=== PATIENT | female | born 1965 ===

== ENCOUNTER 2024-01-13 11:27 | Inpatient (IN) | payer MEDICARE, OTHER ==
[2024-01-13] MEDS ORDERED: fentaNYL (PF) 50 MCG/ML 2 ML AMP ONE (11:31)
[2024-01-13] MEDS ORDERED: HEPARIN SODIUM 1,000 UN/ML (10ML VL) ONE (11:31)
[2024-01-13] MEDS: fentaNYL (PF) 50 MCG/1 ML VIAL IVP ONE (12:06)
[2024-01-13] MEDS: LIDOCAINE 1% INJ 10MG/ML (20 ML MDV) SQ ONE (12:06)
[2024-01-13] MEDS: HEPARIN SODIUM 1,000 UN/ML (10ML VL) IVP ONE (12:08)
[2024-01-13] MEDS: MIDAZOLAM 2 MG/2 ML VIAL IVP ONE (12:10)
[2024-01-13] MEDS: IOPAMIDOL-370 200ML BTL INTRATHECA ONE (12:21)
[2024-01-13] MEDS ORDERED: RX INFO: IV CONTRAST WAS GIVEN 1 EACH MISC MISCELLANE PRN (12:28)
--- NOTE | 2024-01-13 12:36 | P.CARDCATH ---
Date of Procedure: 01/13/24 Description of Procedure: Cardiac Catheterization: The patient is a 58-year-old female with no cardiac history who presented to [facility] with chest discomfort and had evidence of ST segment elevation inferiorly. She was evaluated by Dr. De Leon. Recommendations were made regarding cardiac catheterization, the risks and the complications were discussed with the patient who is in full understanding and agreement. Procedure Description: Patient was brought to public works lab[facility] in fasting semi-sedated state after receiving Fentanyl and Benadryl achieiving moderate conscious sedated state. Using Xylocaine Anesthesia and modified Seldinger technique, a 6-American sheath was introduced in the right radial artery . Subsequently, selective coronary angiography was performed using a 6-American 4 bend right Wyatt guiding catheter and 6 American CLS 3.5 guiding catheter. Multiple views of the coronary artery including hemiaxial views were obtained. The 5 American pigtail catheter was used to cross the aortic valve and LVEDP was calculated. 30 degree DOZIER view of the left ventricle was obtained. Following that, catheter and sheath were removed. Hemostasis was obtained with deployment of vascular band . There was no immediate complication. Patient was returned to room in stable condition. Of note, the patient received a total of 3000 units of intravenous heparin as well as intra-arterial verapamil. Findings: Left main: This is a large size vessel, bifurcating into LAD and left circumfle x, left main has no obstructive disease LAD: This is a large size vessel, giving rise to a large diagonal branch. The LAD tapers down in the distal third. The LAD and its branches have no obstructive disease. Left circumflex: This is a large vessel, nondominant, giving rise to a large obtuse marginal branch. The left circumflex and its branches have no obstructive disease. RCA: This is a large dominant vessel, bifurcating distally to PDA and PLV, the right coronary artery and its branches have no obstructive disease Left Ventriculogram: Performed in the DOZIER view and revealed anteroapical severe hypokinesis to akinesis with an ejection fraction of 40 to 45%, there was no significant mitral regurgitation. Hemodynamics: There was no gradient across the aortic valve, LVEDP was 16-20 mmHg Conclusion: 1. Normal coronary arteries 2. Impaired left ventricle systolic function with segmental wall motion abnormality consistent with Takotsubo syndrome 3. Right dominance 4. Mildly elevated LVEDP Recommendations: The patient will continue on medical therapy, she has been under increased amount of stress recently. Close follow-up of her left ventricle systolic function will be done and depending on her progress further recommendations will be made. The findings and the recommendations were discussed with the patient and the family and they were in full understanding and agreement. Duration of sedation is 18 minutes.
[2024-01-13] MEDS: HEPARIN SODIUM,PORCINE (1 ML) 2,500 UNIT in SODIUM CHLORIDE 0.9% 250 ML IRRIGATION ONE (13:04)
[2024-01-13] MEDS: SODIUM CHLORIDE 0.9% 1,000 ML IV ONE (13:04)
[2024-01-13] MEDS: SODIUM CHLORIDE 0.9% 1,000 ML IV SCH (13:49)
[2024-01-13] MEDS: METOPROLOL TARTRATE 25 MG TAB PO SCH (13:49)
[2024-01-13 15:10] VITALS: RESP 16
--- NOTE | 2024-01-13 18:01 | CA ---
Transthoracic Echo Report Name: Loreta Sanchez Age: 58 Gender: F : 1965 Exam Date: 01/13/2024 15:24 Exam Location: [facility] Ht (in): 64 Wt (lb): 155 Ordering Physician: Nishant Henry MD ([id number]) Attending/Referring Phys: Environmental Geologist Justina Buckner RDCS Procedure CPT: Indications: OK Cardiac Hx: Technical Quality: Contrast 1: Total Dose (mL): Contrast 2: Total Dose (mL): MEASUREMENTS (Male / Female) Normal Values 2D ECHO LV Diastolic Diameter PLAX 4.1 cm 4.2 - 5.9 / 3.9 - 5.3 cm LV Systolic Diameter PLAX 2.9 cm IVS Diastolic Thickness 0.8 cm 0.6 - 1.0 / 0.6 - 0.9 cm LVPW Diastolic Thickness 1.1 cm 0.6 - 1.0 / 0.6 - 0.9 cm LV Relative Wall Thickness 0.5 LV Diastolic Volume MOD BP 130.1 cm??? 67 - 155 / 56 - 104 cm??? LV Systolic Volume MOD BP 75.1 cm??? 22 - 58 / 19 - 49 cm??? LV Ejection Fraction MOD BP 42.3 % >= 55 % LV Diastolic Volume MOD 4C 140.7 cm??? LV Systolic Volume MOD 4C 86.6 cm??? LV Ejection Fraction MOD 4C 38.4 % LV Diastolic Length 4C 7.7 cm LV Systolic Length 4C 6.7 cm LV Diastolic Volume MOD 2C 118.4 cm??? LV Systolic Volume MOD 2C 64.1 cm??? LV Ejection Fraction MOD 2C 45.8 % LV Diastolic Length 2C 7.8 cm LV Systolic Length 2C 6.4 cm LA Volume 64.8 cm??? 18 - 58 / 22 - 52 cm??? LA Volume Index 36.0 cm???/m??? 16 - 28 cm???/m??? M-MODE Aortic Root Diameter MM 3.1 cm LA Systolic Diameter MM 4.2 cm LA Ao Ratio MM 1.4 AV Cusp Separation MM 1.4 cm DOPPLER AV Peak Velocity 149.7 cm/s AV Peak Gradient 9.0 mmHg AV Mean Velocity 106.5 cm/s AV Mean Gradient 5.0 mmHg AV Velocity Time Integral 29.2 cm LVOT Peak Velocity 75.3 cm/s LVOT Peak Gradient 2.3 mmHg LVOT Velocity Time Integral 17.4 cm MV Area PHT 7.4 cm??? Mitral E Point Velocity 97.5 cm/s Mitral A Point Velocity 55.2 cm/s Mitral E to A Ratio 1.8 MV Deceleration Time 102.0 ms MV E' Velocity 7.6 cm/s Mitral E to MV E' Ratio 12.9 TR Peak Velocity 299.5 cm/s TR Peak Gradient 35.9 mmHg Right Ventricular Systolic Press 39.3 mmHg FINDINGS Left Ventricle Mildly increased posterior wall thickness. Moderately increased left ventricular diastolic volume. Severely increased left ventricular systolic volume. Moderately decreased left ventricular ejection fraction. Left ventricular ejection fraction is estimated at 30-35%.Indeterminate diastolic dysfunction. Right Ventricle Normal right ventricular size and function. Mild pulmonary hypertension. Right Atrium Normal right atrial size. Left Atrium Moderately increased left atrial volume. Mildly increased left atrial area. Mitral Valve Structurally normal mitral valve. Mild mitral regurgitation. Aortic Valve Trileaflet aortic valve. No aortic valve stenosis or regurgitation. Tricuspid Valve Structurally normal tricuspid valve. [id number] tricuspid regurgitation. Pulmonic Valve Structurally normal pulmonic valve. Pericardium No pericardial effusion. Aorta Normal size aortic root and proximal ascending aorta. CONCLUSIONS Left ventricular ejection fraction is estimated at 35%. Moderately dilated LV cavity. Mid to distal anteroseptal wall hypokinesia Mild mitral regurgitation. RVSP is elevated and estimated at 40 mmHg Previewed by: Dr Akira Blount (Electronically Signed) Final Date: 13 January 2024 18:00
[2024-01-14 05:47] LABS: Basophils % (A) 0 %; Eosinophils # (A) 0.1 k/uL (0-0.7); Eosinophils % (A) 1 %; HCT 31.7 % (34.0-46.0); Hypochromasia Slight; Lymphocytes # (A) 1.9 k/uL (1.0-4.8); Lymphocytes % (A) 16 %; MCH 28.1 pg (25.0-35.0); MCHC 31.5 g/dL (31.0-37.0); Mean Platelet Volume 8.8; Monocytes # (A) 0.9 k/uL (0-1.0); Monocytes % (A) 7 %; Neutrophils # (A) 9.1 k/uL (1.3-7.7); Neutrophils % (A) 75 %; Platelet Count 263 k/uL (150-450); RBC 3.57 m/uL (3.80-5.40); RDW 14.1 % (11.5-15.5); WBC 12.2 k/uL (3.8-10.6)
[2024-01-14] MEDS: ATORVASTATIN 40 MG TAB PO SCH (08:13)
[2024-01-14] MEDS: ASPIRIN 81 MG PO SCH (08:13)
[2024-01-14] MEDS ORDERED: NALOXONE 0.4 MG/ML 1 ML VIAL IV PRN (09:45)
[2024-01-14] MEDS ORDERED: ONDANSETRON 4 MG/2 ML VIAL IVP PRN (09:45)
[2024-01-14] MEDS: ACETAMINOPHEN TAB 325 MG TAB PO PRN (09:52)
[2024-01-14] MEDS: SODIUM CHLORIDE 0.9% 1,000 ML IV SCH (09:55)
[2024-01-14 10:40] LABS: Basophils % (A) 0 %; Eosinophils % (A) 0 %; HCT 31.2 % (34.0-46.0); HGB 9.9 gm/dL (11.4-16.0); Lymphocytes # (A) 1.4 k/uL (1.0-4.8); Lymphocytes % (A) 10 %; MCH 27.9 pg (25.0-35.0); MCHC 31.7 g/dL (31.0-37.0); Mean Platelet Volume 7.9; Monocytes # (A) 0.9 k/uL (0-1.0); Monocytes % (A) 6 %; Neutrophils # (A) 11.6 k/uL (1.3-7.7); Neutrophils % (A) 82 %; Platelet Count 272 k/uL (150-450); RBC 3.55 m/uL (3.80-5.40); RDW 14.1 % (11.5-15.5)
[2024-01-14 10:57] LABS: ALT 16 U/L (4-34); AST 51 U/L (14-36); African American GFR (CKD) >90 (>60 ml/min/1.73 sqM); Albumin 3.4 g/dL (3.5-5.0); Alkaline Phosphatase 109 U/L (38-126); Anion Gap 9 mmol/L; Blood Urea Nitrogen 9 mg/dL (7-17); Calcium 8.4 mg/dL (8.4-10.2); Carbon Dioxide 21 mmol/L (22-30); Chloride 107 mmol/L (98-107); Glucose 108 mg/dL (74-99); Non-African American GFR(CKD) 88 (>60 ml/min/1.73 sqM); Potassium 3.7 mmol/L (3.5-5.1); Sodium 137 mmol/L (137-145); Total Bilirubin 0.8 mg/dL (0.2-1.3)
--- NOTE | 2024-01-14 11:13 | XR ---
EXAMINATION TYPE: XR chest 2V DATE OF EXAM: 01/14/2024 COMPARISON: None HISTORY: 58 year-old female fever TECHNIQUE: PA and lateral views FINDINGS: Heart borderline in size. Aorta within normal limits. Diffuse medial reticular opacities. No karen co nsolidation. Possible trace effusions on the lateral view. Questionable nodule projecting in the righ t upper lobe and lingula. IMPRESSION: 1. Borderline cardiomegaly. Diffuse medium interstitial opacities and possible trace effusions on the lateral view. Consider atypical pneumonias, interstitial pneumonitis, or CHF with interstitial pulmo nary edema. 2. Superimposition artifact versus underlying nodule right upper lobe and lingula. Follow-up after tr eatment to assess for clearance.
--- NOTE | 2024-01-14 12:34 | P.PN ---
Subjective Progress Note Date: 01/14/24 This is a 58-year-old female with no previous cardiac history and presented to [facility] with chest pain and had evidence of ST segment elevation inferiorly. She was evaluated initially by Dr. De Leon it was determined the patient required cardiac catheterization. Patient was transferred to [facility] and underwent cardiac catheterization with Dr. Henry yesterday which revealed normal coronary arteries. Impaired left ventricular systolic function with segmental wall motion abnormality consistent with Takotsubo syndrome. Right dominance. Mildly elevated LVEDP. Patient does state that she has been under a great deal of stress lately within her family and financial issues recent move and passing of her dog. She denies having any chest pain shortness of breath no cough or fever going on at this time. Patient does have a documented temperature of 102 this morning. Heart rate 115, blood pressure 123/78. Patient has been started on aspirin, atorvastatin, lisinopril and Lopressor 25 mg twice daily. Results of echocardiogram discussed with the patient. Echocardiogram reveals EF of 35%, moderately dilated LV cavity. Mild to distal anterior septal wall hypokinesia. Mild mitral digitation. RVSP 40 mmHg. Physical examination: Gen: This is a 58-year-old female in no acute distress VS: reviewed HEENT: Head is atraumatic, normocephalic. Pupils equal, round. Sclerae is anicteric. NECK: Supple. No JVD. LUNGS: Clear to auscultation. No wheezes or rhonchi. No intercostal retractions. HEART: Regular rate and rhythm. No murmur. ABDOMEN: Soft No tenderness. EXTREMITIES: No pedal edema. No calf tenderness. NEUROLOGICAL: Patient is awake, alert and oriented x3. Assessment: Takotsubo syndrome Normal coronary arteries Seasonal allergies Plan: Continue patient on aspirin 81 mg daily, atorvastatin 40 mg daily, lisinopril 2.5 mg twice daily, Lopressor 25 mg twice daily. Patient is cleared from cardiology for discharge, no plan for any further c ardiac workup. Noted the patient did have a temperature of 102 for attending to address. Nurse practitioner note has been reviewed, I agree with documented findings and plan of care. Patient was seen and examined. Objective - Vital Signs Vital signs: Vital Signs Temp 102 F H 01/14/24 08:10 Pulse 115 H 01/14/24 08:10 Resp 16 01/14/24 08:10 BP 123/78 01/14/24 08:10 Pulse Ox 92 L 01/14/24 08:10 FiO2 Intake & Output 01/13/24 01/14/24 01/14/24 18:59 06:59 18:59 Intake Total 890 535 Balance 890 535 Weight 70.45 kg Intake: IV 650 10 Invasive Line 2 10 Intake, IV Titration 525 Amount Sodium Chloride 0.9% 1, 525 000 ml @ 75 mls/hr IV . [id number] [facility] Rx#:[id number] Oral 240 Other: # Voids 1 2 - Labs CBC & Chem 7: 01/14/24 10:07 01/14/24 10:07 Labs: Abnormal Lab Results - Last 24 Hours (Table) 01/14/24 01/14/24 01/14/24 Range/Units 05:00 10:07 10:07 WBC 12.2 H 14.0 H (3.8-10.6) k/uL RBC 3.57 L 3.55 L (3.80-5.40) m/uL Hgb 10.0 L 9.9 L (11.4-16.0) gm/dL Hct 31.7 L 31.2 L (34.0-46.0) % Neutrophils # 9.1 H 11.6 H (1.3-7.7) k/uL Carbon Dioxide 21 L (22-30) mmol/L Glucose 108 H (74-99) mg/dL AST 51 H (14-36) U/L C-Reactive Protein 9.0 H (<1.0) mg/dL Total Protein 6.0 L (6.3-8.2) g/dL Albumin 3.4 L (3.5-5.0) g/dL
--- NOTE | 2024-01-14 12:45 | P.HPIM ---
History of Present Illness H&P Date: 01/14/24 History of present illness; patient is a 58-year-old lady with a transfer from [facility] for emergent cardiac cath. Patient initially presented to [facility] for chest pain. Cardiology reviewed the patient today and recommended emergent cardiac cath because of ST segment elevation inferior leads. Patient was transferred to [facility] and underwent emergent cardiac cath. Cardiac cath done showed Normal coronary arteries,Impaired left ventricle systolic function with segmental wall motion abnormality consistent with Takotsubo syndrome. Postcardiac cath patient was admitted to medicine service. Patient had been spiking fevers with Tmax of 102. Patient is complaining of chills. Denies any nausea or vomiting. There is no complaint of chest pain or shortness of breath. REVIEW OF SYSTEMS: CONSTITUTIONAL: As mentioned above HEENT: No recent visual problems or hearing problems. Denied any sore throat. CARDIOVASCULAR: No chest pain, orthopnea, PND, no palpitations, no syncope. PULMONARY: No shortness of breath, no cough, no hemoptysis. GASTROINTESTINAL: No diarrhea, no nausea, no vomiting, no abdominal pain. NEUROLOGICAL: No headaches, no weakness, no numbness. HEMATOLOGICAL: Denies any bleeding or petechiae. GENITOURINARY: Denies any burning micturition, frequency, or urgency. MUSCULOSKELETAL/RHEUMATOLOGICAL: Denies any joint pain, swelling, or any muscle pain. ENDOCRINE: Denies any polyuria or polydipsia. The rest of the 14-point review of systems is negative. PHYSICAL EXAMINATION: GENERAL: The patient is alert and oriented x3, not in any acute distress. Well developed, well nourished. HEENT: Pupils are round and equally reacting to light. EOMI. No scleral icterus. No conjunctival pallor. Normocephalic, atraumatic. No pharyngeal erythema. No thyromegaly. CARDIOVASCULAR: S1 and S2 present. No murmurs, rubs, or gallops. PULMONARY: Chest is clear to auscultation, no wheezing or crackles. ABDOMEN: Soft, nontender, nondistended, normoactive bowel sounds. No palpable organomegaly. MUSCULOSKELETAL: No joint swelling or deformity. EXTREMITIES: No cyanosis, clubbing, or pedal edema. NEUROLOGICAL: Gross neurological examination did not reveal any focal deficits. SKIN: No rashes. Assessment and plan Chest pain ST elevation MO Takotsubo syndrome Fever of unknown origin Monitor vital signs Monitor CBC Monitor CMP Continue telemetry monitoring S/p cardiac cath showing Normal coronary arteries,Impaired left ventricle systolic function with segmental wall motion abnormality consistent with Takotsubo syndrome 2D echo ordered Ordered blood cultures Ordered chest x-ray Ordered UA Continue antibiotics Follow-up on cardiology recommendation ID consulted Labs and medication were reviewed.. Continue same treatment. Continue with symptomatic treatment. Resume home medication. Monitor labs and vitals. DVT and GI prophylaxis. Further recommendations as per clinical course of the patient Dictation was produced using [employer] dictation software. please excuse any grammatical, word or spelling errors. Past Medical History History of Any Multi-Drug Resistant Organisms: None Reported Past Psychological History: No Psychological Hx Reported Smoking Status: Former smoker Past Alcohol Use History: Occasional Medications and Allergies Home Medications Medication Instructions Recorded Confirmed Type Loratadine [Claritin] 10 mg PO DAILY 01/13/24 01/13/24 History Magnesium Glycinate 500mg 500 mg PO HS 01/13/24 01/13/24 History Multivitamins, Thera [Multivitamin 1 tab PO DAILY 01/13/24 01/13/24 History (formulary)] Turmeric Root Extract [Turmeric] 500 mg PO DAILY 01/13/24 01/13/24 History Allergies Allergy/AdvReac Type Severity Reaction Status Date / Time No Known Allergies Allergy Verified 01/13/24 12:58 Physical Exam Vitals: Vital Signs Temp Pulse Pulse Resp BP Pulse Ox 01/14/24 08:10 102 F H 115 H 16 123/78 92 L 01/14/24 03:42 98.2 F 91 16 110/66 95 01/13/24 23:15 90 16 104/65 95 01/13/24 20:00 98.4 F 101 H 16 132/83 97 01/13/24 16:00 98.4 F 89 16 124/81 97 01/13/24 15:08 98.4 F 89 16 124/81 97 01/13/24 13:53 99.4 F 84 18 124/82 96 01/13/24 12:58 101 H 18 137/86 95 Intake and Output 01/13/24 01/14/24 01/14/24 22:59 06:59 14:59 Intake Total 10 525 Balance 10 525 Intake: IV 10 Invasive Line 2 10 Intake, IV Titration 525 Amount Sodium Chloride 0.9% 1, 525 000 ml @ 75 mls/hr IV . [id number] HE Rx#:[id number] Other: # Voids 1 2 Results CBC & Chem 7: 01/14/24 10:07 01/14/24 10:07 Labs: Abnormal Lab Results - Last 24 Hours (Table) 01/14/24 Range/Units 05:00 WBC 12.2 H (3.8-10.6) k/uL RBC 3.57 L (3.80-5.40) m/uL Hgb 10.0 L (11.4-16.0) gm/dL Hct 31.7 L (34.0-46.0) % Neutrophils # 9.1 H (1.3-7.7) k/uL Thrombosis Risk Factor Assmnt - Choose All That Apply Each Factor Represents 1 point: Age 41-60 years, Obesity (BMI >25) Thrombosis Risk Factor Assessment Total Risk Factor Score: 2 Thrombosis Risk Factor Assessment Level: Low Risk
[2024-01-14 13:11] LABS: Appearance,Urine Clear (Clear); Bilirubin,Urine Negative (Negative); Blood,Urine Negative (Negative); Color,Urine Colorless; Glucose,Urine (UA) Negative (Negative); Ketones,Urine Negative (Negative); Leukocyte Esterase,Urine Negative (Negative); Nitrite,Urine Negative (Negative); PH, Urine 6.5 (5.0-8.0); Protein,Urine Negative (Negative); Specific Gravity,Urine 1.001 (1.001-1.035); Urobilinogen,Urine <2.0 mg/dL (<2.0)
[2024-01-14 14:26] LABS: African American GFR (CKD) >90 (>60 ml/min/1.73 sqM); Anion Gap 6 mmol/L; Blood Urea Nitrogen 10 mg/dL (7-17); Calcium 8.3 mg/dL (8.4-10.2); Carbon Dioxide 24 mmol/L (22-30); Chloride 109 mmol/L (98-107); Glucose 108 mg/dL (74-99); Non-African American GFR(CKD) 90 (>60 ml/min/1.73 sqM); Sodium 139 mmol/L (137-145)
[2024-01-14] MEDS: AZITHROMYCIN 500 MG in SODIUM CHLORIDE 0.9% 250 ML IVPB SCH (16:46)
[2024-01-14 23:13] LABS: Erythrocyte Sedimentation Rate 43 mm/Hr (0-30)
[2024-01-15 08:34] LABS: ALT 16 U/L (4-34); AST 42 U/L (14-36); African American GFR (CKD) >90 (>60 ml/min/1.73 sqM); Albumin 2.8 g/dL (3.5-5.0); Alkaline Phosphatase 94 U/L (38-126); Anion Gap 7 mmol/L; Blood Urea Nitrogen 12 mg/dL (7-17); Calcium 7.8 mg/dL (8.4-10.2); Carbon Dioxide 22 mmol/L (22-30); Chloride 111 mmol/L (98-107); Glucose 86 mg/dL (74-99); Non-African American GFR(CKD) >90 (>60 ml/min/1.73 sqM); Potassium 3.6 mmol/L (3.5-5.1); Sodium 140 mmol/L (137-145); Total Bilirubin 0.5 mg/dL (0.2-1.3); Total Protein 5.3 g/dL (6.3-8.2)
[2024-01-15 08:41] LABS: Basophils % (A) 0 %; Eosinophils # (A) 0.1 k/uL (0-0.7); Eosinophils % (A) 1 %; HCT 27.3 % (34.0-46.0); HGB 8.5 gm/dL (11.4-16.0); Hypochromasia Slight; Lymphocytes # (A) 2.1 k/uL (1.0-4.8); Lymphocytes % (A) 20 %; MCH 27.8 pg (25.0-35.0); MCHC 31.1 g/dL (31.0-37.0); MCV 89.6 fL (80.0-100.0); Mean Platelet Volume 8.3; Monocytes # (A) 0.8 k/uL (0-1.0); Monocytes % (A) 8 %; Neutrophils # (A) 7.5 k/uL (1.3-7.7); Neutrophils % (A) 70 %; Platelet Count 234 k/uL (150-450); RBC 3.04 m/uL (3.80-5.40); RDW 14.2 % (11.5-15.5); WBC 10.7 k/uL (3.8-10.6)
--- NOTE | 2024-01-15 10:19 | P.CONS ---
History of Present Illness - Reason for Consult Consult date: 01/14/24 Fever of unknown origin Requesting physician: John Smith - Chief Complaint Chest pain x 1 day - History of Present Illness Patient is a 58-year-old female former smoker but no significant past medical history recently moved from [place] about 6 months ago presented to the [facility] with chest discomfort and evidence of ST segment elevation for the patient was transferred to [facility] the patient is status post cardiac cath did have evidence of normal coronary arteries but impaired left ventricular systolic function consistent with Takotsubo syndrome patient did not have any fever or any chills on presentation to the hospital however the patient did spike a fever of 102 F this morning prompting this consultation patient was not tachycardic hypotensive or hypoxic patient denies any rigors or chills with that episode of fever did mention she felt hot denies having any headache did have some postnasal drip from her [place] [facility]ies but no worsening symptoms patient also have a mild cough dry in nature no pleuritic chest pain and the patient initial chest pain has resolved denies having any nausea no vomiting no abdominal pain no diarrhea no urinary symptoms no joint swelling no open wound patient did have a white count of 14,000 with a left shift creatinine 0.74 troponin is 5.03 urine has been negative patient did have a chest x-ray shows borderline cardiomegaly diffuse medium interstitial opacities and possible trace effusion on the lateral view consider atypical pneumonia's interstitial pneumonitis or CHF with interstitial pulmonary edema Review of Systems Positive point and negatives has been mentioned in the HPI, complete review of systems was performed and all other systems are negative Past Medical History History of Any Multi-Drug Resistant Organisms: None Reported Past Psychological History: No Psychological Hx Reported Smoking Status: Former smoker Past Alcohol Use History: Occasional Medications and Allergies Home Medications Medication Instructions Recorded Confirmed Type Loratadine [Claritin] 10 mg PO DAILY 01/13/24 01/13/24 History Magnesium Glycinate 500mg 500 mg PO HS 01/13/24 01/13/24 History Multivitamins, Thera [Multivitamin 1 tab PO DAILY 01/13/24 01/13/24 History (formulary)] Turmeric Root Extract [Turmeric] 500 mg PO DAILY 01/13/24 01/13/24 History Allergies Allergy/AdvReac Type Severity Reaction Status Date / Time No Known Allergies Allergy Verified 01/13/24 12:58 Physical Exam Vitals: Vital Signs Temp Pulse Pulse Resp BP Pulse Ox 01/14/24 08:10 102 F H 115 H 16 123/78 92 L 01/14/24 03:42 98.2 F 91 16 110/66 95 01/13/24 23:15 90 16 104/65 95 01/13/24 20:00 98.4 F 101 H 16 132/83 97 01/13/24 16:00 98.4 F 89 16 124/81 97 01/13/24 15:08 98.4 F 89 16 124/81 97 01/13/24 13:53 99.4 F 84 18 124/82 96 01/13/24 12:58 101 H 18 137/86 95 Intake and Output 01/13/24 01/14/24 01/14/24 22:59 06:59 14:59 Intake Total 10 525 Balance 10 525 Intake: IV 10 Invasive Line 2 10 Intake, IV Titration 525 Amount Sodium Chloride 0.9% 1, 525 000 ml @ 75 mls/hr IV . [id number] [facility] Rx#:[id number] Other: # Voids 1 2 GENERAL DESCRIPTION: Middle-aged female lying in bed, no distress. No tachypnea or accessory muscle of respiration use. HEENT: Shows Pallor , no scleral icterus. Oral mucous membrane is dry. No pharyngeal erythema or thrush NECK: Trachea central, no thyromegaly. LUNGS: Unlabored breathing. Clear to auscultation anteriorly. No wheeze or crackle. HEART: S1, S2, regular rate and rhythm. No loud murmur ABDOMEN: Soft, no tenderness , guarding or rigidity, no organomegaly EXTREMITIES: No edema of feet. SKIN: No rash, no masses palpable. NEUROLOGICAL: The patient is awake, alert, oriented x3, mood and affect normal. Results CBC & Chem 7: 01/15/24 06:30 01/15/24 06:30 Labs: Abnormal Lab Results - Last 24 Hours (Table) 01/14/24 01/14/24 01/14/24 Range/Units 05:00 10:07 10:07 WBC 12.2 H 14.0 H (3.8-10.6) k/uL RBC 3.57 L 3.55 L (3.80-5.40) m/uL Hgb 10.0 L 9.9 L (11.4-16.0) gm/dL Hct 31.7 L 31.2 L (34.0-46.0) % Neutrophils # 9.1 H 11.6 H (1.3-7.7) k/uL Carbon Dioxide 21 L (22-30) mmol/L Glucose 108 H (74-99) mg/dL AST 51 H (14-36) U/L C-Reactive Protein 9.0 H (<1.0) mg/dL Total Protein 6.0 L (6.3-8.2) g/dL Albumin 3.4 L (3.5-5.0) g/dL Assessment and Plan (1) Fever Current Visit: Yes Status: Acute Code(s): R50.9 - FEVER, UNSPECIFIED SNOMED Code(s): 997230976 Plan: 1patient with an episode of fever and this patient to the hospital with chest pain s/p cardiac cath with normal coronaries did have evidence of Takotsubo syndrome,, fever has been seen in patient with Takotsubo syndrome and could be related to weight as patient currently do not have any obvious focus of inf ection however will complete the workup by ordering tests for possible infectious etiologies keeping in mind abnormal chest x-ray which could be related to Takotsubo syndrome would like to rule out atypical pneumonia 2-we will check influenza COVID and RSV PCR also check urine for Legionella antigen 3-check a CRP and a procalcitonin level 4-continue empiric Rocephin and Zithromax while waiting for further workup to be completed Will follow on a clinical condition and cultures to further adjust medication if needed Thank you for this consultation will follow this patient along with you Time with Patient: Greater than 30
[2024-01-15 10:36] LABS: Chol/HDL Ratio 4.54 Ratio; LDL Cholesterol,Calculated 98.3 mg/dL (0.0-131.0); VLDL Calculation 17.86 mg/dL (5.00-40.00)
--- NOTE | 2024-01-15 10:55 | P.PN ---
Subjective Progress Note Date: 01/15/24 This is a 58-year-old female with no previous cardiac history and presented to [facility] with chest pain and had evidence of ST segment elevation inferiorly. She was evaluated initially by Dr. De Leon it was determined the patient required cardiac catheterization. Patient was transferred to [facility] and underwent cardiac catheterization with Dr. Henry yesterday which revealed normal coronary arteries. Impaired left ventricular systolic function with segmental wall motion abnormality consistent with Takotsubo syndrome. Right dominance. Mildly elevated LVEDP. Patient does state that she has been under a great deal of stress lately within her family and financial issues recent move and passing of her dog. She denies having any chest pain shortness of breath no cough or fever going on at this time. Patient does have a documented temperature of 102 this morning. Heart rate 115, blood pressure 123/78. Patient has been started on aspirin, atorvastatin, lisinopril and Lopressor 25 mg twice daily. Results of echocardiogram discussed with the patient. Echocardiogram reveals EF of 35%, moderately dilated LV cavity. Mild to distal anterior septal wall hypokinesia. Mild mitral digitation. RVSP 40 mmHg. 01/14 Temperature max 99.7 in the past 24 hours. Heart rate 100, pulse ox 95% on room air, blood pressure 121/75. WBC 10.7, hemoglobin 8.5. Sodium 140, potassium 3.6, BUN 12 and creatinine 0.71. Chest x-ray reveals borderline cardiomegaly. Diffuse interstitial opacities possible trace effusions on lateral view. Consider atypical pneumonias, interstitial pneumonitis or CHF with interstitial pulmonary edema. Superimposition artifact versus underlying nodule right upper lobe and lingula. Patient has been started on azithromycin IV and Rocephin IV. Patient denies any chest pain/pressure. No cough. No bleeding and no black stools - ok to continue aspirin. Physical examination: Gen: This is a 58-year-old female in no acute distress VS: reviewed HEENT: Head is atraumatic, normocephalic. Pupils equal, round. Sclerae is anicteric. NECK: Supple. No JVD. LUNGS: Clear to auscultation. No wheezes or rhonchi. No intercostal retraction s. HEART: Regular rate and rhythm. No murmur. ABDOMEN: Soft No tenderness. EXTREMITIES: No pedal edema. No calf tenderness. NEUROLOGICAL: Patient is awake, alert and oriented x3. Assessment: Takotsubo syndrome Normal coronary arteries Seasonal allergies Pneumonia Plan: Continue patient on aspirin 81 mg daily, atorvastatin 40 mg daily, lisinopril 2.5 mg twice daily, Lopressor 25 mg twice daily. Patient is cleared from cardiology for discharge, no plan for any further cardiac workup. Nurse practitioner note has been reviewed, I agree with documented findings and plan of care. Patient was seen and examined. Objective - Vital Signs Vital signs: Vital Signs Temp 98.2 F 01/15/24 08:35 Pulse 100 01/15/24 08:35 Resp 16 01/15/24 08:35 BP 121/75 01/15/24 08:35 Pulse Ox 95 01/15/24 08:35 FiO2 Intake & Output 01/14/24 01/15/24 01/15/24 18:59 06:59 18:59 Intake Total 340 545 128 Balance 340 545 128 Intake: IV 20 10 Invasive Line 2 20 10 Intake, IV Titration 525 Amount Sodium Chloride 0.9% 1, 525 000 ml @ 75 mls/hr IV . [id number] PENDING SALE TO [facility] Rx#:[id number] Oral 340 118 Other: # Voids 2 - Labs CBC & Chem 7: 01/15/24 06:30 01/15/24 06:30 Labs: Abnormal Lab Results - Last 24 Hours (Table) 01/14/24 01/14/24 01/14/24 Range/Units 10:07 10:07 13:50 WBC 14.0 H (3.8-10.6) k/uL RBC 3.55 L (3.80-5.40) m/uL Hgb 9.9 L (11.4-16.0) gm/dL Hct 31.2 L (34.0-46.0) % Neutrophils # 11.6 H (1.3-7.7) k/uL ESR 43 H (0-30) mm/Hr Chloride 109 H (98-107) mmol/L Carbon Dioxide 21 L (22-30) mmol/L Glucose 108 H 108 H (74-99) mg/dL Calcium 8.3 L (8.4-10.2) mg/dL AST 51 H (14-36) U/L Troponin I (0.000-0.034) ng/mL C-Reactive Protein 9.0 H (<1.0) mg/dL Total Protein 6.0 L (6.3-8.2) g/dL Albumin 3.4 L (3.5-5.0) g/dL 01/14/24 01/15/24 01/15/24 Range/Units 13:50 06:30 06:30 WBC 10.7 H (3.8-10.6) k/uL RBC 3.04 L (3.80-5.40) m/uL Hgb 8.5 L (11.4-16.0) gm/dL Hct 27.3 L (34.0-46.0) % Neutrophils # (1.3-7.7) k/uL ESR (0-30) mm/Hr Chloride 111 H (98-107) mmol/L Carbon Dioxide (22-30) mmol/L Glucose (74-99) mg/dL Calcium 7.8 L (8.4-10.2) mg/dL AST 42 H (14-36) U/L Troponin I 5.030 H* (0.000-0.034) ng/mL C-Reactive Protein (<1.0) mg/dL Total Protein 5.3 L (6.3-8.2) g/dL Albumin 2.8 L (3.5-5.0) g/dL
--- NOTE | 2024-01-15 13:41 | P.PN ---
Subjective Progress Note Date: 01/15/24 patient is a 58-year-old lady with a transfer from [facility] for emergent cardiac cath. Patient initially presented to [facility] for chest pain. Cardiology reviewed the patient today and recommended emergent cardiac cath because of ST segment elevation inferior leads. Patient was transferred to [facility] and underwent emergent cardiac cath. Cardiac cath done showed Normal coronary arteries,Impaired left ventricle systolic function with segmental wall motion abnormality consistent with Takotsubo syndrome. Postcardiac cath patient was admitted to medicine service. Patient had been spiking fevers with Tmax of 102. Patient is complaining of chills. Denies any nausea or vomiting. There is no complaint of chest pain or shortness of breath. 01/14. Patient seen and examined. Patient had low-grade fevers overnight. REVIEW OF SYSTEMS: CONSTITUTIONAL: No fever, no malaise,. CARDIOVASCULAR: No chest pain, no palpitations, no syncope. PULMONARY: No shortness of breath, no cough, GASTROINTESTINAL: No diarrhea, no nausea, no vomiting, no abdominal pain. NEUROLOGICAL: No headaches, no weakness, PHYSICAL EXAMINATION: GENERAL: The patient is alert and oriented x3, not in any acute distress. Well developed, well nourished. HEENT: Pupils are round and equally reacting to light. EOMI. No scleral icterus. No conjunctival pallor. Normocephalic, atraumatic. No pharyngeal erythema. No thyromegaly. CARDIOVASCULAR: S1 and S2 present. No murmurs, rubs, or gallops. PULMONARY: Chest is clear to auscultation, no wheezing or crackles. ABDOMEN: Soft, nontender, nondistended, normoactive bowel sounds. No palpable organomegaly. MUSCULOSKELETAL: No joint swelling or deformity. EXTREMITIES: No cyanosis, clubbing, or pedal edema. NEUROLOGICAL: Gross neurological examination did not reveal any focal deficits. SKIN: No rashes. Assessment and plan Chest pain ST elevation [place] Takotsubo syndrome Bacterial pneumonia Monitor vital signs Monitor CBC Monitor CMP Continue telemetry monitoring S/p cardiac cath showing Normal coronary arteries,Impaired left ventricle systolic function with segmental wall motion abnormality consistent with Takotsubo syndrome Follow-up on blood cultures Continue IV Rocephin and azithromycin Continue aspirin, Lipitor, Lopressor Follow-up on cardiology recommendation ID consulted Labs and medication were reviewed.. Continue same treatment. Continue with symptomatic treatment. Resume home medication. Monitor labs and vitals. DVT and GI prophylaxis. Further recommendations as per clinical course of the [facility] Dictation was produced using [employer] dictation software. please excuse any grammatical, word or spelling errors. Objective - Vital Signs Vital signs: Vital Signs Temp 98.2 F 01/15/24 08:35 Pulse 100 01/15/24 08:35 Resp 16 01/15/24 08:35 BP 121/75 01/15/24 08:35 Pulse Ox 95 01/15/24 08:35 FiO2 Intake & Output 01/14/24 01/15/24 01/15/24 18:59 06:59 18:59 Intake Total 340 545 128 Balance 340 545 128 Intake: IV 20 10 Invasive Line 2 20 10 Intake, IV Titration 525 Amount Sodium Chloride 0.9% 1, 525 000 ml @ 75 mls/hr IV . [id number] HE Rx#:[id number] Oral 340 118 Other: # Voids 2 - Labs CBC & Chem 7: 01/15/24 06:30 01/15/24 06:30 Labs: Abnormal Lab Results - Last 24 Hours (Table) 01/14/24 01/14/24 01/14/24 Range/Units 10:07 10:07 13:50 WBC 14.0 H (3.8-10.6) k/uL RBC 3.55 L (3.80-5.40) m/uL Hgb 9.9 L (11.4-16.0) gm/dL Hct 31.2 L (34.0-46.0) % Neutrophils # 11.6 H (1.3-7.7) k/uL ESR 43 H (0-30) mm/Hr Chloride 109 H (98-107) mmol/L Carbon Dioxide 21 L (22-30) mmol/L Glucose 108 H 108 H (74-99) mg/dL Calcium 8.3 L (8.4-10.2) mg/dL AST 51 H (14-36) U/L Troponin I (0.000-0.034) ng/mL C-Reactive Protein 9.0 H (<1.0) mg/dL Total Protein 6.0 L (6.3-8.2) g/dL Albumin 3.4 L (3.5-5.0) g/dL 01/14/24 01/15/24 01/15/24 Range/Units 13:50 06:30 06:30 WBC 10.7 H (3.8-10.6) k/uL RBC 3.04 L (3.80-5.40) m/uL Hgb 8.5 L (11.4-16.0) gm/dL Hct 27.3 L (34.0-46.0) % Neutrophils # (1.3-7.7) k/uL ESR (0-30) mm/Hr Chloride 111 H (98-107) mmol/L Carbon Dioxide (22-30) mmol/L Glucose (74-99) mg/dL Calcium 7.8 L (8.4-10.2) mg/dL AST 42 H (14-36) U/L Troponin I 5.030 H* (0.000-0.034) ng/mL C-Reactive Protein (<1.0) mg/dL Total Protein 5.3 L (6.3-8.2) g/dL Albumin 2.8 L (3.5-5.0) g/dL
--- NOTE | 2024-01-15 15:57 | P.PN ---
Subjective Progress Note Date: 01/15/24 Principal diagnosis: Reason for follow-up is fever Patient is a 58-year-old female former smoker but no significant past medical history recently moved from [place] about 6 months ago presented to the [facility] with chest discomfort and evidence of ST segment elevation for the patient was transferred to [facility] the patient is status post cardiac cath did have evidence of normal coronary arteries but impaired left ventricular systolic function consistent with Takotsubo syndrome, patient spiked a fever prompting this consultation. On today's evaluation that is 01/15/2024, Patient did have a low-grade fever of 99.7 at 3 AM the patient is is afebrile since then, patient is currently on room air and denies having any shortness of breath, the patient denies any chest pain or cough, the patient denies any nausea vomiting did not have any abdominal pain and no diarrhea, patient mention feeling better. Patient white count is 10.7, creatinine 0.5 Pro-Steven 0.09 Objective - Vital Signs Vital signs: Vital Signs Temp 98.3 F 01/15/24 11:06 Pulse 87 01/15/24 13:59 Resp 16 01/15/24 11:06 BP 104/70 01/15/24 11:06 Pulse Ox 96 01/15/24 11:06 FiO2 Intake & Output 01/14/24 01/15/24 01/15/24 18:59 06:59 18:59 Intake Total 340 545 256 Balance 340 545 256 Intake: IV 20 20 Invasive Line 2 20 20 Intake, IV Titration 525 Amount Sodium Chloride 0.9% 1, 525 000 ml @ 75 mls/hr IV . [id number] HE Rx#:[id number] Oral 340 236 Other: # Voids 2 1 # Bowel Movements 1 - Exam GENERAL DESCRIPTION: Middle-aged female up in bed in no distress RESPIRATORY SYSTEM: Unlabored breathing , decreased breath sounds at bases HEART: S1 S2 regular rate and rhythm , ABDOMEN: Soft , no tenderness EXTREMITIES: No edema feet - Labs CBC & Chem 7: 01/15/24 06:30 01/15/24 06:30 Labs: Abnormal Lab Results - Last 24 Hours (Table) 01/14/24 01/14/24 01/15/24 Range/Units 10:07 13:50 06: WBC 10.7 H (3.8-10.6) k/uL RBC 3.04 L (3.80-5.40) m/uL Hgb 8.5 L (11.4-16.0) gm/dL Hct 27.3 L (34.0-46.0) % ESR 43 H (0-30) mm/Hr Chloride (98-107) mmol/L Calcium (8.4-10.2) mg/dL AST (14-36) U/L Total Protein (6.3-8.2) g/dL Albumin (3.5-5.0) g/dL HDL Cholesterol 32.80 L (40.00-60.00) mg/dL 01/15/24 Range/Units 06:30 WBC (3.8-10.6) k/uL RBC (3.80-5.40) m/uL Hgb (11.4-16.0) gm/dL Hct (34.0-46.0) % ESR (0-30) mm/Hr Chloride 111 H (98-107) mmol/L Calcium 7.8 L (8.4-10.2) mg/dL AST 42 H (14-36) U/L Total Protein 5.3 L (6.3-8.2) g/dL Albumin 2.8 L (3.5-5.0) g/dL HDL Cholesterol (40.00-60.00) mg/dL Assessment and Plan (1) Fever Current Visit: Yes Status: Acute Code(s): R50.9 - FEVER, UNSPECIFIED SNOMED Code(s): 596264952 Plan: 1patient with an episode of fever and this patient to the hospital with chest pain s/p cardiac cath with normal coronaries did have evidence of Takotsubo syndrome,, fever has been seen in patient with Takotsubo syndrome and could be related to weight as patient currently do not have any obvious focus of infection, patient did have a negative influenza RSV and COVID testing urine for Legionella negative and did have a normal procalcitonin 2-patient feels more like related to her Takotsubo syndrome on empiric Rocephin and follow-up on blood culture, questions were answered Thank you for this consultation will follow this patient along with you Time with Patient: Less than 30
[2024-01-16] MEDS: hydrOXYzine HCL 25 MG TAB PO PRN (00:31)
[2024-01-16] MEDS: MELATONIN 3 MG TABLET PO PRN (00:32)
[2024-01-16] MEDS: HYDROcodone/APAP 5-325MG 1 EACH TAB PO PRN (08:36)
[2024-01-16 08:48] VITALS: BP 119/60; PULSE 98; TEMP 99.1
--- NOTE | 2024-01-16 12:58 | P.PN ---
Subjective Progress Note Date: 01/16/24 This is a 58-year-old female with no previous cardiac history and presented to [facility] with chest pain and had evidence of ST segment elevation inferiorly. She was evaluated initially by Dr. De Leon it was determined the patient required cardiac catheterization. Patient was transferred to [facility] and underwent cardiac catheterization with Dr. Henry yesterday which revealed normal coronary arteries. Impaired left ventricular systolic function with segmental wall motion abnormality consistent with Takotsubo syndrome. Right dominance. Mildly elevated LVEDP. Patient does state that she has been under a great deal of stress lately within her family and financial issues recent move and passing of her dog. She denies having any chest pain shortness of breath no cough or fever going on at this time. Patient does have a documented temperature of 102 this morning. Heart rate 115, blood pressure 123/78. Patient has been started on aspirin, atorvastatin, lisinopril and Lopressor 25 mg twice daily. Results of echocardiogram discussed with the patient. Echocardiogram reveals EF of 35%, moderately dilated LV cavity. Mild to distal anterior septal wall hypokinesia. Mild mitral digitation. RVSP 40 mmHg. 01/14 Temperature max 99.7 in the past 24 hours. Heart rate 100, pulse ox 95% on room air, blood pressure 121/75. WBC 10.7, hemoglobin 8.5. Sodium 140, potassium 3.6, BUN 12 and creatinine 0.71. Chest x-ray reveals borderline cardiomegaly. Diffuse interstitial opacities possible trace effusions on lateral view. Consider atypical pneumonias, interstitial pneumonitis or CHF with interstitial pulmonary edema. Superimposition artifact versus underlying nodule right upper lobe and lingula. Patient has been started on azithromycin IV and Rocephin IV. Patient denies any chest pain/pressure. No cough. No bleeding and no black stools - ok to continue aspirin. 01/15 Patient denies any further episodes of fevers or high temperatures. She denies cough. She denies any recent viral infection. Blood pressure 119/60, heart rate 98, pulse ox 95% on room air. Physical examination: Gen: This is a 58-year-old female in no acute distress VS: reviewed HEENT: Head is atraumatic, normocephalic. Pupils equal, round. Sclerae is anicteric. NECK: Supple. No JVD. LUNGS: Clear to auscultation. No wheezes or rhonchi. No intercostal retractions. HEART: Regular rate and rhythm. No murmur. ABDOMEN: Soft No tenderness. EXTREMITIES: No pedal edema. No calf tenderness. NEUROLOGICAL: Patient is awake, alert and oriented x3. Assessment: Takotsubo syndrome Normal coronary arteries Seasonal allergies Pneumonia Plan: Continue patient on aspirin 81 mg daily, atorvastatin 40 mg daily, lisinopril 2.5 mg twice daily, Lopressor 25 mg twice daily. Patient is cleared from cardiology for discharge, no plan for any further cardiac workup. Nurse practitioner note has been reviewed, I agree with documented findings and plan of care. Patient was seen and examined. Objective - Vital Signs Vital signs: Vital Signs Temp 99.1 F 01/16/24 08:00 Pulse 98 01/16/24 08:00 Resp 16 01/16/24 08:00 BP 119/60 01/16/24 08:00 Pulse Ox 95 01/16/24 08:00 FiO2 Intake & Output 01/15/24 01/16/24 01/16/24 18:59 06:59 18:59 Intake Total 492 20 240 Balance 492 20 240 Intake: IV 20 20 Invasive Line 2 20 20 Oral 472 240 Other: # Voids 1 2 # Bowel Movements 1 - Labs CBC & Chem 7: 01/15/24 06:30 01/15/24 06:30
--- NOTE | 2024-01-16 13:04 | P.DS ---
Providers Date of admission: 01/13/24 11:42 Expected date of discharge: 01/16/24 Attending physician: Ilya Toth MD Consults: 01/13/24 12:45 Consult Physician Routine Consulting Provider: Viet De Leon Consult Reason/Comments: post heart cath Do you want consulting provider notified?: Yes 01/14/24 09:44 Consult Physician Routine Consulting Provider: Sara Sanderson Consult Reason/Comments: Fever of unknown origin Do you want consulting provider notified?: Yes Primary care physician: Stated None Hospital Course: Discharge diagnoses; Chest pain ST elevation [place] Takotsubo syndrome Bacterial pneumonia Hospital course; patient is a 58-year-old lady with a transfer from [facility] for emergent cardiac cath. Patient initially presented to [facility] for chest pain. Cardiology reviewed the patient today and recommended emergent cardiac cath because of ST segment elevation inferior leads. Patient was transferred to [facility] and underwent emergent cardiac cath. Cardiac cath done showed Normal coronary arteries,Impaired left ventricle systolic function with segmental wall motion abnormality consistent with Takotsubo syndrome. Postcardiac cath patient was admitted to medicine service. Patient had been spiking fevers with Tmax of 102. Patient is complaining of chills. Denies any nausea or vomiting. There is no complaint of chest pain or shortness of breath. 01/14. Patient seen and examined. Patient had low-grade fevers overnight. 01/15. Patient seen and examined. Patient continues to be afebrile. Blood cul tures have been negative. Patient also on antibiotics for pneumonia, currently being discharged on oral Ceftin. Cardiology recommended keeping patient on aspirin 81 mg daily, atorvastatin 40 mg daily, lisinopril 2.5 mg twice daily, Lopressor 25 mg twice daily. PHYSICAL EXAMINATION: GENERAL: The patient is alert and oriented x3, not in any acute distress. Well developed, well nourished. HEENT: Pupils are round and equally reacting to light. EOMI. No scleral icterus. No conjunctival pallor. Normocephalic, atraumatic. No pharyngeal erythema. No thyromegaly. CARDIOVASCULAR: S1 and S2 present. No murmurs, rubs, or gallops. PULMONARY: Chest is clear to auscultation, no wheezing or crackles. ABDOMEN: Soft, nontender, nondistended, normoactive bowel sounds. No palpable organomegaly. MUSCULOSKELETAL: No joint swelling or deformity. EXTREMITIES: No cyanosis, clubbing, or pedal edema. NEUROLOGICAL: Gross neurological examination did not reveal any focal deficits. SKIN: No rashes. Dictation was produced using [email or web address] dictation software. please excuse any grammatical, word or spelling errors. Patient Condition at Discharge: Good Plan - Discharge Summary Discharge Rx Participant: No New Discharge Prescriptions: New Aspirin 81 mg PO DAILY #30 tab Atorvastatin [Lipitor] 40 mg PO DAILY 30 Days #30 tab Metoprolol Tartrate [Lopressor] 25 mg PO BID 30 Days #60 tab lisinopriL [Zestril] 2.5 mg PO BID 30 Days #60 tab cefUROXime axetiL [Cefuroxime] 500 mg PO BID 2 Days #4 tab Continue Multivitamins, Thera [Multivitamin (formulary)] 1 tab PO DAILY Loratadine [Claritin] 10 mg PO DAILY Turmeric Root Extract [Turmeric] 500 mg PO DAILY Magnesium Glycinate 500mg 500 mg PO HS Discharge Medication List Loratadine [Claritin] 10 mg PO DAILY 01/13/24 [History] Magnesium Glycinate 500mg 500 mg PO HS 01/13/24 [History] Multivitamins, Thera [Multivitamin (formulary)] 1 tab PO DAILY 01/13/24 [History] Turmeric Root Extract [Turmeric] 500 mg PO DAILY 01/13/24 [History] Aspirin 81 mg PO DAILY #30 tab 01/16/24 [Rx] Atorvastatin [Lipitor] 40 mg PO DAILY 30 Days #30 tab 01/16/24 [Rx] Metoprolol Tartrate [Lopressor] 25 mg PO BID 30 Days #60 tab 01/16/24 [Rx] cefUROXime axetiL [Cefuroxime] 500 mg PO BID 2 Days #4 tab 01/16/24 [Rx] lisinopriL [Zestril] 2.5 mg PO BID 30 Days #60 tab 01/16/24 [Rx] Follow up Appointment(s)/Referral(s): Viet De Leon MD [STAFF PHYSICIAN] - 1 Week Discharge Disposition: HOME SELF-CARE
--- NOTE | 2024-01-20 12:09 | P.PN ---
Subjective Progress Note Date: 01/16/24 Principal diagnosis: Reason for follow-up is fever Patient is a 58-year-old female former smoker but no significant past medical history recently moved from [place] about 6 months ago presented to the [facility] with chest discomfort and evidence of ST segment elevation for the patient was transferred to [facility] the patient is status post cardiac cath did have evidence of normal coronary arteries but impaired left ventricular systolic function consistent with Takotsubo syndrome, patient spiked a fever prompting this consultation. On today's evaluation that is 01/16/2024, Patient denies having any fever or chills patient is breathing comfortably and is on room air no need for supplemental oxygen, the patient denies any further chest pain, cough is mostly dry, no abdominal pain no nausea vomiting or diarrhea. No new lab has been repeated today blood culture has been negative Objective - Vital Signs Vital signs: Vital Signs Temp 99.1 F 01/16/24 08:00 Pulse 98 01/16/24 08:00 Resp 16 01/16/24 08:00 BP 119/60 01/16/24 08:00 Pulse Ox 95 01/16/24 08:00 FiO2 Intake & Output 01/15/24 01/16/24 01/16/24 18:59 06:59 18:59 Intake Total 492 20 240 Balance 492 20 240 Intake: IV 20 20 Invasive Line 2 20 20 Oral 472 240 Other: # Voids 1 2 # Bowel Movements 1 - Exam GENERAL DESCRIPTION: Middle-aged female up in bed in no distress RESPIRATORY SYSTEM: Unlabored breathing , decreased breath sounds at bases HEART: S1 S2 regular rate and rhythm , ABDOMEN: Soft , no tenderness EXTREMITIES: No edema feet - Labs CBC & Chem 7: 01/15/24 06:30 01/15/24 06:30 Assessment and Plan (1) Fever Status: Acute Code(s): R50.9 - FEVER, UNSPECIFIED SNOMED Code(s): 182201945 Plan: 1patient with an episode of fever and this patient to the hospital with chest pain s/p cardiac cath with normal coronaries did have evidence of Takotsubo syndrome,, fever has been seen in patient with Takotsubo syndrome and could be related to weight as patient currently do not have any obvious focus of infection, patient did have a negative influenza RSV and COVID testing urine for Legionella negative and did have a normal procalcitonin 2-patient feels more like related to her Takotsubo syndrome, pneumonia less likely overall resolution of the fever okay to DC on short course of oral Ceftin discussed with admitting physician Thank you for this consultation will follow this patient along with you Time with Patient: Less than 30
== END 2024-01-16 12:20 | disposition home or self-care (01) | DRG 286 ==
LOC: 3SCARD 11:42
PROVIDERS: ADMIT Internal Medicine; ATTEND Internal Medicine
PROC: B2111ZZ Fluoroscopy of Multiple Coronary Arteries using Low Osmolar Contrast (ICD-10-PCS; 2024-01-13)
PROC: B2151ZZ Fluoroscopy of Left Heart using Low Osmolar Contrast (ICD-10-PCS; 2024-01-13)
PROC: 4A023N7 Measurement of Cardiac Sampling and Pressure, Left Heart, Percutaneous Approach (ICD-10-PCS; principal; 2024-01-13 11:28)
DX: I51.81 Takotsubo syndrome (principal); J15.9 Unspecified bacterial pneumonia; J30.2 Other seasonal allergic rhinitis; I51.7 Cardiomegaly; Z20.822 Contact with and (suspected) exposure to COVID-19; I27.20 Pulmonary hypertension, unspecified; Z59.86 Financial insecurity; Z87.891 Personal history of nicotine dependence; Z79.82 Long term (current) use of aspirin; Z79.899 Other long term (current) drug therapy
CPT/HCPCS: 71046; 80048; 80053; 80061; 81003; 84145; 84484; 85025; 85652; 86140; 87040; 87449; 87502; 87634; 87635; 87636; 93306; 93458

== ENCOUNTER → 2024-04-10 | Outpatient (CLI) | payer OTHER ==
--- NOTE | 2024-04-15 12:57 | MM ---
Reason for Exam: Screening (asymptomatic). Last mammogram was performed 4 year(s) and 11 month(s) ago. Patient History: Menarche at age 13. First Full-Term at age 35. Late child-bearing (after 30). Postmenopausal. Excisional Biopsy on the Left side. Risk Values: Annie 5 year model risk: 2.1%. NCI Lifetime model risk: 11.0%. Prior Study Comparison: 02/03/2016 Bilateral Screening Mammogram, Unknown. 06/16/2017 Bilateral Screening Mammogram, Unknown. 04/17/2019 Bilateral Screening Mammogram, Unknown. Tissue Density: There are scattered areas of fibroglandular density. Findings: Analyzed By CAD. The pattern is symmetrical. No significant interval change. No suspicious groups of microcalcifications, spiculated or lobular masses, architectural distortion or other secondary signs of malignancy are mammographically apparent. Overall Assessment: Benign, BI-RAD 2 Management: Screening Mammogram of both breasts in 1 year. A negative mammogram report should not preclude additional follow up of suspicious palpable abnormalities. Patient should continue monthly self breast exam. A clinical breast exam by your physician is recommended on an annual basis and results should be correlated with mammographic findings. Note on Annie scores and lifetime risk: 1. A Annie score greater than 3% is considered moderate risk. If this is the case, consider specialist referral to assess eligibility for a risk reducing agent. 2. If overall lifetime risk for the development of breast cancer is 20% or higher, the patient may qualify for future screening with alternating mammogram and breast MRI. [facility], , 04/15/2024 12:54 PM. Electronically signed and approved by: Freddie Burgos D.O. Radiologis
== END | disposition home or self-care (01) ==
LOC: RADMAMWWP 13:55
PROVIDERS: ATTEND Family Medicine
DX: Z12.31 Encounter for screening mammogram for malignant neoplasm of breast
CPT/HCPCS: 77063; 77067

== ENCOUNTER → 2024-04-11 | Outpatient (CLI) | payer OTHER ==
--- NOTE | 2024-04-12 06:31 | MR ---
EXAMINATION TYPE: MR femur/thigh RT wo/w con DATE OF EXAM: 04/11/2024 5:52 PM CLINICAL INDICATION: Female, 58 years old with history of R22.41 MASS; PHH, anterior mass Right thigh , marker placed at top and bottom, pain due to dog pulling and falling to ground COMPARISON: None TECHNIQUE: Multiplanar, multisequence technique was utilized in order to study and pre-and post contr ast images were obtained. Patient was given, 6.5 cc Gadavist FINDINGS: Complex mass seen within the anterior thigh compartment of the right leg without the origin ating from the quadriceps possibly specifically the vastus intermedialis with displacement of the oth er quadriceps. No masses are enlarging and surgically in the femur greater than 270 degrees measuring 12.3 x 9.3 x 19.6 cm this immediately abuts the femur is no definitive involvement of the femur. No lymphadenopathy seen within the right inguinal region or within the visualized pelvis. There is heter ogenous postcontrast enhancement throughout this mass. 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 No osseous involvement definitively visualized or lymphadenopathy at this time. [facility], , 04/12/2024 6:29 AM
== END | disposition home or self-care (01) ==
LOC: RADMRIMAIN 16:23
PROVIDERS: ATTEND Family Medicine
DX: R22.41 Localized swelling, mass and lump, right lower limb

== ENCOUNTER 2024-05-25 11:08 | Observation (INO) | payer OTHER ==
[~2024-05-25 11:08] MED LIST: MIDAZOLAM 2 MG/2 ML VIAL IV PRN
[2024-05-25] MEDS: LACTATED RINGERS 1,000 ML IV SCH (11:49)
[2024-05-25] MEDS: ONDANSETRON 4 MG/2 ML VIAL IVP ONE (11:51)
[2024-05-25] MEDS: DEXAMETHASONE SOD PHOSPHATE 4 MG/ML 1 ML VIAL IV ONE (11:51)
[2024-05-25] MEDS: IV FLUID CONTINUATION 1,000 ML IV ONE (11:57)
[2024-05-25] MEDS ORDERED: LIDOCAINE 1% INJ 10MG/ML (20 ML MDV) ONE (12:43)
[2024-05-25] MEDS ORDERED: PHENYLEPHRINE-0.9% NACL SYG 1,000 MCG/10 ML SYRINGE ONE (12:43)
[2024-05-25] MEDS ORDERED: PROPOFOL 10 MG/ML 20 ML VIAL IV ONE (12:43)
[2024-05-25] MEDS ORDERED: PHENYLEPHRINE 10 MG/ML VIAL ONE (12:43)
[2024-05-25] MEDS ORDERED: MIDAZOLAM 2 MG/2 ML VIAL ONE (12:43)
[2024-05-25] MEDS ORDERED: fentaNYL (PF) 50 MCG/ML 2 ML AMP ONE (12:43)
[2024-05-25] MEDS: SODIUM CHLORIDE 0.9% 50 ML with ceFAZolin 2,000 MG IV ONE (13:05)
[2024-05-25] MEDS: LACTATED RINGERS 1,000 ML IV ONE ×2 (13:40→14:19)
[2024-05-25 14:29] LABS: African American GFR (CKD) >90 (>60 ml/min/1.73 sqM); Anion Gap 6 mmol/L; Blood Urea Nitrogen 18 mg/dL (7-17); Calcium 7.8 mg/dL (8.4-10.2); Carbon Dioxide 25 mmol/L (22-30); Chloride 102 mmol/L (98-107); Glucose 118 mg/dL (74-99); Non-African American GFR(CKD) 90 (>60 ml/min/1.73 sqM); Potassium 4.1 mmol/L (3.5-5.1); Sodium 133 mmol/L (137-145)
[2024-05-25 14:37] LABS: Basophils % (A) 0 %; Eosinophils % (A) 0 %; Hypochromasia Marked; Lymphocytes # (A) 1.1 k/uL (1.0-4.8); Lymphocytes % (A) 7 %; MCH 24.5 pg (25.0-35.0); MCHC 30.1 g/dL (31.0-37.0); MCV 81.5 fL (80.0-100.0); Mean Platelet Volume 8.3; Monocytes # (A) 1.3 k/uL (0-1.0); Monocytes % (A) 9 %; Neutrophils # (A) 12.8 k/uL (1.3-7.7); Neutrophils % (A) 83 %; RBC 2.02 m/uL (3.80-5.40); RDW 15.8 % (11.5-15.5); WBC 15.4 k/uL (3.8-10.6)
[2024-05-25 14:44] LABS: HCT 16.5 % (34.0-46.0)
[2024-05-25] MEDS ORDERED: HYDROmorphone 2 MG/ML 1 ML SYRINGE IVP PRN (14:47)
[2024-05-25] MEDS ORDERED: RX INFO: IV CONTRAST WAS GIVEN 1 EACH MISC MISCELLANE PRN (15:02)
[2024-05-25] MEDS ORDERED: ONDANSETRON 4 MG/2 ML VIAL IVP PRN (15:02)
[2024-05-25 15:17] LABS: Platelet Count 224 k/uL (150-450)
[2024-05-25 15:18] LABS: Rouleaux Present
[2024-05-25] MEDS: HYDROmorphone 0.5 MG/0.5 ML SYRINGE IVP PRN (15:28)
[2024-05-25] MEDS: METOPROLOL TARTRATE 5 MG/5 ML VIAL IVP STA (15:34)
[2024-05-25] MEDS: Pre Op ABX Message 1 EACH MISC MISCELLANE ONE (18:15)
[2024-05-25] MEDS: SCOPOLAMINE 1 MG/72 HR PATCH TRANSDERM ONE (18:16)
[2024-05-25] MEDS: SODIUM CHLORIDE 0.9% 1,000 ML IV SCH (18:31)
--- NOTE | 2024-05-25 21:14 | CT ---
EXAMINATION TYPE: CT angio lower extremity RT DATE OF EXAM: 05/25/2024 8:44 PM COMPARISON: MRI 04/11/2024 CLINICAL INDICATION: Female, 58 years old with history of right leg hematoma; pain. TECHNIQUE: Axial images were obtained of the CT angio lower extremity RT, Additional coronal and sagi ttal reformatted images and soft tissue and bone window were obtained for review. MIP reconstruction was created on a separate workstation. Contrast used:100ml mL of Isovue 370 with IV Contrast, (None if empty) Oral contrast used: (None if empty) CT DLP: 2166.8 mGycm, Automated exposure control for dose reduction was used. FINDINGS: Heterogenous appearance of the right anterior thigh compartment with drainage catheter in p lace. No evidence for osseous erosion. No evidence of fracture or dislocation. On delayed imaging and higher density calcifications remain present. No active extravasation definitively visualized. Evalu ation is limited due to lack of noncontrast phase provided with the arterial and venous phases. The appendix is normal. The urinary bladder is distended right intramuscular hematoma with drainage c atheter in place. IMPRESSION: Right anterior thigh compartment intramuscular mass with drainage catheter in place. Findings could r epresent chronic hematoma versus hemorrhagic mass versus other findings again seen dating back to 03/19. No evidence of active extravasation identified. [facility], , 05/25/2024 9:11 PM
[2024-05-25 21:46] LABS: Basophils % (A) 0 %; Eosinophils % (A) 0 %; HCT 21.5 % (34.0-46.0); Hypochromasia Marked; Lymphocytes # (A) 0.8 k/uL (1.0-4.8); Lymphocytes % (A) 6 %; MCH 27.9 pg (25.0-35.0); MCHC 32.6 g/dL (31.0-37.0); MCV 85.6 fL (80.0-100.0); Mean Platelet Volume 7.4; Monocytes # (A) 0.8 k/uL (0-1.0); Monocytes % (A) 6 %; Neutrophils # (A) 11.6 k/uL (1.3-7.7); Neutrophils % (A) 87 %; Platelet Count 308 k/uL (150-450); Poikilocytosis Moderate; RBC 2.51 m/uL (3.80-5.40); RDW 15.5 % (11.5-15.5); WBC 13.3 k/uL (3.8-10.6)
[2024-05-26] MEDS: HYDROcodone/APAP 5-325MG 1 EACH TAB PO PRN (08:05)
[2024-05-26 09:13] LABS: HCT 22.8 % (34.0-46.0); Hypochromasia Marked; MCH 26.9 pg (25.0-35.0); MCHC 30.8 g/dL (31.0-37.0); MCV 87.3 fL (80.0-100.0); Mean Platelet Volume 8.4; Platelet Count 326 k/uL (150-450); Poikilocytosis Marked; RBC 2.61 m/uL (3.80-5.40); RDW 15.8 % (11.5-15.5); WBC 13.1 k/uL (3.8-10.6)
--- NOTE | 2024-05-26 13:59 | P.OP ---
Date of Procedure: 05/26/24 Preoperative Diagnosis: right lower sternal hematoma Postoperative Diagnosis: right lower extremity hematoma Procedure(s) Performed: a lower extremity evacuation of hematoma with drain placement Anesthesia: YANIQUEA Surgeon: Ken Lopes Estimated Blood Loss (ml): 1,000 Pathology: other (Fibrinous tissue) Condition: stable Disposition: floor Indications for Procedure: patient is a 58-year-old female presenting to clinic with complaints of a fall 11 months ago presenting with right lower extremity swelling and difficulty with walking. Operative Findings: large hematoma and fibrinous exudate Description of Procedure: patient was brought to the operating room where she was cleaned and draped in sterile fashion a timeout was performed and everyone agreed with a the information recited. #15 blade was used to make a transverse incision across the medial aspect of the rectus femoris muscle.once through the dermis I use electrocautery to dissect down to the fascia of the muscle. A hemostat was then used to split the muscle and we carried our dissection down further to the femoral bone. A large amount of old blood was then evacuated. A combination of blunt dissection and suction and irrigation was used to evacuate the hematoma. There was a large amount of fibrinous exudate that was removed from the patient's leg and sent off for pathology. Attention intraoperative consult was performed to another general surgeon and orthopedic surgeon who agree with the surgery. A drain was placed in the fascia along with the muscle layers were closed using a combination of absorbable and nonabsorbable suture. The patient tolerated the procedure well and was then transported to PACU
--- NOTE | 2024-05-26 14:21 | P.GSHP ---
History of Present Illness H&P Date: 05/26/24 Chief Complaint: right lower extremity pain patient is a 58-year-old female presenting to my office secondary to right lower extremity pain and difficulty walking. Of note she had a fall walking her dogs 11 months ago and was found to have a hematoma. They waited for this to be reabsorbed however over time and has significantly increased in size. Thus prompting clinical visit. Patient underwent surgery and the patient went to [facility] prompting hospital admission. Past Medical History Past Medical History: Atrial Fibrillation, Hyperlipidemia Additional Past Medical History / Comment(s): injury to thigh from dog leash wrapped around it, hx. broken heart syndrome, takes meds for rapid heart rate, newer arrythmia-fib per pt, recent cardiac cath. History of Any Multi-Drug Resistant Organisms: None Reported Past Surgical History: Heart Catheterization Additional Past Anesthesia/Blood Transfusion Reaction / Comment(s): never really had anesthesia before, no family problems Past Psychological History: No Psychological Hx Reported Smoking Status: Former smoker Past Alcohol Use History: Occasional Additional Past Alcohol Use History / Comment(s): quit smoking 10-15 yrs. ago, never smoked daily, just "socially" Past Drug Use History: None Reported - Past Family History Mother Family Medical History: No Reported History Medications and Allergies Home Medications Medication Instructions Recorded Confirmed Type Loratadine [Claritin] 10 mg PO DAILY 01/13/24 05/25/24 History Multivitamins, Thera [Multivitamin 1 tab PO DAILY 01/13/24 05/25/24 History (formulary)] Turmeric Root Extract [Turmeric] 500 mg PO DAILY 01/13/24 05/25/24 History Atorvastatin [Lipitor] 40 mg PO HS 05/22/24 05/25/24 History Digoxin [Lanoxin] 125 mcg PO DAILY 05/22/24 05/25/24 History Escitalopram [Lexapro] 10 mg PO HS 05/22/24 05/25/24 History Ferrous Sulfate [Iron (65 MG 325 mg PO DAILY 05/22/24 05/25/24 History Elemental)] Metoprolol Succinate (ER) [Toprol 25 mg PO BID 05/22/24 05/25/24 History Xl] traMADol HCL 50 mg PO DIRECTED PRN 05/22/24 05/25/24 History Allergies Allergy/AdvReac Type Severity Reaction Status Date / Time No Known Allergies Allergy Verified 05/25/24 11:39 Surgical - Exam Osteopathic Statement: *. No significant issues noted on an osteopathic structural exam other than those noted in the History and Physical/Consult. Vital Signs Temp Pulse Resp BP Pulse Ox 97.7 F 104 H 18 133/58 100 05/25/24 11:29 05/25/24 11:29 05/25/24 11:29 05/25/24 11:29 05/25/24 11:29 - General neuro no acute distress alert and oriented 3 Cardiovascular regular rhythm Pulmonary nonlabored breathing Abdomen soft nontender non-stented no guarding rebound tenderness Right lotion E demonstrates palpable DP/PT pulse but is warm and perfused. Surgical site is clean dry and intact with according drain draining serous in his blood. Right thigh is wrapped with Saul wrap Results - Labs 05/26/24 08:25 05/25/24 13:50 Abnormal Lab Results - Last 24 Hours (Table) 05/25/24 05/25/24 05/25/24 Range/Units 13:50 13:50 13:50 WBC 15.4 H (3.8-10.6) k/uL RBC 2.02 L (3.80-5.40) m/uL Hgb 5.0 L* (11.4-16.0) gm/dL Hct 16.5 L* (34.0-46.0) % MCH 24.5 L (25.0-35.0) pg MCHC 30.1 L (31.0-37.0) g/dL RDW 15.8 H (11.5-15.5) % Neutrophils # 12.8 H (1.3-7.7) k/uL Lymphocytes # (1.0-4.8) k/uL Monocytes # 1.3 H (0-1.0) k/uL Sodium 133 L (137-145) mmol/L BUN 18 H (7-17) mg/dL Glucose 118 H (74-99) mg/dL Calcium 7.8 L (8.4-10.2) mg/dL Crossmatch See Detail 05/25/24 05/26/24 Range/Units 21:01 08:25 WBC 13.3 H 13.1 H (3.8-10.6) k/uL RBC 2.51 L 2.61 L (3.80-5.40) m/uL Hgb 7.0 L D 7.0 L (11.4-16.0) gm/dL Hct 21.5 L 22.8 L (34.0-46.0) % MCH (25.0-35.0) pg MCHC 30.8 L (31.0-37.0) g/dL RDW 15.8 H (11.5-15.5) % Neutrophils # 11.6 H (1.3-7.7) k/uL Lymphocytes # 0.8 L (1.0-4.8) k/uL Monocytes # (0-1.0) k/uL Sodium (137-145) mmol/L BUN (7-17) mg/dL Glucose (74-99) mg/dL Calcium (8.4-10.2) mg/dL Crossmatch Microbiology - Last 24 Hours (Table) 05/25/24 13:15 Gram Stain - Preliminary Thigh - Right Diabetes panel 05/25/24 Range/Units 13:50 Sodium 133 L (137-145) mmol/L Potassium 4.1 (3.5-5.1) mmol/L Chloride 102 (98-107) mmol/L Carbon Dioxide 25 (22-30) mmol/L BUN 18 H (7-17) mg/dL Creatinine 0.74 (0.52-1.04) mg/dL Glucose 118 H (74-99) mg/dL Calcium 7.8 L (8.4-10.2) mg/dL Calcium panel 05/25/24 Range/Units 13:50 Calcium 7.8 L (8.4-10.2) mg/dL Pituitary panel 05/25/24 Range/Units 13:50 Sodium 133 L (137-145) mmol/L Potassium 4.1 (3.5-5.1) mmol/L Chloride 102 (98-107) mmol/L Carbon Dioxide 25 (22-30) mmol/L BUN 18 H (7-17) mg/dL Creatinine 0.74 (0.52-1.04) mg/dL Glucose 118 H (74-99) mg/dL Calcium 7.8 L (8.4-10.2) mg/dL Adrenal panel 05/25/24 Range/Units 13:50 Sodium 133 L (137-145) mmol/L Potassium 4.1 (3.5-5.1) mmol/L Chloride 102 (98-107) mmol/L Carbon Dioxide 25 (22-30) mmol/L BUN 18 H (7-17) mg/dL Creatinine 0.74 (0.52-1.04) mg/dL Glucose 118 H (74-99) mg/dL Calcium 7.8 L (8.4-10.2) mg/dL Assessment and Plan Assessment: 58-year-old female status post right thigh hematoma evacuation Acute blood loss anemia, transfuse as necessary Consult cardiology secondary to A. fib Discussed with vascular surgery recommending Ortho oncology CTA reviewed demonstrating no active extravasation of lower extremity After cardiology clearance will likely discharge Time with Patient: Less than 30
[2024-05-26] MEDS: FERROUS SULFATE 325 MG TAB PO SCH (14:54)
[2024-05-26] MEDS: DIGOXIN 125 MCG TAB PO SCH (14:54)
[2024-05-26] MEDS: METOPROLOL SUCCINATE (ER) 25 MG TAB.ER.24H PO SCH (14:54)
[2024-05-26] MEDS: MULTIVITAMINS, THERA 1 EACH TAB PO SCH (17:26)
[2024-05-26] MEDS: LORATADINE 10 MG TAB PO SCH (17:26)
[2024-05-26 18:59] LABS: Basophils % (A) 0 %; Eosinophils % (A) 0 %; HCT 27.3 % (34.0-46.0); Hypochromasia Marked; Lymphocytes # (A) 1.8 k/uL (1.0-4.8); Lymphocytes % (A) 10 %; MCH 28.6 pg (25.0-35.0); MCHC 32.2 g/dL (31.0-37.0); Mean Platelet Volume 7.7; Monocytes # (A) 0.9 k/uL (0-1.0); Monocytes % (A) 5 %; Neutrophils # (A) 16.1 k/uL (1.3-7.7); Neutrophils % (A) 85 %; Platelet Count 379 k/uL (150-450); Poikilocytosis Moderate; RBC 3.07 m/uL (3.80-5.40); RDW 15.7 % (11.5-15.5)
[2024-05-26 19:10] LABS: HGB 8.8 gm/dL (11.4-16.0)
[2024-05-26] MEDS: ATORVASTATIN 40 MG TAB PO SCH (20:15)
[2024-05-26] MEDS: ESCITALOPRAM 10 MG TAB PO SCH (20:15)
[2024-05-26] MEDS: HYDROmorphone 1 MG/ML 1 ML SYRINGE IVP PRN (20:20)
[2024-05-27 04:07] LABS: Basophils % (A) 0 %; Eosinophils # (A) 0.1 k/uL (0-0.7); Eosinophils % (A) 0 %; HCT 24.4 % (34.0-46.0); HGB 7.8 gm/dL (11.4-16.0); Hypochromasia Marked; Lymphocytes # (A) 1.9 k/uL (1.0-4.8); Lymphocytes % (A) 12 %; MCH 28.2 pg (25.0-35.0); MCV 88.1 fL (80.0-100.0); Mean Platelet Volume 7.7; Monocytes # (A) 1.1 k/uL (0-1.0); Monocytes % (A) 7 %; Neutrophils # (A) 12.5 k/uL (1.3-7.7); Neutrophils % (A) 79 %; Platelet Count 345 k/uL (150-450); Poikilocytosis Moderate; RBC 2.77 m/uL (3.80-5.40); RDW 15.9 % (11.5-15.5); WBC 15.7 k/uL (3.8-10.6)
--- NOTE | 2024-05-27 12:51 | P.CRDCN ---
History of Present Illness Consult date: 05/26/24 History of present illness: HISTORY OF PRESENTING ILLNESS 58-year-old female with past medical history of stress cardiomyopathy in December 2023 when she got admitted with chest pain and elevated troponins. She had a heart catheterization done which did not show any obstructive coronary artery disease. She was treated as Takotsubo cardiomyopathy at that time. Other than this patient is also chronically anemic. This time she presented to the hospital for an elective right thigh hematoma drainage. Postoperatively he was noticed to have a hemoglobin of 5 for which she received 3 blood transfusions. Postoperatively patient was noticed to be in atrial fibrillation with RVR. This is the first time she was diagnosed with atrial fibrillation. At the time of evaluating her at 05/26/2024, 6 PM, she was in normal sinus rhythm. She denies any symptoms of chest pain palpitation shortness of breath when she was in atrial fibrillation. She reports that she followed up in the cardiology office with a repeat echocardiogram recently which showed recovery of her LVEF. REVIEW OF SYSTEMS 14 point review of system is negative except what is mentioned above in HPI. PHYSICAL EXAMINATION Vital signs reviewed. Head: Normocephalic. Eyes: Sclerae nonicteric. Neck: Brisk carotid upstroke, no jugular venous distention. Lungs: Clear to auscultation. Heart: Regular rate and rhythm, S1-S2, no S3, no murmur or rub. Abdomen: Soft nontender, positive bowel sounds. Extremities: No edema, intact distal pulses. Right thigh surgical dressing in place. Neuro: Alert, oritented, no focal deficits. Detailed neuro exam was not performed. ASSESSMENT Newly diagnosed atrial fibrillation with RVR, paroxysmal. Acute on chronic anemia, likely related to blood loss, status post renal blood transfusion Status post right thigh chronic hematoma surgical drainage History of stress cardiomyopathy in December 2023 with recovered LVEF PLAN Will not do anticoagulation as her [id number] score is low and she is anemic. Would recommend outpatient evaluation for her anemia by money room supervisor Start metoprolol 25 mg twice daily Recommend follow-up outpatient with cardiology. Akira Blount MD, FACC, RPVI Thank you for allowing [facility] to participate in this patient's care. Feel free to reach out in case of any followup questions. Past Medical History Past Medical History: Atrial Fibrillation, Hyperlipidemia Additional Past Medical History / Comment(s): injury to thigh from dog leash wrapped around it, hx. broken heart syndrome, takes meds for rapid heart rate, newer arrythmia-fib per pt, recent cardiac cath. History of Any Multi-Drug Resistant Organisms: None Reported Past Surgical History: Heart Catheterization Additional Past Anesthesia/Blood Transfusion Reaction / Comment(s): never really had anesthesia before, no family problems Past Psychological History: No Psychological Hx Reported Smoking Status: Former smoker Past Alcohol Use History: Occasional Additional Past Alcohol Use History / Comment(s): quit smoking 10-15 yrs. ago, never smoked daily, just "socially" Past Drug Use History: None Reported - Past Family History Mother Family Medical History: No Reported History Medications and Allergies Home Medications Medication Instructions Recorded Confirmed Type Loratadine [Claritin] 10 mg PO DAILY 01/13/24 05/25/24 History Multivitamins, Thera [Multivitamin 1 tab PO DAILY 01/13/24 05/25/24 History (formulary)] Turmeric Root Extract [Turmeric] 500 mg PO DAILY 01/13/24 05/25/24 History Atorvastatin [Lipitor] 40 mg PO HS 05/22/24 05/25/24 History Digoxin [Lanoxin] 125 mcg PO DAILY 05/22/24 05/25/24 History Escitalopram [Lexapro] 10 mg PO HS 05/22/24 05/25/24 History Ferrous Sulfate [Iron (65 MG 325 mg PO DAILY 05/22/24 05/25/24 History Elemental)] Metoprolol Succinate (ER) [Toprol 25 mg PO BID 05/22/24 05/25/24 History Xl] traMADol HCL 50 mg PO DIRECTED PRN 05/22/24 05/25/24 History Allergies Allergy/AdvReac Type Severity Reaction Status Date / Time No Known Allergies Allergy Verified 05/25/24 11:39 Physical Exam Vitals: Vital Signs Temp Pulse Pulse Pulse Resp BP BP 05/27/24 11:42 105 H 16 102/58 05/27/24 08:54 110 H 16 110/62 05/27/24 03:14 98 F 116 H 18 120/65 05/26/24 23:20 98.2 F 87 18 123/70 05/26/24 20:00 98.5 F 84 18 99/62 05/26/24 16:00 98.3 F 84 16 111/58 05/26/24 14:00 78 79 16 05/26/24 13:02 98.2 F 84 16 111/58 Pulse Ox 05/27/24 11:42 97 05/27/24 08:54 95 05/27/24 03:14 99 05/26/24 23:20 100 05/26/24 20:00 99 05/26/24 16:00 95 05/26/24 14:00 05/26/24 13:02 95 Intake and Output 05/26/24 05/27/24 05/27/24 22:59 06:59 14:59 Intake Total 420 20 Balance 420 20 Intake: IV 20 Invasive Line 1 10 Invasive Line 2 10 Oral 120 0 Blood Product 300 Rc As-1 Unit 300 [id number] Other: Voiding Method Bedpan Bedpan Bedpan # Voids 1 Results 05/27/24 03:59 05/25/24 13:50 CBC 05/26/24 05/27/24 Range/Units 18:28 03:59 WBC 19.0 H 15.7 H (3.8-10.6) k/uL RBC 3.07 L 2.77 L (3.80-5.40) m/uL Hgb 8.8 L D 7.8 L (11.4-16.0) gm/dL Hct 27.3 L 24.4 L (34.0-46.0) % Plt Count 379 345 (150-450) k/uL Current Medications Generic Name Dose Route Start Last Admin Trade Name Freq PRN Reason Stop Dose Admin Hydrocodone Bitart/Acetaminophen 1 each 05/25/24 14:50 05/27/24 10:19 Hydrocodone/Apap 5-325mg 1 Each Tab PO 06/24/24 14:49 1 each Q4HR PRN Administration Pain Atorvastatin Calcium 40 mg 05/26/24 21:00 05/26/24 20:15 Atorvastatin 40 Mg Tab PO 40 mg HS HE Administration Digoxin 125 mcg 05/26/24 14:30 05/27/24 08:55 Digoxin 125 Mcg Tab PO 125 mcg DAILY HE Administration Escitalopram Oxalate 10 mg 05/26/24 21:00 05/26/24 20:15 Escitalopram 10 Mg Tab PO 10 mg HS HE Administration Ferrous Sulfate 325 mg 05/26/24 14:30 05/27/24 08:55 Ferrous Sulfate 325 Mg Tab PO 325 mg DAILY HE Administration Hydromorphone HCl 1 mg 05/25/24 15:55 05/27/24 02:54 Hydromorphone 1 Mg/Ml 1 Ml Syringe IVP 06/24/24 15:54 1 mg Q3HR PRN Administration Pain Lactated Ringer's 1,000 mls @ 20 mls/hr 05/25/24 06:04 05/27/24 09:52 Lactated Ringers IV 06/24/24 06:03 Not Given .Q24H HE Sodium Chloride 1,000 mls @ 125 mls/hr 05/25/24 15:15 05/27/24 09:52 Saline 0.9% IV 06/24/24 15:14 Not Given .Q8H HE Magnesium Sulfate/Dextrose 1 100 mls @ 100 mls/hr 05/27/24 12:45 gm/ IV Solution IVPB 05/27/24 14:44 Q1H HE Loratadine 10 mg 05/26/24 14:30 05/27/24 08:55 Loratadine 10 Mg Tab PO 10 mg DAILY HE Administration Metoprolol Succinate 50 mg 05/27/24 21:00 Metoprolol Succinate (Er) 50 Mg Tab.Er.24h PO BID [facility] Miscellaneous Information 1 each 05/25/24 15:02 Rx Info: Iv Contrast Was Given 1 Each Misc MISCELLANE 05/27/24 15:01 DAILY PRN Per Protocol Multivit/Ca Carb/B Cmplx/FA/Prenat 1 each 05/27/24 12:45 Folic Acid-Vit B Complex-Vit C 1 Cap PO DAILY [facility] Multivitamins 1 each 05/26/24 14:30 05/27/24 08:55 Multivitamins, Thera 1 Each Tab PO 1 each DAILY HE Administration Ondansetron HCl 4 mg 05/25/24 15:02 Ondansetron 4 Mg/2 Ml Vial IVP 06/24/24 15:01 Q6HR PRN Nausea And Vomiting Intake and Output 05/26/24 05/27/24 05/27/24 22:59 06:59 14:59 Intake Total 420 20 Balance 420 20 Intake: IV 20 Invasive Line 1 10 Invasive Line 2 10 Oral 120 0 Blood Product 300 Rc As-1 Unit 300 [id number] Other: Voiding Method Bedpan Bedpan Bedpan # Voids 1 05/27/24 03:59 05/25/24 13:50
--- NOTE | 2024-05-27 12:53 | P.PN ---
Subjective Progress Note Date: 05/27/24 HISTORY OF PRESENTING ILLNESS 58-year-old female with past medical history of stress cardiomyopathy in December 2023 when she got admitted with chest pain and elevated troponins. She had a heart catheterization done which did not show any obstructive coronary artery disease. She was treated as Takotsubo cardiomyopathy at that time. Other than this patient is also chronically anemic. Known to Dr. Henry. This time she presented to the hospital for an elective right thigh hematoma drainage. Postoperatively he was noticed to have a hemoglobin of 5 for which she received 3 blood transfusions. Postoperatively patient was noticed to be in atrial fibrillation with RVR. This is the first time she was diagnosed with atrial fibrillation. At the time of evaluating her at 05/26/2024, 6 PM, she was in normal sinus rhythm. She denies any symptoms of chest pain palpitation shortness of breath when she was in atrial fibrillation. She reports that she followed up in the cardiology office with a repeat echocardiogram recently which showed recovery of her LVEF. Progress note May 27, 2024 Nurse notified me around 8 PM yesterday that patient went into atrial fibrillation with RVR. For this surgical team started digoxin 125 mcg p.o. This morning she is in atrial fibrillation with heart rates around 110 bpm PHYSICAL EXAMINATION Vital signs reviewed. Head: Normocephalic. Eyes: Sclerae nonicteric. Neck: Brisk carotid upstroke, no jugular venous distention. Lungs: Clear to auscultation. Heart: Regular rate and rhythm, S1-S2, no S3, no murmur or rub. Abdomen: Soft nontender, positive bowel sounds. Extremities: No edema, intact distal pulses. Right thigh surgical dressing in place. Neuro: Alert, oritented, no focal deficits. Detailed neuro exam was not performe d. ASSESSMENT Newly diagnosed atrial fibrillation with RVR, paroxysmal. Acute on chronic anemia, likely related to blood loss, status post renal blood transfusion Status post right thigh chronic hematoma surgical drainage History of stress cardiomyopathy in December 2023 with recovered LVEF PLAN Will not do anticoagulation as her [id number] score is low and she is anemic. Will start aspirin 81 mg daily Would recommend outpatient evaluation for her anemia by tarring machine operator Increase metoprolol to 50 mg twice daily. Surgical team started her on digoxin 125 mcg. Will continue it for now. Would not discharge her on digoxin. Obtain TSH, NT-proBNP, lipid, HbA1c levels Obtain echocardiogram from the outpatient records on Tuesday. Objective - Vital Signs Vital signs: Vital Signs Temp 98 F 05/27/24 03:14 Pulse 105 H 05/27/24 11:42 Resp 16 05/27/24 11:42 BP 102/58 05/27/24 11:42 Pulse Ox 97 05/27/24 11:42 FiO2 Intake & Output 05/26/24 05/27/24 05/27/24 18:59 06:59 18:59 Intake Total 420 20 Output Total 80 Balance 340 20 Intake: IV 20 Invasive Line 1 10 Invasive Line 2 10 Oral 120 0 Blood Product 300 Rc As-1 Unit 300 [id number] Output: Drainage 80 Right Thigh 80 Other: Voiding Method Bedpan Bedpan Bedpan # Voids 1 1 - Labs CBC & Chem 7: 05/27/24 03:59 05/25/24 13:50 Labs: Abnormal Lab Results - Last 24 Hours (Table) 05/25/24 05/26/24 05/27/24 Range/Units 13:50 18:28 03:59 WBC 19.0 H 15.7 H (3.8-10.6) k/uL RBC 3.07 L 2.77 L (3.80-5.40) m/uL Hgb 8.8 L D 7.8 L (11.4-16.0) gm/dL Hct 27.3 L 24.4 L (34.0-46.0) % RDW 15.7 H 15.9 H (11.5-15.5) % Neutrophils # 16.1 H 12.5 H (1.3-7.7) k/uL Monocytes # 1.1 H (0-1.0) k/uL Crossmatch See Detail Microbiology - Last 24 Hours (Table) 05/25/24 13:15 Gram Stain - Preliminary Thigh - Right Tissue Culture - Preliminary 05/25/24 13:15 Gram Stain - Preliminary Thigh - Right Wound Culture - Preliminary
[2024-05-27] MEDS: ASPIRIN 81 MG PO SCH (13:35)
[2024-05-27] MEDS: MAGNESIUM SULFATE-D5W PMX 1 GM in DEXTROSE/WATER 1 100ML.BAG IVPB SCH (13:37)
[2024-05-27 13:46] LABS: African American GFR (CKD) >90 (>60 ml/min/1.73 sqM); Anion Gap 5 mmol/L; Blood Urea Nitrogen 11 mg/dL (7-17); Calcium 7.5 mg/dL (8.4-10.2); Carbon Dioxide 25 mmol/L (22-30); Chloride 106 mmol/L (98-107); Glucose 97 mg/dL (74-99); Non-African American GFR(CKD) >90 (>60 ml/min/1.73 sqM); Potassium 3.7 mmol/L (3.5-5.1); Sodium 136 mmol/L (137-145)
[2024-05-27 13:55] LABS: NT-Pro-B-Type Natriuretic Pept 6530 pg/mL
[2024-05-27] MEDS: FOLIC ACID-VIT B COMPLEX-VIT C 1 CAP PO SCH (13:56)
[2024-05-27] MEDS: METOPROLOL SUCCINATE (ER) 25 MG TAB.ER.24H PO STA (13:56)
[2024-05-27] MEDS: METOPROLOL SUCCINATE (ER) 50 MG TAB.ER.24H PO SCH (20:13)
--- NOTE | 2024-05-27 20:19 | P.PN ---
Subjective patient seen and evaluated at bedside. Patient doing well, admits to mild leg pain, able to ambulate which has improved prior to admission. Objective - Vital Signs Vital signs: Vital Signs Temp 98.9 F 05/27/24 19:54 Pulse 107 H 05/27/24 19:54 Resp 18 05/27/24 19:54 BP 103/53 05/27/24 19:54 Pulse Ox 98 05/27/24 19:54 FiO2 Intake & Output 05/27/24 05/27/24 05/28/24 06:59 18:59 06:59 Intake Total 1320 Output Total 80 Balance 1240 Intake: IV 40 Invasive Line 1 20 Invasive Line 2 20 Intake, IV Titration 200 Amount Magnesium Sulfate-D5w Pmx 200 1 gm In Dextrose/Water 1 100ml.bag @ 100 mls/hr IVPB Q1H HE Rx#: [id number] Oral 1080 Output: Drainage 80 Right Thigh 80 Other: Voiding Method Bedpan Bedpan # Voids 1 - Exam gen: nad cv: rrr pul: non labored breathing abd: soft, non distended, no guarding or rebound tenderness ext: right lower extremity well perfused, palpable dp/pt pulse, leg less swollen compared to previously, rodolfo drain dark blood - Labs CBC & Chem 7: 05/27/24 03:59 05/27/24 13:18 Labs: Abnormal Lab Results - Last 24 Hours (Table) 05/27/24 05/27/24 Range/Units 03:59 13:18 WBC 15.7 H (3.8-10.6) k/uL RBC 2.77 L (3.80-5.40) m/uL Hgb 7.8 L (11.4-16.0) gm/dL Hct 24.4 L (34.0-46.0) % RDW 15.9 H (11.5-15.5) % Neutrophils # 12.5 H (1.3-7.7) k/uL Monocytes # 1.1 H (0-1.0) k/uL Sodium 136 L (137-145) mmol/L Calcium 7.5 L (8.4-10.2) mg/dL Microbiology - Last 24 Hours (Table) 05/25/24 13:15 Gram Stain - Preliminary Thigh - Right Tissue Culture - Preliminary 05/25/24 13:15 Gram Stain - Final Thigh - Right Wound Culture - Final Assessment and Plan Assessment: 58 yo female s/p right lower extremity hematoma evacuation s/p drain placement w/ dark blood discussed w/ ortho: recommending ortho oncology for follow up hgb stable acknowledge card recs: restarted digoxin because home med, cardiology please advise likely discharge pending card recs Time with Patient: Greater than 30
[2024-05-27 22:30] LABS: Chol/HDL Ratio 4.74 Ratio; LDL Cholesterol,Calculated 27.7 mg/dL (0.0-131.0)
[2024-05-27 23:48] VITALS: PULSE 81; RESP 16
[2024-05-28 07:38] LABS: Anisocytosis Slight; Basophils % (A) 0 %; Eosinophils # (A) 0.1 k/uL (0-0.7); Eosinophils % (A) 1 %; HCT 24.7 % (34.0-46.0); HGB 7.8 gm/dL (11.4-16.0); Hypochromasia Marked; Lymphocytes # (A) 1.9 k/uL (1.0-4.8); Lymphocytes % (A) 12 %; MCHC 31.8 g/dL (31.0-37.0); Mean Platelet Volume 7.2; Monocytes # (A) 1.1 k/uL (0-1.0); Monocytes % (A) 7 %; Neutrophils # (A) 12.1 k/uL (1.3-7.7); Neutrophils % (A) 79 %; Platelet Count 380 k/uL (150-450); Poikilocytosis Slight; RDW 16.9 % (11.5-15.5); WBC 15.3 k/uL (3.8-10.6)
[2024-05-28 08:06] LABS: ALT 36 U/L (4-34); AST 74 U/L (14-36); African American GFR (CKD) >90 (>60 ml/min/1.73 sqM); Alkaline Phosphatase 280 U/L (38-126); Anion Gap 5 mmol/L; Blood Urea Nitrogen 12 mg/dL (7-17); Calcium 7.6 mg/dL (8.4-10.2); Carbon Dioxide 26 mmol/L (22-30); Chloride 105 mmol/L (98-107); Glucose 99 mg/dL (74-99); Magnesium 2.3 mg/dL (1.6-2.3); Non-African American GFR(CKD) >90 (>60 ml/min/1.73 sqM); Potassium 3.8 mmol/L (3.5-5.1); Sodium 136 mmol/L (137-145); Total Bilirubin 0.9 mg/dL (0.2-1.3); Total Protein 4.5 g/dL (6.3-8.2)
[2024-05-28 12:10] VITALS: BP 96/54; TEMP 98.5
--- NOTE | 2024-05-28 13:19 | P.PN ---
Subjective HISTORY OF PRESENT ILLNESS: Patient is status post right lower extremity hematoma evacuation with drain placement. Cardiology is following for atrial fibrillation. Postoperatively the patient was found to be in A-fib with RVR. The patient was recently diagnosed with atrial fibrillation when she saw Dr. De Leon in the office on 05/11/2024. At that time her metoprolol was increased and she was started on digoxin. The patient remains in atrial fibrillation at the time of examination with a heart rate in the 90s. She denies any chest pain or pressure. She denies any shortness of breath. Vital signs are stable. She had an echocardiogram performed in the office on 05/09/2024 revealing ejection fraction 55%, mild MR, mild to moderate TR. PHYSICAL EXAM: VITAL SIGNS: Reviewed. GENERAL: Well-developed in no acute distress. NECK: Supple. No JVD or thyromegaly LUNGS: Respirations even and unlabored. Lungs essentially clear to auscultation bilaterally. HEART: Regular rate and rhythm. S1 and S2 heard. EXTREMITIES: Normal range of motion. No clubbing or cyanosis. Peripheral pulses intact. No lower extremity edema ASSESSMENT: Right lower extremity hematoma, status post evacuation of hematoma with drain placement Paroxysmal atrial fibrillation, recently diagnosed in the office on 05/11/2024 History of Takotsubo cardiomyopathy with improvement in EF Normal coronary arteries, per cath in 12/2023 Acute blood loss anemia, status post RBC transfusion PLAN: Continue metoprolol succinate 50 mg twice a day Continue digoxin 125 mcg daily Continue aspirin 81 mg daily Patient is not a candidate for anticoagulation due to anemia and low [id number]- VASc score Patient is stable for discharge home today Patient to follow-up postdischarge with Dr. De Leon Nurse practitioner note has been reviewed by physician. Signing provider agrees with the documented findings, assessment, and plan of care documented by MACHINE DESIGNER as a scribe. Objective - Vital Signs Vital signs: Vital Signs Temp 98.5 F 05/28/24 12:00 Pulse 81 05/27/24 23:46 Resp 16 05/28/24 12:00 BP 96/54 05/28/24 12:00 Pulse Ox 99 05/28/24 12:00 FiO2 Intake & Output 05/27/24 05/28/24 05/28/24 18:59 06:59 18:59 Intake Total 1320 40 158 Output Total 80 60 40 Balance 1240 -20 118 Weight 70.1 kg Intake: IV 40 40 40 Invasive Line 1 20 20 20 Invasive Line 2 20 20 20 Intake, IV Titration 200 Amount Magnesium Sulfate-D5w Pmx 200 1 gm In Dextrose/Water 1 100ml.bag @ 100 mls/hr IVPB Q1H [facility] Rx#: [id number] Oral 1080 118 Output: Drainage 80 60 40 Right Thigh 80 60 40 Other: Voiding Method Bedpan Toilet # Voids 1 2 - Labs CBC & Chem 7: 05/28/24 07:15 05/28/24 07:15 Labs: Abnormal Lab Results - Last 24 Hours (Table) 05/27/24 05/28/24 05/28/24 Range/Units 13:18 07:15 07:15 WBC 15.3 H (3.8-10.6) k/uL RBC 2.80 L (3.80-5.40) m/uL Hgb 7.8 L (11.4-16.0) gm/dL Hct 24.7 L (34.0-46.0) % RDW 16.9 H (11.5-15.5) % Neutrophils # 12.1 H (1.3-7.7) k/uL Monocytes # 1.1 H (0-1.0) k/uL Sodium 136 L 136 L (137-145) mmol/L Calcium 7.5 L 7.6 L (8.4-10.2) mg/dL AST 74 H (14-36) U/L ALT 36 H (4-34) U/L Alkaline Phosphatase 280 H (38-126) U/L Total Protein 4.5 L (6.3-8.2) g/dL Albumin 2.0 L (3.5-5.0) g/dL HDL Cholesterol 13.50 L (40.00-60.00) mg/dL Microbiology - Last 24 Hours (Table) 05/25/24 13:15 Anaerobic Culture - Preliminary Thigh - Right 05/25/24 13:15 Anaerobic Culture - Preliminary Thigh - Right 05/25/24 13:15 Gram Stain - Preliminary Thigh - Right Tissue Culture - Preliminary 05/25/24 13:15 Gram Stain - Final Thigh - Right Wound Culture - Final
--- NOTE | 2024-05-28 13:40 | P.DS ---
Providers Date of admission: 05/28/24 08:41 Expected date of discharge: 05/28/24 Attending physician: Ken Lopes DO Consults: 05/25/24 15:11 Consult Physician Stat Consulting Provider: Khushboo Sabillon Consult Reason/Comments: Right leg hematoma/mass Do you want consulting provider notified?: Yes 05/25/24 15:24 Consult Physician Routine Consulting Provider: Viet De Leon Consult Reason/Comments: a fib Do you want consulting provider notified?: Yes Primary care physician: [facility] Course: Discharge diagnosis 1. Right lower extremity hematoma Hospital course This is a 58-year-old female who status post a fall about 11 months ago with a right lower extremity swelling and difficulty walking. She is status post right lower extremity evacuation of hematoma with drain placement. Patient did require 3 units of blood after surgery. Hemoglobin stable. Vitals are now stable. Patient seen by cardiology regarding her A-fib. They have adjusted medications. She is stable for discharge. Patient has been ambulating. She is tolerating diet. She is afebrile. She will be discharged with antibiotics due to leukocytosis. Please refer to chart for any further details. Physician Ethylene Plant Helper note has been reviewed by physician. Signing provider agrees with the documented findings, assessment, and plan of care. Patient Condition at Discharge: Stable Plan - Discharge Summary Discharge Rx Participant: No New Discharge Prescriptions: New Metoprolol Succinate (ER) [Toprol XL] 50 mg PO BID #180 tab Aspirin 81 mg PO DAILY #30 tab Cephalexin [Keflex] 500 mg PO Q8HR 7 Days #21 cap HYDROcodone/APAP 5-325MG [[place] 5-325] 1 tab PO Q6HR PRN 3 Days #12 tab PRN Reason: Pain Continue Multivitamins, Thera [Multivitamin (formulary)] 1 tab PO DAILY Loratadine [Claritin] 10 mg PO DAILY Atorvastatin [Lipitor] 40 mg PO HS traMADol HCL 50 mg PO DIRECTED PRN PRN Reason: Pain Escitalopram [Lexapro] 10 mg PO HS Ferrous Sulfate [Iron (65 MG Elemental)] 325 mg PO DAILY Digoxin [Lanoxin] 125 mcg PO DAILY Discontinued Turmeric Root Extract [Turmeric] 500 mg PO DAILY Metoprolol Succinate (ER) [Toprol Xl] 25 mg PO BID Discharge Medication List Loratadine [Claritin] 10 mg PO DAILY 01/13/24 [History] Multivitamins, Thera [Multivitamin (formulary)] 1 tab PO DAILY 01/13/24 [History] Atorvastatin [Lipitor] 40 mg PO HS 05/22/24 [History] Digoxin [Lanoxin] 125 mcg PO DAILY 05/22/24 [History] Escitalopram [Lexapro] 10 mg PO HS 05/22/24 [History] Ferrous Sulfate [Iron (65 MG Elemental)] 325 mg PO DAILY 05/22/24 [History] traMADol HCL 50 mg PO DIRECTED PRN 05/22/24 [History] Aspirin 81 mg PO DAILY #30 tab 05/28/24 [Rx] Cephalexin [Keflex] 500 mg PO Q8HR 7 Days #21 cap 05/28/24 [Rx] HYDROcodone/APAP 5-325MG [[place] 5-325] 1 tab PO Q6HR PRN 3 Days #12 tab 05/28/24 [Rx] Metoprolol Succinate (ER) [Toprol XL] 50 mg PO BID #180 tab 05/28/24 [Rx] Follow up Appointment(s)/Referral(s): Viet De Leon MD [STAFF PHYSICIAN] - 1 Week Ken Lopes DO [Doctor of Osteopathic Medicine] - 1 Week Activity/Diet/Wound Care/Special Instructions: No driving while taking [place] No lifting over 10 pounds You may shower. No soaking or tub baths for 2 weeks Very light activity until you are reevaluated at your follow up appointment with your surgeon Keep drain in place Follow up with an orthopedic oncologist. Here are 2 recommendations: A Dr. Rebecca Herrera out of [facility] or Dr. Quentin Birmingham out of [facility] Discharge Disposition: HOME SELF-CARE
== END 2024-05-28 15:54 | disposition home or self-care (01) ==
LOC: OR 11:08 → 3SCARD 17:35 → OR 05-28 08:41
PROVIDERS: ADMIT Surgery; ATTEND Surgery
DX: S70.11XA Contusion of right thigh, initial encounter (principal); W18.30XA Fall on same level, unspecified, initial encounter; Y93.K1 Activity, walking an animal; I48.0 Paroxysmal atrial fibrillation; D62 Acute posthemorrhagic anemia; D72.829 Elevated white blood cell count, unspecified; D64.9 Anemia, unspecified; E78.5 Hyperlipidemia, unspecified; Z79.899 Other long term (current) drug therapy; Z87.891 Personal history of nicotine dependence; Z86.79 Personal history of other diseases of the circulatory system
CPT/HCPCS: 36430 ×2; 27301; 86900; 86901; 80053; 80048; 83735; 85025 ×3; 85027; 86850; 86920; 87070; 87205; 87075; 73706; G0378; P9016 ×2; J2250; J1100; J2405; J0690; J2003; J3010; J1171 ×3; J3475; J2704; Q9967; J2371 ×2

== ENCOUNTER 2024-05-31 07:24 | Inpatient (IN) | payer OTHER ==
[2024-05-31] MEDS: ACETAMINOPHEN TAB 500 MG TAB PO STA (07:46)
[2024-05-31] MEDS: CEPHALEXIN 500 MG CAP PO STA (07:46)
--- NOTE | 2024-05-31 07:46 | ED ---
General Adult HPI - General Chief complaint: Chest Pain Stated complaint: Chest pain Time Seen by Provider: 05/31/24 07:29 Source: patient, EMS, RN notes reviewed, old records reviewed Mode of arrival: EMS - History of Present Illness Initial comments: Patient is a 58-year-old female who presents emergency department complaining of chest discomfort. Chest pain is located over the right lower chest wall along the inferior ribs possibly in the right upper quadrant of the abdomen. States it started suddenly this morning when she woke up approximately an hour to an hour and a half ago. Denies any other associated symptoms. States it hurts when she takes a deep breath then. Denies any fevers, chills, cough that she is aware of. Recently had surgery on her right leg for hematoma. Was on blood thinners for atrial fibrillation has since been removed. Due to the hematoma. She was diagnosed with Takotsubo earlier this year which triggered the atrial fibrillation. She has no other acute complaints at this time. No other medical issues. No history of CAD or cardiac stents. Denies any constipation, nausea, vomiting, diarrhea. No other acute complaints. Presents for further evaluation. Patient surgery was just performed last week and she was discharged on May 28. It is currently May 31.No radiation of the pain. Describes it as a sharp sensation. Worse with deep inspiration. No palliative factors. - Related Data Home Medications Medication Instructions Recorded Confirmed Loratadine [Claritin] 10 mg PO DAILY 01/13/24 05/31/24 Multivitamins, Thera [Multivitamin 1 tab PO DAILY 01/13/24 05/31/24 (formulary)] Atorvastatin [Lipitor] 40 mg PO HS 05/22/24 05/31/24 Digoxin [Lanoxin] 125 mcg PO DAILY 05/22/24 05/31/24 Escitalopram [Lexapro] 10 mg PO HS 05/22/24 05/31/24 Ferrous Sulfate [Iron (65 MG 325 mg PO DAILY 05/22/24 05/31/24 Elemental)] traMADol HCL 50 mg PO Q6H PRN 05/22/24 05/31/24 Previous Rx's Medication Instructions Recorded Aspirin 81 mg PO DAILY #30 tab 05/28/24 Cephalexin [Keflex] 500 mg PO Q8HR 7 Days #21 cap 05/28/24 HYDROcodone/APAP 5-325MG [[place] 1 tab PO Q6HR PRN 3 Days #12 tab 05/28/24 5-325] Metoprolol Succinate (ER) [Toprol 50 mg PO BID #180 tab 05/28/24 XL] Allergies Allergy/AdvReac Type Severity Reaction Status Date / Time No Known Allergies Allergy Verified 05/31/24 10:19 Review of Systems ROS Statement: Those systems with pertinent positive or pertinent negative responses have been documented in the HPI. Review of Systems: CONST: Denies fever EYES: Denies blurry vision ENT: Denies nasal congestion C/V: Endorses right-sided chest pain RESP: Denies shortness of breath GI: Denies abdominal pain : Denies dysuria SKIN: Denies rash. MSK: Denies joint pain. NEURO: Denies headache ROS Other: All systems not noted in ROS Statement are negative. Past Medical History Past Medical History: Atrial Fibrillation, Hyperlipidemia Additional Past Medical History / Comment(s): injury to thigh from dog leash wrapped around it, hx. broken heart syndrome, takes meds for rapid heart rate, newer arrythmia-fib per pt, recent cardiac cath. History of Any Multi-Drug Resistant Organisms: None Reported Past Surgical History: Heart Catheterization Additional Past Anesthesia/Blood Transfusion Reaction / Comment(s): never really had anesthesia before, no family problems Past Psychological History: No Psychological Hx Reported Smoking Status: Former smoker Past Alcohol Use History: Occasional Past Drug Use History: None Reported - Past Family History Mother Family Medical History: No Reported History General Exam - General Exam Comments Initial Comments: General: Appears in no acute distress. HEAD: Normal with no signs of head trauma. EYES: EOMI ENT: Hearing grossly intact, normal oropharynx. RESPIRATORY: Clear breath sounds bilaterally. No wheezes, rales, or rhonchi. C/V: Irregular rate and rhythm. S1 and S2 auscultated, no edema, peripheral pulses 2+ and intact throughout ABD: Abd is soft, nontender, nondistended EXT: Normal range of motion, no obvious deformity SKIN: No rashes or lesions observed on exposed skin. NEURO: Alert and oriented x 4. Course Vital Signs 05/31/24 05/31/24 05/31/24 07:26 07:36 08:30 Temperature 100.6 F H Pulse Rate 113 H 90 Pulse Rate [ 83 Squadron Worker ] Respiratory 16 20 Rate Blood Pressure 121/62 117/59 O2 Sat by Pulse 98 96 Oximetry 05/31/24 05/31/24 05/31/24 09:05 10:18 11:00 Temperature 98.7 F 98.0 F 98.0 F Pulse Rate 107 H 78 106 H Pulse Rate [ Squadron Worker ] Respiratory 18 18 18 Rate Blood Pressure 111/51 99/67 113/68 O2 Sat by Pulse 95 95 96 Oximetry 05/31/24 05/31/24 05/31/24 12:06 13:10 13:56 Temperature Pulse Rate 84 75 80 Pulse Rate [ Squadron Worker ] Respiratory 16 16 18 Rate Blood Pressure 108/67 100/76 101/57 O2 Sat by Pulse 98 97 97 Oximetry Medical Decision Making - Medical Decision Making Was pt. sent in by a medical professional or institution (, PA, FORKLIFT TRUCK OPERATOR, urgent care, hospital, or usp...) When possible be specific @ -No Did you speak to anyone other than the patient for history (EMS, parent, family, police, friend...)? What history was obtained from this source @ -No Did you review nursing and triage notes (agree or disagree)? Why? @ -I reviewed and agree with nursing and triage notes Were old charts reviewed (outside hosp., previous admission, EMS record, old EKG, old radiological studies, urgent care reports/EKG's, usp records)? Report findings @ -Reviewed chart from recent visit from May 25 through May 28 when she had a hematoma evacuation completed by Dr. Lopes. Differential Diagnosis (chest pain, altered mental status, abdominal pain women, abdominal pain men, vaginal bleeding, weakness, fever, dyspnea, syncope, headache, dizziness, GI bleed, back pain, seizure, CVA, palpatations, mental health, musculoskeletal)? @ -Differential Chest Pain: Stable Angina, Unstable Angina, STEMI, NSTEMI Aortic Dissection, Pneumothorax, Musculoskeletal, Esophageal Spasm GERD, Cholecystitis, Pancreatitis, Zoster, this is not meant to be an all-inclusive list. EKG interpreted by me (3pts min.). @ -As above X-rays interpreted by me (1pt min.). @ -Chest x-ray reveals no obvious acute cardiopulmonary process. CT interpreted by me (1pt min.). @ -CT abdomen pelvis reveals no obvious acute intra-abdominal process, with possible enlarged spleen. CT PE negative for PE. Patient does have multiple pulmonary nodules present. Right lower extremity CT redemonstrates the hematoma with drain in place. U/S interpreted by me (1pt. min.). @ -Gallbladder ultrasound reveals no obvious acute gallbladder pathology. What testing was considered but not performed or refused? (CT, X-rays, U/S, labs)? Why? @ -None What meds were considered but not given or refused? Why? @ -None Did you discuss the management of the patient with other professionals (professionals i.e. , PA, FORKLIFT TRUCK OPERATOR, lab, RT, psych nurse, social media content specialist, antenna rigger, teacher, facilities officer, case manager specialist)? Give summary @ -No Was smoking cessation discussed for >3mins.? @ -No Was critical care preformed (if so, how long)? @ -No Were there social determinants of health that impacted care today? How? (Homelessness, low income, unemployed, alcoholism, drug addiction, transportation, low edu. Level, literacy, decrease access to med. care, detention, rehab)? @ -No Was there de-escalation of care discussed even if they declined (Discuss DNR or withdrawal of care, Hospice)? DNR status @ -No What co-morbidities impacted this encounter? (DM, HTN, Smoking, COPD, CAD, Cancer, CVA, ARF, Chemo, Hep., AIDS, mental health diagnosis, sleep apnea, morbid obesity)? @ -History of atrial fibrillation not currently on blood thinners other than baby aspirin, recent right lower extremity hematoma Was patient admitted / discharged? Hospital course, mention meds given and route, prescriptions, significant lab abnormalities, going to OR and other pertinent info. @ -Based on the patient's presentation and physical exam, presents emergency department complaining of right sided chest pain onset this morning. Vital signs are within acceptable limits. Patient received 3 nitroglycerin tablets from EMS with no change in symptoms. Exam is relatively unremarkable. She did have the recent surgery of her right lower extremity. We will obtain cardiac workup, as well as an ultrasound of the gallbladder. Patient will be symptomatically treat with Tylenol, her normal morning Keflex, IV morphine and IV fluids. Vital signs remarkable for fever at 100.6 F. Will obtain's COVID swab as well as urine studies as well. Patient was in agreement this plan. EKG shows atrial fibrillation.Initial imaging was unremarkable for gallbladder pathology as well as chest x-ray being unremarkable. Labs remarkable for chronic anemia within baseline, mild leukocytosis of 12.8, elevated D-dimer 3.2. Troponin is undetectable. Main to the labs unremarkable. We will obtain CT PE at this time as well as CT abdomen pelvis as well as CT right lower extremity. CT is remarkable for no PE, pulmonary nodules, mild splenomegaly, as well as the hematoma present in the right leg. Drain seems to be in place. Discussed the results with the patient. She expressed underst anding. Chest pain is improved but we will admit the patient observation for chest pain rule out as well as evaluation by cardiology and surgery. No obvious other sign of infection. Leg does not appear infected. We will continue with the empiric Rocephin at this time. Patient was in agreement this plan. I spoke with the admitting provider, Dr. Delgado who accepted the admission. Undiagnosed new problem with uncertain prognosis? @ -No Drug Therapy requiring intensive monitoring for toxicity (Heparin, Nitro, Insulin, Cardizem)? @ -No Were any procedures done? @ -No Diagnosis/symptom? @ -Hematoma of right lower leg, pulmonary nodules, chest pain Acute, or Chronic, or Acute on Chronic? @ -Acute Uncomplicated (without systemic symptoms) or Complicated (systemic symptoms)? @ -Complicated Side effects of treatment? @ -None Exacerbation, Progression, or Severe Exacerbation] @ -No Poses a threat to life or bodily function? @ -Potentially, yes - Lab Data Result diagrams: 05/31/24 07:43 05/31/24 07:43 Lab Results 05/31/24 05/31/24 05/31/24 Range/Units 07:43 07:43 07:43 WBC 12.8 H (3.8-10.6) k/uL RBC 2.83 L (3.80-5.40) m/uL Hgb 7.9 L (11.4-16.0) gm/dL Hct 25.4 L (34.0-46.0) % MCV 89.5 (80.0-100.0) fL MCH 27.8 (25.0-35.0) pg MCHC 31.1 (31.0-37.0) g/dL RDW 16.8 H (11.5-15.5) % Plt Count 577 H (150-450) k/uL MPV 7.2 Neutrophils % 80 % Lymphocytes % 12 % Monocytes % 6 % Eosinophils % 1 % Basophils % 0 % Neutrophils # 10.3 H (1.3-7.7) k/uL Lymphocytes # 1.5 (1.0-4.8) k/uL Monocytes # 0.8 (0-1.0) k/uL Eosinophils # 0.1 (0-0.7) k/uL Basophils # 0.0 (0-0.2) k/uL Hypochromasia Marked Poikilocytosis Slight Anisocytosis Slight PT 11.4 (10.0-12.5) sec INR 1.1 (<1.2) APTT 25.7 (22.0-30.0) sec D-Dimer 3.20 H (<0.60) mg/L FEU Sodium 135 L (137-145) mmol/L Potassium 4.1 (3.5-5.1) mmol/L Chloride 102 (98-107) mmol/L Carbon Dioxide 24 (22-30) mmol/L Anion Gap 9 mmol/L BUN 12 (7-17) mg/dL Creatinine 0.61 (0.52-1.04) mg/dL Est GFR (CKD-EPI)AfAm >90 (>60 ml/min/1.73 sqM) Est GFR (CKD-EPI)NonAf >90 (>60 ml/min/1.73 sqM) Glucose 113 H (74-99) mg/dL Plasma Lactic Acid Christos (0.7-2.0) mmol/L Calcium 7.6 L (8.4-10.2) mg/dL Magnesium 1.7 (1.6-2.3) mg/dL Total Bilirubin 0.6 (0.2-1.3) mg/dL AST 38 H (14-36) U/L ALT 21 (4-34) U/L Alkaline Phosphatase 317 H (38-126) U/L Troponin I (0.000-0.034) ng/mL NT-Pro-B Natriuret Pep 7220 pg/mL Total Protein 5.0 L (6.3-8.2) g/dL Albumin 2.3 L (3.5-5.0) g/dL Lipase 55 (23-300) U/L Urine Color Urine Appearance (Clear) Urine pH (5.0-8.0) Ur Specific [place] (1.001-1.035) Urine Protein (Negative) Urine Glucose (UA) (Negative) Urine Ketones (Negative) Urine Blood (Negative) Urine Nitrite (Negative) Urine Bilirubin (Negative) Urine Urobilinogen (<2.0) mg/dL Ur Leukocyte Esterase (Negative) Influenza Type A (PCR) (Not Detectd) Influenza Type B (PCR) (Not Detectd) RSV (PCR) (Not Detectd) SARS-CoV-2 (PCR) (Not Detectd) 05/31/24 05/31/24 05/31/24 Range/Units 07:43 07:43 07:43 WBC (3.8-10.6) k/uL RBC (3.80-5.40) m/uL Hgb (11.4-16.0) gm/dL Hct (34.0-46.0) % MCV (80.0-100.0) fL MCH (25.0-35.0) pg MCHC (31.0-37.0) g/dL RDW (11.5-15.5) % Plt Count (150-450) k/uL MPV Neutrophils % % Lymphocytes % % Monocytes % % Eosinophils % % Basophils % % Neutrophils # (1.3-7.7) k/uL Lymphocytes # (1.0-4.8) k/uL Monocytes # (0-1.0) k/uL Eosinophils # (0-0.7) k/uL Basophils # (0-0.2) k/uL Hypochromasia Poikilocytosis Anisocytosis PT (10.0-12.5) sec INR (<1.2) APTT (22.0-30.0) sec D-Dimer (<0.60) mg/L FEU Sodium (137-145) mmol/L Potassium (3.5-5.1) mmol/L Chloride (98-107) mmol/L Carbon Dioxide (22-30) mmol/L Anion Gap mmol/L BUN (7-17) mg/dL Creatinine (0.52-1.04) mg/dL Est GFR (CKD-EPI)AfAm (>60 ml/min/1.73 sqM) Est GFR (CKD-EPI)NonAf (>60 ml/min/1.73 sqM) Glucose (74-99) mg/dL Plasma Lactic Acid Christos 1.6 (0.7-2.0) mmol/L Calcium (8.4-10.2) mg/dL Magnesium (1.6-2.3) mg/dL Total Bilirubin (0.2-1.3) mg/dL AST (14-36) U/L ALT (4-34) U/L Alkaline Phosphatase (38-126) U/L Troponin I <0.012 (0.000-0.034) ng/mL NT-Pro-B Natriuret Pep pg/mL Total Protein (6.3-8.2) g/dL Albumin (3.5-5.0) g/dL Lipase (23-300) U/L Urine Color Urine Appearance (Clear) Urine pH (5.0-8.0) Ur Specific [place] (1.001-1.035) Urine Protein (Negative) Urine Glucose (UA) (Negative) Urine Ketones (Negative) Urine Blood (Negative) Urine Nitrite (Negative) Urine Bilirubin (Negative) Urine Urobilinogen (<2.0) mg/dL Ur Leukocyte Esterase (Negative) Influenza Type A (PCR) Not Detected (Not Detectd) Influenza Type B (PCR) Not Detected (Not Detectd) RSV (PCR) Not Detected (Not Detectd) SARS-CoV-2 (PCR) Not Detected (Not Detectd) 05/31/24 Range/Units 10:18 WBC (3.8-10.6) k/uL RBC (3.80-5.40) m/uL Hgb (11.4-16.0) gm/dL Hct (34.0-46.0) % MCV (80.0-100.0) fL MCH (25.0-35.0) pg MCHC (31.0-37.0) g/dL RDW (11.5-15.5) % Plt Count (150-450) k/uL MPV Neutrophils % % Lymphocytes % % Monocytes % % Eosinophils % % Basophils % % Neutrophils # (1.3-7.7) k/uL Lymphocytes # (1.0-4.8) k/uL Monocytes # (0-1.0) k/uL Eosinophils # (0-0.7) k/uL Basophils # (0-0.2) k/uL Hypochromasia Poikilocytosis Anisocytosis PT (10.0-12.5) sec INR (<1.2) APTT (22.0-30.0) sec D-Dimer (<0.60) mg/L FEU Sodium (137-145) mmol/L Potassium (3.5-5.1) mmol/L Chloride (98-107) mmol/L Carbon Dioxide (22-30) mmol/L Anion Gap mmol/L BUN (7-17) mg/dL Creatinine (0.52-1.04) mg/dL Est GFR (CKD-EPI)AfAm (>60 ml/min/1.73 sqM) Est GFR (CKD-EPI)NonAf (>60 ml/min/1.73 sqM) Glucose (74-99) mg/dL Plasma Lactic Acid Christos (0.7-2.0) mmol/L Calcium (8.4-10.2) mg/dL Magnesium (1.6-2.3) mg/dL Total Bilirubin (0.2-1.3) mg/dL AST (14-36) U/L ALT (4-34) U/L Alkaline Phosphatase (38-126) U/L Troponin I (0.000-0.034) ng/mL NT-Pro-B Natriuret Pep pg/mL Total Protein (6.3-8.2) g/dL Albumin (3.5-5.0) g/dL Lipase (23-300) U/L Urine Color Light Yellow Urine Appearance Clear (Clear) Urine pH 5.5 (5.0-8.0) Ur Specific [place] 1.015 (1.001-1.035) Urine Protein Negative (Negative) Urine Glucose (UA) Negative (Negative) Urine Ketones Negative (Negative) Urine Blood Negative (Negative) Urine Nitrite Negative (Negative) Urine Bilirubin Negative (Negative) Urine Urobilinogen <2.0 (<2.0) mg/dL Ur Leukocyte Esterase Negative (Negative) Influenza Type A (PCR) (Not Detectd) Influenza Type B (PCR) (Not Detectd) RSV (PCR) (Not Detectd) SARS-CoV-2 (PCR) (Not Detectd) - EKG Data -: EKG Interpreted by Me EKG Comments: 12-lead Electrocardiogram Interpretation Note EKG was reviewed and interpreted by myself. 12-lead ECG performed at 0739 is interpreted by me as revealing atrial fibrillation at a rate of 89 beats per minute. [place] is normal. QRS duration is 82 ms, QTc is 398 ms.. There were no ST or T wave abnormalities to suggest myocardial ischemia or injury. R wave progression across the precordium was satisfactory. By my interpretation this EKG is non-diagnostic for acute ischemia. Disposition Clinical Impression: Chest pain, Hematoma of right lower leg, Pulmonary nodules Disposition: ADMITTED IP TO THIS HOSP Condition: Stable Time of Disposition: 11:30
[2024-05-31] MEDS: MORPHINE SULFATE 4 MG/ML SYRINGE IVP STA (07:47)
[2024-05-31] MEDS: SODIUM CHLORIDE 0.9% 1,000 ML IV STA ×2 (07:47→10:55)
[2024-05-31 07:54] LABS: Anisocytosis Slight; Basophils % (A) 0 %; Eosinophils # (A) 0.1 k/uL (0-0.7); Eosinophils % (A) 1 %; HCT 25.4 % (34.0-46.0); HGB 7.9 gm/dL (11.4-16.0); Hypochromasia Marked; Lymphocytes # (A) 1.5 k/uL (1.0-4.8); Lymphocytes % (A) 12 %; MCH 27.8 pg (25.0-35.0); MCHC 31.1 g/dL (31.0-37.0); MCV 89.5 fL (80.0-100.0); Mean Platelet Volume 7.2; Monocytes # (A) 0.8 k/uL (0-1.0); Monocytes % (A) 6 %; Neutrophils # (A) 10.3 k/uL (1.3-7.7); Neutrophils % (A) 80 %; Platelet Count 577 k/uL (150-450); Poikilocytosis Slight; RBC 2.83 m/uL (3.80-5.40); RDW 16.8 % (11.5-15.5); WBC 12.8 k/uL (3.8-10.6)
[2024-05-31 08:11] LABS: INR 1.1 (<1.2); Partial Thromboplastin Time 25.7 sec (22.0-30.0); Prothrombin Time 11.4 sec (10.0-12.5)
[2024-05-31 08:16] LABS: ALT 21 U/L (4-34); AST 38 U/L (14-36); African American GFR (CKD) >90 (>60 ml/min/1.73 sqM); Albumin 2.3 g/dL (3.5-5.0); Alkaline Phosphatase 317 U/L (38-126); Anion Gap 9 mmol/L; Blood Urea Nitrogen 12 mg/dL (7-17); Calcium 7.6 mg/dL (8.4-10.2); Carbon Dioxide 24 mmol/L (22-30); Chloride 102 mmol/L (98-107); Glucose 113 mg/dL (74-99); Lipase 55 U/L (23-300); Magnesium 1.7 mg/dL (1.6-2.3); Non-African American GFR(CKD) >90 (>60 ml/min/1.73 sqM); Potassium 4.1 mmol/L (3.5-5.1); Sodium 135 mmol/L (137-145); Total Bilirubin 0.6 mg/dL (0.2-1.3)
--- NOTE | 2024-05-31 08:16 | XR ---
EXAMINATION TYPE: XR chest 2V DATE OF EXAM: 05/31/2024 8:01 AM COMPARISON: None CLINICAL INDICATION: Female, 58 years old with history of Chest Pain; [facility] TECHNIQUE: XR chest 2V Frontal and lateral views of the chest. FINDINGS: Lungs/Pleura: There is no evidence of pleural effusion, focal consolidation, or pneumothorax. Pulmonary vascularity: Unremarkable. Heart/mediastinum: Cardiomediastinal silhouette is unremarkable. Musculoskeletal: No acute osseous pathology. IMPRESSION: No acute cardiopulmonary disease/process. [facility], , 05/31/2024 8:13 AM
[2024-05-31 08:24] LABS: NT-Pro-B-Type Natriuretic Pept 7220 pg/mL
[2024-05-31] MEDS ORDERED: DIGOXIN 125 MCG TAB PO SCH (09:00)
[2024-05-31] MEDS: DIGOXIN 125 MCG TAB PO STA (09:01)
[2024-05-31] MEDS: METOPROLOL SUCCINATE (ER) 50 MG TAB.ER.24H PO STA (09:01)
--- NOTE | 2024-05-31 10:10 | US ---
EXAMINATION TYPE: US gallbladder DATE OF EXAM: 05/31/2024 COMPARISON: NONE CLINICAL INDICATION: Female, 58 years old with history of RUQ pain; TECHNIQUE: Grayscale and color Doppler imaging of the right upper quadrant was performed. FINDINGS: EXAM MEASUREMENTS: Liver Length: 16.3 cm Gallbladder Wall: 0.3 cm CBD: 0.3 cm Right Kidney: 10.0x6.4x5.9 cm Pancreas: wnl Liver: wnl Gallbladder: No stones seen Evidence for sonographic Posada's sign: No CBD: limited visualization Right Kidney: No hydronephrosis or masses seen IMPRESSION: Mild hepatomegaly [facility], , 05/31/2024 10:08 AM
--- NOTE | 2024-05-31 10:31 | CT ---
EXAMINATION TYPE: CT chest angio for PE DATE OF EXAM: 05/31/2024 9:48 AM COMPARISON: None. CLINICAL INDICATION: Female, 58 years old with history of eval for PE, right side chest pain TECHNIQUE: CT of the chest is performed on a spiral scan at 2 mm thick sections. Study is performed with intravenous contrast timed for evaluation for pulmonary embolism. This will limit additional po rtions of the evaluation. 3-D MIP images reconstructed by the technologist are reviewed on the compu ter in the coronal and sagittal planes. Contrast used:100 mL of Isovue 300 with IV Contrast, (none if empty) Oral contrast used: (none if empty) CT DLP: 277.2 mGycm, Automated exposure control for dose reduction was used. FINDINGS: No persistent filling defects are evident to suggest an acute pulmonary embolism. No mediastinal or hilar adenopathy enlarged by CT criteria is evident. The ascending aorta diameter at the level of the main pulmonary artery is 8.4 cm. The main pulmonary artery diameter at the bifurcation is 3.0 cm. There are multiple pulmonary nodules present bilaterally. Larger nodules include a right upper lung f ield 1.7 cm nodule. There is a 1.3 cm left infrahilar nodule. There is a 1.6 cm peripheral left lower lobe nodule. There is a 2.1 cm left base nodule. There is a 1.3 cm pleural-based density lateral r ight lung base. Multiple additional small nodules are present bilaterally Limited CT sections were through the upper abdomen. Upper abdomen appears unremarkable. IMPRESSION: 1. Multiple bilateral lung nodules. For metastasis recommended. 2. No acute pulmonary embolism [facility], , 05/31/2024 10:28 AM
--- NOTE | 2024-05-31 10:34 | CT ---
EXAMINATION TYPE: CT lower leg RT w con DATE OF EXAM: 05/31/2024 9:48 AM COMPARISON: None. CLINICAL INDICATION: Female, 58 years old with history of recent hematoma surgery with drain placemen t, lower leg hematoma, Lung cancer screening, History of tobacco use. Recent hematoma surgery TECHNIQUE: Contrast used:100 mL of Isovue 370 with IV Contrast, (none if empty) Oral contrast used: (none if empty) FINDINGS: Right femur appears intact. There is a large irregular soft tissue density collection with a drainage catheter and be compatible with a large subcutaneous hematoma. This extends laterally. Extending fro m the distal metaphysis to the intertrochanteric level is evident both laterally and anteriorly. Drai nage catheter is present anteriorly. IMPRESSION: 1. LARGE HYPODENSE COLLECTION CAN BE COMPATIBLE WITH LARGE MUSCULAR HEMATOMA CONTAINS A DRAINAGE CATH ETER. THIS EXTENDS FROM THE INTERTROCHANTERIC LEVEL TO NEARLY THE KNEE JOINT SPACE ALONG THE ANTERIOR LATERAL THIGH. [facility], , 05/31/2024 10:32 AM
[2024-05-31 10:37] LABS: Appearance,Urine Clear (Clear); Bilirubin,Urine Negative (Negative); Blood,Urine Negative (Negative); Color,Urine Light Yellow; Glucose,Urine (UA) Negative (Negative); Ketones,Urine Negative (Negative); Leukocyte Esterase,Urine Negative (Negative); Nitrite,Urine Negative (Negative); PH, Urine 5.5 (5.0-8.0); Protein,Urine Negative (Negative); Specific Gravity,Urine 1.015 (1.001-1.035); Urobilinogen,Urine <2.0 mg/dL (<2.0)
--- NOTE | 2024-05-31 10:43 | CT ---
EXAMINATION TYPE: CT abdomen pelvis w con DATE OF EXAM: 05/31/2024 9:48 AM COMPARISON: None. CLINICAL INDICATION: Female, 58 years old with history of RUQ pain, RUQ pain TECHNIQUE: Axial images were obtained from above the diaphragm to the pubic rami in the axial plane a t 5 mm thick sections. Reconstructed images are reviewed on the computer in the coronal plane. CONTRAST: 100 mL of Isovue 370. Study performed without Oral Contrast DLP: 841.6 mGycm, Automated exposure control for dose reduction was used. FINDINGS: Limited CT sections are obtained the lung bases. There is a 1.7 cm nodule left posterior lateral fredi g base. 6 series 501 image 1 0.5 cm nodule is at the right lung base. Series 501 image 7. Multiple ad ditional nodules are identified in the chest CT same date. CT ABDOMEN: Liver: Normal Spleen: There is fullness to the anterior inferior spleen. This is isodense with the remaining portio ns of the spleen splenomegaly or mass considered. Pancreas: Normal Adrenal glands: The adrenal glands are normal. Gallbladder: Normal Kidneys: No masses are evident. No hydronephrosis is present. No cysts are present. No obstructing renal stones identified Aorta: Vascular calcification is within the aorta. Inferior vena cava: Normal. CT PELVIS: Loops of bowel within the abdomen and pelvis are normal. There are loops of bowel which are incom pletely distended or lack oral contrast limiting their evaluation. Appendix: Normal as visualized. Urinary bladder: Normal. Genitourinary structures: Uterus and adnexa appear normal. No free fluid is within the pelvis. Osseous structures: No suspicious lytic or sclerotic lesions. There is partial visualization of the r ight thigh hematoma. IMPRESSION: 1. Fullness of the spleen. This can be due to some splenomegaly, underlying isodense mass or normal variation for patient. 2. Lower lung base nodules. [facility], , 05/31/2024 10:40 AM
[2024-05-31] MEDS ORDERED: NALOXONE 0.4 MG/ML 1 ML VIAL IV PRN (11:42)
[2024-05-31] MEDS ORDERED: ONDANSETRON 4 MG/2 ML VIAL IVP PRN (11:42)
[2024-05-31] MEDS: SODIUM CHLORIDE 0.9% 1,000 ML IV SCH (11:51)
--- NOTE | 2024-05-31 13:41 | P.HPIM ---
History of Present Illness H&P Date: 05/31/24 Patient is a 58-year-old female history of Takotsubo cardiomyopathy, A-fib (not on anticoagulation), right leg pain status post hematoma evacuation on 05/25/2024, hyperlipidemia and hypertension presents to the ER with a sudden onset right-sided chest pain. Patient stated that she woke up this morning around 6 AM with achy type, nonradiating, 10 out of 10 pain presented on right chest and under the right breast. It is worse with deep breaths and better with change in position. Patient states that due to her recent history of Takotsubo cardiomyopathy and right leg surgery for hematoma along with a new sudden onset chest pain this morning prompted her to come to the ER for further evaluation. Otherwise patient is not complaining of any shortness of breath, diaphoresis, lightheadedness, abdominal discomfort, fever, chills, nausea and vomiting. Patient is currently not on any blood thinner. Patient denies any recent travel history. No past history of CAD and/or CVA. Patient is following general surgery for recent right leg surgery. At the time of interview, patient still complaining of constant, nonradiating, 3/10, right-sided chest pain which is worse with deep breaths. In the ER patient underwent an extensive evaluation. Chest x-ray interpreted independently shows no acute cardiopulmonary process. EKG interpreted independently shows A-fib with ventricular rate of 89 and QTc of 398 ms. Gallbladder ultrasound shows mild hepatomegaly. Chest CTA shows no evidence of acute pulmonary embolism. It does show multiple bilateral lung nodules. Lower extremity CT shows large irregular soft tissue density with a drainage catheter in the anterolateral right thigh. CT of the abdomen and pelvis interpreted independently shows multiple bilateral lung nodules. Patient states that she quit smoking about 10 to 15 years ago and was a social smoker. Patient also denies use of any illicit drug use. And drinks alcohol occasionally. Laboratory evaluation in the ER shows WBC 12.8, hemoglobin 7.9, MCV 89.5, sodium 135, potassium 4.1, BUN 12, creatinine 0.61, glucose 113, calcium 7.6, AST 38, ALT 21, ALP 317, lipase 55. Troponin I is less than 0.012, NT proBNP 7220, D-dimer 3.20. Respiratory viral panel is negative Review of systems: Pertinent positives and negatives as discussed in HPI, a complete review of systems was performed and all other systems are negative. Social history: As above Physical examination: Vital signs reviewed General: non toxic, no distress, appears at stated age, normal weight Head: atraumatic, normocephalic, symmetric Eyes: EOMI, no lid lag, anicteric sclera, pupils equal round reactive to light ENT: Nose and ears atraumatic Neck: No cervical lymphadenopathy, trachea midline, supple Mouth: no lip lesion, mucus membranes moist Cardiovascular: S1S2 reg, no murmur, positive dorsalis pedis pulse bilateral, no edema Lungs: CTA bilateral, no rhonchi, no rales, no accessory muscle use Abdominal: soft, nontender to palpation, no guarding Ext: Right thigh is strapped, range of motion of the right hip is limited due to pain, mild swelling noted right lower leg, the rest of the extremities strength 5/5 and sensation intact. Neuro: CN II-XI grossly intact, no gross focal neuro deficits Psych: Alert, oriented, appropriate affect Assessment/Plan: Patient is a 58-year-old female history of Takotsubo cardiomyopathy, A-fib (not on anticoagulation), right leg pain status post hematoma evacuation on 05/25/2024, hyperlipidemia and hypertension presents to the ER with a sudden onset right-sided chest pain. Case was discussed with the ED provider and patient is admitted to the internal medicine service for further evaluation of chest pain to rule out ACS. #Atypical chest pain, rule out ACS #History of Takotsubo cardiomyopathy, recovered EF #Elevated D-dimer Patient endorsing pain in her right side chest and breast area Troponin less than 0.012, continue to trend troponin Aspirin 81 mg p.o. daily, atorvastatin 40 mg p.o. at bedtime D-dimer 3.20 Chest CTA negative for pulm embolism Gallbladder ultrasound shows mild hepatomegaly. Consult cardiology Heart score, 2 points, 6-week risk of major adverse cardiac event is low Morphine 4 mg IVP every 4 hours as needed for pain Continue with cardiac monitoring Recent outpatient echocardiogram shows LV ejection fraction improved to 55% #Atrial fibrillation with rate control Resume digoxin 125 mcg p.o. daily and metoprolol succinate 50 mg p.o. twice daily Continue cardiac monitoring Consult cardiology as above #Right thigh hematoma s/p hematoma evacuation on 05/25/2024 #Acute blood loss anemia secondary above #SIRS #suspected infected hematoma CT shows large irregular soft tissue density with a drainage catheter in the anterolateral right thigh. Consult general surgery Pain control as above Resume Keflex 500 mg p.o. every 8 hour Hemoglobin 7.9, MCV 89.5, hematocrit 25.4 Monitor for hemoglobin with CBC Transfusion with PRBC if less than 7 Resume ferrous sulfate 325 mg p.o. daily #Bilateral pulmonary nodules on CTA Former smoker, quit 10 [address] of the abdomen and pelvis interpreted independently shows multiple bilateral lung nodules Outpatient follow-up with PCP and pulmonology Chest pain possibly in the setting of nodules consult oncology. #Transaminases and elevated ALP likely reactive to above AST 38, ALT 21, ALP 317 Monitor CMP #Hyperglycemia likely reactive to above Serum glucose 113 Continue monitor serum glucose level HbA1c 5.5 on 05/27/2024 Chronic conditions: Depression/anxiety: Resume escitalopram 10 mg p.o. at bedtime DVT prophylaxis: Not indicated in the setting of recent hematoma surgery The patient is admitted as observation with an anticipated less than 2 midnight stay for evaluation of atypical chest pain rule out ACS CODE STATUS: Full code Discussed with: Patient Anticipated discharge place: Home A total of 55 minutes was spent on the care of this complex patient more than 50% of the time was spent in counseling and care coordination. I have seen and evaluated the patient today. Discussed with the resident and agree with the residents finding and plan as documented in the resident's note. Changes highlighted in blue font. Past Medical History Past Medical History: Atrial Fibrillation, Hyperlipidemia Additional Past Medical History / Comment(s): injury to thigh from dog leash wrapped around it, hx. broken heart syndrome, takes meds for rapid heart rate, newer arrythmia-fib per pt, recent cardiac cath. History of Any Multi-Drug Resistant Organisms: None Reported Past Surgical History: Heart Catheterization Additional Past Anesthesia/Blood Transfusion Reaction / Comment(s): never really had anesthesia before, no family problems Past Psychological History: No Psychological Hx Reported Smoking Status: Former smoker Past Alcohol Use History: Occasional Past Drug Use History: None Reported - Past Family History Mother Family Medical History: No Reported History Medications and Allergies Home Medications Medication Instructions Recorded Confirmed Type Loratadine [Claritin] 10 mg PO DAILY 01/13/24 05/31/24 History Multivitamins, Thera [Multivitamin 1 tab PO DAILY 01/13/24 05/31/24 History (formulary)] Atorvastatin [Lipitor] 40 mg PO HS 05/22/24 05/31/24 History Digoxin [Lanoxin] 125 mcg PO DAILY 05/22/24 05/31/24 History Escitalopram [Lexapro] 10 mg PO HS 05/22/24 05/31/24 History Ferrous Sulfate [Iron (65 MG 325 mg PO DAILY 05/22/24 05/31/24 History Elemental)] traMADol HCL 50 mg PO Q6H PRN 05/22/24 05/31/24 History Aspirin 81 mg PO DAILY #30 tab 05/28/24 05/31/24 Rx Cephalexin [Keflex] 500 mg PO Q8HR 7 Days #21 cap 05/28/24 05/31/24 Rx HYDROcodone/APAP 5-325MG [[place] 1 tab PO Q6HR PRN 3 Days #12 tab 05/28/24 05/31/24 Rx 5-325] Metoprolol Succinate (ER) [Toprol 50 mg PO BID #180 tab 05/28/24 05/31/24 Rx XL] Allergies Allergy/AdvReac Type Severity Reaction Status Date / Time No Known Allergies Allergy Verified 05/31/24 10:19 Physical Exam Vitals: Vital Signs Temp Pulse Pulse Resp BP Pulse Ox 05/31/24 13:10 75 16 100/76 97 05/31/24 12:06 84 16 108/67 98 05/31/24 11:00 98.0 F 106 H 18 113/68 96 05/31/24 10:18 98.0 F 78 18 99/67 95 05/31/24 09:05 98.7 F 107 H 18 111/51 95 05/31/24 08:30 90 20 117/59 96 05/31/24 07:36 83 05/31/24 07:26 100.6 F H 113 H 16 121/62 98 Intake and Output 05/30/24 05/31/24 05/31/24 22:59 06:59 14:59 Other: Weight 70.307 kg Results CBC & Chem 7: 05/31/24 07:43 05/31/24 07:43 Labs: Abnormal Lab Results - Last 24 Hours (Table) 05/31/24 05/31/24 05/31/24 Range/Units 07:43 07:43 07:43 WBC 12.8 H (3.8-10.6) k/uL RBC 2.83 L (3.80-5.40) m/uL Hgb 7.9 L (11.4-16.0) gm/dL Hct 25.4 L (34.0-46.0) % RDW 16.8 H (11.5-15.5) % Plt Count 577 H (150-450) k/uL Neutrophils # 10.3 H (1.3-7.7) k/uL D-Dimer 3.20 H (<0.60) mg/L FEU Sodium 135 L (137-145) mmol/L Glucose 113 H (74-99) mg/dL Calcium 7.6 L (8.4-10.2) mg/dL AST 38 H (14-36) U/L Alkaline Phosphatase 317 H (38-126) U/L Total Protein 5.0 L (6.3-8.2) g/dL Albumin 2.3 L (3.5-5.0) g/dL
[2024-05-31] MEDS: MORPHINE SULFATE 4 MG/ML SYRINGE IV PRN (13:59)
[2024-05-31] MEDS: CEPHALEXIN 500 MG CAP PO SCH (16:04)
[2024-05-31] MEDS: ATORVASTATIN 40 MG TAB PO SCH (21:26)
[2024-05-31] MEDS: ESCITALOPRAM 10 MG TAB PO SCH (21:26)
[2024-05-31] MEDS: METOPROLOL SUCCINATE (ER) 50 MG TAB.ER.24H PO SCH (21:26)
[2024-06-01 02:42] LABS: Anisocytosis Slight; Basophils % (A) 0 %; Eosinophils # (A) 0.2 k/uL (0-0.7); Eosinophils % (A) 1 %; HCT 22.9 % (34.0-46.0); Hypochromasia Marked; Lymphocytes # (A) 2.1 k/uL (1.0-4.8); Lymphocytes % (A) 18 %; MCH 27.7 pg (25.0-35.0); MCHC 30.7 g/dL (31.0-37.0); MCV 90.3 fL (80.0-100.0); Monocytes # (A) 0.8 k/uL (0-1.0); Monocytes % (A) 7 %; Neutrophils # (A) 8.6 k/uL (1.3-7.7); Neutrophils % (A) 72 %; Platelet Count 541 k/uL (150-450); Poikilocytosis Slight; RBC 2.54 m/uL (3.80-5.40); RDW 16.7 % (11.5-15.5); WBC 11.9 k/uL (3.8-10.6)
[2024-06-01 02:54] LABS: ALT 17 U/L (4-34); AST 30 U/L (14-36); African American GFR (CKD) >90 (>60 ml/min/1.73 sqM); Albumin 2.1 g/dL (3.5-5.0); Albumin/Globulin Ratio 0.8; Alkaline Phosphatase 260 U/L (38-126); Anion Gap 5 mmol/L; Blood Urea Nitrogen 12 mg/dL (7-17); Calcium 7.4 mg/dL (8.4-10.2); Carbon Dioxide 22 mmol/L (22-30); Chloride 108 mmol/L (98-107); Globulin 2.6 g/dL; Glucose 90 mg/dL (74-99); Non-African American GFR(CKD) >90 (>60 ml/min/1.73 sqM); Potassium 3.7 mmol/L (3.5-5.1); Sodium 135 mmol/L (137-145); Total Bilirubin 0.5 mg/dL (0.2-1.3); Total Protein 4.7 g/dL (6.3-8.2)
[2024-06-01] MEDS: FERROUS SULFATE 325 MG TAB PO SCH (08:37)
[2024-06-01] MEDS: ASPIRIN 81 MG PO SCH (08:37)
[2024-06-01] MEDS: ACETAMINOPHEN TAB 325 MG TAB PO PRN (08:38)
[2024-06-01] MEDS: DIGOXIN 125 MCG TAB PO SCH (08:38)
--- NOTE | 2024-06-01 13:07 | P.PN ---
Subjective Progress Note Date: 06/01/24 Hospital course: Patient is a 58-year-old female history of Takotsubo cardiomyopathy, A-fib (not on anticoagulation), right leg pain status post hematoma evacuation on 05/25/2024, hyperlipidemia and hypertension presents to the ER with a sudden onset right-sided chest pain. Patient is admitted to internal medicine service for further evaluation of chest pain to rule out ACS. In the ER patient underwent an extensive evaluation. Chest x-ray interpreted independently shows no acute cardiopulmonary process. EKG interpreted independently shows A-fib with ventricular rate of 89 and QTc of 398 ms. Gallbladder ultrasound shows mild hepatomegaly. Chest CTA shows no evidence of acute pulmonary embolism. It does show multiple bilateral lung nodules. Lower extremity CT shows large irregular soft tissue density with a drainage catheter in the anterolateral right thigh. CT of the abdomen and pelvis interpreted independently shows multiple bilateral lung nodules. Laboratory evaluation in the ER shows WBC 12.8, hemoglobin 7.9, MCV 89.5, sodium 135, potassium 4.1, BUN 12, creatinine 0.61, glucose 113, calcium 7.6, AST 38, ALT 21, ALP 317, lipase 55. Troponin I is less than 0.012, NT proBNP 7220, D-dimer 3.20. Respiratory viral panel including COVID-19 is negative. ACS rule out with troponin trending negative. Patient hemoglobin was 7.0 on 06/01/2024 and she was given a unit of blood. Repeat blood work in the afternoon. Cardiology is consulted. Echocardiogram is pending. Subjective: Patient seen and examined at the bedside. No acute events overnight. All Systems reviewed and pertinent positives and negatives noted in HPI, all other symptoms are negative Objective: Vital signs reviewed. General: non toxic, no distress, appears at stated age, normal weight Head: atraumatic, normocephalic, symmetric Eyes: EOMI, no lid lag, anicteric sclera, pupils equal round reactive to light ENT: Nose and ears atraumatic Neck: No cervical lymphadenopathy, trachea midline, supple Mouth: no lip lesion, mucus membranes moist Cardiovascular: S1S2 reg, no murmur, positive dorsalis pedis pulse bilateral, no edema Lungs: CTA bilateral, no rhonchi, no rales, no accessory muscle use Abdominal: soft, nontender to palpation, no guarding Ext: Right thigh is strapped, range of motion of the right hip is limited due to pain, mild swelling noted right lower leg, the rest of the extremities strength 5/5 and sensation intact. Neuro: CN II-XI grossly intact, no gross focal neuro deficits Psych: Alert, oriented, appropriate affect Data reviewed today: Labs: WBC 11.9, hemoglobin 7.0, MCV 90.3, platelet count 541, sodium 135, potassium 3.7, chloride 108, bicarb 22, BUN 12, creatinine 0.60, calcium 7.4, AST 30, ALT 17, ALP 260 Images: No new imaging Assessment and Plan: Patient is a 58-year-old female history of Takotsubo cardiomyopathy, A-fib (not on anticoagulation), right leg pain status post hematoma evacuation on 05/25/2024, hyperlipidemia and hypertension presents to the ER with a sudden onset right-sided chest pain. Case was discussed with the ED provider and patient is admitted to the internal medicine service for further evaluation of chest pain to rule out ACS. #Atypical chest pain, rule out ACS #History of Takotsubo cardiomyopathy, recovered EF #Elevated D-dimer Patient continues to endorse pain in her right side chest and breast area Troponin trend: Negative Continue with aspirin 81 mg p.o. daily, atorvastatin 40 mg p.o. at bedtime Chest CTA negative for pulm embolism Gallbladder ultrasound shows mild hepatomegaly. Consult cardiology Order echocardiogram Heart score, 2 points, 6-week risk of major adverse cardiac event is low Morphine 4 mg IVP every 4 hours as needed for pain Continue with cardiac monitoring Recent outpatient echocardiogram shows LV ejection fraction improved to 55% #Atrial fibrillation with rate control Resume digoxin 125 mcg p.o. daily and metoprolol succinate 50 mg p.o. twice daily Continue cardiac monitoring Consult cardiology as above #Right thigh hematoma s/p hematoma evacuation on 05/25/2024 #Acute blood loss anemia secondary above #SIRS #suspected infected hematoma CT shows large irregular soft tissue density with a drainage catheter in the anterolateral right thigh. Consult general surgery Pain control as above Resume Keflex 500 mg p.o. every 8 hour Hemoglobin 7.0 Order 1 unit of packed RBC Repeat CBC at 4:00 PM in afternoon Monitor for hemoglobin with CBC Transfusion with PRBC if less than 7 Resume ferrous sulfate 325 mg p.o. daily #Bilateral pulmonary nodules on CTA Former smoker, quit 10 [address] of the abdomen and pelvis interpreted independently shows multiple bilateral lung nodules Outpatient follow-up with PCP and pulmonology Chest pain possibly in the setting of nodules Consult oncology #Transaminases and elevated ALP likely reactive to above AST 38, ALT 21, ALP 317 Monitor CMP #Hyperglycemia likely reactive to above Serum glucose 113 Continue monitor serum glucose level HbA1c 5.5 on 05/27/2024 Chronic conditions: Depression/anxiety: Resume escitalopram 10 mg p.o. at bedtime DVT prophylaxis: Not indicated in the setting of recent hematoma surgery F: 75 cc/h normal saline drip E: Replete as needed N: Heart healthy diet A: Ambulatory without assist at home DVT ppx: Not indicated in the setting of hematoma Code Status: Full code Anticipated discharge place: Home Anticipated discharge date: Pending clinical course I saw and evaluated the patient during the lorenzana and critical portions of this encounter, and discussed the case in detail with the resident author of this note, I agree with the Assessment and Plan, and my changes, if any, are highlighted in blue. Objective - Vital Signs Vital signs: Vital Signs Temp 97.9 F 06/01/24 12:15 Pulse 64 06/01/24 12:15 Resp 15 06/01/24 12:15 BP 107/62 06/01/24 12:15 Pulse Ox 99 06/01/24 12:15 FiO2 Intake & Output 05/31/24 06/01/24 06/01/24 18:59 06:59 18:59 Intake Total 0 Balance 0 Weight 70.307 kg 70.307 kg Intake: Blood Product 0 Unit 0 Other: Voiding Method Toilet # Voids 1 1 - Labs CBC & Chem 7: 06/01/24 02:11 06/01/24 02:11 Labs: Abnormal Lab Results - Last 24 Hours (Table) 06/01/24 06/01/24 06/01/24 Range/Units 02:11 02:11 07:53 WBC 11.9 H (3.8-10.6) k/uL RBC 2.54 L (3.80-5.40) m/uL Hgb 7.0 L (11.4-16.0) gm/dL Hct 22.9 L (34.0-46.0) % MCHC 30.7 L (31.0-37.0) g/dL RDW 16.7 H (11.5-15.5) % Plt Count 541 H (150-450) k/uL Neutrophils # 8.6 H (1.3-7.7) k/uL Sodium 135 L (137-145) mmol/L Chloride 108 H (98-107) mmol/L Calcium 7.4 L (8.4-10.2) mg/dL Alkaline Phosphatase 260 H (38-126) U/L Total Protein 4.7 L (6.3-8.2) g/dL Albumin 2.1 L (3.5-5.0) g/dL Crossmatch See Detail Microbiology - Last 24 Hours (Table) 05/31/24 07:43 Blood Culture - Preliminary Blood
--- NOTE | 2024-06-01 13:37 | CA ---
Transthoracic Echo Report Name: Loreta Sanchez Age: 58 Gender: F : 1965 Exam Date: 06/01/2024 12:16 Exam Location: [facility] Ht (in): 64 Wt (lb): 155 Ordering Physician: Kaylie Chavez Attending/Referring Phys: [id number], [employer] Project Manager Orin Gibbons, DONELL Procedure CPT: Indications: LVF Cardiac Hx: A-FIB Technical Quality: Fair Contrast 1: Total Dose (mL): Contrast 2: Total Dose (mL): MEASUREMENTS (Male / Female) Normal Values 2D ECHO LV Diastolic Diameter PLAX 4.7 cm 4.2 - 5.9 / 3.9 - 5.3 cm LV Systolic Diameter PLAX 3.3 cm IVS Diastolic Thickness 1.0 cm 0.6 - 1.0 / 0.6 - 0.9 cm LVPW Diastolic Thickness 0.9 cm 0.6 - 1.0 / 0.6 - 0.9 cm LV Relative Wall Thickness 0.4 RV Internal Dim ED PLAX 2.3 cm LA Systolic Diameter LX 4.3 cm 3.0 - 4.0 / 2.7 - 3.8 cm LV Diastolic Volume MOD BP 68.8 cm??? 67 - 155 / 56 - 104 cm??? LV Systolic Volume MOD BP 30.2 cm??? 22 - 58 / 19 - 49 cm??? LV Ejection Fraction MOD BP 56.2 % >= 55 % LV Cardiac Index MOD BP 1439.8 cm???/min???m??? LV Diastolic Volume MOD 4C 58.1 cm??? LV Systolic Volume MOD 4C 25.8 cm??? LV Ejection Fraction MOD 4C 55.6 % LV Cardiac Index MOD 4C 1203.8 cm???/min???m??? LV Diastolic Length 4C 6.3 cm LV Systolic Length 4C 5.5 cm LV Diastolic Volume MOD 2C 71.6 cm??? LV Systolic Volume MOD 2C 31.4 cm??? LV Ejection Fraction MOD 2C 56.2 % LV Cardiac Index MOD 2C 1501.3 cm???/min???m??? LV Diastolic Length 2C 7.2 cm LV Systolic Length 2C 6.2 cm LA Volume 71.5 cm??? 18 - 58 / 22 - 52 cm??? LA Volume Index 39.8 cm???/m??? 16 - 28 cm???/m??? M-MODE Aortic Root Diameter MM 2.7 cm LA Systolic Diameter MM 3.0 cm LA Ao Ratio MM 1.1 AV Cusp Separation MM 1.6 cm DOPPLER TR Peak Velocity 252.7 cm/s TR Peak Gradient 25.5 mmHg Right Ventricular Systolic Press 32.3 mmHg FINDINGS Left Ventricle Left ventricular ejection fraction is estimated at 45-50 %. Mildly increased septal wall thickness. Left ventricular cavity size normal. Mildly reduced global left ventricular systolic function. Right Ventricle Normal right ventricular size and function. Right Atrium Moderate right atrial dilatation. Left Atrium Moderately increased left atrial diameter. Moderately increased left atrial volume. Mildly increased left atrial area. Mitral Valve Structurally normal mitral valve. [id number] mitral regurgitation. No mitral stenosis. Aortic Valve Trileaflet aortic valve. No aortic valve stenosis or regurgitation. Tricuspid Valve Structurally normal tricuspid valve. Moderate tricuspid regurgitation. No tricuspid stenosis. Pulmonic Valve Structurally normal pulmonic valve. No pulmonic regurgitation. No pulmonic stenosis. Pericardium No pericardial or pleural effusion. Aorta Normal size aortic root and proximal ascending aorta. CONCLUSIONS Mildly impaired LV function with a EF between 45 to 50% Mild to moderate mitral regurgitation Moderate tricuspid regurgitation No pericardial effusion Previewed by: Dr. Som Zeng MD (Electronically Signed) Final Date: 01 June 2024 13:36
--- NOTE | 2024-06-01 14:10 | P.CRDCN ---
History of Present Illness Consult date: 06/01/24 Consult reason: chest pain History of present illness: This is a 58-year-old female patient of Dr. De Leon with past medical history of Takotsubo cardiomyopathy in December 2023, paroxysmal atrial fibrillation, normal coronary arteries in the setting of ST elevation in inferior leads, reduced LV systolic function, dilated LV, history of right leg hematoma evacuation 05/25. We have been asked to evaluate the patient for chest pain. Patient states that yesterday she had sudden onset of sharp midsternal chest pain. The pain occurred with talking and with deep breathing. She states it is very difficult to talk due to the pain. When she is having the pain she also has some shortness of breath. No cough or sputum production. No fever or chills. Patient denies history of diabetes or hypertension. She is a non-smoker. No family history of coronary artery disease. Blood pressure 106/66, heart rate 99, pulse ox 92% on room air. Patient was a smoker and quit 10 to 15 years ago. - EKG: Atrial fibrillation at 89 bpm - Chest x-ray: No acute process - CTA of the chest revealed multiple bilateral lung nodules. No acute pulmonary embolism. - Gallbladder ultrasound revealed mild hepatomegaly. - Lower extremity CT right: Large hypodense collection can be compatible with large muscular hematoma contains a drainage catheter extends from the intratrochanteric level to nearly the knee joint space along the anterior lateral thigh. - CT abdomen and pelvis revealed fullness of the spleen can be due to splenomegaly underlying isodense mass or normal variation. Lower lung base nodules. - Laboratory studies: WBC 11.9, hemoglobin 7. Sodium 135, potassium 3.7, creatinine 0.6. Troponins negative x 3. proBNP 7220. Influenza A, influenza B, RSV, COVID-19 negative. - Home cardiac medications: Aspirin 81 mg daily, atorvastatin 40 mg at bedtime, digoxin 125 mcg daily, Toprol-XL 50 mg twice daily. - Echocardiogram performed 05/09/2024 revealed EF of 55% with mild MR, mild to moderate TR -Cardiac catheterization performed on 01/13/[address] Henry revealed normal coronary arteries. Impaired left ventricular systolic function with segmental wall motion abnormality consistent with Takotsubo syndrome. Right dominance. Mildly elevated LVEDP. Review Of Systems: At the time of my exam: CONSTITUTIONAL: Denies fever or chills. HEENT: Denies blurred vision, vision changes, or eye pain. Denies hemoptysis CARDIOVASCULAR: Reports chest pain. Denies orthopnea. Denies PND. Denies palpitations RESPIRATORY: Denies shortness of breath. GASTROINTESTINAL: Denies abdominal pain. Denies nausea or vomiting. HEMATOLOGIC: Denies bleeding disorders. GENITOURINARY: Denies any blood in urine. SKIN: Denies puritis. Denies rash. Physical examination: Gen: This is a 58-year-old female in no acute distress VS: reviewed HEENT: Head is atraumatic, normocephalic. Pupils equal, round. Sclerae is anicteric. NECK: Supple. No JVD. LUNGS: Clear to auscultation. No wheezes or rhonchi. No intercostal retractions. HEART: Regular rate and rhythm. No murmur. ABDOMEN: Soft No tenderness. EXTREMITIES: No pedal edema. No calf tenderness. NEUROLOGICAL: Patient is awake, alert and oriented x3. Assessment: Atypical chest pain, acute coronary syndrome ruled out History of Takotsubo cardiomyopathy in December 2023, EF recovered Paroxysmal atrial fibrillation currently rate controlled, not on anticoagulation due to recent acute blood loss from right lower extremity hematoma and low [id number] score Normal coronary arteries per cath 12/2023 Right thigh hematoma status postevacuation on 05/25/2024 Acute blood loss anemia Bilateral pulmonary nodules Plan: Resume patient's home cardiac medications Repeat echocardiogram reveals EF 45 to 50%, mild to moderate but regurgitation, moderate tricuspid regurgitation. No further cardiac workup at this time. Cardiology will sign off this case and follow on an as-needed basis. Please reconsult for any new concerns. Patient may follow-up in the office in one to [address] De Leon. Nurse practitioner note has been reviewed, I agree with documented findings and plan of care. Patient was seen and examined. Past Medical History Past Medical History: Atrial Fibrillation, Hyperlipidemia Additional Past Medical History / Comment(s): injury to thigh from dog leash wrapped around it, hx. broken heart syndrome, takes meds for rapid heart rate, newer arrythmia-fib per pt, recent cardiac cath. Bronchitis History of Any Multi-Drug Resistant Organisms: None Reported Past Surgical History: Heart Catheterization Additional Past Surgical History / Comment(s): hematoma drain Additional Past Anesthesia/Blood Transfusion Reaction / Comment(s): never really had anesthesia before, no family problems Smoking Status: Former smoker - Past Family History Mother Family Medical History: No Reported History Medications and Allergies Home Medications Medication Instructions Recorded Confirmed Type Loratadine [Claritin] 10 mg PO DAILY 01/13/24 05/31/24 History Multivitamins, Thera [Multivitamin 1 tab PO DAILY 01/13/24 05/31/24 History (formulary)] Atorvastatin [Lipitor] 40 mg PO HS 05/22/24 05/31/24 History Digoxin [Lanoxin] 125 mcg PO DAILY 05/22/24 05/31/24 History Escitalopram [Lexapro] 10 mg PO HS 05/22/24 05/31/24 History Ferrous Sulfate [Iron (65 MG 325 mg PO DAILY 05/22/24 05/31/24 History Elemental)] traMADol HCL 50 mg PO Q6H PRN 05/22/24 05/31/24 History Aspirin 81 mg PO DAILY #30 tab 05/28/24 05/31/24 Rx Cephalexin [Keflex] 500 mg PO Q8HR 7 Days #21 cap 05/28/24 05/31/24 Rx HYDROcodone/APAP 5-325MG [[place] 1 tab PO Q6HR PRN 3 Days #12 tab 05/28/2405/18 Rx 5-325] Metoprolol Succinate (ER) [Toprol 50 mg PO BID #180 tab 05/28/24 05/31/24 Rx XL] Allergies Allergy/AdvReac Type Severity Reaction Status Date / Time No Known Allergies Allergy Verified 05/31/24 10:19 Physical Exam Vitals: Vital Signs Temp Pulse Pulse Pulse Resp BP BP 06/01/24 07:00 99.5 F 99 18 106/66 06/01/24 00:30 101 H 06/01/24 00:22 98.2 F 101 H 16 109/66 05/31/24 21:30 90 18 113/62 05/31/24 21:00 78 18 98/60 05/31/24 20:00 84 18 106/60 05/31/24 18:10 99.0 F 71 16 89/60 05/31/24 17:02 70 16 85/60 05/31/24 16:03 98.2 F 76 16 90/63 05/31/24 13:56 80 18 101/57 05/31/24 13:10 75 16 100/76 05/31/24 12:06 84 16 108/67 05/31/24 11:00 98.0 F 106 H 18 113/68 05/31/24 10:18 98.0 F 78 18 99/67 05/31/24 09:05 98.7 F 107 H 18 111/51 05/31/24 08:30 90 20 117/59 Pulse Ox 06/01/24 07:00 92 L 06/01/24 00:30 06/01/24 00:22 98 05/31/24 21:30 96 05/31/24 21:00 98 05/31/24 20:00 98 05/31/24 18:10 98 05/31/24 17:02 98 05/31/24 16:03 97 05/31/24 13:56 97 05/31/24 13:10 97 05/31/24 12:06 98 05/31/24 11:00 96 05/31/24 10:18 95 05/31/24 09:05 95 05/31/24 08:30 96 Intake and Output 05/31/24 06/01/24 06/01/24 22:59 06:59 14:59 Other: # Voids 1 Weight 70.307 kg Results 06/01/24 02:11 06/01/24 02:11 Cardiac Enzymes 05/31/24 05/31/24 05/31/24 Range/Units 07:43 12:14 13:57 AST (14-36) U/L Troponin I <0.012 <0.012 <0.012 (0.000-0.034) ng/mL 06/01/24 Range/Units 02:11 AST 30 (14-36) U/L Troponin I (0.000-0.034) ng/mL Coagulation 05/31/24 Range/Units 07:43 PT 11.4 (10.0-12.5) sec APTT 25.7 (22.0-30.0) sec CBC 06/01/24 Range/Units 02:11 WBC 11.9 H (3.8-10.6) k/uL RBC 2.54 L (3.80-5.40) m/uL Hgb 7.0 L (11.4-16.0) gm/dL Hct 22.9 L (34.0-46.0) % Plt Count 541 H (150-450) k/uL Comprehensive Metabolic Panel 06/01/24 Range/Units 02:11 Sodium 135 L (137-145) mmol/L Potassium 3.7 (3.5-5.1) mmol/L Chloride 108 H (98-107) mmol/L Carbon Dioxide 22 (22-30) mmol/L BUN 12 (7-17) mg/dL Creatinine 0.60 (0.52-1.04) mg/dL Glucose 90 (74-99) mg/dL Calcium 7.4 L (8.4-10.2) mg/dL AST 30 (14-36) U/L ALT 17 (4-34) U/L Alkaline Phosphatase 260 H (38-126) U/L Total Protein 4.7 L (6.3-8.2) g/dL Albumin 2.1 L (3.5-5.0) g/dL Current Medications Generic Name Dose Route Start Last Admin Trade Name Freq PRN Reason Stop Dose Admin Acetaminophen 650 mg 05/31/24 11:42 Acetaminophen Tab 325 Mg Tab PO Q6HR PRN Mild Pain or Fever > 100.5 Aspirin 81 mg 06/01/24 09:00 Aspirin 81 Mg PO DAILY [facility] Atorvastatin Calcium 40 mg 05/31/24 21:00 05/31/24 21:26 Atorvastatin 40 Mg Tab PO 40 mg HS HE Administration Cephalexin 500 mg 05/31/24 16:00 05/31/24 23:44 Cephalexin 500 Mg Cap PO 06/03/24 16:01 500 mg Q8HR HE Administration Protocol Digoxin 125 mcg 06/01/24 09:00 Digoxin 125 Mcg Tab PO DAILY [facility] Escitalopram Oxalate 10 mg 05/31/24 21:00 05/31/24 21:26 Escitalopram 10 Mg Tab PO 10 mg HS HE Administration Ferrous Sulfate 325 mg 06/01/24 09:00 Ferrous Sulfate 325 Mg Tab PO DAILY [facility] Metoprolol Succinate 50 mg 05/31/24 21:00 05/31/24 21:26 Metoprolol Succinate (Er) 50 Mg Tab.Er.24h PO 50 mg BID HE Administration Morphine Sulfate 4 mg 05/31/24 11:42 06/01/24 06:47 Morphine Sulfate 4 Mg/Ml Syringe IV 4 mg Q4HR PRN Administration Severe Pain (Scale 7 to 10) Naloxone HCl 0.2 mg 05/31/24 11:42 Naloxone 0.4 Mg/Ml 1 Ml Vial IV Q2M PRN Opioid Reversal Ondansetron HCl 4 mg 05/31/24 11:42 Ondansetron 4 Mg/2 Ml Vial IVP Q8HR PRN Nausea And Vomiting Intake and Output 05/31/24 06/01/24 06/01/24 22:59 06:59 14:59 Other: # Voids 1 Weight 70.307 kg 06/01/24 02:11 06/01/24 02:11
--- NOTE | 2024-06-01 15:12 | P.GSCN ---
History of Present Illness Consult date: 06/01/24 History of present illness: CHIEF COMPLAINT: Chest pain HISTORY OF PRESENT ILLNESS: This is a 58-year-old female who presented to the hospital with complaints of right sided chest pain. Patient evaluated by cardiology service and acute coronary syndrome was ruled out. Patient with a known right lower extremity hematoma status postevacuation on May 26, 2024. Patient continues to have drain in place. She has been having some low-grade temps at home. She had a CT scan of the right leg that was still showing the hematoma. Patient has not follow-up with an orthopedic oncologist yet. Patient denies any abdominal pain. Denies any nausea or vomiting. Patient with a hemoglobin of 7 and receiving 1 unit of blood. PAST MEDICAL HISTORY: See below PAST SURGICAL HISTORY: See below MEDICATIONS: See below ALLERGIES: See below SOCIAL HISTORY: No illicit drug use. REVIEW OF SYSTEMS: CONSTITUTIONAL: Denies fever or chills. HEENT: Denies blurred vision, vision changes, or eye pain. Denies hemoptysis CARDIOVASCULAR: Denies chest pain or pressure. RESPIRATORY: No shortness of breath. GASTROINTESTINAL: See HPI for pertinent findings HEMATOLOGIC: Denies bleeding disorders. GENITOURINARY: Denies any blood in urine or increased urinary frequency. SKIN: Denies pruitis. Denies rash. PHYSICAL EXAM: VITAL SIGNS: Reviewed GENERAL: Well-developed in no acute distress. HEENT: No sclera icterus. Extraocular movements grossly intact. Moist buccal mucosa. Head is atraumatic, normocephalic. No nasal drainage. ABDOMEN: Soft. Nondistended. Nontender NEUROLOGIC: Alert and oriented. Cranial nerves II through XII grossly intact. Extremities: Right leg is Saul wrapped. Minimal tenderness with palpation. Drain in place. LABORATORY DATA: WBC 12.8 down to 11.9 Hgb 7.9-7.0 platelets 541 Sodium 135 potassium 3.7 creatinine 0.60 IMAGING: CT scan right leg reports large hypodense collection can be compatible with large muscular hematoma contains a drain catheter. This extends from the intra contact level to nearly the knee joint space along the anterior lateral thigh CT scan abdomen pelvis reports fullness of the spleen. This can be due to some splenomegaly, underlying isodense mass or normal variation for patient. Lower lung base nodules. ASSESSMENT: 1. Right lower extremity hematoma status post evacuation of hematoma on 05/26/2024 2. Chest pain seen evaluated by cardiology service PLAN: -No surgical intervention planned -Continue drain -Agree with blood transfusion -recommend follow-up with orthopedic oncologist -Patient can be discharged from surgical standpoint -Continue antibiotic Physician Control Room Tender note has been reviewed by physician. Signing provider agrees with the documented findings, assessment, and plan of care. Past Medical History Past Medical History: Atrial Fibrillation, Hyperlipidemia Additional Past Medical History / Comment(s): injury to thigh from dog leash wrapped around it, hx. broken heart syndrome, takes meds for rapid heart rate, newer arrythmia-fib per pt, recent cardiac cath. Bronchitis History of Any Multi-Drug Resistant Organisms: None Reported Past Surgical History: Heart Catheterization Additional Past Surgical History / Comment(s): hematoma drain Additional Past Anesthesia/Blood Transfusion Reaction / Comm: never really had anesthesia before, no family problems Smoking Status: Former smoker - Past Family History Mother Family Medical History: No Reported History Medications and Allergies Home Medications Medication Instructions Recorded Confirmed Type Loratadine [Claritin] 10 mg PO DAILY 01/13/24 05/31/24 History Multivitamins, Thera [Multivitamin 1 tab PO DAILY 01/13/24 05/31/24 History (formulary)] Atorvastatin [Lipitor] 40 mg PO HS 05/22/24 05/31/24 History Digoxin [Lanoxin] 125 mcg PO DAILY 05/22/24 05/31/24 History Escitalopram [Lexapro] 10 mg PO HS 05/22/24 05/31/24 History Ferrous Sulfate [Iron (65 MG 325 mg PO DAILY 05/22/24 05/31/24 History Elemental)] traMADol HCL 50 mg PO Q6H PRN 05/22/24 05/31/24 History Aspirin 81 mg PO DAILY #30 tab 05/28/24 05/31/24 Rx Cephalexin [Keflex] 500 mg PO Q8HR 7 Days #21 cap 05/28/24 05/31/24 Rx HYDROcodone/APAP 5-325MG [[place] 1 tab PO Q6HR PRN 3 Days #12 tab 05/28/24 05/31/24 Rx 5-325] Metoprolol Succinate (ER) [Toprol 50 mg PO BID #180 tab 05/28/24 05/31/24 Rx XL] Allergies Allergy/AdvReac Type Severity Reaction Status Date / Time No Known Allergies Allergy Verified 05/31/24 10:19 Surgical - Exam Vital Signs Temp Pulse Resp BP Pulse Ox 100.6 F H 113 H 16 121/62 98 05/31/24 07:26 05/31/24 07:26 05/31/24 07:26 05/31/24 07:26 05/31/24 07:26 Results - Labs 06/01/24 02:11 06/01/24 02:11 Abnormal Lab Results - Last 24 Hours (Table) 06/01/24 06/01/24 06/01/24 Range/Units 02:11 02:11 07:53 WBC 11.9 H (3.8-10.6) k/uL RBC 2.54 L (3.80-5.40) m/uL Hgb 7.0 L (11.4-16.0) gm/dL Hct 22.9 L (34.0-46.0) % MCHC 30.7 L (31.0-37.0) g/dL RDW 16.7 H (11.5-15.5) % Plt Count 541 H (150-450) k/uL Neutrophils # 8.6 H (1.3-7.7) k/uL Sodium 135 L (137-145) mmol/L Chloride 108 H (98-107) mmol/L Calcium 7.4 L (8.4-10.2) mg/dL Alkaline Phosphatase 260 H (38-126) U/L Total Protein 4.7 L (6.3-8.2) g/dL Albumin 2.1 L (3.5-5.0) g/dL Crossmatch See Detail Diabetes panel 06/01/24 Range/Units 02:11 Sodium 135 L (137-145) mmol/L Potassium 3.7 (3.5-5.1) mmol/L Chloride 108 H (98-107) mmol/L Carbon Dioxide 22 (22-30) mmol/L BUN 12 (7-17) mg/dL Creatinine 0.60 (0.52-1.04) mg/dL Glucose 90 (74-99) mg/dL Calcium 7.4 L (8.4-10.2) mg/dL AST 30 (14-36) U/L ALT 17 (4-34) U/L Alkaline Phosphatase 260 H (38-126) U/L Total Protein 4.7 L (6.3-8.2) g/dL Albumin 2.1 L (3.5-5.0) g/dL Calcium panel 06/01/24 Range/Units 02:11 Calcium 7.4 L (8.4-10.2) mg/dL Albumin 2.1 L (3.5-5.0) g/dL Pituitary panel 06/01/24 Range/Units 02:11 Sodium 135 L (137-145) mmol/L Potassium 3.7 (3.5-5.1) mmol/L Chloride 108 H (98-107) mmol/L Carbon Dioxide 22 (22-30) mmol/L BUN 12 (7-17) mg/dL Creatinine 0.60 (0.52-1.04) mg/dL Glucose 90 (74-99) mg/dL Calcium 7.4 L (8.4-10.2) mg/dL Adrenal panel 06/01/24 Range/Units 02:11 Sodium 135 L (137-145) mmol/L Potassium 3.7 (3.5-5.1) mmol/L Chloride 108 H (98-107) mmol/L Carbon Dioxide 22 (22-30) mmol/L BUN 12 (7-17) mg/dL Creatinine 0.60 (0.52-1.04) mg/dL Glucose 90 (74-99) mg/dL Calcium 7.4 L (8.4-10.2) mg/dL Total Bilirubin 0.5 (0.2-1.3) mg/dL AST 30 (14-36) U/L ALT 17 (4-34) U/L Alkaline Phosphatase 260 H (38-126) U/L Total Protein 4.7 L (6.3-8.2) g/dL Albumin 2.1 L (3.5-5.0) g/dL
[2024-06-01 17:12] LABS: Anisocytosis Slight; HCT 28.1 % (34.0-46.0); Hypochromasia Marked; MCH 27.8 pg (25.0-35.0); MCHC 31.3 g/dL (31.0-37.0); MCV 88.6 fL (80.0-100.0); Mean Platelet Volume 8.3; Platelet Count 495 k/uL (150-450); Poikilocytosis Slight; RBC 3.17 m/uL (3.80-5.40); RDW 16.7 % (11.5-15.5); WBC 12.8 k/uL (3.8-10.6)
[2024-06-01 17:16] LABS: HGB 8.8 gm/dL (11.4-16.0)
[2024-06-01 18:06] LABS: Band Neutrophils % 1 %; Lymphocytes # (M) 1.92 k/uL (1.0-4.8); Monocytes # (M) 1.54 k/uL (0-1.0); Neutrophils % (M) 72 %; Nucleated Red Blood Cells 0 /100 WBC (0-0); Total Cells Counted 100
--- NOTE | 2024-06-02 03:40 | P.PN ---
Progress Note - Text Progress Note Date: 06/02/24 No acute events overnight. Hemoglobin is currently stable PHYSICAL EXAM: VITAL SIGNS: Reviewed GENERAL: Well-developed in no acute distress. HEENT: No sclera icterus. Extraocular movements grossly intact. Moist buccal mucosa. Head is atraumatic, normocephalic. No nasal drainage. ABDOMEN: Soft. Nondistended. Nontender NEUROLOGIC: Alert and oriented. Cranial nerves II through XII grossly intact. Extremities: Right leg is Saul wrapped. Minimal tenderness with palpation. Drain in place. ASSESSMENT: 1. Right lower extremity hematoma status post evacuation of hematoma on 05/26/2024 2. Chest pain seen evaluated by cardiology service PLAN: -No surgical intervention planned -Continue drain -Monitor Hgb, Transfuse prn -recommend follow-up with orthopedic oncologist -Patient can be discharged from surgical standpoint -Continue antibiotic Ricardo Ramírez DO [facility] [phone]
[2024-06-02 09:48] LABS: BUN/Creat Ratio 14.83 Ratio (12.00-20.00); Blood Urea Nitrogen 8.9 mg/dL (9.0-27.0); Calcium 7.4 mg/dL (8.7-10.3); Carbon Dioxide 20.4 mmol/L (21.6-31.8); Chloride 105 mmol/L (96-109); Glucose 155 mg/dL (70-110); Potassium 3.7 mmol/L (3.5-5.5); Sodium 136 mmol/L (135-145)
[2024-06-02 09:52] LABS: HCT 26.5 % (37.2-46.3); MCH 28.1 pg (27.0-32.0); MCHC 30.2 g/dL (32.0-37.0); Mean Platelet Volume 9.8 FL (9.5-12.2); NRBC Per 100 WBC 0 X 10*3/uL (0.00-0.01); Platelet Count 466 X 10*3/uL (140-440); RBC 2.85 X 10*6/uL (4.10-5.20); RDW 17.3 % (11.5-14.5); WBC 12.68 X 10*3/uL (4.50-10.00)
[2024-06-02 12:50] LABS: Basophils # (A) 0.07 X 10*3/uL (0.00-0.10); Basophils % (A) 0.6 %; Eosinophils # (A) 0.16 X 10*3/uL (0.04-0.35); Eosinophils % (A) 1.3 %; Lymphocytes # (A) 2.61 X 10*3/uL (0.90-5.00); Lymphocytes % (A) 20.6 %; Monocytes % (A) 13.4 %; Neutrophils # (A) 7.95 X 10*3/uL (1.80-7.70); Neutrophils % (A) 62.6 %
--- NOTE | 2024-06-02 13:47 | US ---
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 Transabdominal grayscale sonographic images of the pelvis were acquired. Doppler imaging: Not performed. FINDINGS: Date of LMP: 20 + years ago EXAM MEASUREMENTS: Uterus: 6.9 x 2.6 x 4.7 cm Endometrial Stripe: 0.4 cm Right Ovary: Not able to identify cm Left Ovary: Not able to identify cm Urinary bladder is sonolucent. Posterior wall is unremarkable 1. Uterus: Anteverted wnl 2. Endometrium: wnl 3. Right Ovary: Not able to insonate 4. Left Ovary: Not able to insonate 5. Bilateral Adnexa: wnl 6. Posterior cul-de-sac: wnl IMPRESSION: 1. Visualized pelvic ultrasound is unremarkable. [facility], , 06/02/2024 1:44 PM
--- NOTE | 2024-06-02 15:19 | P.CNPUL ---
History of Present Illness Consult date: 06/02/24 Requesting physician: Joey Delgado Reason for consult: abnormal CXR/CT Chief complaint: Chest pain on inhalation History of present illness: This is a very pleasant 58-year-old female patient with a known history of Takotsubo and atrial fibrillation. She also has a history of a right lower extremity injury secondary to fall and over time developed a significant hematoma. On March 26, 2024 she had undergone a lower extremity evacuation of a hematoma with a Hemovac placement. She was discharged home on 05/28/2024. She presented here to the emergency room on May 31, 2024 with complaints of chest pain and pain on inhalation. Acute coronary syndrome was ruled out. She was seen and evaluated by cardiology who felt the pain was atypical. During the workup however she did have a CT angiogram that ruled out pulmonary embolism but she was found to have multiple bilateral pulmonary nodules ranging in various sizes. We were consulted today for the same. She is seen on the regular medical floor. She is resting comfortably in bed. Awake and alert in no acute distress. Denies any shortness of breath, cough or congestion. No hemoptysis. No weight loss. She had lived in [place] for many years. She spent most of her life in [facility]. She states she did have previous pneumonias and multiple episodes of bronchitis. Former smoker. No history of cancer. She is maintaining good O2 saturations in the upper 90s on room air. She is been afebrile. Hemodynamically stable. White count 12.6. Hemoglobin 8.0. Platelets 466. Sodium 136. Potassium 3.7. Bicarb 20. BUN 9. Creatinine 0.6. Glucose 155. Troponins were negative. Atrial fibrillation with a controlled ventricular response. She has been off anticoagulation due to her hematoma. Reveals mildly impaired left ventricular systolic function with ejection fraction 45 to 50%. Catheterization revealed normal coronary arteries. Review of Systems REVIEW OF SYSTEMS: CONSTITUTIONAL: Denies any recent significant weight loss or weight gain. EYES: Denies change in vision. EARS, NOSE, MOUTH, THROAT: Denies headaches, denies sore throat. CARDIOVASCULAR: Positive for chest pain on inhalation, no palpitations or syncopal episodes. RESPIRATORY: Denies shortness of breath, cough, congestion or hemoptysis. GASTROINTESTINAL: Denies change in appetite, denies abdominal pain GENITOURINARY: Denies hematuria, denies infections. MUSKULOSKELETAL: Positive for right lower extremity pain, swelling. INTEGUMENTARY: Denies rash, denies eczema. NEUROLOGICAL: Denies recent memory loss, no recent seizure activity. PSYCHIATRIC: Denies anxiety, denies depression. HEMATOLOGIC/LYMPHATIC: Denies anemia, denies enlarged lymph nodes. Past Medical History Past Medical History: Atrial Fibrillation, Hyperlipidemia Additional Past Medical History / Comment(s): injury to thigh from dog leash wrapped around it, hx. broken heart syndrome, takes meds for rapid heart rate, newer arrythmia-fib per pt, recent cardiac cath. Bronchitis History of Any Multi-Drug Resistant Organisms: None Reported Past Surgical History: Heart Catheterization Additional Past Surgical History / Comment(s): hematoma drain Additional Past Anesthesia/Blood Transfusion Reaction / Comment(s): never really had anesthesia before, no family problems Smoking Status: Former smoker - Past Family History Mother Family Medical History: No Reported History Medications and Allergies Home Medications Medication Instructions Recorded Confirmed Type Loratadine [Claritin] 10 mg PO DAILY 01/13/24 05/31/24 History Multivitamins, Thera [Multivitamin 1 tab PO DAILY 01/13/24 05/31/24 History (formulary)] Atorvastatin [Lipitor] 40 mg PO HS 05/22/24 05/31/24 History Digoxin [Lanoxin] 125 mcg PO DAILY 05/22/24 05/31/24 History Escitalopram [Lexapro] 10 mg PO HS 05/22/24 05/31/24 History Ferrous Sulfate [Iron (65 MG 325 mg PO DAILY 05/22/24 05/31/24 History Elemental)] traMADol HCL 50 mg PO Q6H PRN 05/22/24 05/31/24 History Aspirin 81 mg PO DAILY #30 tab 05/28/24 05/31/24 Rx Cephalexin [Keflex] 500 mg PO Q8HR 7 Days #21 cap 05/28/24 05/31/24 Rx HYDROcodone/APAP 5-325MG [[place] 1 tab PO Q6HR PRN 3 Days #12 tab 05/28/24 05/31/24 Rx 5-325] Metoprolol Succinate (ER) [Toprol 50 mg PO BID #180 tab 05/28/24 05/31/24 Rx XL] Allergies Allergy/AdvReac Type Severity Reaction Status Date / Time No Known Allergies Allergy Verified 05/31/24 10:19 Physical Exam Vitals: Vital Signs Temp Pulse Resp BP Pulse Ox 06/02/24 13:34 98.9 F 86 16 119/74 97 06/02/24 07:03 99.5 F 77 16 113/70 99 06/02/24 02:00 99.5 F 86 18 108/69 94 L 06/01/24 20:00 99.1 F 98 18 96/59 96 Intake and Output 06/02/24 06/02/24 06/02/24 06:59 14:59 22:59 Intake Total 480 709 Balance 480 709 Intake: Oral 480 709 Other: Voiding Method Toilet # Voids 3 3 GENERAL EXAM: Alert, pleasant 58-year-old female, on room air, fairly co mfortable in no apparent distress. HEAD: Normocephalic. EYES: Normal reaction of pupils, equal size. NOSE: Clear with pink turbinates. THROAT: No erythema or exudates. NECK: No masses, no JVD. CHEST: No chest wall deformity. LUNGS: Equal air entry with no crackles, wheeze, rhonchi or dullness. CVS: S1 and S2 normal with no audible murmur, irregular rhythm. ABDOMEN: No hepatosplenomegaly, normal bowel sounds, no guarding or rigidity. SPINE: No scoliosis or deformity SKIN: No rashes CENTRAL NERVOUS SYSTEM: No focal deficits, tone is normal in all 4 extremities. EXTREMITIES: Right lower with GIN wrap. Hemovac in place. No clubbing, no cyanosis. Peripheral pulses are intact. Results - Laboratory Findings CBC and BMP: 06/02/24 03:30 06/02/24 03:30 PT/INR, D-dimer PT 11.4 sec (10.0-12.5) 05/31/24 07:43 INR 1.1 (<1.2) 05/31/24 07:43 D-Dimer 3.20 mg/L FEU (<0.60) H 05/31/24 07:43 Abnormal lab findings: Abnormal Labs 05/31/24 05/31/24 05/31/24 07:43 07:43 07:43 WBC 12.8 H RBC 2.83 L Hgb 7.9 L Hct 25.4 L MCHC RDW 16.8 H Plt Count 577 H Immature Gran # Neutrophils # 10.3 H Neutrophils # (Manual) Monocytes # Monocytes # (Manual) D-Dimer 3.20 H Sodium 135 L Chloride Carbon Dioxide BUN Glucose 113 H Calcium 7.6 L AST 38 H Alkaline Phosphatase 317 H Total Protein 5.0 L Albumin 2.3 L Crossmatch 06/01/24 06/01/24 06/01/24 02:11 02:11 07:53 WBC 11.9 H RBC 2.54 L Hgb 7.0 L Hct 22.9 L MCHC 30.7 L RDW 16.7 H Plt Count 541 H Immature Gran # Neutrophils # 8.6 H Neutrophils # (Manual) Monocytes # Monocytes # (Manual) D-Dimer Sodium 135 L Chloride 108 H Carbon Dioxide BUN Glucose Calcium 7.4 L AST Alkaline Phosphatase 260 H Total Protein 4.7 L Albumin 2.1 L Crossmatch See Detail 06/01/24 06/02/24 06/02/24 16:39 03:30 03:30 WBC 12.8 H 12.68 H RBC 3.17 L 2.85 L Hgb 8.8 L D 8.0 L Hct 28.1 L 26.5 L MCHC 30.2 L RDW 16.7 H 17.3 H Plt Count 495 H 466 H Immature Gran # 0.19 H Neutrophils # 7.95 H Neutrophils # (Manual) 9.30 H Monocytes # 1.70 H Monocytes # (Manual) 1.54 H D-Dimer Sodium Chloride Carbon Dioxide 20.4 L BUN 8.9 L Glucose 155 H Calcium 7.4 L AST Alkaline Phosphatase Total Protein Albumin Crossmatch - Diagnostic Findings Chest x-ray: image reviewed CT scan - chest: image reviewed Assessment and Plan Assessment: Atypical chest pain in a patient with recent normal coronary arteries on catheterization. Pulmonary embolism ruled out Recent evacuation of hematoma of the right lower extremity on 05/26/2024 Atrial fibrillation, currently off anticoagulation secondary to above History of Takotsubo syndrome, current ejection fraction 45 to 50% Multiple pulmonary nodules of unclear etiology Former smoker Hyperlipidemia Plan: The patient was seen and evaluated Imaging, labs and medications reviewed Will obtain an GIN level Obtain a Aspergillus level Histoplasmosis screening Currently stable and on room air Will need outpatient PET scan If positive will recommend lung biopsies Patient agreeable to the plan We will continue to follow and make further recommendations based on her clinical status I have personally seen and examined the patient, performed the documentation and the assessment and plan as written. Number of minutes spent on the visit: 20 Dictation was produced using [employer] dictation software. Please excuse any grammatical, word or spelling errors.
--- NOTE | 2024-06-02 16:50 | P.CONS ---
History of Present Illness - Reason for Consult Consult date: 06/02/24 Lung nodules Requesting physician: Joey Delgado - Chief Complaint CP - History of Present Illness Ms. Sanchez is a very pleasant 58 yo female with history of several comorbidities including recenly RLE surgery, complicated by hematoma, who is here for CP. Being evaluated by cardiology for this. She had CT/PE which was negative for PE, but showed bilateral lung nodules, up to 2.1cm. CT AP with prominent spleen, otherwise negative. CT LE with hematoma. We were consulted for further rec's on her lung nodules. 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 She had her mammogram in 03/2024, however has never had colonoscopy or other means of colon cancer screening. Has cologuard at home but has not done this yet. Past Medical History Past Medical History: Atrial Fibrillation, Hyperlipidemia Additional Past Medical History / Comment(s): injury to thigh from dog leash wrapped around it, hx. broken heart syndrome, takes meds for rapid heart rate, newer arrythmia-fib per pt, recent cardiac cath. Bronchitis History of Any Multi-Drug Resistant Organisms: None Reported Past Surgical History: Heart Catheterization Additional Past Surgical History / Comment(s): hematoma drain Additional Past Anesthesia/Blood Transfusion Reaction / Comm: never really had anesthesia before, no family problems Smoking Status: Former smoker - Past Family History Mother Family Medical History: No Reported History Medications and Allergies Home Medications Medication Instructions Recorded Confirmed Type Loratadine [Claritin] 10 mg PO DAILY 01/13/24 05/31/24 History Multivitamins, Thera [Multivitamin 1 tab PO DAILY 01/13/24 05/31/24 History (formulary)] Atorvastatin [Lipitor] 40 mg PO HS 05/22/24 05/31/24 History Digoxin [Lanoxin] 125 mcg PO DAILY 05/22/24 05/31/24 History Escitalopram [Lexapro] 10 mg PO HS 05/22/24 05/31/24 History Ferrous Sulfate [Iron (65 MG 325 mg PO DAILY 05/22/24 05/31/24 History Elemental)] traMADol HCL 50 mg PO Q6H PRN 11/05/24 11/14/24 History Aspirin 81 mg PO DAILY #30 tab 05/28/24 05/31/24 Rx Cephalexin [Keflex] 500 mg PO Q8HR 7 Days #21 cap 05/28/24 05/31/24 Rx HYDROcodone/APAP 5-325MG [[place] 1 tab PO Q6HR PRN 3 Days #12 tab 05/28/24 05/31/24 Rx 5-325] Metoprolol Succinate (ER) [Toprol 50 mg PO BID #180 tab 05/28/24 05/31/24 Rx XL] Allergies Allergy/AdvReac Type Severity Reaction Status Date / Time No Known Allergies Allergy Verified 05/31/24 10:19 Physical Exam Vitals: Vital Signs Temp Pulse Pulse Resp BP BP Pulse Ox 06/02/24 07:03 99.5 F 77 16 113/70 99 06/02/24 02:00 99.5 F 86 18 108/69 94 L 06/01/24 20:00 99.1 F 98 18 96/59 96 06/01/24 13:59 86 107/51 99 06/01/24 13:45 72 102/51 100 06/01/24 13:20 97.4 F L 69 16 112/67 100 Intake and Output 06/01/24 06/02/24 06/02/24 22:59 06:59 14:59 Intake Total 480 480 118 Output Total 50 Balance 430 480 118 Intake: Oral 480 480 118 Output: Drainage 50 Right Thigh 50 Other: Voiding Method Toilet # Voids 3 3 1 Patient is in no acute distress. No respiratory distress, saturating 99% on RA. Regular heart rate. She has conjunctival pallor. Results CBC & Chem 7: 06/02/24 03:30 06/02/24 03:30 Labs: Abnormal Lab Results - Last 24 Hours (Table) 06/01/24 06/01/24 06/02/24 Range/Units 07:53 16:39 03:30 WBC 12.8 H 12.68 H (3.8-10.6) k/uL RBC 3.17 L 2.85 L (3.80-5.40) m/uL Hgb 8.8 L D 8.0 L (11.4-16.0) gm/dL Hct 28.1 L 26.5 L (34.0-46.0) % MCHC 30.2 L (32.0-37.0) g/dL RDW 16.7 H 17.3 H (11.5-15.5) % Plt Count 495 H 466 H (150-450) k/uL Immature Gran # 0.19 H (0.00-0.04) X 10*3/uL Neutrophils # 7.95 H (1.80-7.70) X 10*3/uL Neutrophils # (Manual) 9.30 H (1.3-7.7) k/uL Monocytes # 1.70 H (0.20-1.00) X 10*3/uL Monocytes # (Manual) 1.54 H (0-1.0) k/uL Carbon Dioxide (21.6-31.8) mmol/L BUN (9.0-27.0) mg/dL Glucose (70-110) mg/dL Calcium (8.7-10.3) mg/dL Crossmatch See Detail 06/02/24 Range/Units 03:30 WBC (3.8-10.6) k/uL RBC (3.80-5.40) m/uL Hgb (11.4-16.0) gm/dL Hct (34.0-46.0) % MCHC (32.0-37.0) g/dL RDW (11.5-15.5) % Plt Count (150-450) k/uL Immature Gran # (0.00-0.04) X 10*3/uL Neutrophils # (1.80-7.70) X 10*3/uL Neutrophils # (Manual) (1.3-7.7) k/uL Monocytes # (0.20-1.00) X 10*3/uL Monocytes # (Manual) (0-1.0) k/uL Carbon Dioxide 20.4 L (21.6-31.8) mmol/L BUN 8.9 L (9.0-27.0) mg/dL Glucose 155 H (70-110) mg/dL Calcium 7.4 L (8.7-10.3) mg/dL Crossmatch Microbiology - Last 24 Hours (Table) 05/31/24 07:43 Blood Culture - Preliminary Blood CT scan - abdomen: report reviewed CT scan - chest: report reviewed CT scan - pelvis: report reviewed Assessment and Plan Assessment: 1. Chest pain 2. LE hematoma 3. Lung nodules 4. Anemia likely due to blood loss from hematoma Plan: Ms. Sanchez is a very pleasant 58 yo female with smoking history and recent right leg surgery with hematoma, here for CP. Work up with CT/PE, CT AP and CT LE with bilateral multiple lung nodules, up to 2.1cm, and RLE hematoma. - For her lung nodules, overall concerning for metastatic disease however no prior lung CT to compare - I reviewed report for recent screening mammogram in 03/2024 that was negative - No prior colon cancer screening, would recommend colonoscopy - I reviewed CXR from 12/2023 which reported lung nodules vs artifact in bilateral lungs, however i do not see any follow up imaging for this. - I would recommend OP PET scan to better evaluate the activity of her lung nodules, and possible biopsy if PET concerning for malignancy - Anemia likely due to her underlying hematoma, but will complete work up to rule out other contributing etiology - Cardiology on board for CP - Surgery on board for hematoma Discussed with pt and she is agreeable. All questions answered.
--- NOTE | 2024-06-02 17:02 | P.PN ---
Subjective Progress Note Date: 06/02/24 Hospital course: Patient is a 58-year-old female history of Takotsubo cardiomyopathy, A-fib (not on anticoagulation), right leg pain status post hematoma evacuation on 05/25/2024, hyperlipidemia and hypertension presents to the ER with a sudden onset right-sided chest pain. Patient is admitted to internal medicine service for further evaluation of chest pain to rule out ACS. In the ER patient underwent an extensive evaluation. Chest x-ray interpreted independently shows no acute cardiopulmonary process. EKG interpreted independently shows A-fib with ventricular rate of 89 and QTc of 398 ms. Gallbladder ultrasound shows mild hepatomegaly. Chest CTA shows no evidence of acute pulmonary embolism. It does show multiple bilateral lung nodules. Lower extremity CT shows large irregular soft tissue density with a drainage catheter in the anterolateral right thigh. CT of the abdomen and pelvis interpreted independently shows multiple bilateral lung nodules. Laboratory evaluation in the ER shows WBC 12.8, hemoglobin 7.9, MCV 89.5, sodium 135, potassium 4.1, BUN 12, creatinine 0.61, glucose 113, calcium 7.6, AST 38, ALT 21, ALP 317, lipase 55. Troponin I is less than 0.012, NT proBNP 7220, D-dimer 3.20. Respiratory viral panel including COVID-19 is negative. ACS rule out with troponin trending negative. Patient hemoglobin was 7.0 on 06/01/2024 and she was given a unit of blood. Repeat blood work in the afternoon. Cardiology is consulted. Echocardiogram shows mildly impaired LVEF of 45 to 50% and mild to moderate MR and TR. Pulmonology and oncology consulted with concerns of the incidental finding of bilateral pulmonary nodules. Subjective: Patient seen and examined at the bedside. No acute events overnight. All Systems reviewed and pertinent positives and negatives noted in HPI, all other symptoms are negative Objective: Vital signs reviewed. General: non toxic, no distress, appears at stated age, normal weight Head: atraumatic, normocephalic, symmetric Eyes: EOMI, no lid lag, anicteric sclera, pupils equal round reactive to light ENT: Nose and ears atraumatic Neck: No cervical lymphadenopathy, trachea midline, supple Mouth: no lip lesion, mucus membranes moist Cardiovascular: S1S2 reg, no murmur, positive dorsalis pedis pulse bilateral, no edema Lungs: CTA bilateral, no rhonchi, no rales, no accessory muscle use Abdominal: soft, nontender to palpation, no guarding Ext: Right thigh is strapped, range of motion of the right hip is limited due to pain, mild swelling noted right lower leg, the rest of the extremities strength 5/5 and sensation intact. Neuro: CN II-XI grossly intact, no gross focal neuro deficits Psych: Alert, oriented, appropriate affect Data reviewed today: Labs: WBC 12.6, hemoglobin 8.0, platelet count 466, sodium 136, potassium 3.7, BUN 8.9, creatinine 0.6, glucose 155, calcium 7.4 Images: No new imaging Assessment and Plan: Patient is a 58-year-old female history of Takotsubo cardiomyopathy, A-fib (not on anticoagulation), right leg pain status post hematoma evacuation on 05/25/2024, hyperlipidemia and hypertension presents to the ER with a sudden onset right-sided chest pain. Case was discussed with the ED provider and patient is admitted to the internal medicine service for further evaluation of chest pain to rule out ACS. # Incidental finding of bilateral pulmonary nodules on CTA #Unclear etiology Former smoker, quit 10 [address] of the abdomen and pelvis interpreted independently shows multiple bilateral lung nodules Consult oncology Consult pulmonology Patient up-to-date with Pap smear and mammogram No history of colonoscopy Order CEA screening for colorectal cancer Pelvic ultrasound unremarkable #Atypical chest pain, ACS ruled out #History of Takotsubo cardiomyopathy, recovered EF #Elevated D-dimer Patient continues to endorse pain in her right side chest and breast area Troponin trend: Negative Continue with aspirin 81 mg p.o. daily, atorvastatin 40 mg p.o. at bedtime Chest CTA negative for pulm embolism Gallbladder ultrasound shows mild hepatomegaly. Cardiology signed off, ACS ruled out, patient to follow-up outpatient with Dr. De Leon Echocardiogram with LVEF of 45 to 50% Morphine 4 mg IVP every 4 hours as needed for pain Continue with cardiac monitoring Chest pain possibly in the setting of nodules as above #Atrial fibrillation with rate control Resume digoxin 125 mcg p.o. daily and metoprolol succinate 50 mg p.o. twice daily Continue cardiac monitoring Cardiology signed off #Right thigh hematoma s/p hematoma evacuation on 05/25/2024 #Acute blood loss anemia secondary above #SIRS #suspected infected hematoma CT shows large irregular soft tissue density with a drainage catheter in the anterolateral right thigh. General surgery on board, no plans for intervention Pain control as above Continue Keflex 500 mg p.o. every 8 hour Monitor CBC Transfusion if less than 7 Resume ferrous sulfate 325 mg p.o. daily #Transaminases and elevated ALP likely reactive to above AST 38, ALT 21, ALP 317 Monitor CMP #Hyperglycemia likely reactive to above Serum glucose 113 Continue monitor serum glucose level HbA1c 5.5 on 05/27/2024 Chronic conditions: Depression/anxiety: Resume escitalopram 10 mg p.o. at bedtime DVT prophylaxis: Not indicated in the setting of recent hematoma surgery F: P.o. E: Replete as needed N: Heart healthy diet A: Ambulatory without assist at home DVT ppx: SCDs Code Status: Full code Anticipated discharge place: Home Anticipated discharge date: Pending clinical course I saw and evaluated the patient during the lorenzana and critical portions of this encounter, and discussed the case in detail with the resident author of this note, I agree with the Assessment and Plan, and my changes, if any, are highlighted in blue. Objective - Vital Signs Vital signs: Vital Signs Temp 98.9 F 06/02/24 13:34 Pulse 86 06/02/24 13:34 Resp 16 06/02/24 13:34 BP 119/74 06/02/24 13:34 Pulse Ox 97 06/02/24 13:34 FiO2 Intake & Output 06/01/24 06/02/24 06/02/24 18:59 06:59 18:59 Intake Total 310 960 709 Output Total 50 Balance 260 960 709 Intake: Oral 960 709 Blood Product 310 Rc As-1 Unit 310 [id number] Output: Drainage 50 Right Thigh 50 Other: Voiding Method Toilet Toilet # Voids 1 3 3 - Labs CBC & Chem 7: 06/03/24 05:05 06/02/24 03:30 Labs: Abnormal Lab Results - Last 24 Hours (Table) 06/01/24 06/02/24 06/02/24 Range/Units 16:39 03:30 03:30 WBC 12.8 H 12.68 H (3.8-10.6) k/uL RBC 3.17 L 2.85 L (3.80-5.40) m/uL Hgb 8.8 L D 8.0 L (11.4-16.0) gm/dL Hct 28.1 L 26.5 L (34.0-46.0) % MCHC 30.2 L (32.0-37.0) g/dL RDW 16.7 H 17.3 H (11.5-15.5) % Plt Count 495 H 466 H (150-450) k/uL Immature Gran # 0.19 H (0.00-0.04) X 10*3/uL Neutrophils # 7.95 H (1.80-7.70) X 10*3/uL Neutrophils # (Manual) 9.30 H (1.3-7.7) k/uL Monocytes # 1.70 H (0.20-1.00) X 10*3/uL Monocytes # (Manual) 1.54 H (0-1.0) k/uL Carbon Dioxide 20.4 L (21.6-31.8) mmol/L BUN 8.9 L (9.0-27.0) mg/dL Glucose 155 H (70-110) mg/dL Calcium 7.4 L (8.7-10.3) mg/dL Microbiology - Last 24 Hours (Table) 05/31/24 07:43 Blood Culture - Preliminary Blood
[2024-06-03 06:04] LABS: Anisocytosis Slight; HCT 28.3 % (34.0-46.0); HGB 8.7 gm/dL (11.4-16.0); Hypochromasia Marked; MCH 27.5 pg (25.0-35.0); MCHC 30.9 g/dL (31.0-37.0); MCV 89.2 fL (80.0-100.0); Mean Platelet Volume 7.3; Platelet Count 518 k/uL (150-450); Poikilocytosis Slight; RBC 3.17 m/uL (3.80-5.40); RDW 16.3 % (11.5-15.5)
[2024-06-03 06:05] LABS: Reticulocyte % 2.7 % (0.5-2.0)
--- NOTE | 2024-06-03 08:09 | P.PN ---
Progress Note - Text Progress Note Date: 06/03/24 No acute events overnight. Hemoglobin is currently stable PHYSICAL EXAM: VITAL SIGNS: Reviewed GENERAL: Well-developed in no acute distress. HEENT: No sclera icterus. Extraocular movements grossly intact. Moist buccal mucosa. Head is atraumatic, normocephalic. No nasal drainage. ABDOMEN: Soft. Nondistended. Nontender NEUROLOGIC: Alert and oriented. Cranial nerves II through XII grossly intact. Extremities: Right leg is Saul wrapped. Minimal tenderness with palpation. Drain in place. ASSESSMENT: 1. Right lower extremity hematoma status post evacuation of hematoma on 05/26/2024 2. Chest pain seen evaluated by cardiology service PLAN: -No surgical intervention planned -Continue drain -Monitor Hgb, Transfuse prn -recommend follow-up with orthopedic oncologist -Patient can be discharged from surgical standpoint -Continue antibiotic Ricardo Ramírez DO [facility] [phone]
[2024-06-03 08:54] LABS: Eosinophils # (M) 0.28 k/uL (0-0.7); Lymphocytes # (M) 1.82 k/uL (1.0-4.8); Monocytes # (M) 0.84 k/uL (0-1.0); Neutrophils # (M) 11.06 k/uL (1.3-7.7); Neutrophils % (M) 79 %; Nucleated Red Blood Cells 0 /100 WBC (0-0); Total Cells Counted 100
[2024-06-03 09:58] LABS: Protein, Total 4.9 g/dL (6.2-8.2)
[2024-06-03 10:26] LABS: BUN/Creat Ratio 10.57 Ratio (12.00-20.00); Bilirubin, Conjugated 0.21 mg/dL (0.20-0.40); Bilirubin,Unconjugated 0.19 mg/dL (0.20-1.00); Blood Urea Nitrogen 7.4 mg/dL (9.0-27.0); Calcium 7.7 mg/dL (8.7-10.3); Carbon Dioxide 21.3 mmol/L (21.6-31.8); Chloride 104 mmol/L (96-109); Glucose 145 mg/dL (70-110); Iron 10 UG/DL (50-170); LDH 187 U/L (120-246); Potassium 3.7 mmol/L (3.5-5.5); Sodium 137 mmol/L (135-145); Total Bilirubin 0.4 mg/dL (0.3-1.2); Total Iron Binding Capacity 147 UG/DL (228-460)
--- NOTE | 2024-06-03 10:41 | P.PN ---
Subjective Progress Note Date: 06/03/24 This is a very pleasant 58-year-old female patient with a known history of Takotsubo and atrial fibrillation. She also has a history of a right lower extremity injury secondary to fall and over time developed a significant hematoma. On March 26, 2024 she had undergone a lower extremity evacuation of a hematoma with a Hemovac placement. She was discharged home on 05/28/2024. She presented here to the emergency room on May 31, 2024 with complaints of chest pain and pain on inhalation. Acute coronary syndrome was ruled out. She was seen and evaluated by cardiology who felt the pain was atypical. During the workup however she did have a CT angiogram that ruled out pulmonary embolism but she was found to have multiple bilateral pulmonary nodules ranging in various sizes. We were consulted today for the same. She is seen on the regular medical floor. She is resting comfortably in bed. Awake and alert in no acute distress. Denies any shortness of breath, cough or congestion. No hemoptysis. No weight loss. She had lived in [place] for many years. She spent most of her life in [facility]. She states she did have previous pneumonias and multiple episodes of bronchitis. Former smoker. No history of cancer. She is maintaining good O2 saturations in the upper 90s on room air. She is been afebrile. Hemodynamically stable. White count 12.6. Hemoglobin 8.0. Pl atelets 466. Sodium 136. Potassium 3.7. Bicarb 20. BUN 9. Creatinine 0.6. Glucose 155. Troponins were negative. Atrial fibrillation with a controlled ventricular response. She has been off anticoagulation due to her hematoma. Reveals mildly impaired left ventricular systolic function with ejection fraction 45 to 50%. Catheterization revealed normal coronary arteries. The patient is seen today June 03, 2024 in follow-up on the regular medical floor. She is currently resting comfortably in bed. Awake and alert in no acute distress. Maintaining good O2 saturations in the 90s on room air. No pulmonary complaints. Right lower extremity remains with Saul wrap. Hemovac in place. White count 14.0. Hemoglobin 8.7. Platelets 518. Sodium 137. Potassium 3.7. Bicarb 21. BUN 7. Creatinine 0.7. Glucose 145. She remains on Keflex. Objective - Vital Signs Vital signs: Vital Signs Temp 99.9 F H 06/03/24 07:00 Pulse 91 06/03/24 07:00 Resp 17 06/03/24 07:00 BP 120/72 06/03/24 07:00 Pulse Ox 93 L 06/03/24 07:00 FiO2 Intake & Output 06/02/24 06/03/24 06/03/24 18:59 06:59 18:59 Intake Total 827 580 Balance 827 580 Intake: Oral 827 580 Other: Voiding Method Toilet # Voids 3 2 - Exam GENERAL EXAM: Alert, pleasant 58-year-old female, on room air, resting comfortably in bed, comfortable in no apparent distress. HEAD: Normocephalic. EYES: Normal reaction of pupils, equal size. NOSE: Clear with pink turbinates. THROAT: No erythema or exudates. NECK: No masses, no JVD. CHEST: No chest wall deformity. LUNGS: Equal air entry with no crackles, wheeze, rhonchi or dullness. CVS: S1 and S2 normal with no audible murmur, irregular rhythm. ABDOMEN: No hepatosplenomegaly, normal bowel sounds, no guarding or rigidity. SPINE: No scoliosis or deformity SKIN: No rashes CENTRAL NERVOUS SYSTEM: No focal deficits, tone is normal in all 4 extremities. EXTREMITIES: Right lower with SAUL wrap. Hemovac in place. No clubbing, no cyanosis. Peripheral pulses are intact. - Labs CBC & Chem 7: 06/03/24 05:05 06/03/24 05:05 Labs: Abnormal Lab Results - Last 24 Hours (Table) 06/02/24 06/03/24 06/03/24 Range/Units 03:30 05:05 05:05 WBC 14.0 H (3.8-10.6) k/uL RBC 3.17 L (3.80-5.40) m/uL Hgb 8.7 L (11.4-16.0) gm/dL Hct 28.3 L (34.0-46.0) % MCHC 30.9 L (31.0-37.0) g/dL RDW 16.3 H (11.5-15.5) % Plt Count 518 H (150-450) k/uL Immature Gran # 0.19 H (0.00-0.04) X 10*3/uL Neutrophils # 7.95 H (1.80-7.70) X 10*3/uL Neutrophils # (Manual) 11.06 H (1.3-7.7) k/uL Monocytes # 1.70 H (0.20-1.00) X 10*3/uL Retic Count (0.5-2.0) % Haptoglobin 428.0 H (31.2-198.0) mg/dL Carbon Dioxide (21.6-31.8) mmol/L BUN (9.0-27.0) mg/dL BUN/Creatinine Ratio (12.00-20.00) Ratio Glucose (70-110) mg/dL Calcium (8.7-10.3) mg/dL Iron (50-170) UG/DL TIBC (228-460) UG/DL % Saturation (12.00-45.00) Transferrin (204.0-354.0) mg/dL Ferritin (10.0-291.0) ng/mL Unconjugated Bilirubin (0.20-1.00) mg/dL Total Protein (PEP) 4.9 L (6.2-8.2) g/dL 06/03/24 06/03/24 Range/Units 05:05 05:05 WBC (3.8-10.6) k/uL RBC (3.80-5.40) m/uL Hgb (11.4-16.0) gm/dL Hct (34.0-46.0) % MCHC (31.0-37.0) g/dL RDW (11.5-15.5) % Plt Count (150-450) k/uL Immature Gran # (0.00-0.04) X 10*3/uL Neutrophils # (1.80-7.70) X 10*3/uL Neutrophils # (Manual) (1.3-7.7) k/uL Monocytes # (0.20-1.00) X 10*3/uL Retic Count 2.7 H (0.5-2.0) % Haptoglobin (31.2-198.0) mg/dL Carbon Dioxide 21.3 L (21.6-31.8) mmol/L BUN 7.4 L (9.0-27.0) mg/dL BUN/Creatinine Ratio 10.57 L (12.00-20.00) Ratio Glucose 145 H (70-110) mg/dL Calcium 7.7 L (8.7-10.3) mg/dL Iron 10 L (50-170) UG/DL TIBC 147 L (228-460) UG/DL % Saturation 6.80 L (12.00-45.00) Transferrin 105.0 L (204.0-354.0) mg/dL Ferritin 1778.0 H (10.0-291.0) ng/mL Unconjugated Bilirubin 0.19 L (0.20-1.00) mg/dL Total Protein (PEP) (6.2-8.2) g/dL Microbiology - Last 24 Hours (Table) 05/31/24 07:43 Blood Culture - Preliminary Blood Assessment and Plan Assessment: Atypical chest pain in a patient with recent normal coronary arteries on catheterization. Pulmonary embolism ruled out Recent evacuation of hematoma of the right lower extremity on 05/26/2024 Atrial fibrillation, currently off anticoagulation secondary to above History of Takotsubo syndrome, current ejection fraction 45 to 50% Multiple pulmonary nodules of unclear etiology. Plan is for outpatient PET scan Former smoker Hyperlipidemia Plan: The patient was seen and evaluated Labs and medications reviewed SAUL level, Aspergillus level, Histoplasmosis pending Currently stable and on room air Will need outpatient PET scan We will continue to follow I have personally seen and examined the patient, performed the documentation and the assessment and plan as written. Number of minutes spent on the visit: 10 Dictation was produced using [employer] dictation software. Please excuse any grammatical, word or spelling errors.
--- NOTE | 2024-06-03 11:03 | P.PN ---
Subjective Progress Note Date: 06/03/24 Hospital course: Patient is a 58-year-old female history of Takotsubo cardiomyopathy, A-fib (not on anticoagulation), right leg pain status post hematoma evacuation on 05/25/2024, hyperlipidemia and hypertension presents to the ER with a sudden onset right-sided chest pain. Patient is admitted to internal medicine service for further evaluation of chest pain to rule out ACS. In the ER patient underwent an extensive evaluation. Chest x-ray interpreted independently shows no acute cardiopulmonary process. EKG interpreted independently shows A-fib with ventricular rate of 89 and QTc of 398 ms. Gallbladder ultrasound shows mild hepatomegaly. Chest CTA shows no evidence of acute pulmonary embolism. It does show multiple bilateral lung nodules. Lower extremity CT shows large irregular soft tissue density with a drainage catheter in the anterolateral right thigh. CT of the abdomen and pelvis interpreted independently shows multiple bilateral lung nodules. Laboratory evaluation in the ER shows WBC 12.8, hemoglobin 7.9, MCV 89.5, sodium 135, potassium 4.1, BUN 12, creatinine 0.61, glucose 113, calcium 7.6, AST 38, ALT 21, ALP 317, lipase 55. Troponin I is less than 0.012, NT proBNP 7220, D-dimer 3.20. Respiratory viral panel including COVID-19 is negative. ACS rule out with troponin trending negative. Patient hemoglobin was 7.0 on 06/01/2024 and she was given a unit of blood. Repeat blood work in the afternoon. Cardiology is consulted. Echocardiogram shows mildly impaired LVEF of 45 to 50% and mild to moderate MR and TR. Pulmonology and oncology consulted with concerns of the incidental finding of bilateral pulmonary nodules. Subjective: Patient seen and examined at the bedside. No acute events overnight. All Systems reviewed and pertinent positives and negatives noted in HPI, all other symptoms are negative Objective: Vital signs reviewed. General: non toxic, no distress, appears at stated age, normal weight Head: atraumatic, normocephalic, symmetric Eyes: EOMI, no lid lag, anicteric sclera, pupils equal round reactive to light ENT: Nose and ears atraumatic Neck: No cervical lymphadenopathy, trachea midline, supple Mouth: no lip lesion, mucus membranes moist Cardiovascular: S1S2 reg, no murmur, positive dorsalis pedis pulse bilateral, no edema Lungs: CTA bilateral, no rhonchi, no rales, no accessory muscle use Abdominal: soft, nontender to palpation, no guarding Ext: Right thigh is strapped, range of motion of the right hip is limited due to pain, mild swelling noted right lower leg, the rest of the extremities strength 5/5 and sensation intact. Neuro: CN II-XI grossly intact, no gross focal neuro deficits Psych: Alert, oriented, appropriate affect Data reviewed today: Labs: WBC 12.6, hemoglobin 8.0, platelet count 466, sodium 136, potassium 3.7, BUN 8.9, creatinine 0.6, glucose 155, calcium 7.4 Images: No new imaging Assessment and Plan: Patient is a 58-year-old female history of Takotsubo cardiomyopathy, A-fib (not on anticoagulation), right leg pain status post hematoma evacuation on 05/25/2024, hyperlipidemia and hypertension presents to the ER with a sudden onset right-sided chest pain. Case was discussed with the ED provider and patient is admitted to the internal medicine service for further evaluation of chest pain to rule out ACS. # Incidental finding of bilateral pulmonary nodules on CTA #Unclear etiology Former smoker, quit [address] of the abdomen and pelvis interpreted independently shows multiple bilateral lung nodules Consult oncology = workup for anemia pending Consult pulmonology = fungal serologies pending Outpt PET/CT scan recommended Patient up-to-date with Pap smear and mammogram No history of colonoscopy Order CEA screening for colorectal cancer = negative Pelvic ultrasound unremarkable #Atypical chest pain, ACS ruled out #History of Takotsubo cardiomyopathy, recovered EF #Elevated D-dimer Patient continues to endorse pain in her right side chest and breast area Troponin trend: Negative Continue with aspirin 81 mg p.o. daily, atorvastatin 40 mg p.o. at bedtime Chest CTA negative for pulm embolism Gallbladder ultrasound shows mild hepatomegaly. Cardiology signed off, ACS ruled out, patient to follow-up outpatient with Dr. De Leon Echocardiogram with LVEF of 45 to 50% Morphine 4 mg IVP every 4 hours as needed for pain Continue with cardiac monitoring Chest pain possibly in the setting of nodules as above #Atrial fibrillation with rate control Resume digoxin 125 mcg p.o. daily and metoprolol succinate 50 mg p.o. twice daily Continue cardiac monitoring Cardiology signed off #Right thigh hematoma s/p hematoma evacuation on 05/25/2024 #Acute blood loss anemia secondary above #SIRS #suspected infected hematoma CT shows large irregular soft tissue density with a drainage catheter in the anterolateral right thigh. General surgery on board, no plans for intervention Pain control as above Continue Keflex 500 mg p.o. every 8 hour Monitor CBC Transfusion if less than 7 Resume ferrous sulfate 325 mg p.o. daily #Transaminases and elevated ALP likely reactive to above AST 38, ALT 21, ALP 317 Monitor CMP #Hyperglycemia likely reactive to above Serum glucose 113 Continue monitor serum glucose level HbA1c 5.5 on 05/27/2024 Chronic conditions: Depression/anxiety: Resume escitalopram 10 mg p.o. at bedtime DVT prophylaxis: Not indicated in the setting of recent hematoma surgery F: P.o. E: Replete as needed N: Heart healthy diet A: Ambulatory without assist at home DVT ppx: SCDs Code Status: Full code Anticipated discharge place: Home Anticipated discharge date: Pending clinical course Objective - Vital Signs Vital signs: Vital Signs Temp 99.9 F H 06/03/24 07:00 Pulse 79 06/03/24 10:43 Resp 17 06/03/24 10:43 BP 120/72 06/03/24 07:00 Pulse Ox 93 L 06/03/24 07:00 FiO2 Intake & Output 06/02/24 06/03/24 06/03/24 18:59 06:59 18:59 Intake Total 827 580 Balance 827 580 Intake: Oral 827 580 Other: Voiding Method Toilet Toilet # Voids 3 2 - Labs CBC & Chem 7: 06/03/24 05:05 06/03/24 05:05 Labs: Abnormal Lab Results - Last 24 Hours (Table) 06/02/24 06/03/24 06/03/24 Range/Units 03:30 05:05 05:05 WBC 14.0 H (3.8-10.6) k/uL RBC 3.17 L (3.80-5.40) m/uL Hgb 8.7 L (11.4-16.0) gm/dL Hct 28.3 L (34.0-46.0) % MCHC 30.9 L (31.0-37.0) g/dL RDW 16.3 H (11.5-15.5) % Plt Count 518 H (150-450) k/uL Immature Gran # 0.19 H (0.00-0.04) X 10*3/uL Neutrophils # 7.95 H (1.80-7.70) X 10*3/uL Neutrophils # (Manual) 11.06 H (1.3-7.7) k/uL Monocytes # 1.70 H (0.20-1.00) X 10*3/uL Retic Count (0.5-2.0) % Haptoglobin 428.0 H (31.2-198.0) mg/dL Carbon Dioxide (21.6-31.8) mmol/L BUN (9.0-27.0) mg/dL BUN/Creatinine Ratio (12.00-20.00) Ratio Glucose (70-110) mg/dL Calcium (8.7-10.3) mg/dL Iron (50-170) UG/DL TIBC (228-460) UG/DL % Saturation (12.00-45.00) Transferrin (204.0-354.0) mg/dL Ferritin (10.0-291.0) ng/mL Unconjugated Bilirubin (0.20-1.00) mg/dL Total Protein (PEP) 4.9 L (6.2-8.2) g/dL 06/03/24 06/03/24 Range/Units 05:05 05:05 WBC (3.8-10.6) k/uL RBC (3.80-5.40) m/uL Hgb (11.4-16.0) gm/dL Hct (34.0-46.0) % MCHC (31.0-37.0) g/dL RDW (11.5-15.5) % Plt Count (150-450) k/uL Immature Gran # (0.00-0.04) X 10*3/uL Neutrophils # (1.80-7.70) X 10*3/uL Neutrophils # (Manual) (1.3-7.7) k/uL Monocytes # (0.20-1.00) X 10*3/uL Retic Count 2.7 H (0.5-2.0) % Haptoglobin (31.2-198.0) mg/dL Carbon Dioxide 21.3 L (21.6-31.8) mmol/L BUN 7.4 L (9.0-27.0) mg/dL BUN/Creatinine Ratio 10.57 L (12.00-20.00) Ratio Glucose 145 H (70-110) mg/dL Calcium 7.7 L (8.7-10.3) mg/dL Iron 10 L (50-170) UG/DL TIBC 147 L (228-460) UG/DL % Saturation 6.80 L (12.00-45.00) Transferrin 105.0 L (204.0-354.0) mg/dL Ferritin 1778.0 H (10.0-291.0) ng/mL Unconjugated Bilirubin 0.19 L (0.20-1.00) mg/dL Total Protein (PEP) (6.2-8.2) g/dL Microbiology - Last 24 Hours (Table) 05/31/24 07:43 Blood Culture - Preliminary Blood
[2024-06-04] MEDS: CEPHALEXIN 500 MG CAP PO SCH (01:41)
[2024-06-04 07:25] VITALS: RESP 16
[2024-06-04 08:41] LABS: Blood Urea Nitrogen 8.1 mg/dL (9.0-27.0); Calcium 7.8 mg/dL (8.7-10.3); Carbon Dioxide 23.8 mmol/L (21.6-31.8); Chloride 104 mmol/L (96-109); Glucose 88 mg/dL (70-110); Magnesium 1.7 mg/dL (1.5-2.4); Potassium 3.9 mmol/L (3.5-5.5); Sodium 138 mmol/L (135-145)
[2024-06-04 08:43] LABS: Basophils # (A) 0.04 X 10*3/uL (0.00-0.10); Basophils % (A) 0.3 %; Eosinophils # (A) 0.22 X 10*3/uL (0.04-0.35); Eosinophils % (A) 1.8 %; HCT 25.6 % (37.2-46.3); HGB 7.7 g/dL (12.0-15.0); Lymphocytes # (A) 2.28 X 10*3/uL (0.90-5.00); Lymphocytes % (A) 18.4 %; MCH 27.2 pg (27.0-32.0); MCHC 30.1 g/dL (32.0-37.0); MCV 90.5 FL (80.0-97.0); Mean Platelet Volume 9.6 FL (9.5-12.2); Monocytes # (A) 1.55 X 10*3/uL (0.20-1.00); Monocytes % (A) 12.5 %; NRBC Per 100 WBC 0 X 10*3/uL (0.00-0.01); Neutrophils # (A) 8.07 X 10*3/uL (1.80-7.70); Neutrophils % (A) 65.2 %; Platelet Count 447 X 10*3/uL (140-440); RBC 2.83 X 10*6/uL (4.10-5.20); RDW 16.6 % (11.5-14.5); WBC 12.38 X 10*3/uL (4.50-10.00)
--- NOTE | 2024-06-04 12:04 | P.PN ---
Subjective Progress Note Date: 06/04/24 This is a very pleasant 58-year-old female patient with a known history of Takotsubo and atrial fibrillation. She also has a history of a right lower extremity injury secondary to fall and over time developed a significant hematoma. On March 26, 2024 she had undergone a lower extremity evacuation of a hematoma with a Hemovac placement. She was discharged home on 05/28/2024. She presented here to the emergency room on May 31, 2024 with complaints of chest pain and pain on inhalation. Acute coronary syndrome was ruled out. She was seen and evaluated by cardiology who felt the pain was atypical. During the workup however she did have a CT angiogram that ruled out pulmonary embolism but she was found to have multiple bilateral pulmonary nodules ranging in various sizes. We were consulted today for the same. She is seen on the regular medical floor. She is resting comfortably in bed. Awake and alert in no acute distress. Denies any shortness of breath, cough or congestion. No hemoptysis. No weight loss. She had lived in [place] for many years. She spent most of her life in [facility]. She states she did have previous pneumonias and multiple episodes of bronchitis. Former smoker. No history of cancer. She is maintaining good O2 saturations in the upper 90s on room air. She is been afebrile. Hemodynamically stable. White count 12.6. Hemoglobin 8.0. Pl atelets 466. Sodium 136. Potassium 3.7. Bicarb 20. BUN 9. Creatinine 0.6. Glucose 155. Troponins were negative. Atrial fibrillation with a controlled ventricular response. She has been off anticoagulation due to her hematoma. Reveals mildly impaired left ventricular systolic function with ejection fraction 45 to 50%. Catheterization revealed normal coronary arteries. The patient is seen today June 03, 2024 in follow-up on the regular medical floor. She is currently resting comfortably in bed. Awake and alert in no acute distress. Maintaining good O2 saturations in the 90s on room air. No pulmonary complaints. Right lower extremity remains with Saul wrap. Hemovac in place. White count 14.0. Hemoglobin 8.7. Platelets 518. Sodium 137. Potassium 3.7. Bicarb 21. BUN 7. Creatinine 0.7. Glucose 145. She remains on Keflex. The patient is seen today June 04, 2024 in follow-up on the regular medical floor. She is awake and alert in no acute distress. Resting quite comfortably in bed. Denies any worsening shortness of breath, cough or congestion. Maintaining good O2 saturations in the 90s on room air. Her right leg pain has continued to improve. She remains on Keflex. Hemovac in place. Saul wrap to the lower extremity. She is status post 1 unit of packed red blood cells this admission. Current hemoglobin 7.7. Platelets 447. White count 12.3. Sodium 138. Potassium 3.9. Bicarb 24. BUN 8. Creatinine 0.6. Glucose 88. Blood cultures revealed no growth. Objective - Vital Signs Vital signs: Vital Signs Temp 99.5 F 06/04/24 07:00 Pulse 82 06/04/24 07:00 Resp 16 06/04/24 07:00 BP 119/62 06/04/24 07:00 Pulse Ox 95 06/04/24 07:00 FiO2 Intake & Output 06/03/24 06/04/24 06/04/24 18:59 06:59 18:59 Intake Total 118 Balance 118 Intake: Oral 118 Other: Voiding Method Toilet Toilet # Voids 2 1 - Exam GENERAL EXAM: Alert, 58-year-old female, on room air, resting in bed, in no apparent distress. HEAD: Normocephalic. EYES: Normal reaction of pupils, equal size. NOSE: Clear with pink turbinates. THROAT: No erythema or exudates. NECK: No masses, no JVD. CHEST: No chest wall deformity. LUNGS: Equal air entry with no crackles, wheeze, rhonchi or dullness. CVS: S1 and S2 normal with no audible murmur, irregular rhythm. ABDOMEN: No hepatosplenomegaly, normal bowel sounds, no guarding or rigidity. SPINE: No scoliosis or deformity SKIN: No rashes CENTRAL NERVOUS SYSTEM: No focal deficits, tone is normal in all 4 extremities. EXTREMITIES: Right lower with SAUL wrap. Hemovac in place. No clubbing, no cyanosis. Peripheral pulses are intact. - Labs CBC & Chem 7: 06/04/24 04:07 06/04/24 04:07 Labs: Abnormal Lab Results - Last 24 Hours (Table) 06/04/24 06/04/24 Range/Units 04:07 04:07 WBC 12.38 H (4.50-10.00) X 10*3/uL RBC 2.83 L (4.10-5.20) X 10*6/uL Hgb 7.7 L (12.0-15.0) g/dL Hct 25.6 L (37.2-46.3) % MCHC 30.1 L (32.0-37.0) g/dL RDW 16.6 H (11.5-14.5) % Plt Count 447 H (140-440) X 10*3/uL Immature Gran # 0.22 H (0.00-0.04) X 10*3/uL Neutrophils # 8.07 H (1.80-7.70) X 10*3/uL Monocytes # 1.55 H (0.20-1.00) X 10*3/uL BUN 8.1 L (9.0-27.0) mg/dL Calcium 7.8 L (8.7-10.3) mg/dL Microbiology - Last 24 Hours (Table) 05/31/24 07:43 Blood Culture - Preliminary Blood Assessment and Plan Assessment: Atypical chest pain in a patient with recent normal coronary arteries on catheterization. Pulmonary embolism ruled out Recent evacuation of hematoma of the right lower extremity on 05/26/2024 Atrial fibrillation, currently off anticoagulation secondary to above History of Takotsubo syndrome, current ejection fraction 45 to 50% Multiple pulmonary nodules of unclear etiology. Plan is for outpatient PET scan Former smoker Hyperlipidemia Plan: The patient was seen and evaluated Labs and medications reviewed Currently stable and on room air Will need outpatient PET scan SAUL level, Aspergillus level, Histoplasmosis pending Cleared for discharge from the pulmonary standpoint To follow-up with Dr. Nieves in our office in 1 week This patient was seen independently by the pulmonary nurse practitioner addressing pulmonary issues I have personally seen and examined the patient, performed the documentation and the assessment and plan as written. Number of minutes spent on the visit: 24 Dictation was produced using [employer] dictation software. Please excuse any grammatical, word or spelling errors.
--- NOTE | 2024-06-04 13:57 | P.PN ---
Subjective Progress Note Date: 06/04/24 SURGICAL PROGRESS NOTE CHIEF COMPLAINT: Chest pain HISTORY OF PRESENT ILLNESS: Patient lying in bed comfortably. No acute events. Pain is controlled. Currently afebrile. WBC is down from 14-12 Hgb 8.7 down to 7.7 PHYSICAL EXAM: VITAL SIGNS: Reviewed. GENERAL: Well-developed in no acute distress. ABDOMEN: Soft. Nondistended. Nontender. NEUROLOGIC: Alert and oriented. Cranial nerves II through XII grossly intact. Extremities: Right leg is Saul wrapped. Drain in place. ASSESSMENT: 1. Right lower extremity hematoma status post evacuation of hematoma on 05/26/2024 2. Chest pain seen evaluated by cardiology service 3. Pulmonary nodules PLAN: -No surgical intervention planned -Continue drain -recommend follow-up with orthopedic oncologist outpatient -Patient can be discharged from surgical standpoint -Continue antibiotic Physician Demolition Expert note has been reviewed by physician. Signing provider agrees with the documented findings, assessment, and plan of care. Attestation Patient seen and examined at bedside. States pain is well-controlled. Hemoglobin is 7.7 with no active signs of bleeding. Recommendation is for follow-up with orthopedic oncologist outpatient. No further plan for surgical intervention. Surgically stable for discharge. Continue drain. Sri Bautista, Objective - Vital Signs Vital signs: Vital Signs Temp 99.5 F 06/04/24 07:00 Pulse 82 06/04/24 07:00 Resp 16 06/04/24 07:00 BP 119/62 06/04/24 07:00 Pulse Ox 95 06/04/24 07:00 FiO2 Intake & Output 06/03/24 06/04/24 06/04/24 18:59 06:59 18:59 Intake Total 118 Balance 118 Intake: Oral 118 Other: Voiding Method Toilet Toilet # Voids 2 1 - Labs CBC & Chem 7: 06/04/24 04:07 06/04/24 04:07 Labs: Abnormal Lab Results - Last 24 Hours (Table) 06/04/24 06/04/24 Range/Units 04:07 04:07 WBC 12.38 H (4.50-10.00) X 10*3/uL RBC 2.83 L (4.10-5.20) X 10*6/uL Hgb 7.7 L (12.0-15.0) g/dL Hct 25.6 L (37.2-46.3) % MCHC 30.1 L (32.0-37.0) g/dL RDW 16.6 H (11.5-14.5) % Plt Count 447 H (140-440) X 10*3/uL Immature Gran # 0.22 H (0.00-0.04) X 10*3/uL Neutrophils # 8.07 H (1.80-7.70) X 10*3/uL Monocytes # 1.55 H (0.20-1.00) X 10*3/uL BUN 8.1 L (9.0-27.0) mg/dL Calcium 7.8 L (8.7-10.3) mg/dL Microbiology - Last 24 Hours (Table) 05/31/24 07:43 Blood Culture - Preliminary Blood
--- NOTE | 2024-06-04 14:51 | P.DS ---
Providers Date of admission: 05/31/24 11:43 Attending physician: Joey Delgado Consults: 05/31/24 11:42 Consult Physician Routine Consulting Provider: [facility] Consult Reason/Comments: chest pain Do you want consulting provider notified?: Yes Consult Physician Routine Consulting Provider: Sri Bautista Consult Reason/Comments: surgery by lopes. post op drain/low grade fever Do you want consulting provider notified?: Yes 06/02/24 10:33 Consult Physician Urgent Consulting Provider: Khoa Montesinos Consult Reason/Comments: bilateral pulmonary nodules Do you want consulting provider notified?: Yes 06/02/24 11:50 Consult Physician Urgent Consulting Provider: Luis Nieves Consult Reason/Comments: bilateral pulmonary nodules Do you want consulting provider notified?: Yes Primary care physician: [facility] Hospital Course: Patient is a 58-year-old female history of Takotsubo cardiomyopathy, A-fib (not on anticoagulation), right leg pain status post hematoma evacuation on 05/25/2024, hyperlipidemia and hypertension presents to the ER with a sudden onset right-sided chest pain. Patient stated that she woke up this morning around 6 AM with achy type, nonradiating, 10 out of 10 pain presented on right chest and under the right breast. It is worse with deep breaths and better with change in position. Patient states that due to her recent history of Takotsubo cardiomyopathy and right leg surgery for hematoma along with a new sudden onset chest pain this morning prompted her to come to the ER for further evaluation. Otherwise patient is not complaining of any shortness of breath, diaphoresis, lightheadedness, abdominal discomfort, fever, chills, nausea and vomiting. Patient is currently not on any blood thinner. Patient denies any recent travel history. No past history of CAD and/or CVA. Patient is following general surgery for recent right leg surgery. At the time of interview, patient still complaining of constant, nonradiating, 3/10, right-sided chest pain which is worse with deep breaths. In the ER, chest x-ray interpreted independently shows no acute cardiopulmonary process. EKG interpreted independently shows A-fib with ventricular rate of 89 and QTc of 398 ms. Gallbladder ultrasound shows mild hepatomegaly. Chest CTA shows no evidence of acute pulmonary embolism. It does show multiple bilateral lung nodules. Lower extremity CT shows large irregular soft tissue density with a drainage catheter in the anterolateral right thigh. CT of the abdomen and pelvis interpreted independently shows multiple bilateral lung nodules. Laboratory evaluation in the ER shows WBC 12.8, hemoglobin 7.9, MCV 89.5, sodium 135, potassium 4.1, AST 38, ALT 21, ALP 317, lipase 55. Troponin I is less than 0.012, NT proBNP 7220, D-dimer 3.20. Respiratory viral panel is negative. Patient was transfused with 1 unit packed RBC and given ferrous sulfate p.o, morphine IV for pain control, Keflex and resumed home ASA 81 and atorvastatin. Cardiology consulted and was cleared from their standpoint. General surgery consulted due to drain for hematoma and decided no surgical intervention will be planned and agreed with blood transfusion. Pulmonology consulted and ordered fungal serology, GIN level. Heme-onc consulted and recommended anemia workup, colonoscopy and outpatient PET scan for lung nodules found on CT. iron studies were found to be low particularly TIBC 610, percent saturation 47 and transferrin 6.8. Patient iron replaced with Ferreclit. Throughout hospital stay patient did not have any worsening or new symptoms. Patient discharged with Tylenol 650 for pain control, and continue Keflex for 7 days. Advised to follow-up with PCP, pulmonology, cardiology, general surgery, and heme-onc on outpatient basis and discussion of pending lab results. Physical examination: Vital signs reviewed General: non toxic, no distress, appears at stated age Head: atraumatic, normocephalic, symmetric Mouth: no lip lesion, mucus membranes moist Cardiovascular: S1S2 reg, no murmur Lungs: CTA bilateral, no rhonchi, no rales, no accessory muscle use Abdominal: soft, nondistended, nontender to palpation, no guarding Ext: muscle strength 5 out of 5 in all 4 extremities grossly, no gross muscle atrophy, no contractures, positive dorsalis pedis pulse bilateral, no extremity edema, drain attached to bandage on right thigh, dressing dry and clean with no erythema of surrounding skin Neuro: no gross focal neuro deficits Psych: Alert and oriented x3, appropriate affect and mood I saw and evaluated the patient during the lorenzana and critical portions of this encounter, and discussed the case in detail with the resident author of this note, I agree with the Assessment and Plan, and my changes, if any, are highlighted in blue. Assessment: # Incidental bilateral pulmonary nodules on CTA, unclear etiology # Atypical chest pain, ACS ruled out # History of Takotsubo cardiomyopathy, recovered EF # Atrial fibrillation with rate control # Right thigh hematoma s/p hematoma evacuation on 05/25/2024 # Acute blood loss anemia secondary to hematoma evacuation, resolved # SIRS secondary to suspected infected hematoma, improving # Reactive elevated Transaminases and elevated ALP, resolved # Reactive hyperglycemia, resolved Patient Condition at Discharge: Stable Plan - Discharge Summary Discharge Rx Participant: Yes New Discharge Prescriptions: New Acetaminophen Tab [Tylenol] 650 mg PO Q6HR PRN tab PRN Reason: Mild Pain Or Fever > 100.5 Continue Multivitamins, Thera [Multivitamin (formulary)] 1 tab PO DAILY Loratadine [Claritin] 10 mg PO DAILY Atorvastatin [Lipitor] 40 mg PO HS traMADol HCL 50 mg PO Q6H PRN PRN Reason: Pain Metoprolol Succinate (ER) [Toprol XL] 50 mg PO BID #180 tab Aspirin 81 mg PO DAILY #30 tab Cephalexin [Keflex] 500 mg PO Q8HR 7 Days #21 cap HYDROcodone/APAP 5-325MG [[place] 5-325] 1 tab PO Q6HR PRN 3 Days #12 tab PRN Reason: Pain Escitalopram [Lexapro] 10 mg PO HS Ferrous Sulfate [Iron (65 MG Elemental)] 325 mg PO DAILY Digoxin [Lanoxin] 125 mcg PO DAILY Discharge Medication List Loratadine [Claritin] 10 mg PO DAILY 01/13/24 [History] Multivitamins, Thera [Multivitamin (formulary)] 1 tab PO DAILY 01/13/24 [History] Atorvastatin [Lipitor] 40 mg PO HS 05/22/24 [History] Digoxin [Lanoxin] 125 mcg PO DAILY 05/22/24 [History] Escitalopram [Lexapro] 10 mg PO HS 05/22/24 [History] Ferrous Sulfate [Iron (65 MG Elemental)] 325 mg PO DAILY 05/22/24 [History] traMADol HCL 50 mg PO Q6H PRN 05/22/24 [History] Aspirin 81 mg PO DAILY #30 tab 05/28/24 [Rx] Cephalexin [Keflex] 500 mg PO Q8HR 7 Days #21 cap 05/28/24 [Rx] HYDROcodone/APAP 5-325MG [[place] 5-325] 1 tab PO Q6HR PRN 3 Days #12 tab 05/28/24 [Rx] Metoprolol Succinate (ER) [Toprol XL] 50 mg PO BID #180 tab 05/28/24 [Rx] Acetaminophen Tab [Tylenol] 650 mg PO Q6HR PRN tab 06/04/24 [Rx] Follow up Appointment(s)/Referral(s): Luis Nieves MD [STAFF PHYSICIAN] - 06/27/24 10:00 am Viet De Leon MD [STAFF PHYSICIAN] - 06/11/24 10:30 am Khoa Montesinos [STAFF PHYSICIAN] - 06/26/24 4:45 pm Ken Lopes DO [Doctor of Osteopathic Medicine] - 06/05/24 10:30 am Breana Garcia MD [Primary Care Provider] - 1-2 days Discharge Disposition: HOME SELF-CARE
[2024-06-04 14:57] VITALS: BP 106/63; PULSE 71; TEMP 98.5
--- NOTE | 2024-06-04 15:55 | P.PN ---
Subjective Progress Note Date: 06/04/24 Principal diagnosis: Rt thigh hematoma post trauma, anemia. Lung nodules If f/u pt cont to have drain attached to the thigh, the amt of blood draining from the hematoma is slowing down. Pt denies any new bleeding. No other physical c/o at this time, no chest pain. Objective - Vital Signs Vital signs: Vital Signs Temp 99.5 F 06/04/24 07:00 Pulse 82 06/04/24 07:00 Resp 16 06/04/24 07:00 BP 119/62 06/04/24 07:00 Pulse Ox 95 06/04/24 07:00 FiO2 Intake & Output 06/03/24 06/04/24 06/04/24 18:59 06:59 18:59 Intake Total 118 Balance 118 Intake: Oral 118 Other: Voiding Method Toilet Toilet # Voids 2 1 - Constitutional General appearance: Present: average body habitus, cooperative, no acute d istress - EENT Eyes: Present: anicteric sclerae, EOMI ENT: Present: hearing grossly normal - Respiratory Details: resp unlabored - Cardiovascular Details: radial pulse 2+ - Peripheral edema leg Peripheral Edema: bilateral: None - Musculoskeletal Musculoskeletal Comment(s): rt thigh brisa bandage with drain, bloody drainage Musculoskeletal: Present: strength equal bilaterally - Psychiatric Psychiatric: Present: A&O x's 3, appropriate affect, intact judgment & insight - Labs CBC & Chem 7: 06/04/24 04:07 06/04/24 04:07 Labs: Abnormal Lab Results - Last 24 Hours (Table) 06/04/24 06/04/24 Range/Units 04:07 04:07 WBC 12.38 H (4.50-10.00) X 10*3/uL RBC 2.83 L (4.10-5.20) X 10*6/uL Hgb 7.7 L (12.0-15.0) g/dL Hct 25.6 L (37.2-46.3) % MCHC 30.1 L (32.0-37.0) g/dL RDW 16.6 H (11.5-14.5) % Plt Count 447 H (140-440) X 10*3/uL Immature Gran # 0.22 H (0.00-0.04) X 10*3/uL Neutrophils # 8.07 H (1.80-7.70) X 10*3/uL Monocytes # 1.55 H (0.20-1.00) X 10*3/uL BUN 8.1 L (9.0-27.0) mg/dL Calcium 7.8 L (8.7-10.3) mg/dL Microbiology - Last 24 Hours (Table) 05/31/24 07:43 Blood Culture - Preliminary Blood - Imaging and Cardiology pelvic US neg for any gross abnormalities Assessment and Plan (1) Hematoma of right lower leg Current Visit: Yes Status: Acute Priority: High Code(s): S80.11XA - CONTUSION OF RIGHT LOWER LEG, INITIAL ENCOUNTER SNOMED Code(s): 17494412401076572 (2) Pulmonary nodules Current Visit: Yes Status: Acute Priority: High Code(s): R91.8 - OTHER NONSPECIFIC ABNORMAL FINDING OF LUNG FIELD SNOMED Code(s): 136491260 Plan: Lung nodules -Dr. Cadet reviewed pt chart, mamogram in Sept that was neg. Recommend age related cancer screens including colonoscopy -It was discussed with pt concerning findings. Plan for PET outpt, pt agrees with plan Anemia, most likely acute blood loss from hematoma in rt thigh -Anemia work up ordered on post transfusion blood. -3 doses of IV iron ordered in the setting of acute blood loss -Paraproteinemia work up pending Cardiology following for chest pain Surgery following for hematoma and drainage of hematoma
[2024-06-04] MEDS: SODIUM FERRIC GLUCONAT-SUCROSE 125 MG in SODIUM CHLORIDE 0.9% 100 ML IVPB SCH (16:58)
[2024-06-05 13:53] LABS: Free Kappa Lt Chain Qnt, Serum 2.99 mg/dL (0.33-1.94); Free Lambda Lt Chain Qnt, Seru 1.56 mg/dL (0.57-2.63)
== END 2024-06-04 17:20 | disposition home or self-care (01) | DRG 313 ==
LOC: EC 07:24 → 6NMEDSUR 11:42 → OBSVTOIN 11:43 → 6NMEDSUR 13:40
PROVIDERS: ADMIT Student in an Organized Health Care Education/Training Program; ATTEND Student in an Organized Health Care Education/Training Program
DX: R07.89 Other chest pain (principal); J90 Pleural effusion, not elsewhere classified; R65.10 Systemic inflammatory response syndrome (SIRS) of non-infectious origin without acute organ dysfunction; D62 Acute posthemorrhagic anemia; E78.5 Hyperlipidemia, unspecified; F32.A Depression, unspecified; S70.11XA Contusion of right thigh, initial encounter; S80.11XA Contusion of right lower leg, initial encounter; R73.9 Hyperglycemia, unspecified; I08.1 Rheumatic disorders of both mitral and tricuspid valves; R00.0 Tachycardia, unspecified; I48.0 Paroxysmal atrial fibrillation; R50.9 Fever, unspecified; F41.9 Anxiety disorder, unspecified; Z87.891 Personal history of nicotine dependence; Z79.82 Long term (current) use of aspirin; Z79.899 Other long term (current) drug therapy; Z11.52 Encounter for screening for COVID-19
CPT/HCPCS: 36415; 71046; 71275; 74177; 76705; 76856; 80048; 80053; 81003; 82248; 82378; 82607; 82728; 82746; 83010; 83540; 83550; 83605; 83615; 83690; 83735; 83880; 83883; 84165; 84484; 85025; 85045; 85379; 85610; 85730; 86003; 86041; 86606; 86698; 86850; 86900; 86901; 86920; 87040; 87636; 93005; 93306; 96361; 96374; 96376; 99285

== ENCOUNTER 2024-07-15 19:26 | Inpatient (IN) | payer OTHER ==
--- NOTE | 2024-07-15 20:02 | ED ---
General Adult HPI - General Source: patient, RN notes reviewed Mode of arrival: wheelchair Limitations: no limitations - History of Present Illness Onset/Timin -: days(s) Location: right, lower extremity <Doug Al - Last Filed: 07/15/24 19:58> <Christiano Dunbar - Last Filed: 07/16/24 01:28> - General Chief complaint: Weakness Stated complaint: drainage tube issue Time Seen by Provider: 07/15/24 19:41 - History of Present Illness Initial comments: Quick note: This is a 58-year-old female presenting with surgical drainage site issue x 2 days. Patient states drainage site for hematoma on her right anterior thigh is become red with a foul odor. States she had the drain placed 7 weeks ago and advised to leave it in for as long as necessary until draining is complete. Patient mentions suffering 2 falls yesterday she associates with weakness and "anemia" striking her right knee on the bed. Patient denies fever, chills, chest pain, dyspnea, abdominal pain, urinary symptoms. (St ric Al) 58-year-old female with complicated recent medical history including workup for soft tissue mass in the right thigh. Patient underwent hematoma removal and drain placement approximately 7 weeks prior. She has been dealing with chronic anemia and persistent drainage from the surgical site. She states she has followed with the surgeon approximately 3 weeks ago. She has received care at both [facility] and [facility]. She has been seen by hematology and has an appointment for evaluation by Ortho oncology. She presents with weakness and foul-smelling drainage from the surgical site. (Christiano Dunbar) - Related Data Home Medications Medication Instructions Recorded Confirmed Loratadine [Claritin] 10 mg PO DAILY 01/13/24 05/31/24 Multivitamins, Thera [Multivitamin 1 tab PO DAILY 01/13/24 05/31/24 (formulary)] Atorvastatin [Lipitor] 40 mg PO HS 05/22/24 05/31/24 Digoxin [Lanoxin] 125 mcg PO DAILY 05/22/24 05/31/24 Escitalopram [Lexapro] 10 mg PO HS 05/22/24 05/31/24 traMADol HCL 50 mg PO Q6H PRN 05/22/24 05/31/24 Previous Rx's Medication Instructions Recorded Aspirin 81 mg PO DAILY #30 tab 05/28/24 Cephalexin [Keflex] 500 mg PO Q8HR 7 Days #21 cap 05/28/24 HYDROcodone/APAP 5-325MG [[place] 1 tab PO Q6HR PRN 3 Days #12 tab 05/28/24 5-325] Metoprolol Succinate (ER) [Toprol 50 mg PO BID #180 tab 05/28/24 XL] Acetaminophen Tab [Tylenol] 650 mg PO Q6HR PRN tab 06/04/24 Ferrous Sulfate [Iron (65 MG 325 mg PO DAILY #30 06/04/24 Elemental)] Ferrous Sulfate [Iron (65 MG 325 mg PO DAILY #30 tab 06/04/24 Elemental)] Allergies Allergy/AdvReac Type Severity Reaction Status Date / Time No Known Allergies Allergy Verified 07/15/24 19:37 Review of Systems ROS Other: All systems not noted in ROS Statement are negative. <Doug Al - Last Filed: 07/15/24 19:58> ROS Other: All systems not noted in ROS Statement are negative. <Christiano Dunbar - Last Filed: 07/16/24 01:28> ROS Statement: Those systems with pertinent positive or pertinent negative responses have been documented in the HPI. Past Medical History Past Medical History: Atrial Fibrillation, Hyperlipidemia Additional Past Medical History / Comment(s): injury to thigh from dog leash wrapped around it, hx. broken heart syndrome, takes meds for rapid heart rate, newer arrythmia-fib per pt, recent cardiac cath. Bronchitis History of Any Multi-Drug Resistant Organisms: None Reported Past Surgical History: Heart Catheterization Additional Past Surgical History / Comment(s): hematoma drain Additional Past Anesthesia/Blood Transfusion Reaction / Comment(s): never really had anesthesia before, no family problems Past Psychological History: No Psychological Hx Reported Smoking Status: Former smoker - Past Family History Mother Family Medical History: No Reported History <Doug Al - Last Filed: 07/15/24 19:58> General Exam <Doug Al - Last Filed: 07/15/24 19:58> General appearance: alert, in no apparent distress Head exam: Present: atraumatic, normocephalic Eye exam: Present: normal appearance, PERRL ENT exam: Present: normal exam Neck exam: Present: normal inspection Respiratory exam: Present: normal lung sounds bilaterally. Absent: respiratory distress, wheezes Cardiovascular Exam: Present: tachycardia, irregular rhythm GI/Abdominal exam: Present: soft. Absent: distended, tenderness, guarding Extremities exam: Present: other (There is erythema, warmth and tenderness to palpation over the mid right thigh with drain tube in place. pedal Pulse is 2+) Neurological exam: Present: alert, altered Skin exam: Present: pallor <Christiano Dunbar - Last Filed: 07/16/24 01:28> - General Exam Comments Initial Comments: Visual Physical Exam Vital signs reviewed General: Well-appearing, nontoxic, no acute distress. Patient seated in wheelchair Head: Normocephalic, atraumatic Eyes: PERRLA, EOMI ENT: Airway patent Chest: Nonlabored breathing Skin: No visual rash, normal skin tone Neuro: Alert and oriented 3 Musculoskeletal: No gross abnormalities (Doug Al) Course Vital Signs 07/15/24 07/15/24 07/16/24 19:32 23:12 01:13 Temperature 98.1 F 99.3 F Pulse Rate 131 H 100 101 H Respiratory 18 12 16 Rate Blood Pressure 104/52 100/66 98/47 O2 Sat by Pulse 98 95 97 Oximetry Medical Decision Making <Doug Al - Last Filed: 07/15/24 19:58> - Lab Data Result diagrams: 07/15/24 21:23 07/15/24 21:23 <Christiano Dunbar - Last Filed: 07/16/24 01:28> - Medical Decision Making I completed the quick note portion of this chart signed GINO Rios (Doug Al) Was pt. sent in by a medical professional or institution (SIRENA Williamson, CLINIC OFFICE MANAGER, urgent care, hospital, or correction...) When possible be specific @ -No Did you speak to anyone other than the patient for history (EMS, parent, family, police, friend...)? What history was obtained from this source @ -No Did you review nursing and triage notes (agree or disagree)? Why? @ -I reviewed and agree with nursing and triage notes Were old charts reviewed (outside hosp., previous admission, EMS record, old EKG, old radiological studies, urgent care reports/EKG's, correction records)? Report findings @ -No old charts were reviewed Differential Diagnosis (chest pain, altered mental status, abdominal pain women, abdominal pain men, vaginal bleeding, weakness, fever, dyspnea, syncope, headache, dizziness, GI bleed, back pain, seizure, CVA, palpatations, mental health, musculoskeletal)? @ -Not applicable EKG interpreted by me (3pts min.). @ -As above X-rays interpreted by me (1pt min.). @X-ray of the right femur showing cortical irregularity and drain in place. Chest x-ray showing pulmonary nodules without acute findings. CT interpreted by me (1pt min.). @CT of the right femur is negative for soft tissue gas, showing heterogeneous soft tissue swelling of the right quadriceps U/S interpreted by me (1pt. min.). @ -None done What testing was considered but not performed or refused? (CT, X-rays, U/S, labs)? Why? @ -None What meds were considered but not given or refused? Why? @ -None Did you discuss the management of the patient with other professionals (professionals i.e. , PA, CLINIC OFFICE MANAGER, lab, RT, psych nurse, medical social consultant, speech language specialist, teacher, district resource officer, case therapist)? Give summary @ -Yes, Dr. Ramírez and Dr. Keane Was smoking cessation discussed for >3mins.? @ -No Was critical care preformed (if so, how long)? @ -Yes, 35 minutes Were there social determinants of health that impacted care today? How? (Homele ssness, low income, unemployed, alcoholism, drug addiction, transportation, low edu. Level, literacy, decrease access to med. care, group home, rehab)? @ -No Was there de-escalation of care discussed even if they declined (Discuss DNR or withdrawal of care, Hospice)? DNR status @ -No What co-morbidities impacted this encounter? (DM, HTN, Smoking, COPD, CAD, Cancer, CVA, ARF, Chemo, Hep., AIDS, mental health diagnosis, sleep apnea, morbid obesity)? @Atrial fibrillation, soft tissue mass right thigh with hematoma status postevacuation. Was patient admitted / discharged? Hospital course, mention meds given and route, prescriptions, significant lab abnormalities, going to OR and other pertinent info. @58-year-old female with pain and swelling in the right thigh, generalized weakness. Patient is anemic requiring transfusion. She has a significantly elevated white blood cell count of 23, elevated lactic acid at 6.5. She is given IV fluids, blood cultures are obtained. She is placed on IV antibiotics in the emergency department. I did discuss case with Dr. Ramírez, who recommends CT imaging. He will be on consult, patient will be admitted to internal medicine, case discussed with Dr. Keane. Undiagnosed new problem with uncertain prognosis? @ -No Drug Therapy requiring intensive monitoring for toxicity (Heparin, Nitro, Insulin, Cardizem)? @ -No Were any procedures done? @ -No Diagnosis/symptom? @ -Soft tissue mass with secondary infection, anemia Acute, or Chronic, or Acute on Chronic? @ -[Acute on chronic Uncomplicated (without systemic symptoms) or Complicated (systemic symptoms)? @ -Complicated Side effects of treatment? @ -[No Exacerbation, Progression, or Severe Exacerbation? @ -No Poses a threat to life or bodily function? How? (Chest pain, [place], [place], pneumonia, PE, COPD, DKA, ARF, appy, cholecystitis, CVA, Diverticulitis, Homicidal, Suicidal, threat to staff... and all critical care pts) @ -Yes, blood loss anemia, sepsis (Christiano Dunbar) - Lab Data Lab Results 07/15/24 07/15/24 07/15/24 Range/Units 21:23 21:23 21:23 WBC 23.8 H (3.8-10.6) k/uL RBC 2.59 L (3.80-5.40) m/uL Hgb 6.8 L* D (11.4-16.0) gm/dL Hct 22.5 L (34.0-46.0) % MCV 87.1 (80.0-100.0) fL MCH 26.1 (25.0-35.0) pg MCHC 30.0 L (31.0-37.0) g/dL RDW 19.3 H (11.5-15.5) % Plt Count 601 H (150-450) k/uL MPV 7.7 Neutrophils % 81 % Lymphocytes % 12 % Monocytes % 6 % Eosinophils % 0 % Basophils % 0 % Neutrophils # 19.1 H (1.3-7.7) k/uL Lymphocytes # 2.8 (1.0-4.8) k/uL Monocytes # 1.3 H (0-1.0) k/uL Eosinophils # 0.1 (0-0.7) k/uL Basophils # 0.0 (0-0.2) k/uL Hypochromasia Marked Poikilocytosis Slight Anisocytosis Slight PT (10.0-12.5) sec INR (<1.2) APTT (22.0-30.0) sec Sodium 132 L (137-145) mmol/L Potassium 4.4 (3.5-5.1) mmol/L Chloride 94 L (98-107) mmol/L Carbon Dioxide 20 L (22-30) mmol/L Anion Gap 18 mmol/L BUN 12 (7-17) mg/dL Creatinine 0.55 (0.52-1.04) mg/dL Est GFR (CKD-EPI)AfAm >90 (>60 ml/min/1.73 sqM) Est GFR (CKD-EPI)NonAf >90 (>60 ml/min/1.73 sqM) Glucose 98 (74-99) mg/dL Lactic Ac Sepsis Rflx Plasma Lactic Acid Christos 6.5 H* (0.7-2.0) mmol/L Calcium 8.2 L (8.4-10.2) mg/dL Total Bilirubin 0.7 (0.2-1.3) mg/dL AST 37 H (14-36) U/L ALT 12 (4-34) U/L Alkaline Phosphatase 305 H (38-126) U/L Total Protein 6.6 (6.3-8.2) g/dL Albumin 3.0 L (3.5-5.0) g/dL Blood Type Blood Type Recheck Bld Type Recheck Status Antibody Screen Crossmatch Spec Expiration Date 07/15/24 07/15/24 07/15/24 Range/Units 21:23 22:15 22:28 WBC (3.8-10.6) k/uL RBC (3.80-5.40) m/uL Hgb (11.4-16.0) gm/dL Hct (34.0-46.0) % MCV (80.0-100.0) fL MCH (25.0-35.0) pg MCHC (31.0-37.0) g/dL RDW (11.5-15.5) % Plt Count (150-450) k/uL MPV Neutrophils % % Lymphocytes % % Monocytes % % Eosinophils % % Basophils % % Neutrophils # (1.3-7.7) k/uL Lymphocytes # (1.0-4.8) k/uL Monocytes # (0-1.0) k/uL Eosinophils # (0-0.7) k/uL Basophils # (0-0.2) k/uL Hypochromasia Poikilocytosis Anisocytosis PT 11.7 (10.0-12.5) sec INR 1.1 (<1.2) APTT 23.5 (22.0-30.0) sec Sodium (137-145) mmol/L Potassium (3.5-5.1) mmol/L Chloride (98-107) mmol/L Carbon Dioxide (22-30) mmol/L Anion Gap mmol/L BUN (7-17) mg/dL Creatinine (0.52-1.04) mg/dL Est GFR (CKD-EPI)AfAm (>60 ml/min/1.73 sqM) Est GFR (CKD-EPI)NonAf (>60 ml/min/1.73 sqM) Glucose (74-99) mg/dL Lactic Ac Sepsis Rflx Y Plasma Lactic Acid Christos (0.7-2.0) mmol/L Calcium (8.4-10.2) mg/dL Total Bilirubin (0.2-1.3) mg/dL AST (14-36) U/L ALT (4-34) U/L Alkaline Phosphatase (38-126) U/L Total Protein (6.3-8.2) g/dL Albumin (3.5-5.0) g/dL Blood Type O Positive Blood Type Recheck O Pos Bld Type Recheck Status No Antibody Screen NEGATIVE Crossmatch See Detail Spec Expiration Date 07/18/2024 - 231407/16/24 Range/Units 00:35 WBC (3.8-10.6) k/uL RBC (3.80-5.40) m/uL Hgb (11.4-16.0) gm/dL Hct (34.0-46.0) % MCV (80.0-100.0) fL MCH (25.0-35.0) pg MCHC (31.0-37.0) g/dL RDW (11.5-15.5) % Plt Count (150-450) k/uL MPV Neutrophils % % Lymphocytes % % Monocytes % % Eosinophils % % Basophils % % Neutrophils # (1.3-7.7) k/uL Lymphocytes # (1.0-4.8) k/uL Monocytes # (0-1.0) k/uL Eosinophils # (0-0.7) k/uL Basophils # (0-0.2) k/uL Hypochromasia Poikilocytosis Anisocytosis PT (10.0-12.5) sec INR (<1.2) APTT (22.0-30.0) sec Sodium (137-145) mmol/L Potassium (3.5-5.1) mmol/L Chloride (98-107) mmol/L Carbon Dioxide (22-30) mmol/L Anion Gap mmol/L BUN (7-17) mg/dL Creatinine (0.52-1.04) mg/dL Est GFR (CKD-EPI)AfAm (>60 ml/min/1.73 sqM) Est GFR (CKD-EPI)NonAf (>60 ml/min/1.73 sqM) Glucose (74-99) mg/dL Lactic Ac Sepsis Rflx Plasma Lactic Acid Christos 2.0 (0.7-2.0) mmol/L Calcium (8.4-10.2) mg/dL Total Bilirubin (0.2-1.3) mg/dL AST (14-36) U/L ALT (4-34) U/L Alkaline Phosphatase (38-126) U/L Total Protein (6.3-8.2) g/dL Albumin (3.5-5.0) g/dL Blood Type Blood Type Recheck Bld Type Recheck Status Antibody Screen Crossmatch Spec Expiration Date Critical Care Time Critical Care Time: Yes Total Critical Care Time: 35 <Christiano Dunbar - Last Filed: 07/16/24 01:28> Disposition <Doug Al - Last Filed: 07/15/24 19:58> Is patient prescribed a controlled substance at d/c from ED?: No Time of Disposition: 00:57 <Christiano Dunbar - Last Filed: 07/16/24 01:28> Clinical Impression: Pulmonary nodules, Soft tissue mass, Sepsis Disposition: ADMITTED IP TO THIS HOSP Condition: Stable Referrals: Breana Garcia MD [Primary Care Provider] - 1-2 days
--- NOTE | 2024-07-15 20:53 | XR ---
EXAMINATION TYPE: XR chest 2V DATE OF EXAM: 07/15/2024 8:42 PM COMPARISON: Chest radiographs from 05/31/2024. CLINICAL INDICATION: Female, 58 years old with history of Weakness; H TECHNIQUE: XR chest 2V Frontal and lateral views of the chest. FINDINGS: Lungs/Pleura: Nodules are increasing in size throughout the lungs and example includes right upper lo be 34 mm, previously 16 mm and left lower lobe 8 mm previously 19 mm. No pneumothorax or pleural effu jesus. No definitive airspace consolidation. Pneumothorax. Pulmonary vascularity: Unremarkable. Heart/mediastinum: Cardiomediastinal silhouette is unremarkable. Musculoskeletal: No acute osseous pathology. IMPRESSION: Enlarging pulmonary nodules throughout the lungs compared to 05/31/2024. Findings compatible with met astatic disease. [facility], , 07/15/2024 8:50 PM
--- NOTE | 2024-07-15 20:58 | XR ---
EXAMINATION TYPE: XR knee limited RT DATE OF EXAM: 07/15/2024 8:42 PM COMPARISON: CLINICAL INDICATION: Female, 58 years old with history of Right knee pain/contusion; PHH, pain TECHNIQUE: XR knee limited RT 3 views submitted. FINDINGS: No evidence of any acute osseous pathology, soft tissue swelling, or joint effusion is no sandeep. Tricompartmental osteophyte formation involving the femoral condyles, tibial plateau and patella . Mild joint space narrowing. A fabella is present. IMPRESSION: 1. No acute osseous pathology. 2. Mild tricompartmental osteoarthritic changes. [facility], , 07/15/2024 8:55 PM
--- NOTE | 2024-07-15 21:04 | XR ---
EXAMINATION TYPE: XR Femur RT 1 View DATE OF EXAM: 07/15/2024 8:42 PM COMPARISON: Prior plain film and MRI and CT. CLINICAL INDICATION: Female, 58 years old with history of Surgical drainage site location, pain TECHNIQUE: XR Femur RT 1 View examined in Frontal and lateral projections. FINDINGS: No evidence of acute osseous pathology, joint dislocation. Soft tissue mass with catheter along the anterior anterolateral right thigh. There is scalloping of the cortex mid femur diaphysis a t least 2 spots. IMPRESSION: Soft tissue catheter in the subcutaneous tissues/mass of the right lower extremity. No evidence of fr acture. There is cortical scalloping along the femur possibly representing involvement of the known m ass. [facility], , 07/15/2024 9:02 PM
[2024-07-15 22:08] LABS: Anisocytosis Slight; Basophils % (A) 0 %; Eosinophils # (A) 0.1 k/uL (0-0.7); Eosinophils % (A) 0 %; HCT 22.5 % (34.0-46.0); Hypochromasia Marked; Lymphocytes # (A) 2.8 k/uL (1.0-4.8); Lymphocytes % (A) 12 %; MCH 26.1 pg (25.0-35.0); MCV 87.1 fL (80.0-100.0); Mean Platelet Volume 7.7; Monocytes # (A) 1.3 k/uL (0-1.0); Monocytes % (A) 6 %; Neutrophils # (A) 19.1 k/uL (1.3-7.7); Neutrophils % (A) 81 %; Platelet Count 601 k/uL (150-450); Poikilocytosis Slight; RBC 2.59 m/uL (3.80-5.40); RDW 19.3 % (11.5-15.5); WBC 23.8 k/uL (3.8-10.6)
[2024-07-15] MEDS: HYDROmorphone 0.5 MG/0.5 ML SYRINGE IVP STA (22:18)
[2024-07-15] MEDS: SODIUM CHLORIDE 0.9% 1,000 ML IV ONE (22:18)
[2024-07-15 22:20] LABS: INR 1.1 (<1.2); Partial Thromboplastin Time 23.5 sec (22.0-30.0); Prothrombin Time 11.7 sec (10.0-12.5)
[2024-07-15 22:23] LABS: HGB 6.8 gm/dL (11.4-16.0)
[2024-07-15 22:24] LABS: ALT 12 U/L (4-34); AST 37 U/L (14-36); African American GFR (CKD) >90 (>60 ml/min/1.73 sqM); Alkaline Phosphatase 305 U/L (38-126); Anion Gap 18 mmol/L; Blood Urea Nitrogen 12 mg/dL (7-17); Calcium 8.2 mg/dL (8.4-10.2); Carbon Dioxide 20 mmol/L (22-30); Chloride 94 mmol/L (98-107); Glucose 98 mg/dL (74-99); Non-African American GFR(CKD) >90 (>60 ml/min/1.73 sqM); Potassium 4.4 mmol/L (3.5-5.1); Sodium 132 mmol/L (137-145); Total Bilirubin 0.7 mg/dL (0.2-1.3); Total Protein 6.6 g/dL (6.3-8.2)
[2024-07-15] MEDS ORDERED: VANCOMYCIN IV PER PHARMACY 1 EACH MISC MISCELLANE PRN (22:30)
[2024-07-15] MEDS: SODIUM CHLORIDE 0.9% 1,000 ML IV SCH (22:41)
[2024-07-15] MEDS: VANCOMYCIN 1,250 MG in SODIUM CHLORIDE 0.9% 250 ML IVPB ONE (23:33)
[2024-07-16] MEDS ORDERED: NALOXONE 0.4 MG/ML 1 ML VIAL IV PRN (00:49)
--- NOTE | 2024-07-16 01:17 | CT ---
EXAM: CT Right Lower Extremity With Intravenous Contrast CLINICAL HISTORY: pt had surgery for hematoma in right femur for drainage is now increasing in size. TECHNIQUE: Axial computed tomography images of the right thigh with intravenous contrast. CTDI is 8.9 mGy and DLP is 522.6 mGy-cm. This CT exam was performed using one or more of the following dose reduction techniques: automated exposure control, adjustment of the mA and/or kV according to patient size, and/or use of iterative reconstruction technique. Coronal and sagittal reconstructions are performed. 692 images COMPARISON: 05/31/2024 FINDINGS: Tubes, lines and devices: Large mass with heterogenous enhancement and large zones of hypoenhancement in the anterior compartment of the thigh, containing a percutaneous drain terminating the anterior lower third of the thigh best seen on series 203 image 45. This mass measures about 15 cm transverse, 13 cm AP, and 33 cm craniocaudal, increased from 14 cm transverse, 10 cm AP, and 27 cm craniocaudal, causing mass-effect. Muscles in anterior compartment are no longer identifiable. Bones/joints: Right femoral diaphyseal cortical thickening, irregularity, erosion, periosteal changes and increased periosteal bone formation, nonspecific, new, concerning for infectious etiologies. Small amount of knee joint effusion. Small right hip joint effusion. Soft tissues: Oval-shaped subcutaneous lesion measuring about 1 x 2 x 1.5 cm superficial to the quadriceps tendon on series 203 image 40 measuring about 60 HU, increased from 6 mm on the prior study, likely an enlarged lymph node. Moderate subcutaneous and interfascial soft tissue edema of right thigh. IMPRESSION: 1. Large mass with heterogenous enhancement and large zones of hypoenhancement in the anterior compartment of the thigh is much larger, causing mass-effect. Infectious etiology superimposed on enlarging hematoma should be considered. Compartment syndrome should be considered. 2. Right femoral diaphyseal cortical thickening, irregularity, erosion, periosteal changes and increased periosteal bone formation are new, concerning for infectious etiologies. 3. Small amount of knee joint effusion. Small right hip joint effusion. 4. Oval-shaped subcutaneous lesion measuring about 1 x 2 x 1.5 cm superficial to the quadriceps tendon is much larger, likely an enlarged lymph node. Less likely etiologies cannot be excluded. <MYCVCSECTION> Communications: 07/16/24 01:26 Verify Receipt Verified receipt with ER chief clerk Liv giving report to Dr. Galindo on 07/16 01:26 (-05:00)
--- NOTE | 2024-07-16 02:39 | P.HPIM ---
History of Present Illness H&P Date: 07/16/24 Chief Complaint: Weakness Patient is a 58-year-old female with history of Takotsubo cardiomyopathy, right leg pain status post hematoma evacuation on 05/25/2024, hyperlipidemia, hypertension, paroxysmal atrial fibrillation not on anticoagulation presents to the ER with weakness. Patient underwent a hematoma evacuation on her right leg on 05/25/2024 and has a drain in place. Patient reported that over the past week the erythema surrounding the surgical incision site has gotten bigger. She also reports a new onset sharp stabbing pain, 5/10 at time of interview, surrounding the surgical incision site that started over the past week. In addition, patient reports a foul smell coming out of the drain which made the patient worried for infection and she decided to come to the ED for evaluation. Patient reports that she has not experienced anything like this since the surgery on 05/25/2024. Patient has tried taking hydrocodone but did not relieve her pain. Due to the pain, patient has been having a hard time walking over the past few days. She also reported that she had a fall yesterday when her legs became weak and gave out. She denied any loss of consciousness or passing out when she fell. She did not hit her head nor did she feel palpitations, chest pain, shortness of breath prior to the fall. Patient received Dilaudid in the ED and it relieved her pain temporarily. Patient denies fever, chills, lightheadedness, dizziness, chest pain, shortness of breath, nausea/vomiting, hematochezia/melena, belly pain, dysuria. ED documentation reviewed. In the ED patient was treated with a bolus of normal saline, ceftriaxone 2 g IV x 1, Dilaudid 0.5 mg IV x 1 Vitals on admission temperature 99.3, pulse rate 100, respiratory rate 12, blood pressure 100/66, O2 sat 95% on room air CXR shows enlarging pulmonary nodules throughout the lungs compared to . Findings compatible with metastatic disease. Right knee x-ray shows no acute osseous pathology. Mild tricompartmental osteoarthritic changes. Right femur x-ray shows soft tissue catheter in the subcutaneous tissues/mass of the right lower extremity. No evidence of fracture. There is a cortical scalloping along the femur possibly representing involvement of the known mass. Labs on admission show WBC 23.8, hemoglobin 6.8, hematocrit 22.5, platelets 601, neutrophils 19.1, PT 11.7, PTT 23.5, INR 1.1, sodium 132, potassium 4.4, chloride 94, carbon dioxide 20, BUN 12, creatinine 0.55, lactic acid 6.5, calcium 8.2, AST 37, ALT 12, alkaline phosphatase 305 Review of systems: Pertinent positives and negatives as discussed in HPI, a complete review of systems was performed and all other systems are negative. PMH: History of Takotsubo cardiomyopathy, right leg pain status post hematoma evacuation on 05/25/2024, hyperlipidemia, hypertension, paroxysmal atrial fibrillation not on anticoagulation PSH: Right leg surgery for hematoma, heart catheterization FMH: No pertinent family history Allergies: No known drug allergies Social history: Tobacco: Quit smoking 10 to 15 years ago and was a social smoker Alcohol: Occasional alcohol use Recreational drugs: Denies drug use Travel: No travel history Sick contacts: No sick contacts Physical examination: Vital signs reviewed General: nontoxic, no distress, appears at stated age Derm: warm, dry, intact Head: atraumatic, normocephalic, symmetric Eyes: EOMI, anicteric sclera Mouth: no lip lesion, mucus membranes moist Cardiovascular: Irregularly irregular, no murmur Lungs: CTA bilateral, no rhonchi, no rales, no accessory muscle use Abdominal: soft, non-tender to palpation Extremities: Surgical incision site on right lower extremity with swelling and surrounding skin erythema noted, no drainage, tender to palpation. Neuro: Alert, Gross neurological examination did not reveal any focal deficits. Cranial nerves II to XII grossly intact. Bilateral upper and lower extremity muscle strength 5 out of 5 intact. Reduced sensation in right lower extremity. Psych: well appearing, appropriate affect Assessment/Plan: 58-year-old female with history of Takotsubo cardiomyopathy, right leg pain status post hematoma evacuation on 05/25/2024, hyperlipidemia, hypertension, paroxysmal atrial fibrillation not on anticoagulation presents to the ER with weakness. Patient will be admitted to internal medicine service for evaluation of weakness. Active: #. 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 Rule out DVT Obtain D-dimer Continue normal saline at 130 cc an hour Continue vancomycin per pharmacy dosing along with ceftriaxone IV Pain control as needed with acetaminophen and Dilaudid Consider Doppler ultrasound of right lower extremity if D-dimer comes back positive Consult general surgery and oncology #. Normocytic anemia Hemoglobin 6.8 1 unit of packed red blood cells ordered by ED Check hemoglobin after transfusion Monitor morning CBC #. Leukocytosis WBC 23.8 Likely a result of cellulitis Continue normal saline at 130 cc an hour Monitor morning CBC #. Thrombocytosis Platelets 601 Monitor morning CBC #. Hyponatremia Sodium 132 Continue normal saline at 130 cc an hour Monitor morning CMP #. Lactic acidosis, now resolved Lactic acid 6.5, after a bolus of normal saline given by ED, now at 2.0 #. Elevated AST and alkaline phosphatase AST 37 Alkaline phosphatase 305 Continue to monitor morning CMP Chronic: #. History of paroxysmal atrial fibrillation Patient does not take any anticoagulants at home #. Hyperlipidemia Restart atorvastatin 40 mg at bedtime #. Hypertension Restart metoprolol succinate 50 mg twice daily F: No restrictions E: Replete as needed N: Heart healthy diet A: Wheelchair DVT prophylaxis: Lovenox 40 mg subcu daily The patient is admitted with an anticipated less than 2 midnight stay for evaluation of weakness CODE STATUS: Full code Discussed with: Patient Anticipated discharge place: Home Past Medical History Past Medical History: Atrial Fibrillation, Hyperlipidemia Additional Past Medical History / Comment(s): injury to thigh from dog leash wrapped around it, hx. broken heart syndrome, takes meds for rapid heart rate, newer arrythmia-fib per pt, recent cardiac cath. Bronchitis History of Any Multi-Drug Resistant Organisms: None Reported Past Surgical History: Heart Catheterization Additional Past Surgical History / Comment(s): hematoma drain Additional Past Anesthesia/Blood Transfusion Reaction / Comment(s): never really had anesthesia before, no family problems Past Psychological History: No Psychological Hx Reported Smoking Status: Former smoker - Past Family History Mother Family Medical History: No Reported History Medications and Allergies Home Medications Medication Instructions Recorded Confirmed Type Loratadine [Claritin] 10 mg PO DAILY 01/13/24 05/31/24 History Multivitamins, Thera [Multivitamin 1 tab PO DAILY 01/13/24 05/31/24 History (formulary)] Atorvastatin [Lipitor] 40 mg PO HS 05/22/24 05/31/24 History Digoxin [Lanoxin] 125 mcg PO DAILY 05/22/24 05/31/24 History Escitalopram [Lexapro] 10 mg PO HS 05/22/24 05/31/24 History traMADol HCL 50 mg PO Q6H PRN 05/22/24 05/31/24 History Aspirin 81 mg PO DAILY #30 tab 05/28/24 05/31/24 Rx Cephalexin [Keflex] 500 mg PO Q8HR 7 Days #21 cap 05/28/24 05/31/24 Rx HYDROcodone/APAP 5-325MG [[place] 1 tab PO Q6HR PRN 3 Days #12 tab 05/28/24 05/31/24 Rx 5-325] Metoprolol Succinate (ER) [Toprol 50 mg PO BID #180 tab 05/28/24 05/31/24 Rx XL] Acetaminophen Tab [Tylenol] 650 mg PO Q6HR PRN tab 06/04/24 Rx Ferrous Sulfate [Iron (65 MG 325 mg PO DAILY #30 06/04/24 05/31/24 Rx Elemental)] Ferrous Sulfate [Iron (65 MG 325 mg PO DAILY #30 tab 06/04/24 Rx Elemental)] Allergies Allergy/AdvReac Type Severity Reaction Status Date / Time No Known Allergies Allergy Verified 07/15/24 19:37 Physical Exam Vitals: Vital Signs Temp Pulse Resp BP Pulse Ox 07/15/24 23:12 99.3 F 100 12 100/66 95 07/15/24 19:32 98.1 F 131 H 18 104/52 98 Intake and Output 07/15/24 07/15/24 07/16/24 14:59 22:59 06:59 Other: Weight 62.596 kg Results CBC & Chem 7: 07/15/24 21:23 07/15/24 21:23 Labs: Abnormal Lab Results - Last 24 Hours (Table) 07/15/24 07/15/24 07/15/24 Range/Units 21:23 21:23 21:23 WBC 23.8 H (3.8-10.6) k/uL RBC 2.59 L (3.80-5.40) m/uL Hgb 6.8 L* D (11.4-16.0) gm/dL Hct 22.5 L (34.0-46.0) % MCHC 30.0 L (31.0-37.0) g/dL RDW 19.3 H (11.5-15.5) % Plt Count 601 H (150-450) k/uL Neutrophils # 19.1 H (1.3-7.7) k/uL Monocytes # 1.3 H (0-1.0) k/uL Sodium 132 L (137-145) mmol/L Chloride 94 L (98-107) mmol/L Carbon Dioxide 20 L (22-30) mmol/L Plasma Lactic Acid Christos 6.5 H* (0.7-2.0) mmol/L Calcium 8.2 L (8.4-10.2) mg/dL AST 37 H (14-36) U/L Alkaline Phosphatase 305 H (38-126) U/L Albumin 3.0 L (3.5-5.0) g/dL Crossmatch 07/15/24 Range/Units 22:15 WBC (3.8-10.6) k/uL RBC (3.80-5.40) m/uL Hgb (11.4-16.0) gm/dL Hct (34.0-46.0) % MCHC (31.0-37.0) g/dL RDW (11.5-15.5) % Plt Count (150-450) k/uL Neutrophils # (1.3-7.7) k/uL Monocytes # (0-1.0) k/uL Sodium (137-145) mmol/L Chloride (98-107) mmol/L Carbon Dioxide (22-30) mmol/L Plasma Lactic Acid Christos (0.7-2.0) mmol/L Calcium (8.4-10.2) mg/dL AST (14-36) U/L Alkaline Phosphatase (38-126) U/L Albumin (3.5-5.0) g/dL Crossmatch See Detail
[2024-07-16] MEDS: HYDROmorphone 0.5 MG/0.5 ML SYRINGE IVP PRN (03:44)
[2024-07-16 03:49] LABS: ALT 8 U/L (4-34); AST 22 U/L (14-36); African American GFR (CKD) >90 (>60 ml/min/1.73 sqM); Albumin 1.9 g/dL (3.5-5.0); Alkaline Phosphatase 206 U/L (38-126); Anion Gap 8 mmol/L; Blood Urea Nitrogen 9 mg/dL (7-17); Calcium 7.2 mg/dL (8.4-10.2); Carbon Dioxide 23 mmol/L (22-30); Chloride 100 mmol/L (98-107); Glucose 81 mg/dL (74-99); Non-African American GFR(CKD) >90 (>60 ml/min/1.73 sqM); Potassium 3.8 mmol/L (3.5-5.1); Sodium 131 mmol/L (137-145); Total Bilirubin 0.3 mg/dL (0.2-1.3); Total Protein 4.6 g/dL (6.3-8.2)
--- NOTE | 2024-07-16 07:42 | US ---
EXAMINATION TYPE: US venous doppler duplex LE RT DATE OF EXAM: 07/16/2024 7:29 AM COMPARISON: NONE CLINICAL INDICATION: Female, 58 years old with history of Rule out DVT; Right leg edema has hematoma upper thigh with drain in x 7 weeks. , Pain TECHNIQUE: The lower extremity deep venous system is examined utilizing real time linear array sonog michael with graded compression, color doppler sonography, and spectral doppler. SIDE PERFORMED: Right FINDINGS: VESSELS IMAGED: Common Femoral Vein Deep Femoral Vein Greater Saphenous Vein * Femoral Vein Popliteal Vein Small Saphenous Vein * Proximal Calf Veins (* superficial vessels) Patient's reported hematoma and drain are not identified within the [id number]. Right Leg: Negative for DVT, Color Doppler imaging shows patency of the vessels. Spectral waveforms are within normal limits. IMPRESSION: 1. Right lower extremity ultrasound negative for deep venous thrombosis. 2. Superficial edema is present. [facility], , 07/16/2024 7:40 AM
[2024-07-16] MEDS: METOPROLOL SUCCINATE (ER) 50 MG TAB.ER.24H PO SCH (08:15)
[2024-07-16] MEDS: ENOXAPARIN 40 MG/0.4 ML SYRINGE SQ SCH (08:15)
[2024-07-16] MEDS: DIGOXIN 125 MCG TAB PO SCH (09:55)
[2024-07-16 10:00] LABS: Anisocytosis Slight; Basophils % (A) 0 %; Eosinophils # (A) 0.1 k/uL (0-0.7); Eosinophils % (A) 0 %; Hypochromasia Marked; Lymphocytes % (A) 11 %; MCH 25.9 pg (25.0-35.0); MCHC 30.3 g/dL (31.0-37.0); MCV 85.4 fL (80.0-100.0); Mean Platelet Volume 6.8; Monocytes # (A) 1.3 k/uL (0-1.0); Monocytes % (A) 7 %; Neutrophils # (A) 14.7 k/uL (1.3-7.7); Neutrophils % (A) 80 %; Platelet Count 403 k/uL (150-450); Poikilocytosis Slight; RBC 2.35 m/uL (3.80-5.40); RDW 18.8 % (11.5-15.5); WBC 18.4 k/uL (3.8-10.6)
[2024-07-16 10:13] LABS: HGB 6.1 gm/dL (11.4-16.0)
[2024-07-16 10:21] LABS: ALT 7 U/L (4-34); AST 22 U/L (14-36); African American GFR (CKD) >90 (>60 ml/min/1.73 sqM); Albumin 1.8 g/dL (3.5-5.0); Alkaline Phosphatase 191 U/L (38-126); Anion Gap 6 mmol/L; Blood Urea Nitrogen 9 mg/dL (7-17); Calcium 7.1 mg/dL (8.4-10.2); Carbon Dioxide 24 mmol/L (22-30); Chloride 102 mmol/L (98-107); Glucose 84 mg/dL (74-99); Non-African American GFR(CKD) >90 (>60 ml/min/1.73 sqM); Potassium 3.8 mmol/L (3.5-5.1); Sodium 132 mmol/L (137-145); Total Bilirubin 0.5 mg/dL (0.2-1.3); Total Protein 4.5 g/dL (6.3-8.2)
[2024-07-16] MEDS: HYDROmorphone 0.5 MG/0.5 ML SYRINGE IVP STA (10:27)
[2024-07-16] MEDS: VANCOMYCIN 1,250 MG in SODIUM CHLORIDE 0.9% 250 ML IVPB SCH (11:00)
[2024-07-16] MEDS: MORPHINE SULFATE 4 MG/ML SYRINGE IVP PRN (14:03)
[2024-07-16] MEDS: ACETAMINOPHEN TAB 325 MG TAB PO PRN (14:22)
--- NOTE | 2024-07-16 16:27 | P.CONS ---
History of Present Illness - Reason for Consult Consult date: 07/16/24 rt thigh mass, in process of work up for malignancy Requesting physician: Keriwn Parnell - Chief Complaint foul odor from drainage, increase in pain and swelling in rt thigh mass - History of Present Illness Ms. Sanchez is a 58-year-old female, with a complicated recent past medical and surgical history. The patient was initially seen in consult at [facility] 05/31/24. The patient had been in normal health previously, taking only a multivitamin supplement, until early 2023. She fell while walking her dogs in 08/10. She noted a small mass at the time of the rt thigh that was discolored, clinically a hematoma. The patient waited for this to be reabsorbed, but after some initial decrease, there was progressive increase in size, leading to increasing discomfort while walking. 01/08 the patient also had chest pain and arrhythmia which was found to be due to Takatsubo's syndrome, her symptoms did resolve. She was placed on aspirin temporarily which was then discontinued. She had MRI of the femur on 04/11/24 that showed a complex mass in the anterior thigh compartment measuring 12.3 x 9.3 x 19.6 cm. There was no involvement of the femur. The report mentioned that this was concerning for malignancy until proven otherwise. She was referred to general surgery for further workup. On dissection through the fascia down to the bone, there was large amount of old blood present, that was evacuated followed by drain placement. A large amount of fibrinous exudate was removed and sent off for pathology, no malignancy was found. She developed A. fib during the procedure, and was admitted to the hospital. She had a CT angiogram done of the lower extremity, that showed per sistent masslike density with a drain in situ. Readmitted to the hospital 05/31/24, complaining of chest pain, CTA showed bilateral lung nodules, largest 2.1 cm at the left base. CT AP showed some fullness to the anterior spleen, no other abnormality noted. Patient's labs in addition had been showing persistent anemia, with Hgb in the 8-9 range, dating back to 01/08. After drainage procedures Hgb dropped to 5, she was given blood transfusions. PET 06/11/24 was reviewed with radiologist at pt 1st OV 06/19/24: lung nodules bilaterally showed significant FDG uptake, suspicious for malignancy. In terestingly in the right thigh, there was also significant FDG uptake with rim enhancement of this masslike area. Therefore it was felt by the radiologist that the right thigh lesion represented a malignancy, with lung nodules possibly metastatic from the same. Drain still in place, with ongoing serosanguineous drainage. The masslike swelling of the right thigh is persistent, associated with difficulty in walking, due to which she uses a walker. She has not noted any bleeding from any other site. No prior history of malignancy. She stated that she had lost about 20+ pounds since the beginning of the year although according to her this was deliberate. She denied history of smoking. She states that she was exposed to industrial fumes been working in [place] many years ago. Pt was advised of concern for metastatic malignancy. Biopsy of lung and rt thigh on 06/28-called path dept at [facility], still pending. Pt reports she came to hospital as drainage from right thigh was smelling foul, concern for infection, also associated with more pain in the area. She Denies fevers, chills, appetite is poor and it does make her stomach hurt but no over N,V, chest pain, SOB, new cough, hemoptysis, abd pain, acute changes in bowel or bladder. She reports that her leg "gave out", she denies numbness or tingling, hip flexion is weak, challenging to do, she maintains extension strength of the hip, swelling is slightly worse in the whole leg. Pain is the thigh is not controlled on current analgesics, her norco at home was no longer helping much prior to admit. The IV dilaudid works for about an hour. She take colace at home for prevention of narcotic induced constipation. Review of Systems 14 point ROS is neg except as stated in HPI Past Medical History Past Medical History: Atrial Fibrillation, Hyperlipidemia Additional Past Medical History / Comment(s): injury to thigh from dog leash wrapped around it, hx. broken heart syndrome, takes meds for rapid heart rate, newer arrythmia-fib per pt, recent cardiac cath. Bronchitis History of Any Multi-Drug Resistant Organisms: None Reported Past Surgical History: Heart Catheterization Additional Past Surgical History / Comment(s): biopsy of rt thigh mass, hematoma drain Additional Past Anesthesia/Blood Transfusion Reaction / Comm: never really had anesthesia before, no family problems Past Psychological History: No Psychological Hx Reported Smoking Status: Former smoker Past Alcohol Use History: None Reported Past Drug Use History: None Reported - Past Family History Mother Family Medical History: No Reported History Sister(s) Family Medical History: Cancer (cervical) Medications and Allergies Home Medications Medication Instructions Recorded Confirmed Type Loratadine [Claritin] 10 mg PO DAILY 01/13/24 07/16/24 History Multivitamins, Thera [Multivitamin 1 tab PO DAILY 01/13/24 07/16/24 History (formulary)] Atorvastatin [Lipitor] 40 mg PO HS 05/22/24 07/16/24 History Digoxin [Lanoxin] 125 mcg PO DAILY 05/22/24 07/16/24 History Escitalopram [Lexapro] 10 mg PO HS 05/22/24 07/16/24 History Aspirin 81 mg PO DAILY #30 tab 05/28/24 07/16/24 Rx HYDROcodone/APAP 5-325MG [[place] 1 tab PO Q6HR PRN 3 Days #12 tab 05/28/24 07/16/24 Rx 5-325] Metoprolol Succinate (ER) [Toprol 50 mg PO BID #180 tab 05/28/24 07/16/24 Rx XL] Acetaminophen Tab [Tylenol] 650 mg PO Q6HR PRN tab 06/04/24 07/16/24 Rx Ferrous Sulfate [Iron (65 MG 325 mg PO DAILY #30 tab 06/04/24 07/16/24 Rx Elemental)] Allergies Allergy/AdvReac Type Severity Reaction Status Date / Time No Known Allergies Allergy Verified 07/16/24 08:25 Physical Exam Vitals: Vital Signs Temp Pulse Resp BP Pulse Ox 07/16/24 08:19 103 H 18 128/67 96 07/16/24 05:46 81 12 95/62 97 07/16/24 05:02 83 17 100/48 96 07/16/24 04:20 98.9 F 85 19 103/56 91 L 07/16/24 03:35 88 15 97/48 93 L 07/16/24 02:38 99 F 99 18 87/40 92 L 07/16/24 02:18 99 F 88 17 100/53 94 L 07/16/24 02:07 99 F 93 16 97/51 93 L 07/16/24 01:13 101 H 16 98/47 97 07/15/24 23:12 99.3 F 100 12 100/66 95 07/15/24 19:32 98.1 F 131 H 18 104/52 98 Intake and Output 07/15/24 07/16/24 07/16/24 22:59 06:59 14:59 Intake Total 310 Balance 310 Intake: Blood Product 310 Rc As-1 Unit 310 [id number] Other: Weight 62.596 kg - Constitutional General appearance: average body habitus, cooperative, no acute distress - EENT Eyes: anicteric sclerae, EOMI ENT: hearing grossly normal, normal oropharynx - Neck Neck: no lymphadenopathy - Respiratory Respiratory: bilateral: CTA - Cardiovascular Rhythm: regular Heart sounds: normal: S1, S2 Abnormal Heart Sounds: no systolic murmur, no diastolic murmur, no rub, no S3 Gallop, no S4 Gallop, no click, no other - Gastrointestinal General gastrointestinal: no absent bowel sounds, no decreased bowel sounds, no distended, no hepatomegaly, no hyperactive bowel sounds, normal bowel sounds, no organomegaly, no rigid, no scaphoid, soft, no splenomegaly, no tenderness, no umbilical hernia, no ventral hernia - Integumentary rt anterior thigh mass, approx 6 inches around, steri strips in place, drain laterally inserted, venous prominence noted, purple discoloration 3cm to the center of the mass, tenderness to touch, warm to touch, no leakage around drain tube, no other drainage noted - Neurologic Neurologic: CNII-XII intact - Musculoskeletal RLE weakness - Psychiatric Psychiatric: A&O x's 3, appropriate affect, intact judgment & insight Results CBC & Chem 7: 07/16/24 09:42 07/16/24 09:42 Labs: Abnormal Lab Results - Last 24 Hours (Table) 07/15/24 07/15/24 07/15/24 Range/Units 21:23 21:23 21:23 WBC 23.8 H (3.8-10.6) k/uL RBC 2.59 L (3.80-5.40) m/uL Hgb 6.8 L* D (11.4-16.0) gm/dL Hct 22.5 L (34.0-46.0) % MCHC 30.0 L (31.0-37.0) g/dL RDW 19.3 H (11.5-15.5) % Plt Count 601 H (150-450) k/uL Neutrophils # 19.1 H (1.3-7.7) k/uL Monocytes # 1.3 H (0-1.0) k/uL D-Dimer (<0.60) mg/L FEU Sodium 132 L (137-145) mmol/L Chloride 94 L (98-107) mmol/L Carbon Dioxide 20 L (22-30) mmol/L Plasma Lactic Acid Christos 6.5 H* (0.7-2.0) mmol/L Calcium 8.2 L (8.4-10.2) mg/dL AST 37 H (14-36) U/L Alkaline Phosphatase 305 H (38-126) U/L Total Protein (6.3-8.2) g/dL Albumin 3.0 L (3.5-5.0) g/dL Crossmatch 07/15/24 07/16/24 07/16/24 Range/Units 22:15 02:30 02:30 WBC (3.8-10.6) k/uL RBC (3.80-5.40) m/uL Hgb (11.4-16.0) gm/dL Hct (34.0-46.0) % MCHC (31.0-37.0) g/dL RDW (11.5-15.5) % Plt Count (150-450) k/uL Neutrophils # (1.3-7.7) k/uL Monocytes # (0-1.0) k/uL D-Dimer 5.11 H (<0.60) mg/L FEU Sodium 131 L (137-145) mmol/L Chloride (98-107) mmol/L Carbon Dioxide (22-30) mmol/L Plasma Lactic Acid Christos (0.7-2.0) mmol/L Calcium 7.2 L (8.4-10.2) mg/dL AST (14-36) U/L Alkaline Phosphatase 206 H (38-126) U/L Total Protein 4.6 L (6.3-8.2) g/dL Albumin 1.9 L (3.5-5.0) g/dL Crossmatch See Detail 07/16/24 07/16/24 Range/Units 09:42 09:42 WBC 18.4 H (3.8-10.6) k/uL RBC 2.35 L (3.80-5.40) m/uL Hgb 6.1 L* (11.4-16.0) gm/dL Hct 20.0 L (34.0-46.0) % MCHC 30.3 L (31.0-37.0) g/dL RDW 18.8 H (11.5-15.5) % Plt Count (150-450) k/uL Neutrophils # 14.7 H (1.3-7.7) k/uL Monocytes # 1.3 H (0-1.0) k/uL D-Dimer (<0.60) mg/L FEU Sodium 132 L (137-145) mmol/L Chloride (98-107) mmol/L Carbon Dioxide (22-30) mmol/L Plasma Lactic Acid Christos (0.7-2.0) mmol/L Calcium 7.1 L (8.4-10.2) mg/dL AST (14-36) U/L Alkaline Phosphatase 191 H (38-126) U/L Total Protein 4.5 L (6.3-8.2) g/dL Albumin 1.8 L (3.5-5.0) g/dL Crossmatch Comments: femur CT report reviewed Venous US: report reviewed Assessment and Plan (1) Fever Current Visit: Yes Status: Acute Priority: High Code(s): R50.9 - FEVER, UNSPECIFIED SNOMED Code(s): 566971781 (2) Pain Current Visit: Yes Status: Acute Priority: High Code(s): R52 - PAIN, UNSPECIFIED SNOMED Code(s): 66077668 (3) Hematoma of right lower leg Current Visit: Yes Status: Acute Priority: Medium Code(s): S80.11XA - CONTUSION OF RIGHT LOWER LEG, INITIAL ENCOUNTER SNOMED Code(s): 23933246071968976 (4) Pulmonary nodules Current Visit: Yes Status: Acute Priority: Medium Code(s): R91.8 - OTHER NONSPECIFIC ABNORMAL FINDING OF LUNG FIELD SNOMED Code(s): 302492984 Plan: Fever -Likely 2/2 to necrosis/infection around mass in right thigh -WBC elevated, neutrophilia, consistent with infection -Infectious disease consulted -Patient has been started on antibiotics. -Cultures have been ordered. Pain -Secondary to infection and mass in right thigh -Case discussed with Pharm.D., pain medication adjustments have been made. -Medications have been ordered for prevention of narcotic induced constipation. Mass with hematoma of the right lower extremity. Pulmonary nodules -Patient's clinical course summarized in HPI. Right thigh mass as well as pulmonary nodules are FDG avid. She is status post biopsy 06/28/24, path p ending. -Patient has met with an Orthopedic Oncologist, recommendations pending path -Patient has had the drain in for about 7 weeks. Concerns for infection. ID consulted, abx initiated. Anemia, elevated WBC -blood loss anemia, mass in thigh -1 unit PRBC for Hgb 6.8 on admit. Hgb 6.1 today, another unit ordered. -CBC daily, transfuse for Hgb <7 or if symptomatic -Once pt is well established on abx, will consider daily IV iron while pt losing blood from drain -Coags normal, normal plt-nothing to suggest DIC at this time, will check fibrinogen. Bilirubin normal, retic ordered-hemolysis not likely but, will evaluate for the same.
[2024-07-16] MEDS ORDERED: SODIUM FERRIC GLUCONAT-SUCROSE 125 MG in SODIUM CHLORIDE 0.9% 100 ML IVPB SCH (16:30)
[2024-07-16 17:38] LABS: Reticulocyte % 5.4 % (0.5-2.0)
--- NOTE | 2024-07-16 17:48 | P.CON ---
Consult Note - . Consult date: 07/16/24 Assessment/Plan:: Patient is a 58-year-old female with history of Takotsubo cardiomyopathy, right leg pain status post hematoma evacuation on 05/25/2024, hyperlipidemia, hypertension, paroxysmal atrial fibrillation not on anticoagulation presents to the ER with weakness. Patient underwent a hematoma evacuation on her right leg on 05/25/2024 and has a drain in place. Patient reported that over the past week the erythema surrounding the surgical incision site has gotten bigger. She also reports a new onset sharp stabbing pain, 5/10 at time of interview, surrounding the surgical incision site that started over the past week. In addition, patient reports a foul smell coming out of the drain which made the patient worried for infection and she decided to come to the ED for evaluation. Her right lower extremity appears infected and has elevated WBC. She had a CT R Femur which did not show any evidence of necrotizing fasciitis. Review of Systems ROS Other: All systems not noted in ROS Statement are negative. Past Medical History Past Medical History: Atrial Fibrillation, Hyperlipidemia Additional Past Medical History / Comment(s): injury to thigh from dog leash wrapped around it, hx. broken heart syndrome, takes meds for rapid heart rate, newer arrythmia-fib per pt, recent cardiac cath. Bronchitis History of Any Multi-Drug Resistant Organisms: None Reported Past Surgical History: Heart Catheterization Additional Past Surgical History / Comment(s): hematoma drain Additional Past Anesthesia/Blood Transfusion Reaction / Comment(s): never really had anesthesia before, no family problems Past Psychological History: No Psychological Hx Reported Smoking Status: Former smoker - Past Family History Mother Family Medical History: No Reported History General Exam <Doug Al - Last Filed: 07/15/24 19:58> General appearance: alert, in no apparent distress Head exam: Present: atraumatic, normocephalic Eye exam: Present: normal appearance, PERRL ENT exam: Present: normal exam Neck exam: Present: normal inspection Respiratory exam: Present: normal lung sounds bilaterally. Absent: respiratory distress, wheezes Cardiovascular Exam: Present: tachycardia, irregular rhythm GI/Abdominal exam: Present: soft. Absent: distended, tenderness, guarding Extremities exam: Present: other (There is erythema, warmth and tenderness to palpation over the mid right thigh with drain tube in place. pedal Pulse is 2+) Neurological exam: Present: alert, altered Skin exam: Present: pallor 58 year old female with Necrotic Infected Mass in RLE -CT Femur Reviewed -Arleen/Bree SHINE recs -Transfuse Prn -Recommend Transfer to Ortho Surgical Oncologist patient has seen at [facility] -No acute surgical intervention planned Ricardo Ramírez DO [facility] [phone]
[2024-07-16] MEDS: SENNOSIDES-DOCUSATE SODIUM 1 EACH TAB PO SCH (21:02)
[2024-07-16] MEDS: ESCITALOPRAM 10 MG TAB PO SCH (21:03)
[2024-07-16] MEDS: ATORVASTATIN 40 MG TAB PO SCH (21:03)
--- NOTE | 2024-07-16 22:54 | P.CONS ---
History of Present Illness - Reason for Consult Consult date: 07/16/24 Infected hematoma Requesting physician: Joey eDlgado - Chief Complaint Right thigh pain swelling x days - History of Present Illness Patient is a 58-year-old female with a past medical history significant for hyperlipidemia atrial fibrillation recently has developed hematoma of the right thigh that was drained on 05/25/2024 culture has been negative patient now presenting back to the hospital concerning for increasing pain and swelling to the right thigh area and also foul-smelling drainage from the drainage catheter patient did have some chills and on presentation to the hospital initially afebrile however she did spike a fever 100.7 F this afterno on patient was mildly tachycardic but not hypotensive mildly hypoxic on 2 L nasal cannula oxygen patient did have elevated white count 23.8 hemoglobin is down to 6.8 creatinine has been 0.5-lactic acid was elevated liver enzymes are normal blood cultures obtained which are currently pending patient did have a CT of the right femur which did shows large mass with heterogeneous enhancement and large zones of hypoenhancement in the anterior compartment of the thigh much larger causing mass effect compartment syndrome should be considered patient also have a venous Doppler that was negative for DVT patient has been started on Rocephin and vancomycin infectious disease was consulted for further management of antibiotic therapy Review of Systems Positive point and negatives has been mentioned in the HPI, complete review of systems was performed and all other systems are negative Past Medical History Past Medical History: Atrial Fibrillation, Hyperlipidemia Additional Past Medical History / Comment(s): injury to thigh from dog leash wrapped around it, hx. broken heart syndrome, takes meds for rapid heart rate, newer arrythmia-fib per pt, recent cardiac cath. Bronchitis History of Any Multi-Drug Resistant Organisms: None Reported Past Surgical History: Heart Catheterization Additional Past Surgical History / Comment(s): biopsy of rt thigh mass, hematoma drain Additional Past Anesthesia/Blood Transfusion Reaction / Comm: never really had anesthesia before, no family problems Past Psychological History: No Psychological Hx Reported Smoking Status: Former smoker Past Alcohol Use History: None Reported Past Drug Use History: None Reported - Past Family History Mother Family Medical History: No Reported History Sister(s) Family Medical History: Cancer (cervical) Medications and Allergies Home Medications Medication Instructions Recorded Confirmed Type Loratadine [Claritin] 10 mg PO DAILY 01/13/24 07/16/24 History Multivitamins, Thera [Multivitamin 1 tab PO DAILY 01/13/24 07/16/24 History (formulary)] Atorvastatin [Lipitor] 40 mg PO HS 05/22/24 07/16/24 History Digoxin [Lanoxin] 125 mcg PO DAILY 05/22/24 07/16/24 History Escitalopram [Lexapro] 10 mg PO HS 05/22/24 07/16/24 History Aspirin 81 mg PO DAILY #30 tab 05/28/24 07/16/24 Rx HYDROcodone/APAP 5-325MG [[place] 1 tab PO Q6HR PRN 3 Days #12 tab 05/28/24 07/16/24 Rx 5-325] Metoprolol Succinate (ER) [Toprol 50 mg PO BID #180 tab 05/28/24 07/16/24 Rx XL] Acetaminophen Tab [Tylenol] 650 mg PO Q6HR PRN tab 06/04/24 07/16/24 Rx Ferrous Sulfate [Iron (65 MG 325 mg PO DAILY #30 tab 06/04/24 07/16/24 Rx Elemental)] Allergies Allergy/AdvReac Type Severity Reaction Status Date / Time No Known Allergies Allergy Verified 07/16/24 08:25 Physical Exam Vitals: Vital Signs Temp Pulse Resp BP Pulse Ox 07/16/24 14:00 97 18 108/51 98 07/16/24 13:18 94 18 114/66 96 07/16/24 12:06 70 20 93/61 95 07/16/24 08:19 103 H 18 128/67 96 07/16/24 05:46 81 12 95/62 97 07/16/24 05:02 83 17 100/48 96 07/16/24 04:20 98.9 F 85 19 103/56 91 L 07/16/24 03:35 88 15 97/48 93 L 07/16/24 02:38 99 F 99 18 87/40 92 L 07/16/24 02:18 99 F 88 17 100/53 94 L 07/16/24 02:07 99 F 93 16 97/51 93 L 07/16/24 01:13 101 H 16 98/47 97 07/15/24 23:12 99.3 F 100 12 100/66 95 07/15/24 19:32 98.1 F 131 H 18 104/52 98 Intake and Output 07/15/24 07/16/24 07/16/24 22:59 06:59 14:59 Intake Total 310 Balance 310 Intake: Blood Product 310 Rc As-1 Unit 310 [id number] Other: Weight 62.596 kg GENERAL DESCRIPTION: Middle-aged female lying in bed, no distress. No tachypnea or accessory muscle of respiration use. HEENT: Shows Pallor , no scleral icterus. Oral mucous membrane is dry. NECK: Trachea central, no thyromegaly. LUNGS: Unlabored breathing. Clear to auscultation anteriorly. No wheeze or crackle. HEART: S1, S2, regular rate and rhythm. No loud murmur ABDOMEN: Soft, no tenderness , guarding or rigidity, no organomegaly EXTREMITIES: Right thigh did have diffuse swelling redness which is warm and [place] to touch she did have a drainage catheter which is draining mostly bloodstained secretion SKIN: No rash, no masses palpable. NEUROLOGICAL: The patient is awake, alert, oriented x3, mood and affect normal. Results CBC & Chem 7: 07/16/24 09:42 07/16/24 09:42 Labs: Abnormal Lab Results - Last 24 Hours (Table) 07/15/24 07/15/24 07/15/24 Range/Units 21:23 21:23 21:23 WBC 23.8 H (3.8-10.6) k/uL RBC 2.59 L (3.80-5.40) m/uL Hgb 6.8 L* D (11.4-16.0) gm/dL Hct 22.5 L (34.0-46.0) % MCHC 30.0 L (31.0-37.0) g/dL RDW 19.3 H (11.5-15.5) % Plt Count 601 H (150-450) k/uL Neutrophils # 19.1 H (1.3-7.7) k/uL Monocytes # 1.3 H (0-1.0) k/uL D-Dimer (<0.60) mg/L FEU Sodium 132 L (137-145) mmol/L Chloride 94 L (98-107) mmol/L Carbon Dioxide 20 L (22-30) mmol/L Plasma Lactic Acid Christos 6.5 H* (0.7-2.0) mmol/L Calcium 8.2 L (8.4-10.2) mg/dL AST 37 H (14-36) U/L Alkaline Phosphatase 305 H (38-126) U/L Total Protein (6.3-8.2) g/dL Albumin 3.0 L (3.5-5.0) g/dL Crossmatch 07/15/24 07/16/24 07/16/24 Range/Units 22:15 02:30 02:30 WBC (3.8-10.6) k/uL RBC (3.80-5.40) m/uL Hgb (11.4-16.0) gm/dL Hct (34.0-46.0) % MCHC (31.0-37.0) g/dL RDW (11.5-15.5) % Plt Count (150-450) k/uL Neutrophils # (1.3-7.7) k/uL Monocytes # (0-1.0) k/uL D-Dimer 5.11 H (<0.60) mg/L FEU Sodium 131 L (137-145) mmol/L Chloride (98-107) mmol/L Carbon Dioxide (22-30) mmol/L Plasma Lactic Acid Christos (0.7-2.0) mmol/L Calcium 7.2 L (8.4-10.2) mg/dL AST (14-36) U/L Alkaline Phosphatase 206 H (38-126) U/L Total Protein 4.6 L (6.3-8.2) g/dL Albumin 1.9 L (3.5-5.0) g/dL Crossmatch See Detail 07/16/24 07/16/24 Range/Units 09:42 09:42 WBC 18.4 H (3.8-10.6) k/uL RBC 2.35 L (3.80-5.40) m/uL Hgb 6.1 L* (11.4-16.0) gm/dL Hct 20.0 L (34.0-46.0) % MCHC 30.3 L (31.0-37.0) g/dL RDW 18.8 H (11.5-15.5) % Plt Count (150-450) k/uL Neutrophils # 14.7 H (1.3-7.7) k/uL Monocytes # 1.3 H (0-1.0) k/uL D-Dimer (<0.60) mg/L FEU Sodium 132 L (137-145) mmol/L Chloride (98-107) mmol/L Carbon Dioxide (22-30) mmol/L Plasma Lactic Acid Christos (0.7-2.0) mmol/L Calcium 7.1 L (8.4-10.2) mg/dL AST (14-36) U/L Alkaline Phosphatase 191 H (38-126) U/L Total Protein 4.5 L (6.3-8.2) g/dL Albumin 1.8 L (3.5-5.0) g/dL Crossmatch Assessment and Plan (1) Sepsis Current Visit: Yes Status: Acute Code(s): A41.9 - SEPSIS, UNSPECIFIED ORGANISM SNOMED Code(s): 41513311 (2) Abscess of right thigh Current Visit: Yes Status: Acute Code(s): L02.415 - CUTANEOUS ABSCESS OF RIGHT LOWER LIMB SNOMED Code(s): 03923178854732073 Plan: 1patient presenting the hospital with increasing pain and swelling and foul- smelling drainage from the right thigh drainage catheter in this patient who did have features of sepsis with fever tachycardia elevated white count elevated lactic acid, will need to cover for both gram-positive as well as gram-negative pathogen 2-patient would benefit from surgical exploration drainage of the hematoma to relieve the pressure of as well as to obtain deep culture 3-blood culture has been obtained 4-vancomycin pharmacy to dose and Rocephin will provide adequate empiric antibiotic coverage at this point Multiple question concern answered We will follow on clinical condition and cultures to further adjust medication if needed Thank you for this consultation we will follow the patient along with you Dictation was produced using [employer] dictation software. please excuse any grammatical, word or spelling errors. Time with Patient: Greater than 30
[2024-07-17 07:11] LABS: Anisocytosis Slight; Basophils % (A) 0 %; Eosinophils # (A) 0.1 k/uL (0-0.7); Eosinophils % (A) 1 %; HCT 24.3 % (34.0-46.0); HGB 7.1 gm/dL (11.4-16.0); Hypochromasia Marked; Lymphocytes # (A) 2.4 k/uL (1.0-4.8); Lymphocytes % (A) 12 %; MCH 25.4 pg (25.0-35.0); MCHC 29.1 g/dL (31.0-37.0); MCV 87.3 fL (80.0-100.0); Mean Platelet Volume 7.1; Monocytes % (A) 5 %; Neutrophils # (A) 15.3 k/uL (1.3-7.7); Neutrophils % (A) 80 %; Platelet Count 367 k/uL (150-450); Poikilocytosis Moderate; RBC 2.78 m/uL (3.80-5.40); RDW 18.1 % (11.5-15.5); WBC 19.1 k/uL (3.8-10.6)
[2024-07-17 07:29] LABS: ALT 8 U/L (4-34); AST 24 U/L (14-36); African American GFR (CKD) >90 (>60 ml/min/1.73 sqM); Albumin 1.7 g/dL (3.5-5.0); Alkaline Phosphatase 234 U/L (38-126); Anion Gap 8 mmol/L; Blood Urea Nitrogen 9 mg/dL (7-17); Calcium 7.1 mg/dL (8.4-10.2); Carbon Dioxide 22 mmol/L (22-30); Chloride 104 mmol/L (98-107); Glucose 118 mg/dL (74-99); Non-African American GFR(CKD) >90 (>60 ml/min/1.73 sqM); Potassium 3.8 mmol/L (3.5-5.1); Sodium 134 mmol/L (137-145); Total Bilirubin 0.4 mg/dL (0.2-1.3); Total Protein 4.2 g/dL (6.3-8.2)
--- NOTE | 2024-07-17 07:59 | P.PN ---
Progress Note - Text Progress Note Date: 07/17/24 No acute events overnight General appearance: alert, in no apparent distress Head exam: Present: atraumatic, normocephalic Eye exam: Present: normal appearance, PERRL ENT exam: Present: normal exam Neck exam: Present: normal inspection Respiratory exam: Present: normal lung sounds bilaterally. Absent: respiratory distress, wheezes Cardiovascular Exam: Present: tachycardia, irregular rhythm GI/Abdominal exam: Present: soft. Absent: distended, tenderness, guarding Extremities exam: Present: other (There is erythema, warmth and tenderness to palpation over the mid right thigh with drain tube in place. pedal Pulse is 2+) Neurological exam: Present: alert, altered Skin exam: Present: pallor 58 year old female with Necrotic Infected Mass in RLE -CT Femur Reviewed -Arleen/Eduo -KARLEY recs -Transfuse Prn -Recommend Transfer to Ortho Surgical Oncologist patient has seen at [facility] for surgical debridement and management Ricardo Ramírez DO [facility] [phone]
[2024-07-17] MEDS ORDERED: PEG 3350 (236 GM/BTL) + LYTES 4,000 ML BOTTLE PO ONE (08:30)
--- NOTE | 2024-07-17 15:16 | P.PN ---
Subjective Progress Note Date: 07/17/24 Hospital Course: A 58-year-old female with recent complicated PMH including Takotsubo cardiomyo mike, HLD, HTN, paroxysmal A-fib not on anticoagulation, complex mass of the femur pending pathology, concern for metastatic process. History of right leg pain with hematoma evacuation on 05/25/2024, who presented to the ER with worsening erythema, pain, foul smelling discharge, concern for infection. ED documentation reviewed. In the ED patient was treated with a bolus of normal saline, ceftriaxone 2 g IV x 1, Dilaudid 0.5 mg IV x 1. Oncology following, patient has previously met with an orthopedic oncologist at [facility], recommendations pending pathology. Vitals on admission temperature 99.3, pulse rate 100, respiratory rate 12, blood pressure 100/66, O2 sat 95% on room air CXR shows enlarging pulmonary nodules throughout the lungs compared to 05/31/2024. Findings compatible with metastatic disease. Right knee x-ray shows no acute osseous pathology. Mild tricompartmental osteoarthritic changes. Right femur x-ray shows soft tissue catheter in the subcutaneous tissues/mass of the right lower extremity. No evidence of fracture. There is a cortical scalloping along the femur possibly representing involvement of the known mass. Labs on admission show WBC 23.8, hemoglobin 6.8, hematocrit 22.5, platelets 601, neutrophils 19.1, PT 11.7, PTT 23.5, INR 1.1, sodium 132, potassium 4.4, chloride 94, carbon dioxide 20, BUN 12, creatinine 0.55, lactic acid 6.5, calcium 8.2, AST 37, ALT 12, alkaline phosphatase 305. ID consulted for management of sepsis secondary to right side infection, started on vancomycin and ceftriaxone, general surgery consulted. Spoke with general surgery, Dr. Brewer who previously operated on the patient and had a conversation with the surgeon at [facility], will be seeing the patient on 07/18/2024 to further discuss transfer options. Subjective: Patient complains of right eye pain, denies chest pain, shortness of breath, abdominal pain, she states she is constipated from opioid use Pertinent positives and negatives as discussed above, a complete review of systems was performed and all other systems are negative. Vitals Signs Reviewed. General: [nontoxic], [no distress], [appears at stated age] Derm: [warm], [dry] Head: [atraumatic], [normocephalic], [symmetric] Eyes: [EOMI], [no lid lag], [anicteric sclera] Mouth: [no lip lesion], [mucus membranes moist] Cardiovascular: [S1S2 reg], [no murmur] Lungs: [CTA bilateral], [no rhonchi, no rales] , [no accessory muscle use] Abdominal: [soft], [ nontender to palpation], [no guarding], [no appreciable organomegaly] Ext: Right tight tenderness, erythema, swelling, drainage in place Neuro: [ CN II-XI grossly intact], [no focal neuro deficits] Psych: [Alert], [oriented], [appropriate affect] Data Reviewed Today: Pertinent Labs: Leukocytosis uptrending 19.1 today, hemoglobin stabilized at 7.1, platelet count normal, sodium improved to 134 today, alkaline phosphatase uptrending to 34, AST and ALT normal today Assessment and Plan: Sepsis likely secondary to right thigh infection in the settings of surgical drainage presents, possible mass necrosis Lactic acidosis, resolved, in the settings of above Status post right thigh hematoma evacuation 05/25/2024 Right thigh mass, concern for metastatic process -Pulmonary nodules -ID following, continue ceftriaxone and vancomycin -Oncology following -Pending pathology -General Surgery following, will discuss with the patient possibility of transfer on 07/18/2024 -Morphine 4 mg every 3 hours as needed, Tylenol as needed Acute blood loss anemia -S/p 1 unit of PRBC on admission -Follow-up CBC daily, transfuse for hemoglobin less than 7 -"Coagulation panel normal, heme-onc following, no concern for DIC \\Elevated AST, ALP -Monitor CMP [Chronic:] History of paroxysmal A-fib: Not on anticoagulation HLD: Resume atorvastatin 40 Hypertension: Resume metoprolol succinate 50 twice daily DVT ppx: holding due to acute blood loss anemia Anticipated discharge place: pEnding clinical stability Anticipated discharge time: Pending clinical stability Objective - Vital Signs Vital signs: Vital Signs Temp 98.7 F 07/17/24 10:41 Pulse 74 07/17/24 13:00 Resp 16 07/17/24 13:00 BP 92/48 07/17/24 14:07 Pulse Ox 94 L 07/17/24 13:00 FiO2 Intake & Output 12/30/24 12/31/24 12/31/24 18:59 06:59 18:59 Intake Total 279 Balance 279 Intake: Blood Product 279 Rc Pheresis 2 As3 Unit 279 [id number] - Labs CBC & Chem 7: 07/17/24 06:52 07/17/24 06:52 Labs: Abnormal Lab Results - Last 24 Hours (Table) 07/15/24 07/16/24 07/16/24 Range/Units 22:15 16:36 16:36 WBC (3.8-10.6) k/uL RBC (3.80-5.40) m/uL Hgb (11.4-16.0) gm/dL Hct (34.0-46.0) % MCHC (31.0-37.0) g/dL RDW (11.5-15.5) % Neutrophils # (1.3-7.7) k/uL Retic Count 5.4 H (0.5-2.0) % Fibrinogen 766 H (200-500) mg/dL Sodium (137-145) mmol/L Glucose (74-99) mg/dL Calcium (8.4-10.2) mg/dL Alkaline Phosphatase (38-126) U/L Total Protein (6.3-8.2) g/dL Albumin (3.5-5.0) g/dL Crossmatch See Detail 07/17/24 07/17/24 Range/Units 06:52 06:52 WBC 19.1 H (3.8-10.6) k/uL RBC 2.78 L (3.80-5.40) m/uL Hgb 7.1 L (11.4-16.0) gm/dL Hct 24.3 L (34.0-46.0) % MCHC 29.1 L (31.0-37.0) g/dL RDW 18.1 H (11.5-15.5) % Neutrophils # 15.3 H (1.3-7.7) k/uL Retic Count (0.5-2.0) % Fibrinogen (200-500) mg/dL Sodium 134 L (137-145) mmol/L Glucose 118 H (74-99) mg/dL Calcium 7.1 L (8.4-10.2) mg/dL Alkaline Phosphatase 234 H (38-126) U/L Total Protein 4.2 L (6.3-8.2) g/dL Albumin 1.7 L (3.5-5.0) g/dL Crossmatch Microbiology - Last 24 Hours (Table) 07/15/24 21:23 Blood Culture - Preliminary Blood
[2024-07-17] MEDS: ACETAMINOPHEN TAB 325 MG TAB PO PRN (20:14)
--- NOTE | 2024-07-17 20:14 | P.PN ---
Subjective Progress Note Date: 07/17/24 No acute events. Reporting persisting right thigh pain, pain meds are helping manage pain. S/p 1 unit yesterday for hgb 6.1, with appropriate response, today hgb 7.1. Surgery recommending transfer to for ortho oncology evaluation. Temperature 100.0 this morning continues on IV abx Objective - Vital Signs Vital signs: Vital Signs Temp 98.7 F 07/17/24 10:41 Pulse 72 07/17/24 12:12 Resp 20 07/17/24 12:12 BP 98/67 07/17/24 12:12 Pulse Ox 94 L 07/17/24 12:12 FiO2 Intake & Output 07/16/24 07/17/24 07/17/24 18:59 06:59 18:59 Intake Total 279 Balance 279 Intake: Blood Product 279 Rc Pheresis 2 As3 Unit 279 [id number] - Constitutional General appearance: Present: average body habitus, no acute distress - EENT Eyes: Present: anicteric sclerae ENT: Present: hearing grossly normal - Respiratory Details: breathing is even and unlabored - Cardiovascular Details: skin warm and dry - Musculoskeletal Musculoskeletal Comment(s): right thigh edema, erythema. GLORIA drain in place with bloody output - Psychiatric Psychiatric: Present: A&O x's 3 - Labs CBC & Chem 7: 07/17/24 06:52 07/17/24 06:52 Labs: Abnormal Lab Results - Last 24 Hours (Table) 07/15/24 07/16/24 07/16/24 Range/Units 22:15 16:36 16:36 WBC (3.8-10.6) k/uL RBC (3.80-5.40) m/uL Hgb (11.4-16.0) gm/dL Hct (34.0-46.0) % MCHC (31.0-37.0) g/dL RDW (11.5-15.5) % Neutrophils # (1.3-7.7) k/uL Retic Count 5.4 H (0.5-2.0) % Fibrinogen 766 H (200-500) mg/dL Sodium (137-145) mmol/L Glucose (74-99) mg/dL Calcium (8.4-10.2) mg/dL Alkaline Phosphatase (38-126) U/L Total Protein (6.3-8.2) g/dL Albumin (3.5-5.0) g/dL Crossmatch See Detail 07/17/24 07/17/24 Range/Units 06:52 06:52 WBC 19.1 H (3.8-10.6) k/uL RBC 2.78 L (3.80-5.40) m/uL Hgb 7.1 L (11.4-16.0) gm/dL Hct 24.3 L (34.0-46.0) % MCHC 29.1 L (31.0-37.0) g/dL RDW 18.1 H (11.5-15.5) % Neutrophils # 15.3 H (1.3-7.7) k/uL Retic Count (0.5-2.0) % Fibrinogen (200-500) mg/dL Sodium 134 L (137-145) mmol/L Glucose 118 H (74-99) mg/dL Calcium 7.1 L (8.4-10.2) mg/dL Alkaline Phosphatase 234 H (38-126) U/L Total Protein 4.2 L (6.3-8.2) g/dL Albumin 1.7 L (3.5-5.0) g/dL Crossmatch Assessment and Plan (1) Abscess of right thigh Current Visit: Yes Status: Acute Priority: High Code(s): L02.415 - CUTANEOUS ABSCESS OF RIGHT LOWER LIMB SNOMED Code(s): 87493524609304843 (2) Fever Current Visit: Yes Status: Acute Priority: High Code(s): R50.9 - FEVER, UNSPECIFIED SNOMED Code(s): 691999171 (3) Hematoma of right lower leg Current Visit: Yes Status: Acute Priority: Medium Code(s): S80.11XA - CONTUSION OF RIGHT LOWER LEG, INITIAL ENCOUNTER SNOMED Code(s): 66939488868123338 (4) Pain Current Visit: Yes Status: Acute Priority: High Code(s): R52 - PAIN, UNSPECIFIED SNOMED Code(s): 63687871 (5) Pulmonary nodules Current Visit: Yes Status: Acute Priority: Medium Code(s): R91.8 - OTHER NONSPECIFIC ABNORMAL FINDING OF LUNG FIELD SNOMED Code(s): 641047881 Plan: Fever -Likely 2/2 to necrosis/infection around mass in right thigh -WBC elevated, neutrophilia, consistent with infection -Infectious disease consulted -Patient has been started on IV antibiotics. -Blood culture pending RLE Pain -Secondary to infection and mass in right thigh -Case discussed with Pharm.D., pain medication adjustments have been made. -Medications have been ordered for prevention of narcotic induced constipation. Mass with hematoma of the right lower extremity. Pulmonary nodules -Patient's clinical course summarized in HPI. Right thigh mass as well as pulmonary nodules are FDG avid. She is status post biopsy 07/05/24, path pending -Patient has met with an Orthopedic Oncologist at , recommendations pending path. Surgery team recommending transfer to for further evaluation/management by ortho oncology -Patient has had the drain in for about 7 weeks. Concerns for infection. ID cons ulted, abx initiated. Anemia -Blood loss anemia, mass in thigh, GLORIA drain with bloody output -S?p 2 units PRBCs, hgb 6.1 yesterday, with appropriate response, hgb today 7.1 -CBC daily, transfuse for Hgb <7 or if symptomatic -Hold IV iron for now due to infection. This can also be given in outpt setting once infection has been adequately treated -Coags normal, normal plt, fibrinogen 766-nothing to suggest DIC at this time. Bilirubin normal, retic 5.4 which is expected with noted anemia.
[2024-07-17] MEDS: KETOROLAC 15 MG/ML 1 ML VIAL IM STA (21:33)
[2024-07-17] MEDS: VANCOMYCIN TROUGH DUE 1 EACH MISC MISCELLANE ONE (21:42)
[2024-07-18] MEDS: VANCOMYCIN 1,250 MG in SODIUM CHLORIDE 0.9% 250 ML IVPB SCH (05:27)
[2024-07-18 07:58] LABS: ALT 6 U/L (4-34); AST 22 U/L (14-36); African American GFR (CKD) >90 (>60 ml/min/1.73 sqM); Albumin 1.6 g/dL (3.5-5.0); Alkaline Phosphatase 243 U/L (38-126); Anion Gap 7 mmol/L; Blood Urea Nitrogen 10 mg/dL (7-17); Calcium 7.4 mg/dL (8.4-10.2); Carbon Dioxide 23 mmol/L (22-30); Chloride 103 mmol/L (98-107); Glucose 84 mg/dL (74-99); Non-African American GFR(CKD) >90 (>60 ml/min/1.73 sqM); Potassium 3.9 mmol/L (3.5-5.1); Sodium 133 mmol/L (137-145); Total Bilirubin 0.4 mg/dL (0.2-1.3); Total Protein 4.2 g/dL (6.3-8.2)
[2024-07-18 08:27] LABS: Anisocytosis Slight; HCT 22.5 % (34.0-46.0); Hypochromasia Marked; MCH 26.2 pg (25.0-35.0); MCV 87.5 fL (80.0-100.0); Mean Platelet Volume 7.4; Platelet Count 287 k/uL (150-450); Poikilocytosis Moderate; RBC 2.57 m/uL (3.80-5.40); WBC 18.9 k/uL (3.8-10.6)
[2024-07-18 08:34] LABS: HGB 6.7 gm/dL (11.4-16.0)
--- NOTE | 2024-07-18 11:44 | P.PN ---
Subjective Progress Note Date: 07/17/24 Principal diagnosis: Reason for follow-up is sepsis possible right thigh infected hematoma Patient is a 58-year-old female with a past medical history significant for hyperlipidemia atrial fibrillation recently has developed hematoma of the right thigh that was drained on 05/25/2024 culture has been negative patient now presenting back to the hospital concerning for increasing pain and swelling to the right thigh area and also foul-smelling drainage patient to be diagnosed with sepsis possible associated infected right thigh hematoma General Surgeon recommended patient to be transferred to urgent care. On today's evaluation that is 07/17/2024, Patient did have a low-grade fever 100 F this morning patient is breathing comfortably and is currently on room air d enies any chest pain shortness of breath or cough no abdominal pain pain to the right thigh is slightly decreased in intensity. Patient white count is 19.1, hemoglobin 7.1 creatinine 0.54 cultures are currently pending Objective - Vital Signs Vital signs: Vital Signs Temp 98.7 F 07/17/24 10:41 Pulse 74 07/17/24 13:00 Resp 16 07/17/24 13:00 BP 106/52 07/17/24 13:00 Pulse Ox 94 L 07/17/24 13:00 FiO2 Intake & Output 07/16/24 07/17/24 07/17/24 18:59 06:59 18:59 Intake Total 279 Balance 279 Intake: Blood Product 279 Rc Pheresis 2 As3 Unit 279 [id number] - Exam GENERAL DESCRIPTION: Middle-age female lying in bed in no distress RESPIRATORY SYSTEM: Unlabored breathing , decreased breath sounds at bases HEART: S1 S2 regular rate and rhythm , ABDOMEN: Soft , no tenderness EXTREMITIES: Right thigh with swelling redness no drainage - Labs CBC & Chem 7: 07/18/24 06:55 07/18/24 06:55 Labs: Abnormal Lab Results - Last 24 Hours (Table) 07/15/24 07/16/24 07/16/24 Range/Units 22:15 16:36 16:36 WBC (3.8-10.6) k/uL RBC (3.80-5.40) m/uL Hgb (11.4-16.0) gm/dL Hct (34.0-46.0) % MCHC (31.0-37.0) g/dL RDW (11.5-15.5) % Neutrophils # (1.3-7.7) k/uL Retic Count 5.4 H (0.5-2.0) % Fibrinogen 766 H (200-500) mg/dL Sodium (137-145) mmol/L Glucose (74-99) mg/dL Calcium (8.4-10.2) mg/dL Alkaline Phosphatase (38-126) U/L Total Protein (6.3-8.2) g/dL Albumin (3.5-5.0) g/dL Crossmatch See Detail 07/17/24 07/17/24 Range/Units 06:52 06:52 WBC 19.1 H (3.8-10.6) k/uL RBC 2.78 L (3.80-5.40) m/uL Hgb 7.1 L (11.4-16.0) gm/dL Hct 24.3 L (34.0-46.0) % MCHC 29.1 L (31.0-37.0) g/dL RDW 18.1 H (11.5-15.5) % Neutrophils # 15.3 H (1.3-7.7) k/uL Retic Count (0.5-2.0) % Fibrinogen (200-500) mg/dL Sodium 134 L (137-145) mmol/L Glucose 118 H (74-99) mg/dL Calcium 7.1 L (8.4-10.2) mg/dL Alkaline Phosphatase 234 H (38-126) U/L Total Protein 4.2 L (6.3-8.2) g/dL Albumin 1.7 L (3.5-5.0) g/dL Crossmatch Microbiology - Last 24 Hours (Table) 07/15/24 21:23 Blood Culture - Preliminary Blood Assessment and Plan (1) Sepsis Current Visit: Yes Status: Acute Code(s): A41.9 - SEPSIS, UNSPECIFIED ORGANISM SNOMED Code(s): 53093959 (2) Abscess of right thigh Current Visit: Yes Status: Acute Priority: High Code(s): L02.415 - CUTANEOUS ABSCESS OF RIGHT LOWER LIMB SNOMED Code(s): 72787191275333085 Plan: 1patient presenting the hospital with increasing pain and swelling and foul- smelling drainage from the right thigh drainage catheter in this patient who did have features of sepsis with fever tachycardia elevated white count elevated lactic acid, will need to cover for both gram-positive as well as gram-negative pathogen 2-patient would benefit from surgical exploration drainage of the hematoma to relieve the pressure of as well as to obtain deep culture, general surgery has evaluated the patient and recommended transfer to urgent care currently waiting for transfer to [facility] 3-patient will be treated with vancomycin pharmacy to dose and Rocephin while waiting for the culture to finalize Dictation was produced using [employer] dictation software. please excuse any grammatical, word or spelling errors. Time with Patient: Less than 30
[2024-07-18] MEDS: CEFEPIME 2 GM in SODIUM CHLORIDE 0.9% 100 ML IVPB SCH (12:03)
--- NOTE | 2024-07-18 13:18 | P.PN ---
Subjective Progress Note Date: 07/18/24 Hospital Course: A 58-year-old female with recent complicated PMH including Takotsubo cardiomyo mike, HLD, HTN, paroxysmal A-fib not on anticoagulation, complex mass of the femur pending pathology, concern for metastatic process. History of right leg pain with hematoma evacuation on 05/25/2024, who presented to the ER with worsening erythema, pain, foul smelling discharge, concern for infection. ED documentation reviewed. In the ED patient was treated with a bolus of normal saline, ceftriaxone 2 g IV x 1, Dilaudid 0.5 mg IV x 1. Oncology following, patient has previously met with an orthopedic oncologist at [facility], recommendations pending pathology. Vitals on admission temperature 99.3, pulse rate 100, respiratory rate 12, blood pressure 100/66, O2 sat 95% on room air CXR shows enlarging pulmonary nodules throughout the lungs compared to 05/31/2024. Findings compatible with metastatic disease. Right knee x-ray shows no acute osseous pathology. Mild tricompartmental osteoarthritic changes. Right femur x-ray shows soft tissue catheter in the subcutaneous tissues/mass of the right lower extremity. No evidence of fracture. There is a cortical scalloping along the femur possibly representing involvement of the known mass. Labs on admission show WBC 23.8, hemoglobin 6.8, hematocrit 22.5, platelets 601, neutrophils 19.1, PT 11.7, PTT 23.5, INR 1.1, sodium 132, potassium 4.4, chloride 94, carbon dioxide 20, BUN 12, creatinine 0.55, lactic acid 6.5, calcium 8.2, AST 37, ALT 12, alkaline phosphatase 305. ID consulted for management of sepsis secondary to right side infection, started on vancomycin and ceftriaxone, general surgery consulted. Per patient, transfer process initiated by surgery team, waiting for bed at [facility]. Subjective: Patient was seen and examined at bedside this morning, she is feeling better, pain is better controlled on current regimen Pertinent positives and negatives as discussed above, a complete review of systems was performed and all other systems are negative. Vitals Signs Reviewed. General: [nontoxic], [no distress], [appears at stated age] Derm: [warm], [dry] Head: [atraumatic], [normocephalic], [symmetric] Eyes: [EOMI], [no lid lag], [anicteric sclera] Mouth: [no lip lesion], [mucus membranes moist] Cardiovascular: [S1S2 reg], [no murmur] Lungs: [CTA bilateral], [no rhonchi, no rales] , [no accessory muscle use] Abdominal: [soft], [ nontender to palpation], [no guarding], [no appreciable organomegaly] Ext: Right tight tenderness, erythema, swelling, draine in place Neuro: [ CN II-XI grossly intact], [no focal neuro deficits] Psych: [Alert], [oriented], [appropriate affect] Data Reviewed Today: Pertinent Labs: Leukocytosis stable 18.9 today, hemoglobin dropped to 6.7, will transfuse 1 unit of PRBC, platelets, sodium 123, normal potassium and chloride, kidney function normal and stable, ALP 243. Assessment and Plan: Sepsis likely secondary to right thigh infection in the settings of surgical drainage presents, possible mass necrosis Lactic acidosis, resolved, in the settings of above Status post right thigh hematoma evacuation 05/25/2024 Right thigh mass, concern for metastatic process Pulmonary nodules -ID following, continue vancomycin, ceftriaxone switched to cefepime SOT 07/18 -Oncology following -Pending pathology -General Surgery following, possible transfer to [facility], pending bed availability -Morphine 4 mg every 3 hours as needed, Tylenol as needed Acute blood loss anemia -S/p 2unit of PRBC on admission -Follow-up CBC daily, transfuse for hemoglobin less than 7, will transfuse 1 unit of PRBC 07/18 -"Coagulation panel normal, heme-onc following, no concern for DIC \\Elevated AST, ALP -Monitor CMP [Chronic:] History of paroxysmal A-fib: Not on anticoagulation HLD: Resume atorvastatin 40 Hypertension: Resume metoprolol succinate 50 twice daily DVT ppx: holding due to acute blood loss anemia Anticipated discharge place: [facility] Anticipated discharge time: pending bed availability Objective - Vital Signs Vital signs: Vital Signs Temp 98 F 07/18/24 11:37 Pulse 76 07/18/24 12:04 Resp 16 07/18/24 11:37 BP 109/65 07/18/24 11:37 Pulse Ox 95 07/18/24 11:37 FiO2 Intake & Output 07/17/24 07/18/24 07/18/24 18:59 06:59 18:59 Output Total 30 Balance -30 Weight 62.596 kg 70 kg Output: Drainage 30 Right Lateral Thigh 30 Other: # Voids 1 - Labs CBC & Chem 7: 07/18/24 06:55 07/18/24 06:55 Labs: Abnormal Lab Results - Last 24 Hours (Table) 07/15/24 07/18/24 07/18/24 Range/Units 22:15 06:55 06:55 WBC 18.9 H (3.8-10.6) k/uL RBC 2.57 L (3.80-5.40) m/uL Hgb 6.7 L* (11.4-16.0) gm/dL Hct 22.5 L (34.0-46.0) % MCHC 30.0 L (31.0-37.0) g/dL RDW 18.0 H (11.5-15.5) % Sodium 133 L (137-145) mmol/L Calcium 7.4 L (8.4-10.2) mg/dL Alkaline Phosphatase 243 H (38-126) U/L Total Protein 4.2 L (6.3-8.2) g/dL Albumin 1.6 L (3.5-5.0) g/dL Crossmatch See Detail Microbiology - Last 24 Hours (Table) 07/15/24 21:23 Blood Culture - Preliminary Blood
--- NOTE | 2024-07-18 15:32 | P.PN ---
Subjective Progress Note Date: 07/18/24 Principal diagnosis: Reason for follow-up is sepsis possible right thigh infected hematoma Patient is a 58-year-old female with a past medical history significant for hyperlipidemia atrial fibrillation recently has developed hematoma of the right thigh that was drained on 05/25/2024 culture has been negative patient now presenting back to the hospital concerning for increasing pain and swelling to the right thigh area and also foul-smelling drainage patient to be diagnosed with sepsis possible associated infected right thigh hematoma General Surgeon recommended patient to be transferred to urgent care. On today's evaluation that is 07/18/2024,the patient denies any fever or any chills, patient is breathing comfortably on room air, the patient denies chest pain shortness of breath and no significant cough, patient denies abdominal pain, no nausea vomiting or diarrhea. Pain to the right thigh slightly decreased in intensity. Patient white count is slightly down to 18.9 hemoglobin is dropped to 6.7, creatinine 0.65 blood culture pending Objective - Vital Signs Vital signs: Vital Signs Temp 98 F 07/18/24 11:37 Pulse 70 07/18/24 14:16 Resp 18 07/18/24 14:16 BP 97/53 07/18/24 14:16 Pulse Ox 95 07/18/24 11:37 FiO2 Intake & Output 07/17/24 07/18/24 07/18/24 18:59 06:59 18:59 Intake Total 0 Output Total 30 Balance -30 0 Weight 62.596 kg 70 kg Intake: Blood Product 0 Unit 0 Output: Drainage 30 Right Lateral Thigh 30 Other: # Voids 1 - Exam GENERAL DESCRIPTION: Middle-age female lying in bed in no distress RESPIRATORY SYSTEM: Unlabored breathing , decreased breath sounds at bases HEART: S1 S2 regular rate and rhythm , ABDOMEN: Soft , no tenderness EXTREMITIES: Right thigh with swelling redness no drainage - Labs CBC & Chem 7: 07/18/24 06:55 07/18/24 06:55 Labs: Abnormal Lab Results - Last 24 Hours (Table) 07/15/24 07/18/24 07/18/24 Range/Units 22:15 06:55 06:55 WBC 18.9 H (3.8-10.6) k/uL RBC 2.57 L (3.80-5.40) m/uL Hgb 6.7 L* (11.4-16.0) gm/dL Hct 22.5 L (34.0-46.0) % MCHC 30.0 L (31.0-37.0) g/dL RDW 18.0 H (11.5-15.5) % Sodium 133 L (137-145) mmol/L Calcium 7.4 L (8.4-10.2) mg/dL Alkaline Phosphatase 243 H (38-126) U/L Total Protein 4.2 L (6.3-8.2) g/dL Albumin 1.6 L (3.5-5.0) g/dL Crossmatch See Detail Microbiology - Last 24 Hours (Table) 07/15/24 21:23 Blood Culture - Preliminary Blood Assessment and Plan (1) Sepsis Current Visit: Yes Status: Acute Code(s): A41.9 - SEPSIS, UNSPECIFIED ORGANISM SNOMED Code(s): 85067929 (2) Abscess of right thigh Current Visit: Yes Status: Acute Priority: High Code(s): L02.415 - CUTANEOUS ABSCESS OF RIGHT LOWER LIMB SNOMED Code(s): 02771471501694649 Plan: 1patient presenting the hospital with increasing pain and swelling and foul- smelling drainage from the right thigh drainage catheter in this patient who did have features of sepsis with fever tachycardia elevated white count elevated lactic acid, will need to cover for both gram-positive as well as gram-negative pathogen 2-patient would benefit from surgical exploration drainage of the hematoma to relieve the pressure of as well as to obtain deep culture, general surgery has evaluated the patient and recommended transfer to urgent care currently waiting for transfer to [facility] 3-patient will be continued on vancomycin pharmacy to dose however Rocephin switched to cefepime and monitor clinical course closely Dictation was produced using [employer] dictation software. please excuse any grammatical, word or spelling errors. Time with Patient: Less than 30
--- NOTE | 2024-07-18 20:28 | P.PN ---
Subjective Patient seen and evaluated at bedside. Patient doing ok, still complaining of leg pain but swelling has improved. Objective - Vital Signs Vital signs: Vital Signs Temp 98.4 F 07/18/24 16:09 Pulse 72 07/18/24 16:09 Resp 16 07/18/24 16:09 BP 108/51 07/18/24 16:09 Pulse Ox 97 07/18/24 16:09 FiO2 Intake & Output 07/18/24 07/18/24 07/19/24 06:59 18:59 06:59 Intake Total 286 Output Total 30 Balance -30 286 Weight 70 kg Intake: Blood Product 286 Rc Pheresis 2 As3 Unit 286 [id number] Output: Drainage 30 Right Lateral Thigh 30 Other: # Voids 1 2 - Exam gen: nad cv: rrr pul: non labored breathing right lower extremity swollen, with decreased redness, drain still having output - Labs CBC & Chem 7: 07/18/24 06:55 07/18/24 06:55 Labs: Abnormal Lab Results - Last 24 Hours (Table) 07/15/24 07/18/24 07/18/24 Range/Units 22:15 06:55 06:55 WBC 18.9 H (3.8-10.6) k/uL RBC 2.57 L (3.80-5.40) m/uL Hgb 6.7 L* (11.4-16.0) gm/dL Hct 22.5 L (34.0-46.0) % MCHC 30.0 L (31.0-37.0) g/dL RDW 18.0 H (11.5-15.5) % Sodium 133 L (137-145) mmol/L Calcium 7.4 L (8.4-10.2) mg/dL Alkaline Phosphatase 243 H (38-126) U/L Total Protein 4.2 L (6.3-8.2) g/dL Albumin 1.6 L (3.5-5.0) g/dL Crossmatch See Detail Microbiology - Last 24 Hours (Table) 07/15/24 21:23 Blood Culture - Preliminary Blood Assessment and Plan Assessment: 58 year old female with Necrotic Infected Mass in RLE -CT Femur Reviewed -Rocephin/Vanco -ID recs -Transfuse Prn -[facility]commend [facility] for [facility] oncology and for surgical d ebridement and management Time with Patient: Less than 30
[2024-07-19 06:42] LABS: Anisocytosis Slight; HCT 25.4 % (34.0-46.0); HGB 7.7 gm/dL (11.4-16.0); Hypochromasia Marked; MCH 26.8 pg (25.0-35.0); MCHC 30.5 g/dL (31.0-37.0); Mean Platelet Volume 7.8; Platelet Count 316 k/uL (150-450); Poikilocytosis Marked; RBC 2.89 m/uL (3.80-5.40); RDW 17.7 % (11.5-15.5); WBC 16.4 k/uL (3.8-10.6)
[2024-07-19 07:12] LABS: ALT 7 U/L (4-34); AST 24 U/L (14-36); African American GFR (CKD) >90 (>60 ml/min/1.73 sqM); Albumin 1.7 g/dL (3.5-5.0); Alkaline Phosphatase 239 U/L (38-126); Anion Gap 9 mmol/L; Blood Urea Nitrogen 12 mg/dL (7-17); Calcium 7.6 mg/dL (8.4-10.2); Carbon Dioxide 22 mmol/L (22-30); Chloride 106 mmol/L (98-107); Glucose 82 mg/dL (74-99); Non-African American GFR(CKD) >90 (>60 ml/min/1.73 sqM); Potassium 3.9 mmol/L (3.5-5.1); Sodium 137 mmol/L (137-145); Total Bilirubin 0.5 mg/dL (0.2-1.3); Total Protein 4.4 g/dL (6.3-8.2)
[2024-07-19] MEDS: VANCOMYCIN TROUGH DUE 1 EACH MISC MISCELLANE ONE (08:58)
[2024-07-19] MEDS: HYDROmorphone 1 MG/ML 1 ML SYRINGE IVP PRN (10:13)
--- NOTE | 2024-07-19 13:39 | P.PN ---
Subjective Progress Note Date: 07/19/24 Hospital Course: A 58-year-old female with recent complicated PMH including Takotsubo cardiomyo mike, HLD, HTN, paroxysmal A-fib not on anticoagulation, complex mass of the femur pending pathology, concern for metastatic process. History of right leg pain with hematoma evacuation on 05/25/2024, who presented to the ER with worsening erythema, pain, foul smelling discharge, concern for infection. ED documentation reviewed. In the ED patient was treated with a bolus of normal saline, ceftriaxone 2 g IV x 1, Dilaudid 0.5 mg IV x 1. Oncology following, patient has previously met with an orthopedic oncologist at [facility], recommendations pending pathology. Vitals on admission temperature 99.3, pulse rate 100, respiratory rate 12, blood pressure 100/66, O2 sat 95% on room air CXR shows enlarging pulmonary nodules throughout the lungs compared to 05/31/2024. Findings compatible with metastatic disease. Right knee x-ray shows no acute osseous pathology. Mild tricompartmental osteoarthritic changes. Right femur x-ray shows soft tissue catheter in the subcutaneous tissues/mass of the right lower extremity. No evidence of fracture. There is a cortical scalloping along the femur possibly representing involvement of the known mass. Labs on admission show WBC 23.8, hemoglobin 6.8, hematocrit 22.5, platelets 601, neutrophils 19.1, PT 11.7, PTT 23.5, INR 1.1, sodium 132, potassium 4.4, chloride 94, carbon dioxide 20, BUN 12, creatinine 0.55, lactic acid 6.5, calcium 8.2, AST 37, ALT 12, alkaline phosphatase 305. ID consulted for management of sepsis secondary to right side infection, started on vancomycin and ceftriaxone, now she switched to vancomycin and cefepime general surgery consulted. Surgery recommends transfer to [facility] as patient was previously seen by Dr. Wilbert Beavers, orthopedic oncology, who apparently practices at [facility]. Per Dr. Ramírez, Dr. Lopes had a conversation with Dr. Beavers regarding transfer, currently awaiting further clarification from Dr. Lopes. Of note, patient was never seen at [facility]. Subjective: Patient was seen and examined at bedside this morning, she states that right lower extremity pain is worse today, otherwise she feels okay Pertinent positives and negatives as discussed above, a complete review of systems was performed and all other systems are negative. Vitals Signs Reviewed. General: [nontoxic], [no distress], [appears at stated age] Derm: [warm], [dry] Head: [atraumatic], [normocephalic], [symmetric] Eyes: [EOMI], [no lid lag], [anicteric sclera] Mouth: [no lip lesion], [mucus membranes moist] Cardiovascular: [S1S2 reg], [no murmur] Lungs: [CTA bilateral], [no rhonchi, no rales] , [no accessory muscle use] Abdominal: [soft], [ nontender to palpation], [no guarding], [no appreciable organomegaly] Ext: Right tight tenderness, erythema, swelling, draine in place Neuro: [ CN II-XI grossly intact], [no focal neuro deficits] Psych: [Alert], [oriented], [appropriate affect] Data Reviewed Today: Pertinent Labs: [] Leukocytosis improving to 16.4, hemoglobin stabilized after 1 unit of PRBC at 7.7, sodium and potassium normal, kidney function normal and stable Assessment and Plan: Sepsis likely secondary to right thigh infection in the settings of surgical drainage presents, possible mass necrosis Lactic acidosis, resolved, in the settings of above Status post right thigh hematoma evacuation 05/25/2024 Right thigh mass, concern for metastatic process Pulmonary nodules -ID following, continue vancomycin, ceftriaxone switched to cefepime SOT 07/18 -Oncology following -Pending pathology -General Surgery following, recommends transfer to [facility] to be seen by Dr. Wilbert Beavers who apparently was notified by Dr. Lopes, awaiting for response from Dr. Lopes for further clarification in order to initiate transfer process. -Morphine 4 mg every 3 hours as needed, Tylenol as needed Acute blood loss anemia -S/p 3unit of PRBC on admission -Follow-up CBC daily, transfuse for hemoglobin less than 7, -"Coagulation panel normal, heme-onc following, no concern for DIC \\Elevated AST, ALP -Monitor CMP [Chronic:] History of paroxysmal A-fib: Not on anticoagulation HLD: Resume atorvastatin 40 Hypertension: Resume metoprolol succinate 50 twice daily DVT ppx: holding due to acute blood loss anemia Anticipated discharge place: Plan to transfer to [facility], Anticipated discharge time: pending bed availability Objective - Vital Signs Vital signs: Vital Signs Temp 99.2 F 07/19/24 08:00 Pulse 95 07/19/24 08:00 Resp 16 07/19/24 12:00 BP 111/65 07/19/24 12:00 Pulse Ox 95 07/19/24 12:00 FiO2 Intake & Output 07/18/24 07/19/24 07/19/24 18:59 06:59 18:59 Intake Total 286 10 10 Output Total 400 Balance 286 -390 10 Weight 69 kg Intake: IV 10 10 Invasive Line 2 10 10 Blood Product 286 Rc Pheresis 2 As3 Unit 286 [id number] Output: Urine 400 Other: Voiding Method Bedpan Bedpan # Voids 2 1 2 - Labs CBC & Chem 7: 07/19/24 05:48 07/19/24 05:48 Labs: Abnormal Lab Results - Last 24 Hours (Table) 07/15/24 07/19/24 07/19/24 Range/Units 22:15 05:48 05:48 WBC 16.4 H (3.8-10.6) k/uL RBC 2.89 L (3.80-5.40) m/uL Hgb 7.7 L (11.4-16.0) gm/dL Hct 25.4 L (34.0-46.0) % MCHC 30.5 L (31.0-37.0) g/dL RDW 17.7 H (11.5-15.5) % Calcium 7.6 L (8.4-10.2) mg/dL Alkaline Phosphatase 239 H (38-126) U/L Total Protein 4.4 L (6.3-8.2) g/dL Albumin 1.7 L (3.5-5.0) g/dL Crossmatch See Detail Microbiology - Last 24 Hours (Table) 07/15/24 21:23 Blood Culture - Preliminary Blood
--- NOTE | 2024-07-19 14:15 | P.PN ---
Subjective Progress Note Date: 07/19/24 SURGICAL PROGRESS NOTE CHIEF COMPLAINT: Necrotic infected mass in right lower extremity HISTORY OF PRESENT ILLNESS: Patient continues to have pain in that right thigh. Patient reports that some the swelling has decreased. She is awaiting transfer to [facility]. Afebrile. WBC is down from 18-16 hemoglobin 6.7 up to 7.7 after 1 unit of blood PHYSICAL EXAM: VITAL SIGNS: Reviewed. GENERAL: Well-developed in no acute distress. Extremities: Right upper thigh swelling and erythema. Drain in place with cloudy output ASSESSMENT: 1. Necrotic infected mass in the right lower extremity PLAN: -Awaiting transfer to [facility] for surgical oncology eval and surgical debridement -Continue antibiotics Physician Skin Toggler note has been reviewed by physician. Signing provider agrees with the documented findings, assessment, and plan of care. Objective - Vital Signs Vital signs: Vital Signs Temp 99.2 F 07/19/24 08:00 Pulse 95 07/19/24 08:00 Resp 16 07/19/24 12:00 BP 111/65 07/19/24 12:00 Pulse Ox 95 07/19/24 12:00 FiO2 Intake & Output 07/18/24 07/19/24 07/19/24 18:59 06:59 18:59 Intake Total 286 10 20 Output Total 400 Balance 286 -390 20 Weight 69 kg Intake: IV 10 20 Invasive Line 2 10 20 Blood Product 286 Rc Pheresis 2 As3 Unit 286 [id number] Output: Urine 400 Other: Voiding Method Bedpan Bedpan # Voids 2 1 2 - Labs CBC & Chem 7: 07/19/24 05:48 07/19/24 05:48 Labs: Abnormal Lab Results - Last 24 Hours (Table) 07/15/24 07/19/24 07/19/24 Range/Units 22:15 05:48 05:48 WBC 16.4 H (3.8-10.6) k/uL RBC 2.89 L (3.80-5.40) m/uL Hgb 7.7 L (11.4-16.0) gm/dL Hct 25.4 L (34.0-46.0) % MCHC 30.5 L (31.0-37.0) g/dL RDW 17.7 H (11.5-15.5) % Calcium 7.6 L (8.4-10.2) mg/dL Alkaline Phosphatase 239 H (38-126) U/L Total Protein 4.4 L (6.3-8.2) g/dL Albumin 1.7 L (3.5-5.0) g/dL Crossmatch See Detail Microbiology - Last 24 Hours (Table) 07/15/24 21:23 Blood Culture - Preliminary Blood
[2024-07-19 14:46] VITALS: BMI 26.1
[2024-07-19] MEDS: VANCOMYCIN 1,250 MG in SODIUM CHLORIDE 0.9% 250 ML IVPB SCH (19:54)
--- NOTE | 2024-07-19 20:23 | P.PN ---
Subjective Progress Note Date: 07/19/24 Called [facility] transfer center,[phone] Ivory, spoke with Dr Floyd, surgery, and provided extensive sign out, who recommended transfer to medicine service with consult for ortho oncology, ID.IM service was provided again with full sign out and decided that patient needs to be admitted under cardiology... because patient has afib and is not anticoagulated. Ivory notifed me that I will receive a call from cardiology attending to provide them sign out. No call back received so far at 20:20 07/19/2024. Objective - Vital Signs Vital signs: Vital Signs Temp 98.2 F 07/19/24 16:00 Pulse 90 07/19/24 16:00 Resp 16 07/19/24 16:00 BP 108/70 07/19/24 16:00 Pulse Ox 96 07/19/24 16:00 FiO2 Intake & Output 07/18/24 07/19/24 07/19/24 18:59 06:59 18:59 Intake Total 286 10 374 Output Total 400 Balance 286 -390 374 Weight 69 kg 69 kg Intake: IV 10 20 Invasive Line 2 10 20 Oral 354 Blood Product 286 Rc Pheresis 2 As3 Unit 286 [id number] Output: Urine 400 Other: Voiding Method Bedpan Bedpan # Voids 2 1 2 - Labs CBC & Chem 7: 07/19/24 05:48 07/19/24 05:48 Labs: Abnormal Lab Results - Last 24 Hours (Table) 07/19/24 07/19/24 Range/Units 05:48 05:48 WBC 16.4 H (3.8-10.6) k/uL RBC 2.89 L (3.80-5.40) m/uL Hgb 7.7 L (11.4-16.0) gm/dL Hct 25.4 L (34.0-46.0) % MCHC 30.5 L (31.0-37.0) g/dL RDW 17.7 H (11.5-15.5) % Calcium 7.6 L (8.4-10.2) mg/dL Alkaline Phosphatase 239 H (38-126) U/L Total Protein 4.4 L (6.3-8.2) g/dL Albumin 1.7 L (3.5-5.0) g/dL Microbiology - Last 24 Hours (Table) 07/15/24 21:23 Blood Culture - Preliminary Blood
[2024-07-20 06:33] LABS: ALT 7 U/L (4-34); AST 22 U/L (14-36); African American GFR (CKD) >90 (>60 ml/min/1.73 sqM); Albumin 1.6 g/dL (3.5-5.0); Alkaline Phosphatase 209 U/L (38-126); Anion Gap 8 mmol/L; Blood Urea Nitrogen 11 mg/dL (7-17); Calcium 7.5 mg/dL (8.4-10.2); Carbon Dioxide 20 mmol/L (22-30); Chloride 106 mmol/L (98-107); Glucose 88 mg/dL (74-99); Non-African American GFR(CKD) >90 (>60 ml/min/1.73 sqM); Potassium 3.5 mmol/L (3.5-5.1); Sodium 134 mmol/L (137-145); Total Bilirubin 0.4 mg/dL (0.2-1.3); Total Protein 4.1 g/dL (6.3-8.2)
[2024-07-20 07:52] LABS: Anisocytosis Slight; HGB 7.9 gm/dL (11.4-16.0); Hypochromasia Marked; MCH 26.4 pg (25.0-35.0); MCHC 30.4 g/dL (31.0-37.0); MCV 86.7 fL (80.0-100.0); Mean Platelet Volume 7.4; Platelet Count 324 k/uL (150-450); Poikilocytosis Moderate; RDW 17.3 % (11.5-15.5); WBC 18.5 k/uL (3.8-10.6)
[2024-07-20] MEDS ORDERED: ONDANSETRON 4 MG/2 ML VIAL IVP PRN (08:59)
--- NOTE | 2024-07-20 09:22 | P.PN ---
Subjective Progress Note Date: 07/20/24 Principal diagnosis: Hospital Course: A 58-year-old female with recent complicated PMH including Takotsubo cardiomyopathy, HLD, HTN, paroxysmal A-fib not on anticoagulation, complex mass of the femur pending pathology, concern for metastatic process. History of right leg pain with hematoma evacuation on 05/25/2024, who presented to the ER with worsening erythema, pain, foul smelling discharge, concern for infection. ED documentation reviewed. In the ED patient was treated with a bolus of normal saline, ceftriaxone 2 g IV x 1, Dilaudid 0.5 mg IV x 1. Oncology following, patient has previously met with an orthopedic oncologist at [facility], recommendations pending pathology. Vitals on admission temperature 99.3, pulse rate 100, respiratory rate 12, blood pressure 100/66, O2 sat 95% on room air CXR shows enlarging pulmonary nodules throughout the lungs compared to 2023. Findings compatible with metastatic disease. Right knee x-ray shows no acute osseous pathology. Mild tricompartmental osteoarthritic changes. Right femur x-ray shows soft tissue catheter in the subcutaneous tissues/mass of the right lower extremity. No evidence of fracture. There is a cortical scalloping along the femur possibly representing involvement of the known mass. Labs on admission show WBC 23.8, hemoglobin 6.8, hematocrit 22.5, platelets 601, neutrophils 19.1, PT 11.7, PTT 23.5, INR 1.1, sodium 132, potassium 4.4, chloride 94, carbon dioxide 20, BUN 12, creatinine 0.55, lactic acid 6.5, calcium 8.2, AST 37, ALT 12, alkaline phosphatase 305. ID consulted for management of sepsis secondary to right side infection, started on vancomycin and ceftriaxone, now she switched to vancomycin and cefepime general surgery consulted. Surgery recommends transfer to [facility] as patient was previously seen by Dr. Wilbert Beavers, orthopedic oncology, who apparently practices at [facility]. Per Dr. Ramírez, Dr. Lopes had a conversation with Dr. Beavers regarding transfer, currently awaiting further clarification from Dr. Lopes. Of note, patient was never seen at [facility]. Awaiting bed transfer to [facility]. Patient seen and examined. She is tolerating IV cefepime and vancomycin. Denies any nausea or vomiting. Reports her pain is adequate controlled with alternating doses of as needed morphine and hydromorphone Objective - Vital Signs Vital signs: Vital Signs Temp 98.1 F 07/20/24 03:42 Pulse 92 07/20/24 03:42 Resp 16 07/20/24 03:42 BP 108/62 07/20/24 03:42 Pulse Ox 97 07/20/24 03:42 FiO2 Intake & Output 07/19/24 07/20/24 07/20/24 18:59 06:59 18:59 Intake Total 374 20 118 Output Total 310 Balance 374 -290 118 Weight 69 kg 76.5 kg Intake: IV 20 20 Invasive Line 2 20 20 Oral 354 118 Output: Drainage 10 Right Lateral Thigh 10 Urine 300 Other: Voiding Method Bedpan Bedpan # Voids 2 1 - Exam General: [nontoxic], [no distress], [appears at stated age] Derm: [warm], [dry] Head: [atraumatic], [normocephalic], [symmetric] Eyes: [EOMI], [no lid lag], [anicteric sclera] Mouth: [no lip lesion], [mucus membranes moist] Cardiovascular: [S1S2 reg], [no murmur] Lungs: [CTA bilateral], [no rhonchi, no rales] , [no accessory muscle use] Abdominal: [soft], [ nontender to palpation], [no guarding], [no appreciable o rganomegaly] Ext: Right tight tenderness, erythema, swelling, there is a Hemovac drain in place Neuro: Moving all extremity spontaneously Psych: [Alert], [oriented], [appropriate affect] - Labs CBC & Chem 7: 07/20/24 05:32 07/20/24 05:35 Labs: Abnormal Lab Results - Last 24 Hours (Table) 07/20/24 07/20/24 Range/Units 05:32 05:35 WBC 18.5 H (3.8-10.6) k/uL RBC 3.00 L (3.80-5.40) m/uL Hgb 7.9 L (11.4-16.0) gm/dL Hct 26.0 L (34.0-46.0) % MCHC 30.4 L (31.0-37.0) g/dL RDW 17.3 H (11.5-15.5) % Sodium 134 L (137-145) mmol/L Carbon Dioxide 20 L (22-30) mmol/L Calcium 7.5 L (8.4-10.2) mg/dL Alkaline Phosphatase 209 H (38-126) U/L Total Protein 4.1 L (6.3-8.2) g/dL Albumin 1.6 L (3.5-5.0) g/dL Microbiology - Last 24 Hours (Table) 07/15/24 21:23 Blood Culture - Preliminary Blood Assessment and Plan Assessment: Sepsis likely secondary to right thigh infection in the settings of surgical drainage presents, possible mass necrosis Lactic acidosis, resolved, in the settings of above Status post right thigh hematoma evacuation 05/25/2024 Right thigh mass, concern for metastatic process Pulmonary nodules -Continue IV cefepime and vancomycin to cover for infection -Waiting results of surgical pathology -I had called [facility] transfer and currently bed availability for higher level of care for orthopedic oncology evaluation -Pain control with as needed IV morphine and hydromorphone Acute blood loss anemia -S/p 3unit of PRBC on admission -Continue to monitor CBC and transfuse hemoglobin less than 7 or if hemodynamically unstable -Elevated alkaline phosphatase -Possibly due to as a result of bony involvement from right femoral cortical thickening? [Chronic:] Paroxysmal atrial fibrillation, hold anticoagulation not on anticoagulation at home HLD: Continue atorvastatin 40 Hypertension: New metoprolol succinate 50 twice daily History of Takotsubo's cardiomyopathy with LVEF abhi of 35% with improvement to 5 to 50% as per recent echocardiogram DVT ppx: holding due to acute blood loss anemia dispo: Awaiting bed availability at [facility] Time with Patient: Greater than 30
[2024-07-20] MEDS: POTASSIUM CHLORIDE ER 20 MEQ TAB.ER PO STA (10:18)
--- NOTE | 2024-07-20 11:35 | P.PN ---
Subjective Progress Note Date: 07/20/24 SURGICAL PROGRESS NOTE CHIEF COMPLAINT: Necrotic infected mass in right lower extremity HISTORY OF PRESENT ILLNESS: Patient complains of pain in her right thigh. Drain with purulent drainage. Afebrile. WBC did go up from 16-18. Hgb 7.9 PHYSICAL EXAM: VITAL SIGNS: Reviewed. GENERAL: Well-developed in no acute distress. Extremities: Right upper thigh swelling and erythema. Drain in place with pu rulent output. Right dorsalis pedis pulse plus 2 ASSESSMENT: 1. Necrotic infected mass in the right lower extremity PLAN: -Awaiting transfer to [facility] for surgical oncology eval and surgical debridement -Continue antibiotics Physician Inspector Tester Sorter note has been reviewed by physician. Signing provider agrees with the documented findings, assessment, and plan of care. Objective - Vital Signs Vital signs: Vital Signs Temp 98.1 F 07/20/24 08:00 Pulse 92 07/20/24 08:00 Resp 16 07/20/24 08:00 BP 105/65 07/20/24 08:00 Pulse Ox 97 07/20/24 03:42 FiO2 Intake & Output 07/19/24 07/20/24 07/20/24 18:59 06:59 18:59 Intake Total 374 20 118 Output Total 310 Balance 374 -290 118 Weight 69 kg 76.5 kg Intake: IV 20 20 Invasive Line 2 20 20 Oral 354 118 Output: Drainage 10 Right Lateral Thigh 10 Urine 300 Other: Voiding Method Bedpan Bedpan # Voids 2 1 - Labs CBC & Chem 7: 07/20/24 05:32 07/20/24 05:35 Labs: Abnormal Lab Results - Last 24 Hours (Table) 07/20/24 07/20/24 Range/Units 05:32 05:35 WBC 18.5 H (3.8-10.6) k/uL RBC 3.00 L (3.80-5.40) m/uL Hgb 7.9 L (11.4-16.0) gm/dL Hct 26.0 L (34.0-46.0) % MCHC 30.4 L (31.0-37.0) g/dL RDW 17.3 H (11.5-15.5) % Sodium 134 L (137-145) mmol/L Carbon Dioxide 20 L (22-30) mmol/L Calcium 7.5 L (8.4-10.2) mg/dL Alkaline Phosphatase 209 H (38-126) U/L Total Protein 4.1 L (6.3-8.2) g/dL Albumin 1.6 L (3.5-5.0) g/dL Microbiology - Last 24 Hours (Table) 07/15/24 21:23 Blood Culture - Preliminary Blood
--- NOTE | 2024-07-20 12:47 | P.PN ---
Subjective Progress Note Date: 07/19/24 Principal diagnosis: Reason for follow-up is sepsis possible right thigh infected hematoma Patient is a 58-year-old female with a past medical history significant for hyperlipidemia atrial fibrillation recently has developed hematoma of the right thigh that was drained on 05/25/2024 culture has been negative patient now presenting back to the hospital concerning for increasing pain and swelling to the right thigh area and also foul-smelling drainage patient to be diagnosed with sepsis possible associated infected right thigh hematoma General Surgeon recommended patient to be transferred to urgent care. On today's evaluation that is 07/19/2024,the patient remains to be afebrile, patient is on room air not requiring supplemental oxygen and denies any shortness of breath no chest pain or cough.Patient denies having any nausea or vomiting, no abdominal pain and no diarrhea pain to the right thigh is currently controlled with the pain medication. Patient white count is down to 16.4, creatinine 0.63 blood cultures pending,vancomycin trough is 24.1 Objective - Vital Signs Vital signs: Vital Signs Temp 99.2 F 07/19/24 08:00 Pulse 95 07/19/24 08:00 Resp 16 07/19/24 08:00 BP 103/62 07/19/24 08:00 Pulse Ox 96 07/19/24 08:00 FiO2 Intake & Output 07/18/24 07/19/24 07/19/24 18:59 06:59 18:59 Intake Total 286 10 10 Output Total 400 Balance 286 -390 10 Weight 69 kg Intake: IV 10 10 Invasive Line 2 10 10 Blood Product 286 Rc Pheresis 2 As3 Unit 286 [id number] Output: Urine 400 Other: Voiding Method Bedpan Bedpan # Voids 2 1 - Exam GENERAL DESCRIPTION: Middle-age female lying in bed in no distress RESPIRATORY SYSTEM: Unlabored breathing , decreased breath sounds at bases HEART: S1 S2 regular rate and rhythm , ABDOMEN: Soft , no tenderness EXTREMITIES: Right thigh with swelling redness no drainage - Labs CBC & Chem 7: 07/20/24 05:32 07/20/24 05:35 Labs: Abnormal Lab Results - Last 24 Hours (Table) 07/15/24 07/19/24 07/19/24 Range/Units 22:15 05:48 05:48 WBC 16.4 H (3.8-10.6) k/uL RBC 2.89 L (3.80-5.40) m/uL Hgb 7.7 L (11.4-16.0) gm/dL Hct 25.4 L (34.0-46.0) % MCHC 30.5 L (31.0-37.0) g/dL RDW 17.7 H (11.5-15.5) % Calcium 7.6 L (8.4-10.2) mg/dL Alkaline Phosphatase 239 H (38-126) U/L Total Protein 4.4 L (6.3-8.2) g/dL Albumin 1.7 L (3.5-5.0) g/dL Crossmatch See Detail Microbiology - Last 24 Hours (Table) 07/15/24 21:23 Blood Culture - Preliminary Blood Assessment and Plan (1) Sepsis Current Visit: Yes Status: Acute Code(s): A41.9 - SEPSIS, UNSPECIFIED ORGANISM SNOMED Code(s): 56057370 (2) Abscess of right thigh Current Visit: Yes Status: Acute Priority: High Code(s): L02.415 - CUTANEOUS ABSCESS OF RIGHT LOWER LIMB SNOMED Code(s): 66044138892386881 Plan: 1patient presenting the hospital with increasing pain and swelling and foul- smelling drainage from the right thigh drainage catheter in this patient who did have features of sepsis with fever tachycardia elevated white count elevated lactic acid, will need to cover for both gram-positive as well as gram-negative pathogen 2-patient is currently waiting for transfer to [facility] for surgical exploration 3-patient white count is trending down and we continued on vancomycin pharmacy to dose and cefepime, monitor clinical course closely Dictation was produced using [employer] dictation software. please excuse any grammatical, word or spelling errors. Time with Patient: Less than 30
--- NOTE | 2024-07-20 12:48 | P.PN ---
Subjective Progress Note Date: 07/20/24 Principal diagnosis: Reason for follow-up is sepsis possible right thigh infected hematoma Patient is a 58-year-old female with a past medical history significant for hyperlipidemia atrial fibrillation recently has developed hematoma of the right thigh that was drained on 05/25/2024 culture has been negative patient now presenting back to the hospital concerning for increasing pain and swelling to the right thigh area and also foul-smelling drainage patient to be diagnosed with sepsis possible associated infected right thigh hematoma General Surgeon recommended patient to be transferred to urgent care. On today's evaluation that is 07/20/2024, the patient continues to be afebrile, the patient is on room air and breathing comfortably, the Pt denies having any c hest pain or cough, the patient denies having any abdominal pain no vomiting or any diarrhea patient mention pain to the right thigh slightly decreased in intensity. Patient white count is 18.5, creatinine 0.56 blood culture has been pending Objective - Vital Signs Vital signs: Vital Signs Temp 98.1 F 07/20/24 08:00 Pulse 92 07/20/24 08:00 Resp 16 07/20/24 08:00 BP 105/65 07/20/24 08:00 Pulse Ox 97 07/20/24 03:42 FiO2 Intake & Output 07/19/24 07/20/24 07/20/24 18:59 06:59 18:59 Intake Total 374 20 118 Output Total 310 Balance 374 -290 118 Weight 69 kg 76.5 kg Intake: IV 20 20 Invasive Line 2 20 20 Oral 354 118 Output: Drainage 10 Right Lateral Thigh 10 Urine 300 Other: Voiding Method Bedpan Bedpan # Voids 2 1 - Exam GENERAL DESCRIPTION: Middle-age female lying in bed in no distress RESPIRATORY SYSTEM: Unlabored breathing , decreased breath sounds at bases HEART: S1 S2 regular rate and rhythm , ABDOMEN: Soft , no tenderness EXTREMITIES: Right thigh with swelling redness no drainage - Labs CBC & Chem 7: 07/20/24 05:32 07/20/24 05:35 Labs: Abnormal Lab Results - Last 24 Hours (Table) 07/20/24 07/20/24 Range/Units 05:32 05:35 WBC 18.5 H (3.8-10.6) k/uL RBC 3.00 L (3.80-5.40) m/uL Hgb 7.9 L (11.4-16.0) gm/dL Hct 26.0 L (34.0-46.0) % MCHC 30.4 L (31.0-37.0) g/dL RDW 17.3 H (11.5-15.5) % Sodium 134 L (137-145) mmol/L Carbon Dioxide 20 L (22-30) mmol/L Calcium 7.5 L (8.4-10.2) mg/dL Alkaline Phosphatase 209 H (38-126) U/L Total Protein 4.1 L (6.3-8.2) g/dL Albumin 1.6 L (3.5-5.0) g/dL Microbiology - Last 24 Hours (Table) 07/15/24 21:23 Blood Culture - Preliminary Blood Assessment and Plan (1) Sepsis Current Visit: Yes Status: Acute Code(s): A41.9 - SEPSIS, UNSPECIFIED ORGANISM SNOMED Code(s): 23959783 (2) Abscess of right thigh Current Visit: Yes Status: Acute Priority: High Code(s): L02.415 - CUTANEOUS ABSCESS OF RIGHT LOWER LIMB SNOMED Code(s): 26722482496624985 Plan: 1patient presenting the hospital with increasing pain and swelling and foul-sm elling drainage from the right thigh drainage catheter in this patient who did have features of sepsis with fever tachycardia elevated white count elevated lactic acid, will need to cover for both gram-positive as well as gram-negative pathogen 2-patient is currently waiting for transfer to [facility] for surgical exploration 3-patient white count is slightly up today will be monitored closely blood culture have been so far patient will be treated with vancomycin pharmacy to dose and cefepime, monitor clinical course closely Dictation was produced using [employer] dictation software. please excuse any grammatical, word or spelling errors. Time with Patient: Less than 30
--- NOTE | 2024-07-20 19:09 | P.PN ---
Subjective Progress Note Date: 07/20/24 No acute events. Reporting persisting right thigh pain, but pain meds are helping manage pain. States swelling in right thigh has somewhat iproved and has had decreased outpt in GLORIA drain. Hgb 7.9. Awaiting transfer to for ortho oncology evaluation. Afebrile, continues on IV abx Objective - Vital Signs Vital signs: Vital Signs Temp 98.2 F 07/20/24 12:00 Pulse 85 07/20/24 12:00 Resp 16 07/20/24 12:00 BP 116/68 07/20/24 12:00 Pulse Ox 97 07/20/24 03:42 FiO2 Intake & Output 07/19/24 07/20/24 07/20/24 18:59 06:59 18:59 Intake Total 374 20 118 Output Total 310 Balance 374 -290 118 Weight 69 kg 76.5 kg Intake: IV 20 20 Invasive Line 2 20 20 Oral 354 118 Output: Drainage 10 Right Lateral Thigh 10 Urine 300 Other: Voiding Method Bedpan Bedpan # Voids 2 1 1 - Constitutional General appearance: Present: average body habitus, no acute distress - EENT Eyes: Present: anicteric sclerae, EOMI ENT: Present: hearing grossly normal - Respiratory Details: breathing is even and unlabored - Cardiovascular Details: skin warm and dry - Integumentary Integumentary Comment(s): erythema to right anterior thigh, GLORIA drain in place - Psychiatric Psychiatric: Present: A&O x's 3 - Labs CBC & Chem 7: 07/20/24 05:32 07/20/24 05:35 Labs: Abnormal Lab Results - Last 24 Hours (Table) 07/20/24 07/20/24 Range/Units 05:32 05:35 WBC 18.5 H (3.8-10.6) k/uL RBC 3.00 L (3.80-5.40) m/uL Hgb 7.9 L (11.4-16.0) gm/dL Hct 26.0 L (34.0-46.0) % MCHC 30.4 L (31.0-37.0) g/dL RDW 17.3 H (11.5-15.5) % Sodium 134 L (137-145) mmol/L Carbon Dioxide 20 L (22-30) mmol/L Calcium 7.5 L (8.4-10.2) mg/dL Alkaline Phosphatase 209 H (38-126) U/L Total Protein 4.1 L (6.3-8.2) g/dL Albumin 1.6 L (3.5-5.0) g/dL Microbiology - Last 24 Hours (Table) 07/15/24 21:23 Blood Culture - Preliminary Blood Assessment and Plan (1) Abscess of right thigh Current Visit: Yes Status: Acute Priority: High Code(s): L02.415 - CUTANEOUS ABSCESS OF RIGHT LOWER LIMB SNOMED Code(s): 13088993416720935 (2) Fever Current Visit: Yes Status: Acute Priority: High Code(s): R50.9 - FEVER, UNSPECIFIED SNOMED Code(s): 324109119 (3) Hematoma of right lower leg Current Visit: Yes Status: Acute Priority: Medium Code(s): S80.11XA - CONTUSION OF RIGHT LOWER LEG, INITIAL ENCOUNTER SNOMED Code(s): 42320613556934761 (4) Pain Current Visit: Yes Status: Acute Priority: High Code(s): R52 - PAIN, UNSPECIFIED SNOMED Code(s): 76229595 (5) Pulmonary nodules Current Visit: Yes Status: Acute Priority: Medium Code(s): R91.8 - OTHER NONSPECIFIC ABNORMAL FINDING OF LUNG FIELD SNOMED Code(s): 202407566 Plan: Fever -Likely 2/2 to necrosis/infection around mass in right thigh -WBC elevated, neutrophilia, consistent with infection -Infectious disease following -Continues on IV antibiotics. -Blood culture negative. Fever now resolved RLE Pain -Secondary to infection and mass in right thigh -Case discussed with Pharm.D., pain medication adjustments have been made. -Medications have been ordered for prevention of narcotic induced constipation -Pain meds managing pain well, continue current regimen Mass with hematoma of the right lower extremity. Pulmonary nodules -Patient's clinical course summarized in HPI. Right thigh mass as well as pulmonary nodules are FDG avid. She is status post biopsy 07/05/24 -Patient has met with an Orthopedic Oncologist at , recommendations pending path. Surgery team recommending transfer to for surgical debridement and further evaluation by ortho oncology -Patient has had the GLORIA drain in for about 7 weeks. Concerns for infection. 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 Case was discussed with admitting team and surgery team today. Unfortunately with noted metastatic disease surgical intervention is not typically standard of care, as well it could delay chemo/RT for sometime. Discussed case with rad onc, will place consult so pt can establish care. -Current plan is to transfer pt to [facility] for surgical debridement and ortho onc evaluation -Clinic f/u with Dr. Montesinos scheduled for 08/07/24 Anemia -Blood loss anemia, mass in thigh, GLORIA drain with bloody output -S/p 3 units PRBCs since admit. Hgb stable at 7.9 -CBC daily, transfuse for Hgb <7 or if symptomatic -Hold IV iron for now due to infection. This can also be given in outpt setting once infection has been adequately treated -Coags normal, normal plt, fibrinogen 766-nothing to suggest DIC at this time. Bilirubin normal, retic 5.4 which would be expected with noted anemia.
[2024-07-21 08:30] LABS: Anisocytosis Slight; Basophils % (A) 0 %; Eosinophils # (A) 0.1 k/uL (0-0.7); Eosinophils % (A) 1 %; HCT 26.9 % (34.0-46.0); Hypochromasia Marked; Lymphocytes # (A) 2.4 k/uL (1.0-4.8); Lymphocytes % (A) 13 %; MCH 26.3 pg (25.0-35.0); MCHC 29.8 g/dL (31.0-37.0); MCV 88.2 fL (80.0-100.0); Mean Platelet Volume 7.4; Monocytes # (A) 1.2 k/uL (0-1.0); Monocytes % (A) 6 %; Neutrophils # (A) 14.9 k/uL (1.3-7.7); Neutrophils % (A) 79 %; Platelet Count 305 k/uL (150-450); Poikilocytosis Slight; RBC 3.04 m/uL (3.80-5.40); RDW 17.2 % (11.5-15.5); WBC 18.8 k/uL (3.8-10.6)
--- NOTE | 2024-07-21 09:07 | P.PN ---
Subjective Progress Note Date: 07/21/24 Principal diagnosis: Hospital Course: A 58-year-old female with recent complicated PMH including Takotsubo cardiomyopathy, HLD, HTN, paroxysmal A-fib not on anticoagulation, complex mass of the femur pending pathology, concern for metastatic process. History of right leg pain with hematoma evacuation on 05/25/2024, who presented to the ER with worsening erythema, pain, foul smelling discharge, concern for infection. ED documentation reviewed. In the ED patient was treated with a bolus of normal saline, ceftriaxone 2 g IV x 1, Dilaudid 0.5 mg IV x 1. Oncology following, patient has previously met with an orthopedic oncologist at [facility], recommendations pending pathology. Vitals on admission temperature 99.3, pulse rate 100, respiratory rate 12, blood pressure 100/66, O2 sat 95% on room air CXR shows enlarging pulmonary nodules throughout the lungs compared to 2023. Findings compatible with metastatic disease. Right knee x-ray shows no acute osseous pathology. Mild tricompartmental osteoarthritic changes. Right femur x-ray shows soft tissue catheter in the subcutaneous tissues/mass of the right lower extremity. No evidence of fracture. There is a cortical scalloping along the femur possibly representing involvement of the known mass. Labs on admission show WBC 23.8, hemoglobin 6.8, hematocrit 22.5, platelets 601, neutrophils 19.1, PT 11.7, PTT 23.5, INR 1.1, sodium 132, potassium 4.4, chloride 94, carbon dioxide 20, BUN 12, creatinine 0.55, lactic acid 6.5, calcium 8.2, AST 37, ALT 12, alkaline phosphatase 305. ID consulted for management of sepsis secondary to right side infection, started on vancomycin and ceftriaxone, now she switched to vancomycin and cefepime general surgery consulted. Surgery recommends transfer to [facility] as patient was previously seen by Dr. Wilbert Beavers, orthopedic oncology, who apparently practices at [facility]. Per Dr. Ramírez, Dr. Lopes had a conversation with Dr. Beavers regarding transfer, currently awaiting further clarification from Dr. Lopes. Of note, patient was never seen at [facility]. Awaiting bed transfer to [facility]. Patient seen and examined. She remains on IV cefepime and vancomycin. She is tolerating both antibiotics denies any nausea vomiting. Awaiting bed transfer to [facility] Objective - Vital Signs Vital signs: Vital Signs Temp 98.3 F 07/21/24 08:56 Pulse 90 07/21/24 08:56 Resp 17 07/21/24 08:56 BP 96/60 07/21/24 08:56 Pulse Ox 100 07/21/24 08:56 FiO2 Intake & Output 07/20/24 07/21/24 07/21/24 18:59 06:59 18:59 Intake Total 118 1840 Output Total 400 Balance 118 1840 -400 Weight 78.5 kg Intake: IV 1490 Cefepime 2 gm In Sodium 200 Chloride 0.9% 100 ml @ 25 mls/hr IVPB Q8H [facility] Rx#: [id number] Sodium Chloride 0.9% 1, 1040 000 ml @ 130 mls/hr IV . Q7H42M [facility] TO [facility] Rx#:[id number] Vancomycin 1,250 mg In 250 Sodium Chloride 0.9% 250 ml @ 125 mls/hr IVPB Q12H [facility]END[facility] TO [facility] Rx#:[id number] Intake, IV Titration 350 Amount Cefepime 2 gm In Sodium 100 Chloride 0.9% 100 ml @ 25 mls/hr IVPB Q8H [facility] Rx#: [id number] Vancomycin 1,250 mg In 250 Sodium Chloride 0.9% 250 ml @ 125 mls/hr IVPB Q12H [facility] TO [facility] Rx#:[id number] Oral 118 Output: Urine 400 Other: Voiding Method Bedpan # Voids 1 - Exam General: [nontoxic], [no distress], [appears at stated age] Derm: [warm], [dry] Head: [atraumatic], [normocephalic], [symmetric] Eyes: [EOMI], [no lid lag], [anicteric sclera] Mouth: [no lip lesion], [mucus membranes moist] Cardiovascular: [S1S2 reg], [no murmur] Lungs: [CTA bilateral], [no rhonchi, no rales] , [no accessory muscle use] Abdominal: [soft], [ nontender to palpation], [no guarding], [no appreciable organomegaly] Ext: Right tight tenderness, erythema, swelling, there is a Hemovac drain in place. Neuro: Moving all extremity spontaneously Psych: [Alert], [oriented], [appropriate affect] - Labs CBC & Chem 7: 07/21/24 07:30 07/20/24 05:35 Labs: Abnormal Lab Results - Last 24 Hours (Table) 07/21/24 Range/Units 07:30 WBC 18.8 H (3.8-10.6) k/uL RBC 3.04 L (3.80-5.40) m/uL Hgb 8.0 L (11.4-16.0) gm/dL Hct 26.9 L (34.0-46.0) % MCHC 29.8 L (31.0-37.0) g/dL RDW 17.2 H (11.5-15.5) % Neutrophils # 14.9 H (1.3-7.7) k/uL Monocytes # 1.2 H (0-1.0) k/uL Assessment and Plan Assessment: Sepsis likely secondary to right thigh infection in the settings of surgical drainage presents, possible mass necrosis Lactic acidosis, resolved, in the settings of above Status post right thigh hematoma evacuation 05/25/2024 Right thigh mass, concern for metastatic process Pulmonary nodules -Continue IV cefepime and vancomycin to cover for infection -Waiting results of surgical pathology -I had called [facility] on July 20. I had spoken to the transfer department and was informed that the patient has been accepted to [facility] however currently awaiting bed availability. Acute blood loss anemia -S/p 3unit of PRBC on admission -Continue to monitor CBC and transfuse hemoglobin less than 7 or if hemodynamically unstable -Elevated alkaline phosphatase -Possibly due to as a result of bony involvement from right femoral cortical thickening? [Chronic:] Paroxysmal atrial fibrillation, hold anticoagulation not on anticoagulation at home HLD: Continue atorvastatin 40 Hypertension: Continue metoprolol succinate 50 twice daily History of Takotsubo's cardiomyopathy with LVEF abhi of 35% with improvement to 45 to 50% as per recent echocardiogram DVT ppx: holding due to acute blood loss anemia dispo: Awaiting transfer to [facility] for higher level of care for orthopedic oncology evaluation
[2024-07-21] MEDS: VANCOMYCIN TROUGH DUE 1 EACH MISC MISCELLANE ONE (09:11)
--- NOTE | 2024-07-21 15:27 | P.PN ---
Subjective Progress Note Date: 07/21/24 Principal diagnosis: Reason for follow-up is sepsis possible right thigh infected hematoma Patient is a 58-year-old female with a past medical history significant for hyperlipidemia atrial fibrillation recently has developed hematoma of the right thigh that was drained on 05/25/2024 culture has been negative patient now presenting back to the hospital concerning for increasing pain and swelling to the right thigh area and also foul-smelling drainage patient to be diagnosed with sepsis possible associated infected right thigh hematoma General Surgeon recommended patient to be transferred to urgent care. On today's evaluation that is 07/21/2024, patient did not have any fever and denies any chills, patient is breathing comfortably on room air, patient with no chest pain or cough patient did not have any abdominal pain nausea vomiting or any loose stools, pain to the right thigh is currently controlled. Patient white count is 18.8 Vanco trough is 19.5 blood culture negative Objective - Vital Signs Vital signs: Vital Signs Temp 98.3 F 07/21/24 11:38 Pulse 89 07/21/24 15:11 Resp 17 07/21/24 15:11 BP 104/67 07/21/24 15:11 Pulse Ox 99 07/21/24 15:11 FiO2 Intake & Output 07/20/24 07/21/24 07/21/24 18:59 06:59 18:59 Intake Total 118 1840 180 Output Total 400 Balance 118 1840 -220 Weight 78.5 kg Intake: IV 1490 Cefepime 2 gm In Sodium 200 Chloride 0.9% 100 ml @ 25 mls/hr IVPB Q8H [facility] Rx#: [id number] Sodium Chloride 0.9% 1, 1040 000 ml @ 130 mls/hr IV . Q7H42M [facility] Rx#:[id number] Vancomycin 1,250 mg In 250 Sodium Chloride 0.9% 250 ml @ 125 mls/hr IVPB Q12H [facility] Rx#:[id number] Intake, IV Titration 350 Amount Cefepime 2 gm In Sodium 100 Chloride 0.9% 100 ml @ 25 mls/hr IVPB Q8H [facility] Rx#: [id number] Vancomycin 1,250 mg In 250 Sodium Chloride 0.9% 250 ml @ 125 mls/hr IVPB Q12H [facility] Rx#:[id number] Oral 118 180 Output: Urine 400 Other: Voiding Method Bedpan Bedpan # Voids 1 - Exam GENERAL DESCRIPTION: Middle-age female lying in bed in no distress RESPIRATORY SYSTEM: Unlabored breathing , decreased breath sounds at bases HEART: S1 S2 regular rate and rhythm , ABDOMEN: Soft , no tenderness EXTREMITIES: Right thigh with swelling redness no drainage - Labs CBC & Chem 7: 07/21/24 07:30 07/20/24 05:35 Labs: Abnormal Lab Results - Last 24 Hours (Table) 07/21/24 Range/Units 07:30 WBC 18.8 H (3.8-10.6) k/uL RBC 3.04 L (3.80-5.40) m/uL Hgb 8.0 L (11.4-16.0) gm/dL Hct 26.9 L (34.0-46.0) % MCHC 29.8 L (31.0-37.0) g/dL RDW 17.2 H (11.5-15.5) % Neutrophils # 14.9 H (1.3-7.7) k/uL Monocytes # 1.2 H (0-1.0) k/uL Microbiology - Last 24 Hours (Table) 07/15/24 21:23 Blood Culture - Final Blood Assessment and Plan (1) Sepsis Current Visit: Yes Status: Acute Code(s): A41.9 - SEPSIS, UNSPECIFIED ORGANISM SNOMED Code(s): 85957200 (2) Abscess of right thigh Current Visit: Yes Status: Acute Priority: High Code(s): L02.415 - CUTANEOUS ABSCESS OF RIGHT LOWER LIMB SNOMED Code(s): 21494970567964944 Plan: 1patient presenting the hospital with increasing pain and swelling and foul- smelling drainage from the right thigh drainage catheter in this patient who did have features of sepsis with fever tachycardia elevated white count elevated lactic acid, will need to cover for both gram-positive as well as gram-negative pathogen 2-patient white count is elevated however the patient not running any fever right thigh overall redness has slightly decreased we will continue vancomycin pharmacy to dose and cefepime, hopefully surgical exploration and transfer soon Dictation was produced using [employer] dictation software. please excuse any grammatical, word or spelling errors. Time with Patient: Less than 30
--- NOTE | 2024-07-22 01:01 | P.PN ---
Progress Note - Text Progress Note Date: 07/21/24 CHIEF COMPLAINT: Necrotic infected mass in right lower extremity HISTORY OF PRESENT ILLNESS: No acute events overnight. Patient complains of pain in her right thigh. Drain with purulent drainage. Afebrile. PHYSICAL EXAM: VITAL SIGNS: Reviewed. GENERAL: Well-developed in no acute distress. Extremities: Right upper thigh swelling and erythema. Drain in place with purulent output. Right dorsalis pedis pulse plus 2 ASSESSMENT: 1. Necrotic infected mass in the right lower extremity PLAN: -Awaiting transfer [facility]ology eval and surgical debridement -Continue antibiotics -ID recs Ricardo Ramírez [facility] [phone]
[2024-07-22 08:31] LABS: Anisocytosis Slight; Basophils % (A) 0 %; Eosinophils # (A) 0.2 k/uL (0-0.7); Eosinophils % (A) 1 %; HCT 25.4 % (34.0-46.0); HGB 7.5 gm/dL (11.4-16.0); Hypochromasia Marked; Lymphocytes # (A) 2.1 k/uL (1.0-4.8); Lymphocytes % (A) 11 %; MCH 25.9 pg (25.0-35.0); MCHC 29.5 g/dL (31.0-37.0); MCV 87.7 fL (80.0-100.0); Mean Platelet Volume 7.4; Monocytes # (A) 1.2 k/uL (0-1.0); Monocytes % (A) 7 %; Neutrophils # (A) 14.5 k/uL (1.3-7.7); Neutrophils % (A) 79 %; Platelet Count 288 k/uL (150-450); Poikilocytosis Slight; RDW 17.2 % (11.5-15.5); WBC 18.2 k/uL (3.8-10.6)
[2024-07-22 08:52] LABS: African American GFR (CKD) >90 (>60 ml/min/1.73 sqM); Anion Gap 9 mmol/L; Blood Urea Nitrogen 15 mg/dL (7-17); Carbon Dioxide 20 mmol/L (22-30); Chloride 108 mmol/L (98-107); Glucose 88 mg/dL (74-99); Non-African American GFR(CKD) >90 (>60 ml/min/1.73 sqM); Potassium 3.4 mmol/L (3.5-5.1); Sodium 137 mmol/L (137-145)
--- NOTE | 2024-07-22 10:40 | P.PN ---
Subjective Progress Note Date: 07/22/24 Principal diagnosis: Hospital Course: A 58-year-old female with recent complicated PMH including Takotsubo cardiomyopathy, HLD, HTN, paroxysmal A-fib not on anticoagulation, complex mass of the femur pending pathology, concern for metastatic process. History of right leg pain with hematoma evacuation on 05/25/2024, who presented to the ER with worsening erythema, pain, foul smelling discharge, concern for infection. ED documentation reviewed. In the ED patient was treated with a bolus of normal saline, ceftriaxone 2 g IV x 1, Dilaudid 0.5 mg IV x 1. Oncology following, patient has previously met with an orthopedic oncologist at [facility], recommendations pending pathology. Vitals on admission temperature 99.3, pulse rate 100, respiratory rate 12, blood pressure 100/66, O2 sat 95% on room air CXR shows enlarging pulmonary nodules throughout the lungs compared to 2023. Findings compatible with metastatic disease. Right knee x-ray shows no acute osseous pathology. Mild tricompartmental osteoarthritic changes. Right femur x-ray shows soft tissue catheter in the subcutaneous tissues/mass of the right lower extremity. No evidence of fracture. There is a cortical scalloping along the femur possibly representing involvement of the known mass. Labs on admission show WBC 23.8, hemoglobin 6.8, hematocrit 22.5, platelets 601, neutrophils 19.1, PT 11.7, PTT 23.5, INR 1.1, sodium 132, potassium 4.4, chloride 94, carbon dioxide 20, BUN 12, creatinine 0.55, lactic acid 6.5, calcium 8.2, AST 37, ALT 12, alkaline phosphatase 305. ID consulted for management of sepsis secondary to right side infection, started on vancomycin and ceftriaxone, now she switched to vancomycin and cefepime general surgery consulted. Surgery recommends transfer to [facility] as patient was previously seen by Dr. Wilbert Beavers, orthopedic oncology, who apparently practices at [facility]. Per Dr. Ramírez, Dr. Lopes had a conversation with Dr. Beavers regarding transfer, currently awaiting further clarification from Dr. Lopes. Of note, patient was never seen at [facility]. Awaiting bed transfer to [facility]. Patient seen and examined. Still awaiting transfer to [facility]. She is more fluid overloaded today. Reports pain is adequately under control Objective - Vital Signs Vital signs: Vital Signs Temp 98.2 F 07/22/24 04:00 Pulse 91 07/22/24 08:06 Resp 16 07/22/24 08:06 BP 93/56 07/22/24 08:06 Pulse Ox 97 07/22/24 08:06 FiO2 Intake & Output 07/21/24 07/22/24 07/22/24 18:59 06:59 18:59 Intake Total 180 450 Output Total 400 Balance -220 450 Weight 78 kg Intake: IV 450 Cefepime 2 gm In Sodium 200 Chloride 0.9% 100 ml @ 25 mls/hr IVPB Q8H [facility] Rx#: [id number] Vancomycin 1,250 mg In 250 Sodium Chloride 0.9% 250 ml @ 125 mls/hr IVPB Q12H [facility] Rx#:[id number] Oral 180 Output: Urine 400 Other: Voiding Method Bedpan Bedpan External Catheter - Exam General: [nontoxic], [no distress], [appears at stated age] Derm: [warm], [dry] Head: [atraumatic], [normocephalic], [symmetric] Eyes: [EOMI], [no lid lag], [anicteric sclera] Mouth: [no lip lesion], [mucus membranes moist] Cardiovascular: [S1S2 reg], [no murmur] Lungs: [CTA bilateral], [no rhonchi, no rales] , [no accessory muscle use] Abdominal: [soft], [ nontender to palpation], [no guarding], [no appreciable organomegaly] Ext: Right tight tenderness, erythema, swelling, there is a Hemovac drain in place. There is diffuse edema to bilateral upper and lower extremities Neuro: Moving all extremity spontaneously Psych: [Alert], [oriented], [appropriate affect] - Labs CBC & Chem 7: 07/22/24 08:16 07/22/24 08:16 Labs: Abnormal Lab Results - Last 24 Hours (Table) 07/22/24 07/22/24 Range/Units 08:16 08:16 WBC 18.2 H (3.8-10.6) k/uL RBC 2.90 L (3.80-5.40) m/uL Hgb 7.5 L (11.4-16.0) gm/dL Hct 25.4 L (34.0-46.0) % MCHC 29.5 L (31.0-37.0) g/dL RDW 17.2 H (11.5-15.5) % Neutrophils # 14.5 H (1.3-7.7) k/uL Monocytes # 1.2 H (0-1.0) k/uL Potassium 3.4 L (3.5-5.1) mmol/L Chloride 108 H (98-107) mmol/L Carbon Dioxide 20 L (22-30) mmol/L Calcium 8.0 L (8.4-10.2) mg/dL Microbiology - Last 24 Hours (Table) 07/15/24 21:23 Blood Culture - Final Blood Assessment and Plan Assessment: Sepsis likely secondary to right thigh infection in the settings of surgical drainage presents, possible mass necrosis Lactic acidosis, resolved, in the settings of above Status post right thigh hematoma evacuation 05/25/2024 Right thigh mass, concern for metastatic process Pulmonary nodules -Continue IV cefepime and vancomycin to cover for infection -Waiting results of surgical pathology -I had called [facility] on July 20. I had spoken to the transfer department and was informed that the patient has been accepted to [facility] however currently awaiting bed availability. -Add IV Lasix 20 mg today for volume control continue with potassium supplementation Acute blood loss anemia -S/p 3unit of PRBC on admission -Continue to monitor CBC and transfuse hemoglobin less than 7 or if hemodynamically unstable -Elevated alkaline phosphatase -Possibly due to as a result of bony involvement from right femoral cortical thickening? [Chronic:] Paroxysmal atrial fibrillation, hold anticoagulation not on anticoagulation at home HLD: Continue atorvastatin 40 Hypertension: Continue metoprolol succinate 50 twice daily History of Takotsubo's cardiomyopathy with LVEF abhi of 35% with improvement to 45 to 50% as per recent echocardiogram DVT ppx: holding due to acute blood loss anemia dispo: Awaiting transfer to [facility] for higher level of care for orthopedic oncology evaluation
[2024-07-22] MEDS: FUROSEMIDE 10 MG/ML 2 ML VIAL IV ONE ×2 (11:47→18:00)
[2024-07-22] MEDS: POTASSIUM CHLORIDE ER 20 MEQ TAB.ER PO ONE ×2 (11:47→16:51)
--- NOTE | 2024-07-22 12:37 | P.PN ---
Subjective Progress Note Date: 07/22/24 Principal diagnosis: Reason for follow-up is sepsis possible right thigh infected hematoma Patient is a 58-year-old female with a past medical history significant for hyperlipidemia atrial fibrillation recently has developed hematoma of the right thigh that was drained on 05/25/2024 culture has been negative patient now presenting back to the hospital concerning for increasing pain and swelling to the right thigh area and also foul-smelling drainage patient to be diagnosed with sepsis possible associated infected right thigh hematoma General Surgeon recommended patient to be transferred to urgent care. On today's evaluation that is 07/22/2024, Patient is afebrile patient is currently on room air and denies having any shortness of breath, the patient denies any chest pain or cough, the patient denies any nausea vomiting did not have any abdominal pain and no diarrhea has been complaining of more discomfort to the right thigh area. Patient white count is 18.2 hemoglobin is 7.5 creatinine 0.63 blood culture has been negative Objective - Vital Signs Vital signs: Vital Signs Temp 97.9 F 07/22/24 11:44 Pulse 104 H 07/22/24 11:44 Resp 17 07/22/24 11:44 BP 107/67 07/22/24 11:44 Pulse Ox 97 07/22/24 11:44 FiO2 Intake & Output 07/21/24 07/22/24 07/22/24 18:59 06:59 18:59 Intake Total 180 450 Output Total 400 Balance -220 450 Weight 78 kg Intake: IV 450 Cefepime 2 gm In Sodium 200 Chloride 0.9% 100 ml @ 25 mls/hr IVPB Q8H [facility] Rx#: [id number] Vancomycin 1,250 mg In 250 Sodium Chloride 0.9% 250 ml @ 125 mls/hr IVPB Q12H [facility] Rx#:[id number] Oral 180 Output: Urine 400 Other: Voiding Method Bedpan Bedpan External Catheter - Exam GENERAL DESCRIPTION: Middle-age female lying in bed in no distress RESPIRATORY SYSTEM: Unlabored breathing , decreased breath sounds at bases HEART: S1 S2 regular rate and rhythm , ABDOMEN: Soft , no tenderness EXTREMITIES: Right thigh with swelling redness no drainage - Labs CBC & Chem 7: 07/22/24 08:16 07/22/24 08:16 Labs: Abnormal Lab Results - Last 24 Hours (Table) 07/22/24 07/22/24 Range/Units 08:16 08:16 WBC 18.2 H (3.8-10.6) k/uL RBC 2.90 L (3.80-5.40) m/uL Hgb 7.5 L (11.4-16.0) gm/dL Hct 25.4 L (34.0-46.0) % MCHC 29.5 L (31.0-37.0) g/dL RDW 17.2 H (11.5-15.5) % Neutrophils # 14.5 H (1.3-7.7) k/uL Monocytes # 1.2 H (0-1.0) k/uL Potassium 3.4 L (3.5-5.1) mmol/L Chloride 108 H (98-107) mmol/L Carbon Dioxide 20 L (22-30) mmol/L Calcium 8.0 L (8.4-10.2) mg/dL Microbiology - Last 24 Hours (Table) 07/15/24 21:23 Blood Culture - Final Blood Assessment and Plan (1) Sepsis Current Visit: Yes Status: Acute Code(s): A41.9 - SEPSIS, UNSPECIFIED ORGANISM SNOMED Code(s): 66725435 (2) Abscess of right thigh Current Visit: Yes Status: Acute Priority: High Code(s): L02.415 - CUTANEOUS ABSCESS OF RIGHT LOWER LIMB SNOMED Code(s): 75357557099647119 Plan: 1patient presenting the hospital with increasing pain and swelling and foul- smelling drainage from the right thigh drainage catheter in this patient who did have features of sepsis with fever tachycardia elevated white count elevated lactic acid, will need to cover for both gram-positive as well as gram-negative pathogen 2-patient is not running any fever, blood culture be negative eyes: Still up we will continue vancomycin pharmacy to dose and cefepime, hopefully transfer soon to [facility] for surgical exploration Dictation was produced using [employer] dictation software. please excuse any grammatical, word or spelling errors. Time with Patient: Less than 30
--- NOTE | 2024-07-22 19:53 | CT ---
EXAMINATION TYPE: CT brain wo con DATE OF EXAM: 07/22/2024 7:48 PM COMPARISON: None. CLINICAL INDICATION: Female, 58 years old with history of altered mental status, AMS TECHNIQUE: Brain: Axial CT images of the brain were obtained with coronal and sagittal reformats created and rev iewed. Contrast used: None. Oral contrast used: None. CT DLP: 1184.4 mGycm, Automated exposure control for dose reduction was used. FINDINGS: Brain: Extra-axial spaces: No abnormal extra-axial fluid collections. Ventricular system: Within normal limits Cerebral parenchyma: No acute intraparenchymal hemorrhage or mass effect. The hodgson-white junction is well differentiated. Scattered hypoattenuating areas are seen within the white matter. Cerebellum: Unremarkable. Mass effect: No evidence of midline shift. Intracranial vasculature: unremarkable Soft tissues: Normal. Calvarium/osseous structures: No depressed skull fracture. Paranasal sinuses and mastoid air cells: Mild scattered paranasal sinus disease. Visualized orbits: Orbital contents are intact. IMPRESSION: No acute intracranial process. [facility], , 07/22/2024 7:51 PM
[2024-07-23 07:13] LABS: Anisocytosis Slight; Basophils # (A) 0.1 k/uL (0-0.2); Basophils % (A) 0 %; Eosinophils # (A) 0.1 k/uL (0-0.7); Eosinophils % (A) 1 %; HCT 23.9 % (34.0-46.0); HGB 7.2 gm/dL (11.4-16.0); Hypochromasia Marked; Lymphocytes # (A) 2.2 k/uL (1.0-4.8); Lymphocytes % (A) 13 %; MCH 26.2 pg (25.0-35.0); MCHC 29.9 g/dL (31.0-37.0); MCV 87.5 fL (80.0-100.0); Mean Platelet Volume 7.2; Monocytes % (A) 6 %; Neutrophils # (A) 13.9 k/uL (1.3-7.7); Neutrophils % (A) 79 %; Platelet Count 271 k/uL (150-450); Poikilocytosis Slight; RBC 2.74 m/uL (3.80-5.40); RDW 17.2 % (11.5-15.5); WBC 17.5 k/uL (3.8-10.6)
[2024-07-23 07:36] LABS: African American GFR (CKD) 85 (>60 ml/min/1.73 sqM); Anion Gap 8 mmol/L; Blood Urea Nitrogen 16 mg/dL (7-17); Carbon Dioxide 21 mmol/L (22-30); Chloride 109 mmol/L (98-107); Glucose 91 mg/dL (74-99); Non-African American GFR(CKD) 73 (>60 ml/min/1.73 sqM); Potassium 3.9 mmol/L (3.5-5.1); Sodium 138 mmol/L (137-145)
--- NOTE | 2024-07-23 07:47 | P.PN ---
Progress Note - Text Progress Note Date: 07/22/24 CHIEF COMPLAINT: Necrotic infected mass in right lower extremity HISTORY OF PRESENT ILLNESS: No acute events overnight. Patient complains of pain in her right thigh. Drain with purulent drainage. Afebrile. PHYSICAL EXAM: VITAL SIGNS: Reviewed. GENERAL: Well-developed in no acute distress. Extremities: Right upper thigh swelling and erythema. Drain in place with purulent output. Right dorsalis pedis pulse plus 2 ASSESSMENT: 1. Necrotic infected mass in the right lower extremity PLAN: -Awaiting transfer to [facility] for surgical oncology eval and surgical debridement -Continue antibiotics -ID recs Ricardo Ramírez [facility] [phone]
[2024-07-23 08:41] LABS: Glucose,Whole Blood 91 mg/dL (70-110)
--- NOTE | 2024-07-23 09:17 | XR ---
EXAMINATION TYPE: XR chest 1V DATE OF EXAM: 07/23/2024 8:53 AM COMPARISON: Chest x-ray July 15, 2024 CLINICAL INDICATION: Female, 58 years old with history of For placement of PICC line, TECHNIQUE: Single portable frontal view of the chest is obtained. FINDINGS: There is new left-sided PICC line terminating at cavoatrial junction. No pneumothorax is e vident. Bilateral pulmonary nodules and masses consistent with metastatic disease is redemonstrated. Persiste nt perhaps slightly more prominent right basilar increased opacity. Cardiac silhouette size is stable and upper limits of normal. The osseous structures are intact. IMPRESSION: As above. [facility], , 07/23/2024 9:15 AM
--- NOTE | 2024-07-23 11:33 | MR ---
EXAMINATION TYPE: MR brain wo/w con DATE OF EXAM: 07/23/2024 11:16 AM COMPARISON: CT 07/22/2024. CLINICAL INDICATION: Female, 58 years old with history of LOC change, confusion; PHH, LOC change, con fusion, ST mass w secondary infection. Right lower extremity mass TECHNIQUE: Multi planar, multi sequence imaging was performed through the brain including: T1, T2, In version recovery, susceptibility weighted imaging and gradient echo imaging and Diffusion weighted im aging. The patient was then given intravenous contrast and multi planar, T1 fat-saturation images wer e obtained. IV Contrast: 7 mL Gadobutrol FINDINGS: The hodgson-white junctions, ventricular system, basal cisterns appear unremarkable. Diffusion-weighted imaging shows no evidence of restricted diffusion to suggest acute/subacute infarct. Intracranial ar terial flow voids are maintained. Midline structures show no abnormality. The susceptibility weighted images do not reveal any evidence for micro-hemorrhage. After administration of gadolinium, no abnor mal enhancement is seen. The bone marrow signal is within normal limits. Paranasal sinuses and mastoid air cells: No significant paranasal sinus disease. Visualized orbits: Orbital contents are intact. IMPRESSION: No evidence of intracranial mass, acute/subacute infarct, or abnormal enhancement. [facility], , 07/23/2024 11:31 AM
--- NOTE | 2024-07-23 11:46 | P.PN ---
Subjective Progress Note Date: 07/23/24 Principal diagnosis: Right leg wound infection Hospital Course: A 58-year-old female with recent complicated PMH including Takotsubo cardiomyopathy, HLD, HTN, paroxysmal A-fib not on anticoagulation, complex mass of the femur pending pathology, concern for metastatic process. History of right leg pain with hematoma evacuation on 05/25/2024, who presented to the ER w ith worsening erythema, pain, foul smelling discharge, concern for infection. ED documentation reviewed. In the ED patient was treated with a bolus of normal saline, ceftriaxone 2 g IV x 1, Dilaudid 0.5 mg IV x 1. Oncology following, patient has previously met with an orthopedic oncologist at [facility], recommendations pending pathology. Vitals on admission temperature 99.3, pulse rate 100, respiratory rate 12, blood pressure 100/66, O2 sat 95% on room air CXR shows enlarging pulmonary nodules throughout the lungs compared to 05/31/2024. Findings compatible with metastatic disease. Right knee x-ray shows no acute osseous pathology. Mild tricompartmental osteoarthritic changes. Right femur x-ray shows soft tissue catheter in the subcutaneous tissues/mass of the right lower extremity. No evidence of fracture. There is a cortical scalloping along the femur possibly representing involvement of the known mass. Labs on admission show WBC 23.8, hemoglobin 6.8, hematocrit 22.5, platelets 601, neutrophils 19.1, PT 11.7, PTT 23.5, INR 1.1, sodium 132, potassium 4.4, chloride 94, carbon dioxide 20, BUN 12, creatinine 0.55, lactic acid 6.5, calcium 8.2, AST 37, ALT 12, alkaline phosphatase 305. ID consulted for management of sepsis secondary to right side infection, started on vancomycin and ceftriaxone, now she switched to vancomycin and cefepime general surgery consulted. Surgery recommends transfer to [facility] as patient was previously seen by Dr. Wilbert Beavers, orthopedic oncology, who apparently practices at [facility]. Per Dr. Ramírez, Dr. Lopes had a conversation with Dr. Beavers regarding transfer, currently awaiting further clarification from Dr. Lopes. Of note, patient was never seen at [facility]. Awaiting bed transfer to [facility]. 07/23 I was called to see patient due to new neurologic change. She is becoming more confused, unable to answer simple questions, repeats the last word of the question without answering it. Her right leg became weaker and now not able to lift if up according to the nursing staff. Last night a head CT was done due to mental status change and it was negative. Objective - Vital Signs Vital signs: Vital Signs Temp 97.7 F 07/23/24 08:34 Pulse 98 07/23/24 08:34 Resp 18 07/23/24 08:34 BP 100/63 07/23/24 08:34 Pulse Ox 97 07/23/24 08:34 FiO2 Intake & Output 07/22/24 07/23/24 07/23/24 18:59 06:59 18:59 Intake Total 240 Output Total 500 4200 Balance -260 -4200 Weight 78.5 kg Intake: Oral 240 Output: Urine 500 4200 Uretheral ([place]) 1000 Other: Voiding Method External Catheter External Catheter Indwelling Catheter - Exam General: [nontoxic], [no distress], [appears at stated age] Derm: [warm], [dry] Head: [atraumatic], [normocephalic], [symmetric] Eyes: [EOMI], [no lid lag], [anicteric sclera] Mouth: [no lip lesion], [mucus membranes moist] Cardiovascular: [S1S2 reg], [no murmur] Lungs: [CTA bilateral], [no rhonchi, no rales] , [no accessory muscle use] Abdominal: [soft], [ nontender to palpation], [no guarding], [no appreciable organomegaly] Ext: Right tight tenderness, erythema, swelling, there is a Hemovac drain in place. There is diffuse edema to bilateral upper and lower extremities Neuro: RIght leg not able to be lifted up off the bed. Not oriented. Has word pe rseverance, Oriented only to self. Not to place or date. Psych: [Alert], [oriented], [appropriate affect] - Labs CBC & Chem 7: 07/23/24 06:20 07/23/24 06:20 Labs: Abnormal Lab Results - Last 24 Hours (Table) 07/23/24 07/23/24 Range/Units 06:20 06:20 WBC 17.5 H (3.8-10.6) k/uL RBC 2.74 L (3.80-5.40) m/uL Hgb 7.2 L (11.4-16.0) gm/dL Hct 23.9 L (34.0-46.0) % MCHC 29.9 L (31.0-37.0) g/dL RDW 17.2 H (11.5-15.5) % Neutrophils # 13.9 H (1.3-7.7) k/uL Chloride 109 H (98-107) mmol/L Carbon Dioxide 21 L (22-30) mmol/L Calcium 8.0 L (8.4-10.2) mg/dL Assessment and Plan Plan: Sepsis likely secondary to right thigh infection in the settings of surgical drainage presents, possible mass necrosis Lactic acidosis, resolved, in the settings of above Status post right thigh hematoma evacuation 05/25/2024 Right thigh mass, concern for metastatic process Pulmonary nodules -Continue IV cefepime and vancomycin to cover for infection -Waiting results of surgical pathology -Patient has been accepted to [facility] however currently awaiting bed availability. Acute blood loss anemia -S/p 3 unit of PRBC on admission -Continue to monitor CBC and transfuse hemoglobin less than 7 or if hemodynamically unstable Acute encephalopathy Right leg weakness R/o seizures vs stroke vs. mets to the brain D/w neuro Order EEG, CT angio head and neck, MRI brain with and without -Elevated alkaline phosphatase -Possibly due to as a result of bony involvement from right femoral cortical thickening? [Chronic:] Paroxysmal atrial fibrillation, hold anticoagulation not on anticoagulation at home HLD: Continue atorvastatin 40 Hypertension: Continue metoprolol succinate 50 twice daily History of Takotsubo's cardiomyopathy with LVEF abhi of 35% with improvement to 45 to 50% as per recent echocardiogram DVT ppx: holding due to acute blood loss anemia dispo: Awaiting transfer to [facility] for higher level of care for orthopedic oncology evaluation
--- NOTE | 2024-07-23 12:25 | CT ---
EXAMINATION TYPE: CT angio head neck DATE OF EXAM: 07/23/2024 COMPARISON: CLINICAL INDICATION: Female, 58 years old with history of right leg weakness; PHH, ams TECHNIQUE: CTA scan of the head and neck is performed with IV Contrast, patient injected with 65cc m L of Isovue 370, axial images are obtained, coronal and sagittal reformatted images are reviewed. 3D reconstructed images are created on an independent workstation and reviewed. CT DLP: 327.5 mGycm Automated exposure control for dose reduction was used. NASCET criteria was used in interpretation of this exam? FINDINGS: Suboptimal study with most dense contrast in the left internal jugular vein. Right Carotid System: The common carotid artery and external carotid artery are patent. The carotid bifurcation demonstrate s no evidence of hemodynamically significant stenosis. No significant focal plaque. The remaining por tions of the internal carotid artery demonstrate normal size without significant narrowing. Left Carotid System: The common carotid artery and external carotid artery are patent. The carotid bifurcation demonstrate s no evidence of hemodynamically significant stenosis. No significant focal plaque. The remaining por tions of the internal carotid artery demonstrate normal size without significant narrowing. Vertebral arteries are patent without evidence hemodynamically significant stenosis. Left vertebral a rtery is dominant. There is a bovine type aortic arch which is normal variant. The origins of the great vessels are abreu nt. No evidence of hemodynamically significant stenosis. No large vessel occlusion at level of the [place] of [place]. No focal aneurysm. Other: Multiple bilateral pulmonary nodules and masses consistent with known metastatic disease is re demonstrated. There are very small right greater than left bilateral pleural effusions. Partial visua lization of left-sided PICC line. IMPRESSION: 1. No significant vascular abnormality is seen. [facility], , 07/23/2024 12:23 PM
--- NOTE | 2024-07-23 13:58 | P.PN ---
Subjective Progress Note Date: 07/23/24 SURGICAL PROGRESS NOTE CHIEF COMPLAINT: Necrotic infected mass in right lower extremity HISTORY OF PRESENT ILLNESS: Patient complains of pain in her right thigh. Drain with purulent drainage. Patient having mental status changes. She is undergoing neurowork-up. Patient is still awaiting transfer to [facility]. Afebrile. WBC 17.5 Hgb 7.2 PHYSICAL EXAM: VITAL SIGNS: Reviewed. GENERAL: Well-developed in no acute distress. Extremities: Right upper thigh swelling and erythema. Drain in place with purulent output. Right dorsalis pedis pulse plus 2 ASSESSMENT: 1. Necrotic infected mass in the right lower extremity PLAN: -Awaiting transfer to [facility] for surgical oncology eval and surgical debridement -Continue antibiotics Physician Fruit Rancher note has been reviewed by physician. Signing provider agrees with the documented findings, assessment, and plan of care. Objective - Vital Signs Vital signs: Vital Signs Temp 98.3 F 07/23/24 12:00 Pulse 85 07/23/24 12:00 Resp 17 07/23/24 12:00 BP 107/67 07/23/24 12:00 Pulse Ox 94 L 07/23/24 12:00 FiO2 Intake & Output 07/22/24 07/23/24 07/23/24 18:59 06:59 18:59 Intake Total 240 Output Total 500 4200 Balance -260 -4200 Weight 78.5 kg Intake: Oral 240 Output: Urine 500 4200 Uretheral ([place]) 1000 Other: Voiding Method External Catheter External Catheter Indwelling Catheter - Labs CBC & Chem 7: 07/23/24 06:20 07/23/24 06:20 Labs: Abnormal Lab Results - Last 24 Hours (Table) 07/23/24 07/23/24 Range/Units 06:20 06:20 WBC 17.5 H (3.8-10.6) k/uL RBC 2.74 L (3.80-5.40) m/uL Hgb 7.2 L (11.4-16.0) gm/dL Hct 23.9 L (34.0-46.0) % MCHC 29.9 L (31.0-37.0) g/dL RDW 17.2 H (11.5-15.5) % Neutrophils # 13.9 H (1.3-7.7) k/uL Chloride 109 H (98-107) mmol/L Carbon Dioxide 21 L (22-30) mmol/L Calcium 8.0 L (8.4-10.2) mg/dL
--- NOTE | 2024-07-23 16:51 | P.CONS ---
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 The patient unfortunately has been hospitalized secondary to acute infection involving the right lower extremity tumor with drain in place. The patient's oncologic history began several months ago. She was initially felt to possibly have a hematoma involving the right thigh secondary to a fall while walking her dogs. However, when this did not improve she underwent add itional workup. An MRI of the right femur was performed on 04/11/2024. This revealed a large anterior thigh mass measuring 12.9 x 9.3 x 19.6 cm abutting the femur with cystic regions, felt to represent malignancy. The patient was taken to the OR on May 26 out of concerned this represented a hematoma and had evacuation with drain placement. I am unable to find any pathology from this operation. During this hospital stay, the patient also had a CT of the chest on May 31. This revealed multiple bilateral pulmonary nodules, up to 1.7 cm in the right lower lung and 1.6 cm in the left lower lung suspicious for metastatic disease. CT of the abdomen and pelvis revealed splenomegaly but no evidence of metastasis. The patient reportedly had a PET CT, but I do not have this result. Additionally, approximately 2 weeks ago the patient underwent biopsy of both the right lower extremity lesion and one of the pulmonary nodules. These results were consistent with metastatic osteosarcoma. The patient was hospitalized on July 15 secondary to increased pain and foul-smelling output from her right lower extremity drain. She was also found to be anemic with hemoglobin ranging from 6-7. She initiated antibiotic treatment and had 3 blood transfusions. Her hemoglobin has stabilized somewhat over the past few days. Unfortunately, the patient became acutely altered with her mentation yesterday afternoon. She had a CT of the head which was negative. A subsequent MRI of the brain from July 23 and a CTA of the head and neck were also both negative. During my exam, the patient is pleasant and able to answer yes or no questions. However she seems to have difficulty communicating beyond this. The patient has been waiting for days for transfer to [facility] for orthopedic oncology referral. Review of Systems ROS unobtainable: due to mental status Past Medical History Past Medical History: Atrial Fibrillation, Hyperlipidemia Additional Past Medical History / Comment(s): injury to thigh from dog leash wrapped around it with 1.5L drained from hematoma, hx. broken heart syndrome, takes meds for rapid heart rate, newer arrythmia-fib per pt, recent cardiac cath . Bronchitis, anemia History of Any Multi-Drug Resistant Organisms: None Reported Past Surgical History: Heart Catheterization Additional Past Surgical History / Comment(s): biopsy of rt thigh mass, hematoma drain, biopsy of lung for lung nodules. Past Anesthesia/Blood Transfusion Reactions: No Reported Reaction Additional Past Anesthesia/Blood Transfusion Reaction / Comm: never really had anesthesia before, no family problems Past Psychological History: No Psychological Hx Reported Smoking Status: Former smoker Past Alcohol Use History: None Reported Additional Past Alcohol Use History / Comment(s): quit smoking 10-15 yrs. ago, never smoked daily, just "socially" Past Drug Use History: None Reported - Past Family History Mother Family Medical History: No Reported History Sister(s) Family Medical History: Cancer Medications and Allergies Home Medications Medication Instructions Recorded Confirmed Type Loratadine [Claritin] 10 mg PO DAILY 01/13/24 07/16/24 History Multivitamins, Thera [Multivitamin 1 tab PO DAILY 01/13/24 07/16/24 History (formulary)] Atorvastatin [Lipitor] 40 mg PO HS 05/22/24 07/16/24 History Digoxin [Lanoxin] 125 mcg PO DAILY 05/22/24 07/16/24 History Escitalopram [Lexapro] 10 mg PO HS 05/22/24 07/16/24 History Aspirin 81 mg PO DAILY #30 tab 05/28/24 07/16/24 Rx HYDROcodone/APAP 5-325MG [[place] 1 tab PO Q6HR PRN 3 Days #12 tab 05/28/24 07/16/24 Rx 5-325] Metoprolol Succinate (ER) [Toprol 50 mg PO BID #180 tab 05/28/24 07/16/24 Rx XL] Acetaminophen Tab [Tylenol] 650 mg PO Q6HR PRN tab 06/04/24 07/16/24 Rx Ferrous Sulfate [Iron (65 MG 325 mg PO DAILY #30 tab 06/04/24 07/16/24 Rx Elemental)] Allergies Allergy/AdvReac Type Severity Reaction Status Date / Time No Known Allergies Allergy Verified 07/16/24 08:25 Physical Exam Vitals: Vital Signs Temp Pulse Resp BP BP Pulse Ox 07/23/24 15:39 98.1 F 52 L 15 107/67 92 L 07/23/24 12:00 98.3 F 85 17 107/67 94 L 07/23/24 08:34 97.7 F 98 18 100/63 97 07/23/24 04:00 98 F 86 15 110/73 98 07/23/24 01:27 109 H 17 07/22/24 23:00 98.3 F 109 H 17 105/62 94 L 07/22/24 20:00 98.5 F 100 16 106/67 96 07/22/24 18:50 97.9 F 101 H 17 122/71 Intake and Output 07/23/24 07/23/24 07/23/24 06:59 14:59 22:59 Output Total 3900 Balance -3900 Output: Urine 3900 Uretheral ([place]) 1000 Other: Voiding Method External Catheter Indwelling Catheter Weight 78.5 kg - Constitutional General appearance: no acute distress - EENT Eyes: EOMI, PERRLA ENT: hearing grossly normal - Neck Neck: no lymphadenopathy - Respiratory Respiratory: bilateral: CTA - Cardiovascular Rhythm: regular - Gastrointestinal General gastrointestinal: no distended, no tenderness - Integumentary Integumentary: pale - Neurologic Neurologic: CNII-XII intact - Musculoskeletal Musculoskeletal: right sided weakness (Right lower extremity - markedly swollen with some bruising along the anteiror thigh, at least 10 cm firm, palpable mass at this location. Drain with brownish output. ) - Psychiatric Psychiatric: no A&O x's 3, appropriate affect, no intact judgment & insight Results CBC & Chem 7: 07/23/24 06:20 07/23/24 06:20 Labs: Abnormal Lab Results - Last 24 Hours (Table) 07/23/24 07/23/24 Range/Units 06:20 06:20 WBC 17.5 H (3.8-10.6) k/uL RBC 2.74 L (3.80-5.40) m/uL Hgb 7.2 L (11.4-16.0) gm/dL Hct 23.9 L (34.0-46.0) % MCHC 29.9 L (31.0-37.0) g/dL RDW 17.2 H (11.5-15.5) % Neutrophils # 13.9 H (1.3-7.7) k/uL Chloride 109 H (98-107) mmol/L Carbon Dioxide 21 L (22-30) mmol/L Calcium 8.0 L (8.4-10.2) mg/dL CT scan - chest: report reviewed, image reviewed CT Scan - head: report reviewed MRI - head: report reviewed, image reviewed Assessment and Plan Assessment: The patient is a 58-year-old female with a history of a 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 The patient unfortunately has been hospitalized secondary to acute infection involving the right lower extremity tumor with drain in place. Unfortunately, the patient now has altered mentation as well. Plan: 1. RLE Osteosarcoma, metastatic: As detailed above, the patient unfortunately has biopsy proven metastatic disease. She has been awaiting transfer to a tertiary care facility for orthopedic oncology evaluation for several days. The patient unfortunately had altered mentation, but I did speak briefly with her . I explained that orthopedic oncology evaluation would need to occur at some point. However, I felt it unlikely she would require immediate surgery. I explained that provided her infection continues to improve, she would likely need to initiate upfront systemic therapy before considering any possible surgery. I felt she was unlikely to significantly benefit from any surgical intervention. If the patient were to continue having anemia secondary to tumor bleeding/drainage, there may be a role for palliative radiotherapy. However considering she presents of metastatic disease I would favor upfront systemic therapy if possible. 2. AMS: As detailed above, the patient unfortunately has become acutely altered with her mentation within the last day. Neuro imaging is unremarkable for metastatic disease or stroke. There is some concern for metabolic encephalopathy. We'll continue to monitor her clinical course. 3. Infection: Clinically the infected drain site within the right lower extremity does seem improved according to the patient's family and nursing. Continue with treatment as appropriate. Time with Patient: Greater than 30
--- NOTE | 2024-07-23 19:39 | P.PN ---
Subjective Progress Note Date: 07/23/24 Patient showing some confusion at todays visit, more lethargic than last visit. MRI brain was obtained, showing no mets, or infarct. Pt reports persisting right thigh discomfort. Appears right thigh edema has improved some and has had decreased outpt in GLORIA drain. Hgb 7.2. Awaiting transfer to for ortho oncology evaluation. Afebrile, continues on IV abx Objective - Vital Signs Vital signs: Vital Signs Temp 97.7 F 07/23/24 08:34 Pulse 98 07/23/24 08:34 Resp 18 07/23/24 08:34 BP 100/63 07/23/24 08:34 Pulse Ox 97 07/23/24 08:34 FiO2 Intake & Output 07/22/24 07/23/24 07/23/24 18:59 06:59 18:59 Intake Total 240 Output Total 500 4200 Balance -260 -4200 Weight 78.5 kg Intake: Oral 240 Output: Urine 500 4200 Uretheral ([place]) 1000 Other: Voiding Method External Catheter External Catheter Indwelling Catheter - Constitutional General appearance: Present: no acute distress - EENT ENT: Present: hearing grossly normal - Respiratory Details: breathing is even and unlabored - Cardiovascular Details: skin warm and dry - Integumentary Integumentary: Present: pale. Absent: cyanotic - Neurologic Neurologic Comment(s): lethargic - Labs CBC & Chem 7: 07/23/24 06:20 07/23/24 06:20 Labs: Abnormal Lab Results - Last 24 Hours (Table) 07/23/24 07/23/24 Range/Units 06:20 06:20 WBC 17.5 H (3.8-10.6) k/uL RBC 2.74 L (3.80-5.40) m/uL Hgb 7.2 L (11.4-16.0) gm/dL Hct 23.9 L (34.0-46.0) % MCHC 29.9 L (31.0-37.0) g/dL RDW 17.2 H (11.5-15.5) % Neutrophils # 13.9 H (1.3-7.7) k/uL Chloride 109 H (98-107) mmol/L Carbon Dioxide 21 L (22-30) mmol/L Calcium 8.0 L (8.4-10.2) mg/dL Assessment and Plan (1) Abscess of right thigh Current Visit: Yes Status: Acute Priority: High Code(s): L02.415 - CUTANEOUS ABSCESS OF RIGHT LOWER LIMB SNOMED Code(s): 36728187375273563 (2) Fever Current Visit: Yes Status: Acute Priority: High Code(s): R50.9 - FEVER, UNSPECIFIED SNOMED Code(s): 311563846 (3) Hematoma of right lower leg Current Visit: Yes Status: Acute Priority: Medium Code(s): S80.11XA - CONTUSION OF RIGHT LOWER LEG, INITIAL ENCOUNTER SNOMED Code(s): 77646511018658323 (4) Pain Current Visit: Yes Status: Acute Priority: High Code(s): R52 - PAIN, UNSPECIFIED SNOMED Code(s): 62901855 (5) Pulmonary nodules Current Visit: Yes Status: Acute Priority: Medium Code(s): R91.8 - OTHER NONSPECIFIC ABNORMAL FINDING OF LUNG FIELD SNOMED Code(s): 164938304 (6) Osteosarcoma Current Visit: Yes Status: Acute Priority: High Code(s): C41.9 - MALIGNANT NEOPLASM OF BONE AND ARTICULAR CARTILAGE, UNSP SNOMED Code(s): 347012893 Plan: Fever -Likely 2/2 to necrosis/infection around mass in right thigh -WBC elevated, neutrophilia, consistent with infection -Infectious disease following -Continues on IV antibiotics. -Blood culture negative. Fever now resolved RLE Pain -Secondary to infection and mass in right thigh -Case discussed with Pharm.D., pain medication adjustments have been made. -Medications have been ordered for prevention of narcotic induced constipation -Pain meds managing pain well, continue current regimen Metastatic osteosarcoma -Patient's clinical course summarized in HPI. Right thigh mass as well as pulmonary nodules are FDG avid. She is status post biopsy 07/05/24 -Patient has met with an Orthopedic Oncologist at , recommendations pending path. Surgery team recommending transfer to for surgical debridement and further evaluation by ortho oncology -Patient has had the GLORIA drain in for about 7 weeks. Concerns for infection. 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 Unfortunately with noted metastatic disease surgical intervention is not typically standard of care, as well it could delay chemo/RT for sometime. Discussed case with rad onc. Will consider palliative RT to right thigh if she continues having anemia secondary to tumor. Ideally pt will need to be started on systemic treatment once infection is adequately treated -Current plan is to transfer pt to [facility] for surgical debridement and ortho onc evaluation -Clinic f/u with Dr. Montesinos scheduled for 08/07/24 Anemia -Blood loss anemia, mass in thigh, GLORIA drain with bloody output -S/p 3 units PRBCs since admit. Hgb stable at 7.9 -CBC daily, transfuse for Hgb <7 or if symptomatic -Hold IV iron for now due to infection. This can also be given in outpt setting once infection has been adequately treated
[2024-07-23] MEDS: VANCOMYCIN TROUGH DUE 1 EACH MISC MISCELLANE ONE (20:40)
[2024-07-23] MEDS: levETIRAcetam IV 500 MG/5 ML VIAL IVP STA (20:50)
--- NOTE | 2024-07-23 23:24 | EEG ---
DATE OF SERVICE: 07/23/2024 ELECTROENCEPHALOGRAM REPORT PREAMBLE: This is a 58-year-old female with confusion. The patient has history of broken heart syndrome. Also has AFib and hyperlipidemia. CURRENT MEDICATIONS: 1. Cefepime. 2. Lanoxin. 3. Lexapro. 4. Dilaudid. 5. Warfarin. 6. Toprol-XL. EEG FINDINGS: This is a 21-channel digital EEG recorded with video component, utilizing 10/20 international system with referential and bipolar montages. The recording starts and continues with presence of mixed frequencies of moderate amplitude, 4 to 5 hertz theta, and intermixed with some 2 to 3 hertz delta activity in bihemispheric region. Background does not seem to be reactive to eye opening or closing. A very frequent frontally predominant triphasic waves were seen frequently during the study, sometimes it becomes rhythmic transiently. Photic driving response was not seen. Different stages of sleep were not seen. No definitive focal or generalized epileptiform activity was seen. IMPRESSION: This is an abnormal EEG due to, 1. Background slowing of moderate to severe degree. 2. Presence of very frequent triphasic waves. This is suggestive of generalized cerebral dysfunction as can be seen with toxic metabolic encephalopathy. Triphasic waves can be seen with hepatic encephalopathy. Clinical correlation is recommended. No definitive epileptiform activity was seen. Followup EEG recommended if clinically indicated. LEN / DIONEN: [id number] / MTDD
--- NOTE | 2024-07-24 05:24 | P.PN ---
Subjective Progress Note Date: 07/23/24 Principal diagnosis: Reason for follow-up is sepsis possible right thigh infected hematoma Patient is a 58-year-old female with a past medical history significant for hyperlipidemia atrial fibrillation recently has developed hematoma of the right thigh that was drained on 05/25/2024 culture has been negative patient now presenting back to the hospital concerning for increasing pain and swelling to the right thigh area and also foul-smelling drainage patient to be diagnosed with sepsis possible associated infected right thigh hematoma General Surgeon recommended patient to be transferred to urgent care. On today's evaluation that is 07/23/2023, patient has been afebrile, patient is breathing comfortably and is currently on room air, patient denies having any si gnificant cough no chest pain, patient denies nausea vomiting or diarrhea and no abdominal pain or any worsening pain to the right thigh area. Patient white count is down to 17.5 creatinine 0.87 Objective - Vital Signs Vital signs: Vital Signs Temp 98.3 F 07/23/24 12:00 Pulse 85 07/23/24 12:00 Resp 17 07/23/24 12:00 BP 107/67 07/23/24 12:00 Pulse Ox 94 L 07/23/24 12:00 FiO2 Intake & Output 07/22/24 07/23/24 07/23/24 18:59 06:59 18:59 Intake Total 240 Output Total 500 4200 Balance -260 -4200 Weight 78.5 kg Intake: Oral 240 Output: Urine 500 4200 Uretheral ([place]) 1000 Other: Voiding Method External Catheter External Catheter Indwelling Catheter - Exam GENERAL DESCRIPTION: Middle-age female lying in bed in no distress RESPIRATORY SYSTEM: Unlabored breathing , decreased breath sounds at bases HEART: S1 S2 regular rate and rhythm , ABDOMEN: Soft , no tenderness EXTREMITIES: Right thigh with swelling redness no drainage - Labs CBC & Chem 7: 07/23/24 06:20 07/23/24 06:20 Labs: Abnormal Lab Results - Last 24 Hours (Table) 07/23/24 07/23/24 Range/Units 06:20 06:20 WBC 17.5 H (3.8-10.6) k/uL RBC 2.74 L (3.80-5.40) m/uL Hgb 7.2 L (11.4-16.0) gm/dL Hct 23.9 L (34.0-46.0) % MCHC 29.9 L (31.0-37.0) g/dL RDW 17.2 H (11.5-15.5) % Neutrophils # 13.9 H (1.3-7.7) k/uL Chloride 109 H (98-107) mmol/L Carbon Dioxide 21 L (22-30) mmol/L Calcium 8.0 L (8.4-10.2) mg/dL Assessment and Plan (1) Sepsis Current Visit: Yes Status: Acute Code(s): A41.9 - SEPSIS, UNSPECIFIED ORGANISM SNOMED Code(s): 04464644 (2) Abscess of right thigh Current Visit: Yes Status: Acute Priority: High Code(s): L02.415 - CUTANEO US ABSCESS OF RIGHT LOWER LIMB SNOMED Code(s): 85329317178395108 Plan: 1patient presenting the hospital with increasing pain and swelling and foul- smelling drainage from the right thigh drainage catheter in this patient who did have features of sepsis with fever tachycardia elevated white count elevated lactic acid, will need to cover for both gram-positive as well as gram-negative pathogen 2-patient is afebrile white count is trending down, will continue vancomycin pharmacy to dose and cefepime, hopefully transfer soon to [facility] for surgical exploration Dictation was produced using [employer] dictation software. please excuse any gr ammatical, word or spelling errors. Time with Patient: Less than 30
[2024-07-24 07:58] LABS: Anisocytosis Slight; Basophils % (A) 0 %; Eosinophils # (A) 0.1 k/uL (0-0.7); Eosinophils % (A) 1 %; HCT 22.5 % (34.0-46.0); Hypochromasia Marked; Lymphocytes # (A) 1.8 k/uL (1.0-4.8); Lymphocytes % (A) 10 %; MCH 26.5 pg (25.0-35.0); MCHC 30.6 g/dL (31.0-37.0); MCV 86.5 fL (80.0-100.0); Mean Platelet Volume 7.3; Monocytes # (A) 0.9 k/uL (0-1.0); Monocytes % (A) 5 %; Neutrophils # (A) 14.7 k/uL (1.3-7.7); Neutrophils % (A) 83 %; Platelet Count 301 k/uL (150-450); Poikilocytosis Slight; RDW 17.3 % (11.5-15.5); WBC 17.7 k/uL (3.8-10.6)
[2024-07-24] MEDS: levETIRAcetam IV 500 MG/5 ML VIAL IVP SCH (08:14)
[2024-07-24 08:19] LABS: African American GFR (CKD) 86 (>60 ml/min/1.73 sqM); Anion Gap 11 mmol/L; Blood Urea Nitrogen 18 mg/dL (7-17); Carbon Dioxide 19 mmol/L (22-30); Chloride 109 mmol/L (98-107); Glucose 68 mg/dL (74-99); Non-African American GFR(CKD) 75 (>60 ml/min/1.73 sqM); Potassium 3.4 mmol/L (3.5-5.1); Sodium 139 mmol/L (137-145)
[2024-07-24 08:28] LABS: HGB 6.9 gm/dL (11.4-16.0)
[2024-07-24] MEDS ORDERED: DEXTROSE 50% SYRINGE 50 ML IVP PRN ×2 (08:40)
--- NOTE | 2024-07-24 09:05 | P.CNNES ---
History of Present Illness Consult date: 07/23/24 Requesting physician: Paloma Simons Reason for Consult: LOC change, new confusion, word salad History of Present Illness: Patient is a 58-year-old female with history of Takotsubo cardiomyopathy, paroxysmal atrial fibrillation, hypertension, came to the hospital on 07/15/2024 at 7:26 PM for right lower extremity weakness and drainage tube issues. Patient apparently has a complex past medical and surgical history. Patient's symptoms started after she fell while walking her dogs in July 2023. She noted a sma ll mass at the patient was found to have a soft tissue mass in the right thigh. The hematoma initially improved, but then became worse and progressed became painful. She had MRI of the femur as mentioned below, which revealed a possible mass. Patient underwent hematoma removal and drain placement approximately 7 weeks prior. Patient has been dealing with chronic anemia and persistent foul-smelling drainage from surgical site. She has received care at both [facility] in [facility]. Patient was seen by surgery, diagnosed with necrotic infected mass in the right lower extremity. CT of the femur revealed large mass with heterogeneous enhancement and large zones of hypoenhancement in the anterior compartment of the thigh is much larger, causing mass effect. Infectious etiology superimposed on enlarging hematoma should be considered. Compartment syndrome should be considered. Right femoral diaphyseal cortical thickening, irregularity, erosion, periosteal changes and increased periosteal bone formation are new concerning for infectious etiologies. Small amount of knee joint effusion. Small right hip joint effusion. Oval-shaped subcutaneous lesion measuring about 1 x 2 x 1.5 cm superficial to the quadriceps tendon is much larger, likely an enlarged lymph node. Less likely etiologies cannot be excluded. Venous Doppler of the right lower extremity negative for DVT. CT head revealed no acute intracranial process. Chest x-ray shows bilateral pulmonary nodules and masses consistent with metastatic disease is redemonstrated. Persistent perhaps slightly more prominent right basilar increased opacity. Cardiac silhouette size is stable and upper limits of normal. 2D echo 06/01/2024 revealed mildly impaired LV function with EF between 45 to 50%. Mild to moderate MR. Moderate TR. Moderately increased left atrial diameter. Moderately increased left atrial volume. Patient had an MRI of the femur/thigh right side with and without contrast on 04/11/2022 for, which revealed complex right anterior thigh mass concerning for malignancy until proven otherwise. Tissue sampling recommended. 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 Patient has been awaiting transfer to tertiary care center for orthopedic oncology evaluation for several days. Patient has been seen by radiation oncology. Patient has been diagnosed with abscess of the right thigh, fever, hematoma of the right lower leg with a lot of pain. Patient apparently has developed altered mental status since yesterday, and today is worse. Patient has now developed fluent aphasia. I spoke to patient's family, who mentions that patient has not been able to walk for last 6 to 7 weeks. It was reported patient has become more confused, unable to answer simple questions, repeats the last word of the question without answering it. Her right leg has become weaker and now not able to lift it up according to the nursing staff. Patient's blood test shows WBC 17.5, hemoglobin 7.2, platelets 271. Basic metabolic panel is normal. Patient on vancomycin and cefepime 2 g every 8 hours, later started on 07/18/2024.. Blood cultures on 07/15/2024 are negative. Please refer to examination below for further assessment. Review of Systems Patient appears to be in pain in the legs, appears very severe. At first she admitted to having low back pain but then later said she has no pain. Patient very confused not able to provide review of systems. Other review of systems as per HPI. ROS unobtainable: due to mental status Past Medical History Past Medical History: Atrial Fibrillation, Hyperlipidemia Additional Past Medical History / Comment(s): injury to thigh from dog leash wrapped around it with 1.5L drained from hematoma, hx. broken heart syndrome, takes meds for rapid heart rate, newer arrythmia-fib per pt, recent cardiac cath. Bronchitis, anemia History of Any Multi-Drug Resistant Organisms: None Reported Past Surgical History: Heart Catheterization Additional Past Surgical History / Comment(s): biopsy of rt thigh mass, hematoma drain, biopsy of lung for lung nodules. Past Anesthesia/Blood Transfusion Reactions: No Reported Reaction Additional Past Anesthesia/Blood Transfusion Reaction / Comment(s): never really had anesthesia before, no family problems Past Psychological History: No Psychological Hx Reported Smoking Status: Former smoker Past Alcohol Use History: None Reported Additional Past Alcohol Use History / Comment(s): quit smoking 10-15 yrs. ago, never smoked daily, just "socially" Past Drug Use History: None Reported - Past Family History Mother Family Medical History: No Reported History Sister(s) Family Medical History: Cancer Medications and Allergies Home Medications Medication Instructions Recorded Confirmed Type Loratadine [Claritin] 10 mg PO DAILY 01/13/24 07/16/24 History Multivitamins, Thera [Multivitamin 1 tab PO DAILY 01/13/24 07/16/24 History (formulary)] Atorvastatin [Lipitor] 40 mg PO HS 05/22/24 07/16/24 History Digoxin [Lanoxin] 125 mcg PO DAILY 05/22/24 07/16/24 History Escitalopram [Lexapro] 10 mg PO HS 05/22/24 07/16/24 History Aspirin 81 mg PO DAILY #30 tab 05/28/24 07/16/24 Rx HYDROcodone/APAP 5-325MG [Benedict 1 tab PO Q6HR PRN 3 Days #12 tab 05/28/24 07/16/24 Rx 5-325] Metoprolol Succinate (ER) [Toprol 50 mg PO BID #180 tab 05/28/24 07/16/24 Rx XL] Acetaminophen Tab [Tylenol] 650 mg PO Q6HR PRN tab 06/04/24 07/16/24 Rx Ferrous Sulfate [Iron (65 MG 325 mg PO DAILY #30 tab 06/04/24 07/16/24 Rx Elemental)] Allergies Allergy/AdvReac Type Severity Reaction Status Date / Time No Known Allergies Allergy Verified 07/16/24 08:25 Physical Examination - Vital Signs Vital Signs: Vital Signs Temp Pulse Resp BP BP Pulse Ox 07/23/24 15:39 98.1 F 52 L 15 107/67 92 L 07/23/24 12:00 98.3 F 85 17 107/67 94 L 07/23/24 08:34 97.7 F 98 18 100/63 97 07/23/24 04:00 98 F 86 15 110/73 98 07/23/24 01:27 109 H 17 07/22/24 23:00 98.3 F 109 H 17 105/62 94 L 07/22/24 20:00 98.5 F 100 16 106/67 96 07/22/24 18:50 97.9 F 101 H 17 122/71 Intake and Output 07/23/24 07/23/24 07/23/24 06:59 14:59 22:59 Output Total 3900 500 Balance -3900 -500 Output: Urine 3900 500 Uretheral (Sabillon) 1000 Other: Voiding Method External Catheter Indwelling Catheter Weight 78.5 kg Patient is a middle aged female, who appears somewhat delirious, somewhat encephalopathic. Patient is alert awake, appears mildly encephalopathic. Patient has fluent aphasia, and perseverates frequently. Patient would start talking "I am at .....", then stops at the beginning of the sentence. Patient able to name some objects like pen, knuckles but not eyeglasses. Patient has some paraphasic errors, as for knuckles patient said "Quiroz", and for the earlobe patient said "earring". Patient able to repeat very well although required couple attempts and then she starts perseverating. Attention, concentration and fund of knowledge are all severely limited. Patient would perseverate on "I am over the road". Patient could not tell current month or the year, as she would start "it is ...", then stops. On cranial nerve examination, pupils are equal, round and reacting to light, visual gillette are full on confrontation, as patient was able to see the fingers moving in all 4 quadrants, but would not consistently appropriately respond to checking neglect. Extraocular muscles are intact with no nystagmus. Face is symmetric, tongue protrudes to the midline. Palatal elevation and sensation normal, hearing and shoulder shrug normal, facial sensation normal. On muscle strength testing, there is no pronator drift and the strength is nor mal in arms distally and proximally, except press operator carbon products which is 5- bilaterally. Patient has mild myoclonic jerks of outstretched hands bilaterally. In the lower limbs, (right/left) hip flexion is 3-/3+, ankle dorsiflexion 3+/3-, plantarflexion 2-3/5. Patient is very tender to moving bilateral lower ext remities, right is worse. Right thigh is very swollen, with a drain present in the center of the thigh anteriorly. There is erythema over the drain site. Deep tendon reflexes are (right/left) biceps 2+3/2+3, brachioradialis 2+3/2+3, knees 0/3+, ankles 3/3, plantars are probable upgoing bilaterally. Sensory to touch is equal but was inconsistent response. Cerebellar function showed no ataxia for [id number] testing. Cannot check for lower ligaments because of weakness and pain. Gait deferred.. On general examination, there is no carotid bruit or murmur, S1-S2 audible. Chest is clear on consultation. Abdomen is soft nontender. No organomegaly, bowel sounds present. Patient has bilateral peripheral edema. Results - Laboratory Findings CBC and BMP: 07/24/24 06:55 07/24/24 06:55 Abnormal Lab Findings: Abnormal Labs 07/15/24 07/15/24 07/15/24 21:23 21:23 21:23 WBC 23.8 H RBC 2.59 L Hgb 6.8 L* D Hct 22.5 L MCHC 30.0 L RDW 19.3 H Plt Count 601 H Neutrophils # 19.1 H Monocytes # 1.3 H Retic Count Fibrinogen D-Dimer Sodium 132 L Potassium Chloride 94 L Carbon Dioxide 20 L Glucose Plasma Lactic Acid Christos 6.5 H* Calcium 8.2 L AST 37 H Alkaline Phosphatase 305 H Total Protein Albumin 3.0 L Crossmatch 07/15/24 07/16/24 07/16/24 22:15 02:30 02:30 WBC RBC Hgb Hct MCHC RDW Plt Count Neutrophils # Monocytes # Retic Count Fibrinogen D-Dimer 5.11 H Sodium 131 L Potassium Chloride Carbon Dioxide Glucose Plasma Lactic Acid Christos Calcium 7.2 L AST Alkaline Phosphatase 206 H Total Protein 4.6 L Albumin 1.9 L Crossmatch See Detail 07/16/24 07/16/24 07/16/24 09:42 09:42 16:36 WBC 18.4 H RBC 2.35 L Hgb 6.1 L* Hct 20.0 L MCHC 30.3 L RDW 18.8 H Plt Count Neutrophils # 14.7 H Monocytes # 1.3 H Retic Count 5.4 H Fibrinogen D-Dimer Sodium 132 L Potassium Chloride Carbon Dioxide Glucose Plasma Lactic Acid Christos Calcium 7.1 L AST Alkaline Phosphatase 191 H Total Protein 4.5 L Albumin 1.8 L Crossmatch 07/16/24 07/17/24 07/17/24 16:36 06:52 06:52 WBC 19.1 H RBC 2.78 L Hgb 7.1 L Hct 24.3 L MCHC 29.1 L RDW 18.1 H Plt Count Neutrophils # 15.3 H Monocytes # Retic Count Fibrinogen 766 H D-Dimer Sodium 134 L Potassium Chloride Carbon Dioxide Glucose 118 H Plasma Lactic Acid Christos Calcium 7.1 L AST Alkaline Phosphatase 234 H Total Protein 4.2 L Albumin 1.7 L Crossmatch 07/18/24 07/18/24 07/19/24 06:55 06:55 05:48 WBC 18.9 H 16.4 H RBC 2.57 L 2.89 L Hgb 6.7 L* 7.7 L Hct 22.5 L 25.4 L MCHC 30.0 L 30.5 L RDW 18.0 H 17.7 H Plt Count Neutrophils # Monocytes # Retic Count Fibrinogen D-Dimer Sodium 133 L Potassium Chloride Carbon Dioxide Glucose Plasma Lactic Acid Christos Calcium 7.4 L AST Alkaline Phosphatase 243 H Total Protein 4.2 L Albumin 1.6 L Crossmatch 07/19/24 07/20/24 07/20/24 05:48 05:32 05:35 WBC 18.5 H RBC 3.00 L Hgb 7.9 L Hct 26.0 L MCHC 30.4 L RDW 17.3 H Plt Count Neutrophils # Monocytes # Retic Count Fibrinogen D-Dimer Sodium 134 L Potassium Chloride Carbon Dioxide 20 L Glucose Plasma Lactic Acid Christos Calcium 7.6 L 7.5 L AST Alkaline Phosphatase 239 H 209 H Total Protein 4.4 L 4.1 L Albumin 1.7 L 1.6 L Crossmatch 07/21/24 07/22/24 07/22/24 07:30 08:16 08:16 WBC 18.8 H 18.2 H RBC 3.04 L 2.90 L Hgb 8.0 L 7.5 L Hct 26.9 L 25.4 L MCHC 29.8 L 29.5 L RDW 17.2 H 17.2 H Plt Count Neutrophils # 14.9 H 14.5 H Monocytes # 1.2 H 1.2 H Retic Count Fibrinogen D-Dimer Sodium Potassium 3.4 L Chloride 108 H Carbon Dioxide 20 L Glucose Plasma Lactic Acid Christos Calcium 8.0 L AST Alkaline Phosphatase Total Protein Albumin Crossmatch 07/23/24 07/23/24 06:20 06:20 WBC 17.5 H RBC 2.74 L Hgb 7.2 L Hct 23.9 L MCHC 29.9 L RDW 17.2 H Plt Count Neutrophils # 13.9 H Monocytes # Retic Count Fibrinogen D-Dimer Sodium Potassium Chloride 109 H Carbon Dioxide 21 L Glucose Plasma Lactic Acid Christos Calcium 8.0 L AST Alkaline Phosphatase Total Protein Albumin Crossmatch Assessment and Plan Assessment: * Altered mental status with fluent aphasia, rule out CVA, seizure, abscess or metastasis. Rule out cephalosporin toxicity. * Bilateral lower extremity weakness, with brisk reflexes. Rule out epidural abscess/hematoma/metastasis * Newly diagnosed metastatic osteosarcoma * Abscess right anterior thigh with drainage in place * Paroxysmal atrial fibrillation * Anemia * Folate deficiency * Hyperlipidemia Plan: * Stat CTA of head and neck revealed no evidence of significant vascular abnormality. No thrombus, occlusion, or aneurysm reported. * MRI of the brain with and without contrast revealed no evidence of intracranial mass, acute/subacute infarct or abnormal enhancement. * Stat EEG was performed, which was abnormal due to background slowing of moderate to severe degree and presence of very frequent triphasic waves. This suggestive of generalized cerebral dysfunction as can be seen with toxic m etabolic encephalopathy. Triphasic waves can be seen with hepatic encephalopathy. Clinical correlation is recommended. No definitive epileptiform activity was seen. * EEG was reviewed. This pattern of encephalopathy can be seen with cephalosporin toxicity. We will discuss with infectious disease to consider switching from cefepime to another antibiotic. * We will empirically start Keppra 1000 mg IV x 1 dose followed by Keppra 750 mg twice daily, for severely abnormal EEG. * Patient has developed severe pain in bilateral lower extremities with weakness. Patient not very clear if she has back pain. We will check MRI of the thoracic and lumbar spine with and without contrast rule out metastasis disease or abscess. * Check ammonia level * Patient has atrial fibrillation, but currently not on anticoagulation. Recommend starting anticoagulation when medically cleared. * Hemoglobin A1c 5.5 on 05/27/2024. B12 443, folate 7.3 and TSH normal 2.33. We will start folic acid 1 mg daily. * DVT prophylaxis: We will defer to IM/oncology/surgery * Patient being considered for transfer to [facility]. * Discussed with primary physician in detail. Also discussed with family members. * Thank you for the consult. Time with Patient: Greater than 30
[2024-07-24] MEDS: DEXTROSE 5%-0.9% NACL 1,000 ML IV SCH (09:37)
[2024-07-24 11:03] LABS: Glucose,Whole Blood 93 mg/dL (70-110)
--- NOTE | 2024-07-24 11:12 | P.PN ---
Subjective Progress Note Date: 07/24/24 SURGICAL PROGRESS NOTE CHIEF COMPLAINT: Necrotic infected mass in right lower extremity HISTORY OF PRESENT ILLNESS: Patient complains of pain in her right thigh. Drain with purulent drainage. Patient having mental status changes and metabolic encephalopathy. Followed by neurology and work-up in progress. Patient is still awaiting bed availability at [facility]. Patient seen by radiology oncology service. Afebrile. WBC 17.7 Hgb 6.9 PHYSICAL EXAM: VITAL SIGNS: Reviewed. GENERAL: no acute distress. Extremities: Right upper thigh swelling and erythema. Drain in place with purulent output. ASSESSMENT: 1. Necrotic infected mass in the right lower extremity PLAN: -Awaiting transfer to [facility] for surgical oncology eval and surgical debridement -Continue antibiotics -Patient scheduled for blood transfusion today for hgb 6.9 Physician Entry Rep note has been reviewed by physician. Signing provider agrees with the documented findings, assessment, and plan of care. Objective - Vital Signs Vital signs: Vital Signs Temp 98.1 F 07/24/24 08:10 Pulse 84 07/24/24 08:10 Resp 16 07/24/24 08:10 BP 100/60 07/24/24 08:10 Pulse Ox 94 L 07/24/24 08:10 FiO2 Intake & Output 07/23/24 07/24/24 07/24/24 18:59 06:59 18:59 Intake Total 240 10 Output Total 500 200 Balance -500 40 10 Weight 78.5 kg Intake: IV 10 Invasive Line 6 10 Oral 240 Output: Urine 500 200 Other: Voiding Method Indwelling Catheter Indwelling Catheter Indwelling Catheter - Labs CBC & Chem 7: 07/24/24 06:55 07/24/24 06:55 Labs: Abnormal Lab Results - Last 24 Hours (Table) 07/24/24 07/24/24 07/24/24 Range/Units 06:55 06:55 08:59 WBC 17.7 H (3.8-10.6) k/uL RBC 2.60 L (3.80-5.40) m/uL Hgb 6.9 L* (11.4-16.0) gm/dL Hct 22.5 L (34.0-46.0) % MCHC 30.6 L (31.0-37.0) g/dL RDW 17.3 H (11.5-15.5) % Neutrophils # 14.7 H (1.3-7.7) k/uL Potassium 3.4 L (3.5-5.1) mmol/L Chloride 109 H (98-107) mmol/L Carbon Dioxide 19 L (22-30) mmol/L BUN 18 H (7-17) mg/dL Glucose 68 L (74-99) mg/dL Calcium 8.0 L (8.4-10.2) mg/dL Crossmatch See Detail
[2024-07-24] MEDS: FOLIC ACID 1 MG TAB PO SCH (11:31)
--- NOTE | 2024-07-24 13:44 | MR ---
EXAMINATION TYPE: MR lumbar spine wo/w con DATE OF EXAM: 07/24/2024 1:31 PM COMPARISON: 05/31/2024 . CLINICAL INDICATION: Female, 58 years old with history of Bilateral lower extremity weakness, leg wai coma; PHH, Bilateral LE weakness. Sarcoma on leg TECHNIQUE: Multi planar, multi sequence imaging was performed utilizing: T1-weighted, T2-weighted, a nd turbo inversion recovery imaging of the lumbar spine. IV Contrast: 7 mL Gadobutrol (None, if empty) FINDINGS: Alignment: The lumbar vertebral bodies have preserved heights and alignment. Cord: The conus medullaris and the distal spinal cord appear unremarkable with regards to their signa l intensity and morphology. Bones/Discs: Mild degeneration changes throughout the spine with osteophyte formation and facet joint arthropathy. Intervertebral disc signal is maintained. No abnormal inversion recovery signal to sugg est bony edema. T12-L1: No evidence of significant spinal canal stenosis or neural foraminal stenosis. L1-L2: No evidence of significant spinal canal stenosis or neural foraminal stenosis. L2-L3: No evidence of significant spinal canal stenosis or neural foraminal stenosis. L3-L4: No evidence of significant spinal canal stenosis or neural foraminal stenosis. L4-L5: No evidence of significant spinal canal stenosis or neural foraminal stenosis. L5-S1: The disc has a rounded posterior morphology without significant spinal canal stenosis. Facet j oint arthropathy with mild bilateral neural foraminal stenosis. No significant spinal canal or neural foraminal stenosis in the remainder of the visualized levels. Other findings: None. IMPRESSION: 1. Limited exam due to motion and edema. No definitive evidence of disc herniation or significant sp inal canal stenosis. No abnormal postcontrast enhancement. 2. Mild disc degeneration with associated osteoarthritic changes. [facility], , 07/24/2024 1:42 PM
[2024-07-24] MEDS: VANCOMYCIN 1,500 MG in SODIUM CHLORIDE 0.9% 500 ML 500 ML IVPB SCH (14:08)
[2024-07-24] MEDS ORDERED: ACETAMINOPHEN TAB 325 MG TAB PO PRN (14:17)
--- NOTE | 2024-07-24 15:20 | P.PN ---
Subjective Progress Note Date: 07/24/24 Principal diagnosis: Reason for follow-up is sepsis possible right thigh infected hematoma Patient is a 58-year-old female with a past medical history significant for hyperlipidemia atrial fibrillation recently has developed hematoma of the right thigh that was drained on 05/25/2024 culture has been negative patient now presenting back to the hospital concerning for increasing pain and swelling to the right thigh area and also foul-smelling drainage patient to be diagnosed with sepsis possible associated infected right thigh hematoma General Surgeon recommended patient to be transferred to urgent care. On today's evaluation that is 07/24/2023, Patient did have a low-grade fever of 100.4 F this afternoon patient also has developed significant mental status sabrina nges cefepime has been put on for this morning by the nursing staff patient denies having any chest pain or cough and worsening pain to the right thigh area. Patient hemoglobin is dropped to 6.9 white count is 17.7 creatinine 0.86 Objective - Vital Signs Vital signs: Vital Signs Temp 98.1 F 07/24/24 08:10 Pulse 84 07/24/24 08:10 Resp 16 07/24/24 08:10 BP 100/60 07/24/24 08:10 Pulse Ox 94 L 07/24/24 08:10 FiO2 Intake & Output 07/23/24 07/24/24 07/24/24 18:59 06:59 18:59 Intake Total 240 20 Output Total 500 200 Balance -500 40 20 Weight 78.5 kg Intake: IV 20 Invasive Line 6 10 Invasive Line 8 10 Oral 240 Output: Urine 500 200 Other: Voiding Method Indwelling Catheter Indwelling Catheter Indwelling Catheter - Exam GENERAL DESCRIPTION: Middle-age female lying in bed in no distress RESPIRATORY SYSTEM: Unlabored breathing , decreased breath sounds at bases HEART: S1 S2 regular rate and rhythm , ABDOMEN: Soft , no tenderness EXTREMITIES: Right thigh with swelling redness no drainage - Labs CBC & Chem 7: 07/24/24 06:55 07/24/24 06:55 Labs: Abnormal Lab Results - Last 24 Hours (Table) 07/24/24 07/24/24 07/24/24 Range/Units 06:55 06:55 08:59 WBC 17.7 H (3.8-10.6) k/uL RBC 2.60 L (3.80-5.40) m/uL Hgb 6.9 L* (11.4-16.0) gm/dL Hct 22.5 L (34.0-46.0) % MCHC 30.6 L (31.0-37.0) g/dL RDW 17.3 H (11.5-15.5) % Neutrophils # 14.7 H (1.3-7.7) k/uL Potassium 3.4 L (3.5-5.1) mmol/L Chloride 109 H (98-107) mmol/L Carbon Dioxide 19 L (22-30) mmol/L BUN 18 H (7-17) mg/dL Glucose 68 L (74-99) mg/dL Calcium 8.0 L (8.4-10.2) mg/dL Crossmatch See Detail Assessment and Plan (1) Sepsis Current Visit: Yes Status: Acute Code(s): A41.9 - SEPSIS, UNSPECIFIED ORGANISM SNOMED Code(s): 36430745 (2) Abscess of right thigh Current Visit: Yes Status: Acute Priority: High Code(s): L02.415 - CUTANEOUS ABSCESS OF RIGHT LOWER LIMB SNOMED Code(s): 94509042606938605 Plan: 1patient presenting the hospital with increasing pain and swelling and foul- smelling drainage from the right thigh drainage catheter in this patient who did have features of sepsis with fever tachycardia elevated white count elevated lactic acid, will need to cover for both gram-positive as well as gram-negative pathogen 2-patient did have significant mental status changes more likely related to the cefepime which has been discontinued 3patient did have a fever and also drop in hemoglobin concerning for possible continued bleeding into the right thigh and need to be surgically addressed sooner than later, blood culture will be repeated, she will continue the vancomycin will add Rocephin for gram-negative coverage Dictation was produced using [employer] dictation software. please excuse any grammatical, word or spelling errors. Time with Patient: Less than 30
--- NOTE | 2024-07-24 15:20 | P.PN ---
Subjective Progress Note Date: 07/24/24 Hospital Course: A 58-year-old female with recent complicated PMH including Takotsubo cardiomyo mike, HLD, HTN, paroxysmal A-fib not on anticoagulation, complex mass of the femur pending pathology, concern for metastatic process. History of right leg pain with hematoma evacuation on 05/25/2024, who presented to the ER with worsening erythema, pain, foul smelling discharge, concern for infection. ED documentation reviewed. In the ED patient was treated with a bolus of normal saline, ceftriaxone 2 g IV x 1, Dilaudid 0.5 mg IV x 1. Oncology following, patient has previously met with an orthopedic oncologist at [facility], recommendations pending pathology. Vitals on admission temperature 99.3, pulse rate 100, respiratory rate 12, blood pressure 100/66, O2 sat 95% on room air CXR shows enlarging pulmonary nodules throughout the lungs compared to 05/31/2024. Findings compatible with metastatic disease. Right knee x-ray shows no acute osseous pathology. Mild tricompartmental osteoarthritic changes. Right femur x-ray shows soft tissue catheter in the subcutaneous tissues/mass of the right lower extremity. No evidence of fracture. There is a cortical scalloping along the femur possibly representing involvement of the known mass. Labs on admission show WBC 23.8, hemoglobin 6.8, hematocrit 22.5, platelets 601, neutrophils 19.1, PT 11.7, PTT 23.5, INR 1.1, sodium 132, potassium 4.4, chloride 94, carbon dioxide 20, BUN 12, creatinine 0.55, lactic acid 6.5, calcium 8.2, AST 37, ALT 12, alkaline phosphatase 305. ID consulted for management of sepsis secondary to right side infection, started on vancomycin and ceftriaxone, now she switched to vancomycin and cefepime general surgery consulted. Surgery recommends transfer to [facility] as patient was previously seen by Dr. Wilbert Beavers, orthopedic oncology, who apparently practices at [facility]. Per Dr. Ramírez, Dr. Lopes had a conversation with Dr. Beavers regarding transfer, currently awaiting further clarification from Dr. Lopes. Of note, patient was never seen at [facility]. Awaiting bed transfer to [facility]. 07/22 patient was noted to be altered, becoming more confused and unable to answer simple questions. Stat CTA head and neck showed no acute abnormality, MRI of the brain with and without contrast revealed no acute abnormality as well. Stat EEG showed moderate to severe background slowing and frequent triphasic waves, concern for hepatic encephalopathy or toxic metabolic encephalopathy due to cephalosporins. Patient was empirically started on Keppra. Ammonia level n egative Lumbar spine MRI ordered and showed no stenosis, no abnormal enhancement. [facility] called and provided with medical update on 07/24. 07/24 in the afternoon patient started spiking fever, repeat blood cultures obtained, ID notified.Switched to ceftriaxone, plan for LP. 1 unit of PRBC 07/24 Pertinent Imaging: Lumbar spine MRI ordered and showed no stenosis, no abnormal enhancement. Subjective: He was seen and examined at bedside, unable to obtain ROS due to mental status change, patient is moaning ouch, opens eyes to command, withdraws to pain stimuli, protecting airways Pertinent positives and negatives as discussed above, a complete review of systems was performed and all other systems are negative. Vitals Signs Reviewed. General: Lethargic, ill-appearing Derm: Right tight drain in place, purulent drainage Head: [atraumatic], [normocephalic], [symmetric] Eyes: [EOMI], [no lid lag], [anicteric sclera] Mouth: [no lip lesion], [mucus membranes moist] Cardiovascular: [S1S2 reg], [no murmur] Lungs: [CTA bilateral], [no rhonchi, no rales] , [no accessory muscle use] Abdominal: [soft], [ nontender to palpation], [no guarding], [no appreciable organomegaly] Ext: Right tight tenderness, erythema, swelling, draine in place Neuro: Able to perform full exam due to altered mental status, no nuchal rigidity Psych: AMS, unable to assess Data Reviewed Today: Pertinent Labs: Hemoglobin down to 6.9, 1 unit of PBC ordered, leukocytosis persistent 17.7, platelet count normal stable, sodium normal, potassium 3.4, carbon dioxide 19, creatinine normal stable, glucose 60 8 in the morning, started on D5 NS Assessment and Plan: Sepsis likely secondary to right thigh infection in the settings of surgical drainage presents, possible mass necrosis Lactic acidosis, resolved, in the settings of above Status post right thigh hematoma evacuation 05/25/2024 Right thigh mass, metastatic osteosarcoma -ID following, continue vancomycin, ceftriaxone switched to cefepime SOT 07/18, switched back to ceftriaxone and 07/24 due to concern for cefepime induced acute toxic metabolic encephalopathy -Oncology following -Pending pathology -General Surgery following, recommends transfer to [facility], pending bed -Morphine 4 mg every 3 hours as needed, Tylenol as needed -Repeat blood cultures 07/24 ordered -Plan for LP Altered mental status likely secondary to toxic metabolic encephalopathy in the setting of cefepime use -07/22 patient was noted to be altered, becoming more confused and unable to answer simple questions. Stat CTA head and neck showed no acute abnormality, MRI of the brain with and without contrast revealed no acute abnormality as well. Stat EEG showed moderate to severe background slowing and frequent triphasic waves, concern for hepatic encephalopathy or toxic metabolic encephalopathy due to cephalosporins. Patient was empirically started on Keppra. Ammonia level negative -Lumbar spine MRI ordered and showed no stenosis, no abnormal enhancement Acute blood loss anemia -Transfuse 1 unit PRBC 07/24 -Follow-up CBC daily, transfuse for hemoglobin less than 7, -"Coagulation panel normal, heme-onc following, no concern for DIC \\Elevated AST, ALP -Monitor CMP [Chronic:] History of paroxysmal A-fib: Not on anticoagulation HLD: Resume atorvastatin 40 Hypertension: Resume metoprolol succinate 50 twice daily DVT ppx: holding due to acute blood loss anemia Anticipated discharge place: Plan to transfer to [facility], Anticipated discharge time: pending bed availability Objective - Vital Signs Vital signs: Vital Signs Temp 99.7 F H 07/24/24 14:28 Pulse 92 07/24/24 14:28 Resp 18 07/24/24 14:28 BP 115/65 07/24/24 14:28 Pulse Ox 93 L 07/24/24 14:28 FiO2 Intake & Output 07/23/24 07/24/24 07/24/24 18:59 06:59 18:59 Intake Total 240 40 Output Total 500 200 Balance -500 40 40 Weight 78.5 kg Intake: IV 40 Invasive Line 6 20 Invasive Line 8 20 Oral 240 Blood Product 0 Unit 0 Output: Urine 500 200 Other: Voiding Method Indwelling Catheter Indwelling Catheter Indwelling Catheter - Labs CBC & Chem 7: 07/24/24 06:55 07/24/24 06:55 Labs: Abnormal Lab Results - Last 24 Hours (Table) 07/24/24 07/24/24 07/24/24 Range/Units 06:55 06:55 08:59 WBC 17.7 H (3.8-10.6) k/uL RBC 2.60 L (3.80-5.40) m/uL Hgb 6.9 L* (11.4-16.0) gm/dL Hct 22.5 L (34.0-46.0) % MCHC 30.6 L (31.0-37.0) g/dL RDW 17.3 H (11.5-15.5) % Neutrophils # 14.7 H (1.3-7.7) k/uL Potassium 3.4 L (3.5-5.1) mmol/L Chloride 109 H (98-107) mmol/L Carbon Dioxide 19 L (22-30) mmol/L BUN 18 H (7-17) mg/dL Glucose 68 L (74-99) mg/dL Calcium 8.0 L (8.4-10.2) mg/dL Crossmatch See Detail
[2024-07-24 16:24] LABS: Glucose,Whole Blood 97 mg/dL (70-110)
--- NOTE | 2024-07-24 18:29 | P.PN ---
Subjective Progress Note Date: 07/24/24 Patient confusion persisting, appears worse today. Responds to verbal stimuli, but easily falls asleep. MRI brain was obtained, showing no mets, or infarct. EEG showing moderate to sever background slowing, could be suggestive of toxic metabolic encephalopathy. Hgb 6.9, additional unit PRBCs ordered. Afebrile, continues on IV abx Objective - Vital Signs Vital signs: Vital Signs Temp 100.3 F H 07/24/24 14:08 Pulse 92 07/24/24 14:08 Resp 17 07/24/24 14:08 BP 104/58 07/24/24 14:08 Pulse Ox 93 L 07/24/24 14:08 FiO2 Intake & Output 07/23/24 07/24/24 07/24/24 18:59 06:59 18:59 Intake Total 240 20 Output Total 500 200 Balance -500 40 20 Weight 78.5 kg Intake: IV 20 Invasive Line 6 10 Invasive Line 8 10 Oral 240 Blood Product 0 Unit 0 Output: Urine 500 200 Other: Voiding Method Indwelling Catheter Indwelling Catheter Indwelling Catheter - Constitutional Constitutional Comment(s): ill appearing General appearance: Present: no acute distress - Respiratory Details: breathing is even and unlabored - Cardiovascular Details: skin warm and dry - Integumentary Integumentary: Present: pale. Absent: cyanotic - Neurologic Neurologic Comment(s): lethargic, confused - Musculoskeletal Musculoskeletal: Present: generalized weakness - Labs CBC & Chem 7: 07/24/24 06:55 07/24/24 06:55 Labs: Abnormal Lab Results - Last 24 Hours (Table) 07/24/24 07/24/24 07/24/24 Range/Units 06:55 06:55 08:59 WBC 17.7 H (3.8-10.6) k/uL RBC 2.60 L (3.80-5.40) m/uL Hgb 6.9 L* (11.4-16.0) gm/dL Hct 22.5 L (34.0-46.0) % MCHC 30.6 L (31.0-37.0) g/dL RDW 17.3 H (11.5-15.5) % Neutrophils # 14.7 H (1.3-7.7) k/uL Potassium 3.4 L (3.5-5.1) mmol/L Chloride 109 H (98-107) mmol/L Carbon Dioxide 19 L (22-30) mmol/L BUN 18 H (7-17) mg/dL Glucose 68 L (74-99) mg/dL Calcium 8.0 L (8.4-10.2) mg/dL Crossmatch See Detail Assessment and Plan (1) Abscess of right thigh Current Visit: Yes Status: Acute Priority: High Code(s): L02.415 - CUTANEOUS ABSCESS OF RIGHT LOWER LIMB SNOMED Code(s): 50945631017949294 (2) Fever Current Visit: Yes Status: Acute Priority: High Code(s): R50.9 - FEVER, UNSPECIFIED SNOMED Code(s): 753789600 (3) Hematoma of right lower leg Current Visit: Yes Status: Acute Priority: Medium Code(s): S80.11XA - CONTUSION OF RIGHT LOWER LEG, INITIAL ENCOUNTER SNOMED Code(s): 05535309047679018 (4) Pain Current Visit: Yes Status: Acute Priority: High Code(s): R52 - PAIN, UNSPECIFIED SNOMED Code(s): 31927828 (5) Pulmonary nodules Current Visit: Yes Status: Acute Priority: Medium Code(s): R91.8 - OTHER NONSPECIFIC ABNORMAL FINDING OF LUNG FIELD SNOMED Code(s): 673073959 (6) Osteosarcoma Current Visit: Yes Status: Acute Priority: High Code(s): C41.9 - MALIGNANT NEOPLASM OF BONE AND ARTICULAR CARTILAGE, UNSP SNOMED Code(s): 136771087 Plan: Fever -Likely 2/2 to necrosis/infection around mass in right thigh -WBC elevated, neutrophilia, consistent with infection -Infectious disease following -Continues on IV antibiotics. -Blood culture negative. Repeat blood cultures ordered RLE Pain -Secondary to infection and mass in right thigh -Case discussed with Pharm.D., pain medication adjustments have been made. -Medications have been ordered for prevention of narcotic induced constipation -Pain meds managing pain well, continue current regimen Metastatic osteosarcoma -Patient's clinical course summarized in HPI. Right thigh mass as well as pulmonary nodules are FDG avid. She is status post biopsy 07/05/24 -Patient has met with an Orthopedic Oncologist at , recommendations pending path. Surgery team recommending transfer to for surgical debridement and further evaluation by ortho oncology -Patient has had the GLORIA drain in for about 7 weeks. Concerns for infection. 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 Unfortunately with noted metastatic disease surgical intervention is not typically standard of care, as well it could delay chemo/RT for sometime. Discussed case with rad onc. Will consider palliative RT to right thigh if she continues having anemia secondary to tumor. Ideally pt will need to be started on systemic treatment once infection is adequately treated -Plan is to transfer pt to [facility] for surgical debridement and ortho onc evaluation -Clinic f/u with Dr. Montesinos scheduled for 08/07/24 Confusion: -MRI brain negative for metastases, and infarct. -Neurology following. EEG showing moderate to severe background slowing, could be suggestive of toxic metabolic encephalopathy -Discussed case with neurology, will obtain LP to r/o leptomeningeal disease vs infectious etiologies -Plan for LP tomorrow. This was discussed with patient's spouse and he was agreeable to the same Anemia -Blood loss anemia, mass in thigh, GLORIA drain with bloody output -S/p 3 units PRBCs since admit. Hgb 6.9 today, additional unit PRBCs ordered -CBC daily, transfuse for Hgb <7 or if symptomatic -Hold IV iron for now due to infection. This can also be given in outpt setting once infection has been adequately treated
[2024-07-24 20:07] LABS: Glucose,Whole Blood 99 mg/dL (70-110)
[2024-07-24] MEDS: HYDROcodone/APAP 5-325MG 1 EACH TAB PO PRN (23:38)
[2024-07-25 06:05] LABS: Glucose,Whole Blood 112 mg/dL (70-110)
[2024-07-25 08:26] LABS: African American GFR (CKD) 90 (>60 ml/min/1.73 sqM); Anion Gap 7 mmol/L; Blood Urea Nitrogen 19 mg/dL (7-17); Carbon Dioxide 21 mmol/L (22-30); Chloride 113 mmol/L (98-107); Glucose 99 mg/dL (74-99); Magnesium 1.9 mg/dL (1.6-2.3); Non-African American GFR(CKD) 78 (>60 ml/min/1.73 sqM); Potassium 3.2 mmol/L (3.5-5.1); Sodium 141 mmol/L (137-145)
[2024-07-25 08:27] LABS: Anisocytosis Slight; Basophils % (A) 0 %; Eosinophils # (A) 0.1 k/uL (0-0.7); Eosinophils % (A) 0 %; HCT 24.5 % (34.0-46.0); HGB 7.6 gm/dL (11.4-16.0); Hypochromasia Marked; Lymphocytes % (A) 11 %; MCH 26.9 pg (25.0-35.0); MCHC 30.9 g/dL (31.0-37.0); Monocytes # (A) 0.9 k/uL (0-1.0); Monocytes % (A) 5 %; Neutrophils # (A) 15.1 k/uL (1.3-7.7); Neutrophils % (A) 82 %; Platelet Count 266 k/uL (150-450); Poikilocytosis Moderate; RBC 2.81 m/uL (3.80-5.40); RDW 17.4 % (11.5-15.5); WBC 18.4 k/uL (3.8-10.6)
[2024-07-25] MEDS ORDERED: Potassium Replacement Protocol 1 EACH MISC MISCELLANE PRN (08:30)
--- NOTE | 2024-07-25 08:47 | P.PN ---
Subjective Progress Note Date: 07/24/24 Patient was seen for a follow-up. Patient continues to be severely encephalopathic, not improved at all. Able to name some objects a little better. But still very spacey. Patient denies headache. Denies any low back pain. Continues to have lower extremity weakness. Objective - Vital Signs Vital signs: Vital Signs Temp 98.7 F 07/24/24 16:21 Pulse 100 07/24/24 16:21 Resp 17 07/24/24 16:21 BP 100/62 07/24/24 16:21 Pulse Ox 93 L 07/24/24 14:28 FiO2 Intake & Output 07/23/24 07/24/24 07/24/24 18:59 06:59 18:59 Intake Total 240 350 Output Total 500 200 Balance -500 40 350 Weight 78.5 kg Intake: IV 40 Invasive Line 6 20 Invasive Line 8 20 Oral 240 Blood Product 310 Rc As-1 Unit 310 [id number] Output: Urine 500 200 Other: Voiding Method Indwelling Catheter Indwelling Catheter Indwelling Catheter - Exam Patient continues to be very weak in the lower extremities. Any movement hurts. Patient able to name objects like pen, eyeglasses. But mostly mumbles. Strength in the upper extremities are normal. - Labs CBC & Chem 7: 07/25/24 07:30 07/25/24 07:30 Labs: Abnormal Lab Results - Last 24 Hours (Table) 07/24/24 07/24/24 07/24/24 Range/Units 06:55 06:55 08:59 WBC 17.7 H (3.8-10.6) k/uL RBC 2.60 L (3.80-5.40) m/uL Hgb 6.9 L* (11.4-16.0) gm/dL Hct 22.5 L (34.0-46.0) % MCHC 30.6 L (31.0-37.0) g/dL RDW 17.3 H (11.5-15.5) % Neutrophils # 14.7 H (1.3-7.7) k/uL Potassium 3.4 L (3.5-5.1) mmol/L Chloride 109 H (98-107) mmol/L Carbon Dioxide 19 L (22-30) mmol/L BUN 18 H (7-17) mg/dL Glucose 68 L (74-99) mg/dL Calcium 8.0 L (8.4-10.2) mg/dL Crossmatch See Detail Assessment and Plan Assessment: * Altered mental status with fluent aphasia. Exact cause uncertain. Structural abnormalities like CVA, abscess or metastasis ruled out with brain MRI. Rule out cephalosporin toxicity. Rule out metabolic encephalopathy versus seizures. * Bilateral lower extremity weakness, with brisk reflexes. Rule out epidural abscess/hematoma/metastasis * Newly diagnosed metastatic osteosarcoma * Abscess right anterior thigh with drainage in place * Paroxysmal atrial fibrillation * Anemia * Folate deficiency * Hyperlipidemia Plan: * Stat CTA of head and neck revealed no evidence of significant vascular abnormality. No thrombus, occlusion, or aneurysm reported. * MRI of the brain with and without contrast revealed no evidence of in tracranial mass, acute/subacute infarct or abnormal enhancement. * Stat EEG was performed, which was abnormal due to background slowing of moderate to severe degree and presence of very frequent triphasic waves. This suggestive of generalized cerebral dysfunction as can be seen with toxic metabolic encephalopathy. Triphasic waves can be seen with hepatic encephalopathy. Clinical correlation is recommended. No definitive epileptiform activity was seen. * This pattern of encephalopathy can be seen with cephalosporin toxicity. Cefepime has been discontinued and patient started on ceftriaxone 2 g every 24 hours and is continued on vancomycin. * Patient empirically started on Keppra 1000 mg IV x 1 dose followed by Keppra 750 mg twice daily, for severely abnormal EEG. * Patient not clinically improved. We will repeat EEG in the morning. * Patient has developed severe pain in bilateral lower extremities with weakness. Patient not very clear if she has back pain. * MRI of the lumbar spine with and without contrast was limited exam due to motion and edema. No definitive evidence of disc herniation or significant spinal canal stenosis. No abnormal postcontrast enhancement. Mild disc degeneration with associated osteoarthritic changes. I personally reviewed MRI. * MRI thoracic spine pending. * Ammonia level < 9. * Patient has atrial fibrillation, but currently not on anticoagulation. Recommend starting anticoagulation when medically cleared. * Hemoglobin A1c 5.5 on 05/27/2024. B12 443, folate 7.3 and TSH normal 2.33. We will start folic acid 1 mg daily. * DVT prophylaxis: We will defer to IM/oncology/surgery * Patient being considered for transfer to [facility]. * Discussed with hematology oncology. Recommending lumbar puncture.
[2024-07-25] MEDS: DEXTROSE 5%-0.9% NACL 1,000 ML IV SCH (09:47)
[2024-07-25] MEDS: ASPIRIN 81 MG PO SCH (10:28)
[2024-07-25] MEDS: FERROUS SULFATE 325 MG TAB PO SCH (10:28)
[2024-07-25] MEDS: MULTIVITAMINS, THERA 1 EACH TAB PO SCH (10:28)
[2024-07-25] MEDS: LORATADINE 10 MG TAB PO SCH (10:28)
--- NOTE | 2024-07-25 10:32 | P.PN ---
Subjective Progress Note Date: 07/25/24 SURGICAL PROGRESS NOTE CHIEF COMPLAINT: Necrotic infected mass in right lower extremity HISTORY OF PRESENT ILLNESS: Patient remains confused. She is followed by neurology for possible metabolic encephalopathy. Patient complains of pain in her right thigh. Drain with purulent drainage. Patient is still awaiting bed availability at [facility]. Afebrile. WBC is up from 17-18.4 Hgb 6.9 up to 7.6 after blood transfusion PHYSICAL EXAM: VITAL SIGNS: Reviewed. GENERAL: no acute distress. Extremities: Right upper thigh swelling and erythema. Drain in place with purulent output. ASSESSMENT: 1. Necrotic infected mass in the right lower extremity PLAN: -Awaiting transfer to [facility] for surgical oncology eval and surgical debridement -Continue antibiotics -Continue supportive care Physician External Grinder Tool note has been reviewed by physician. Signing provider agrees with the documented findings, assessment, and plan of care. Attestation Patient seen and examined at bedside. Remains confused. Discussed with case management on transfer timing. Still awaiting bed at [facility]. Surgical oncology evaluation and surgical debridement is pending. Continue IV antibiotics. Neurology evaluation for metabolic encephalopathy. Sri Bautista DO Objective - Vital Signs Vital signs: Vital Signs Temp 98.0 F 07/25/24 08:15 Pulse 90 07/25/24 08:15 Resp 17 07/25/24 08:15 BP 140/77 07/25/24 08:15 Pulse Ox 95 07/25/24 08:15 FiO2 Intake & Output 07/24/24 07/25/24 07/25/24 18:59 06:59 18:59 Intake Total 350 20 Output Total 400 425 Balance -50 -405 Weight 79 kg Intake: IV 40 20 Invasive Line 6 20 10 Invasive Line 8 20 10 Blood Product 310 Rc As-1 Unit 310 [id number] Output: Urine 400 425 Other: Voiding Method Indwelling Catheter Indwelling Catheter Indwelling Catheter - Labs CBC & Chem 7: 07/25/24 07:30 07/25/24 07:30 Labs: Abnormal Lab Results - Last 24 Hours (Table) 07/24/24 07/25/24 07/25/24 Range/Units 08:59 06:03 07:30 WBC (3.8-10.6) k/uL RBC (3.80-5.40) m/uL Hgb (11.4-16.0) gm/dL Hct (34.0-46.0) % MCHC (31.0-37.0) g/dL RDW (11.5-15.5) % Neutrophils # (1.3-7.7) k/uL Potassium 3.2 L (3.5-5.1) mmol/L Chloride 113 H (98-107) mmol/L Carbon Dioxide 21 L (22-30) mmol/L BUN 19 H (7-17) mg/dL POC Glucose (mg/dL) 112 H (70-110) mg/dL Calcium 8.0 L (8.4-10.2) mg/dL Crossmatch See Detail 07/25/24 Range/Units 07:30 WBC 18.4 H (3.8-10.6) k/uL RBC 2.81 L (3.80-5.40) m/uL Hgb 7.6 L (11.4-16.0) gm/dL Hct 24.5 L (34.0-46.0) % MCHC 30.9 L (31.0-37.0) g/dL RDW 17.4 H (11.5-15.5) % Neutrophils # 15.1 H (1.3-7.7) k/uL Potassium (3.5-5.1) mmol/L Chloride (98-107) mmol/L Carbon Dioxide (22-30) mmol/L BUN (7-17) mg/dL POC Glucose (mg/dL) (70-110) mg/dL Calcium (8.4-10.2) mg/dL Crossmatch
--- NOTE | 2024-07-25 11:44 | P.PN ---
Subjective Progress Note Date: 07/25/24 Hospital Course: A 58-year-old female with recent complicated PMH including Takotsubo cardiomyo mike, HLD, HTN, paroxysmal A-fib not on anticoagulation, complex mass of the femur pending pathology, concern for metastatic process. History of right leg pain with hematoma evacuation on 05/25/2024, who presented to the ER with worsening erythema, pain, foul smelling discharge, concern for infection. ED documentation reviewed. In the ED patient was treated with a bolus of normal saline, ceftriaxone 2 g IV x 1, Dilaudid 0.5 mg IV x 1. Oncology following, patient has previously met with an orthopedic oncologist at [facility], recommendations pending pathology. Vitals on admission temperature 99.3, pulse rate 100, respiratory rate 12, blood pressure 100/66, O2 sat 95% on room air CXR shows enlarging pulmonary nodules throughout the lungs compared to 05/31/2024. Findings compatible with metastatic disease. Right knee x-ray shows no acute osseous pathology. Mild tricompartmental osteoarthritic changes. Right femur x-ray shows soft tissue catheter in the subcutaneous tissues/mass of the right lower extremity. No evidence of fracture. There is a cortical scalloping along the femur possibly representing involvement of the known mass. Labs on admission show WBC 23.8, hemoglobin 6.8, hematocrit 22.5, platelets 601, neutrophils 19.1, PT 11.7, PTT 23.5, INR 1.1, sodium 132, potassium 4.4, chloride 94, carbon dioxide 20, BUN 12, creatinine 0.55, lactic acid 6.5, calcium 8.2, AST 37, ALT 12, alkaline phosphatase 305. ID consulted for management of sepsis secondary to right side infection, started on vancomycin and ceftriaxone, now she switched to vancomycin and cefepime general surgery consulted. Surgery recommends transfer to [facility] as patient was previously seen by Dr. Wilbert Beavers, orthopedic oncology, who apparently practices at [facility]. Per Dr. Ramírez, Dr. Lopes had a conversation with Dr. Beavers regarding transfer, currently awaiting further clarification from Dr. Lopes. Of note, patient was never seen at [facility]. Awaiting bed transfer to [facility]. 07/22 patient was noted to be altered, becoming more confused and unable to answer simple questions. Stat CTA head and neck showed no acute abnormality, MRI of the brain with and without contrast revealed no acute abnormality as well. Stat EEG showed moderate to severe background slowing and frequent triphasic waves, concern for hepatic encephalopathy or toxic metabolic encephalopathy due to cephalosporins. Patient was empirically started on Keppra. Ammonia level n egative Lumbar spine MRI ordered and showed no stenosis, no abnormal enhancement. [facility] called and provided with medical update on 07/24. 07/24 in the afternoon patient started spiking fever, repeat blood cultures obtained, ID notified.Switched to ceftriaxone, plan for LP 07/25. Patient has been afebrile since 07/24 4 PM. 07/25 hemoglobin improved after transfusion up to 7.6, leukocytosis somewhat worse 17.7 up to 18.4. Thoracic spine MRI pending, prolonged EEG ordered. Patient is a little bit more alert today, opens eyes, when asked told me she is all right, continues to moan from pain. 1 unit of PRBC 07/24 Subjective: Unable to obtain due to AMS Pertinent positives and negatives as discussed above, a complete review of systems was performed and all other systems are negative. Vitals Signs Reviewed. General: Lethargic, ill-appearing Derm: Right tight drain in place, purulent drainage Head: [atraumatic], [normocephalic], [symmetric] Eyes: [EOMI], [no lid lag], [anicteric sclera] Mouth: [Very dry oral mucosa, lips, peeling skin Cardiovascular: [S1S2 reg], [no murmur] Lungs: [CTA bilateral], [no rhonchi, no rales] , [no accessory muscle use] Abdominal: [soft], [ nontender to palpation], [no guarding], [no appreciable organomegaly] Ext: Right tight tenderness, erythema, swelling, draine in place Neuro: Able to perform full exam due to altered mental status, no nuchal rigidity Psych: AMS, unable to assess Assessment and Plan: Sepsis likely secondary to right thigh infection in the settings of surgical drainage presents, possible mass necrosis Lactic acidosis, resolved, in the settings of above Status post right thigh hematoma evacuation 05/25/2024 Right thigh metastatic osteosarcoma -ID following, continue vancomycin, ceftriaxone switched to cefepime SOT 07/18, switched back to ceftriaxone and 07/24 due to concern for cefepime induced acute toxic metabolic encephalopathy -Oncology following -General Surgery following, recommends transfer to [facility], pending bed -Repeat blood cultures 07/24 ordered Altered mental status likely secondary to toxic metabolic encephalopathy in the setting of cefepime use -07/22 patient was noted to be altered, becoming more confused and unable to answer simple questions. Stat CTA head and neck showed no acute abnormality, MRI of the brain with and without contrast revealed no acute abnormality as well. Stat EEG showed moderate to severe background slowing and frequent triphasic waves, concern for hepatic encephalopathy or toxic metabolic encephalopathy due to cephalosporins. Patient was empirically started on Keppra. Ammonia level negative -Lumbar spine MRI ordered and showed no stenosis, no abnormal enhancement -Thoracic MRI pending, prolonged EEG ordered -Plan for LP Acute blood loss anemia -Transfuse 1 unit PRBC 07/24, Hb 7.6 after -Follow-up CBC daily, transfuse for hemoglobin less than 7, -"Coagulation panel normal, heme-onc following, no concern for DIC Hypoglycemia in the settings of decreased oral intake -Continue D5 normal saline, Accu-Cheks, hypoglycemia protocol Elevated AST, ALP, likely in the settings of malignancy with bone involvement -Monitor CMP Hypokalemia: Potassium replaced [Chronic:] History of paroxysmal A-fib: Not on anticoagulation HLD: Resume atorvastatin 40 Hypertension: Resume metoprolol succinate 50 twice daily DVT ppx: holding due to acute blood loss anemia Anticipated discharge place: Plan to transfer to [facility], Anticipated discharge time: pending bed availability Objective - Vital Signs Vital signs: Vital Signs Temp 98.0 F 07/25/24 08:15 Pulse 90 07/25/24 08:15 Resp 17 07/25/24 08:15 BP 140/77 07/25/24 08:15 Pulse Ox 95 07/25/24 08:15 FiO2 Intake & Output 07/24/24 07/25/24 07/25/24 18:59 06:59 18:59 Intake Total 350 20 Output Total 400 425 Balance -50 -405 Weight 79 kg Intake: IV 40 20 Invasive Line 6 20 10 Invasive Line 8 20 10 Blood Product 310 Rc As-1 Unit 310 [id number] Output: Urine 400 425 Other: Voiding Method Indwelling Catheter Indwelling Catheter Indwelling Catheter - Labs CBC & Chem 7: 07/25/24 07:30 07/25/24 07:30 Labs: Abnormal Lab Results - Last 24 Hours (Table) 07/24/24 07/25/24 07/25/24 Range/Units 08:59 06:03 07:30 WBC (3.8-10.6) k/uL RBC (3.80-5.40) m/uL Hgb (11.4-16.0) gm/dL Hct (34.0-46.0) % MCHC (31.0-37.0) g/dL RDW (11.5-15.5) % Neutrophils # (1.3-7.7) k/uL Potassium 3.2 L (3.5-5.1) mmol/L Chloride 113 H (98-107) mmol/L Carbon Dioxide 21 L (22-30) mmol/L BUN 19 H (7-17) mg/dL POC Glucose (mg/dL) 112 H (70-110) mg/dL Calcium 8.0 L (8.4-10.2) mg/dL Crossmatch See Detail 07/25/24 Range/Units 07:30 WBC 18.4 H (3.8-10.6) k/uL RBC 2.81 L (3.80-5.40) m/uL Hgb 7.6 L (11.4-16.0) gm/dL Hct 24.5 L (34.0-46.0) % MCHC 30.9 L (31.0-37.0) g/dL RDW 17.4 H (11.5-15.5) % Neutrophils # 15.1 H (1.3-7.7) k/uL Potassium (3.5-5.1) mmol/L Chloride (98-107) mmol/L Carbon Dioxide (22-30) mmol/L BUN (7-17) mg/dL POC Glucose (mg/dL) (70-110) mg/dL Calcium (8.4-10.2) mg/dL Crossmatch
[2024-07-25] MEDS: POTASSIUM CHLORIDE 10 MEQ in WATER FOR INJECTION 1 100ML.BAG IVPB SCH (13:32)
[2024-07-25 16:17] LABS: Glucose,Whole Blood 98 mg/dL (70-110)
--- NOTE | 2024-07-25 18:17 | P.PN ---
Subjective Progress Note Date: 07/25/24 Patient off unit at today's visit. Spoke with family at bedside regarding diagnosis and plan of care. All questions and concerns were addressed Objective - Vital Signs Vital signs: Vital Signs Temp 98.0 F 07/25/24 08:15 Pulse 90 07/25/24 08:15 Resp 17 07/25/24 08:15 BP 140/77 07/25/24 08:15 Pulse Ox 95 07/25/24 08:15 FiO2 Intake & Output 07/24/24 07/25/24 07/25/24 18:59 06:59 18:59 Intake Total 350 20 Output Total 400 425 Balance -50 -405 Weight 79 kg Intake: IV 40 20 Invasive Line 6 20 10 Invasive Line 8 20 10 Blood Product 310 Rc As-1 Unit 310 [id number] Output: Urine 400 425 Other: Voiding Method Indwelling Catheter Indwelling Catheter Indwelling Catheter - Labs CBC & Chem 7: 07/25/24 07:30 07/25/24 07:30 Labs: Abnormal Lab Results - Last 24 Hours (Table) 07/24/24 07/25/24 07/25/24 Range/Units 08:59 06:03 07:30 WBC (3.8-10.6) k/uL RBC (3.80-5.40) m/uL Hgb (11.4-16.0) gm/dL Hct (34.0-46.0) % MCHC (31.0-37.0) g/dL RDW (11.5-15.5) % Neutrophils # (1.3-7.7) k/uL Potassium 3.2 L (3.5-5.1) mmol/L Chloride 113 H (98-107) mmol/L Carbon Dioxide 21 L (22-30) mmol/L BUN 19 H (7-17) mg/dL POC Glucose (mg/dL) 112 H (70-110) mg/dL Calcium 8.0 L (8.4-10.2) mg/dL Crossmatch See Detail 07/25/24 Range/Units 07:30 WBC 18.4 H (3.8-10.6) k/uL RBC 2.81 L (3.80-5.40) m/uL Hgb 7.6 L (11.4-16.0) gm/dL Hct 24.5 L (34.0-46.0) % MCHC 30.9 L (31.0-37.0) g/dL RDW 17.4 H (11.5-15.5) % Neutrophils # 15.1 H (1.3-7.7) k/uL Potassium (3.5-5.1) mmol/L Chloride (98-107) mmol/L Carbon Dioxide (22-30) mmol/L BUN (7-17) mg/dL POC Glucose (mg/dL) (70-110) mg/dL Calcium (8.4-10.2) mg/dL Crossmatch Assessment and Plan (1) Abscess of right thigh Current Visit: Yes Status: Acute Priority: High Code(s): L02.415 - CUTANEOUS ABSCESS OF RIGHT LOWER LIMB SNOMED Code(s): 57826540451437328 (2) Fever Current Visit: Yes Status: Acute Priority: High Code(s): R50.9 - FEVER, UNSPECIFIED SNOMED Code(s): 350819030 (3) Hematoma of right lower leg Current Visit: Yes Status: Acute Priority: Medium Code(s): S80.11XA - CONTUSION OF RIGHT LOWER LEG, INITIAL ENCOUNTER SNOMED Code(s): 95060247921146746 (4) Pain Current Visit: Yes Status: Acute Priority: High Code(s): R52 - PAIN, UNSPECIFIED SNOMED Code(s): 45427082 (5) Pulmonary nodules Current Visit: Yes Status: Acute Priority: Medium Code(s): R91.8 - OTHER NONSPECIFIC ABNORMAL FINDING OF LUNG FIELD SNOMED Code(s): 107591845 (6) Osteosarcoma Current Visit: Yes Status: Acute Priority: High Code(s): C41.9 - MALIGNANT NEOPLASM OF BONE AND ARTICULAR CARTILAGE, UNSP SNOMED Code(s): 971890026 Plan: Fever -Likely 2/2 to necrosis/infection around mass in right thigh -WBC elevated, neutrophilia, consistent with infection -Infectious disease following -Continues on IV antibiotics. -Blood culture negative. Repeat blood cultures ordered RLE Pain -Secondary to infection and mass in right thigh -Case discussed with Pharm.D., pain medication adjustments have been made. -Medications have been ordered for prevention of narcotic induced constipation Metastatic osteosarcoma -Patient's clinical course summarized in HPI. Right thigh mass as well as pulmonary nodules are FDG avid. She is status post biopsy 07/05/24 -Patient has met with an Orthopedic Oncologist at , recommendations pending path. Surgery team recommending transfer to for surgical debridement and further evaluation by ortho oncology -Patient has had the GLORIA drain in for about 7 weeks. Concerns for infection. 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 Unfortunately with noted metastatic disease surgical intervention is not typically standard of care, as well it could delay chemo/RT for sometime. Discussed case with rad onc. Will consider palliative RT to right thigh if she continues having anemia secondary to tumor. Ideally pt will need to be started on systemic treatment once infection is adequately treated -Plan is to transfer pt to [facility] for surgical debridement and ortho onc evaluation -Clinic f/u with Dr. Montesinos scheduled for 08/07/24 Confusion: -MRI brain negative for metastases, and infarct. -Neurology following. EEG showing moderate to severe background slowing, could be suggestive of toxic metabolic encephalopathy -Discussed case with neurology, will obtain LP to r/o leptomeningeal disease vs infectious etiologies -Plan for LP today. This was discussed with patient's spouse and he was agreeable to the same Anemia -Blood loss anemia, mass in thigh, GLORIA drain with bloody output -S/p 4 units PRBCs since admit. Hgb 7.6 today -CBC daily, transfuse for Hgb <7 or if symptomatic -Hold IV iron for now due to infection. This can also be given in outpt setting once infection has been adequately treated
[2024-07-25] MEDS: levETIRAcetam IV 500 MG/5 ML VIAL IVP STA (18:27)
[2024-07-25 19:35] VITALS: BP 117/68; PULSE 88; RESP 20; TEMP 99.3
[2024-07-25] MEDS: levETIRAcetam IV 500 MG/5 ML VIAL IVP SCH (20:50)
[2024-07-25 21:12] LABS: Glucose,Whole Blood 109 mg/dL (70-110)
--- NOTE | 2024-07-25 23:32 | EEG ---
ELECTROENCEPHALOGRAM REPORT PREAMBLE: This is a 58-year-old female with altered mental status. This is a prolonged study for 1 hour. Thus the recording start time is 10:50 a.m. on 07/25/2024 and recording end timing is 11:54 a.m. on 07/25/2024. CURRENT MEDICATIONS: 1. Keppra. 2. Dilaudid. 3. Glouster. 4. Vancomycin. EEG FINDINGS: This is a 21-channel digital EEG recorded with video component, utilizing 10/20 international system with referential and bipolar montages. The recording starts and continues with presence of diffuse moderate amplitude mixed with 4-5 hertz theta with some 2-3 years of delta slowing in bihemispheric region. Very frequent high-amplitude triphasic waves were seen in bihemispheric region, which at times becomes repetitive at 2 hertz. Different stages of sleep were not seen. Photic driving response was not seen. No electrographic seizure was recorded. IMPRESSION: This is a severely abnormal EEG due to, 1. Background slowing of moderate to severe degree, suggestive of generalized cerebral dysfunction as can be seen with toxic metabolic encephalopathy or related to diffuse structural brain abnormality. Clinical correlation is recommended. 2. Presence of frequent triphasic waves, which at times become repetitive at 2 hertz. The triphasic waves can be seen with severe metabolic encephalopathy. RECOMMENDATIONS: Continuous EEG monitoring, or perhaps a followup EEG, especially if clinically indicated. LEN / FABIOLA: [id number] /
--- NOTE | 2024-07-26 07:33 | P.DS ---
Providers Date of admission: 07/16/24 00:49 Attending physician: Erickson Keane MD Consults: 07/16/24 00:49 Consult Physician Routine Consulting Provider: Ricardo Ramírez Consult Reason/Comments: Soft tissue mass with secondary infection Do you want consulting provider notified?: Already Contacted 07/16/24 05:29 Consult Physician Routine Consulting Provider: Khoa Montesinos Consult Reason/Comments: Suspected Sarcoma Do you want consulting provider notified?: Yes 07/16/24 13:13 Consult Physician Routine Consulting Provider: Sara Sanderson Consult Reason/Comments: infected hematoma with possible osteo Do you want consulting provider notified?: Yes 07/20/24 15:39 Consult Physician Routine Consulting Provider: Andi Garcia Consult Reason/Comments: sarcoma right thigh, metastatic Do you want consulting provider notified?: Yes 07/23/24 09:15 Consult Physician Stat Consulting Provider: Balta Ray Consult Reason/Comments: LOC change, new confusion, word salad Do you want consulting provider notified?: Already Contacted 07/23/24 09:27 Consult Physician Urgent Consulting Provider: Kellie Guerrero Consult Reason/Comments: stroke Do you want consulting provider notified?: Yes Primary care physician: Breana Garcia Hospital Course: Discharge Diagnosis: Sepsis likely secondary to right thigh infection in the settings of surgical drainage presents, possible mass necrosis Lactic acidosis, resolved, in the settings of above Status post right thigh hematoma evacuation 05/25/2024 Right thigh metastatic osteosarcoma Altered mental status likely secondary to toxic metabolic encephalopathy in the setting of cefepime use Acute blood loss anemia Hypoglycemia in the settings of decreased oral intake Hospital Course: A 58-year-old female with recent complicated PMH including Takotsubo cardiomyopathy, HLD, HTN, paroxysmal A-fib not on anticoagulation, complex mass of the femur pending pathology, concern for metastatic process. History of right leg pain with hematoma evacuation on 05/25/2024, who presented to the ER with worsening erythema, pain, foul smelling discharge, concern for infection. ED documentation reviewed. In the ED patient was treated with a bolus of normal saline, ceftriaxone 2 g IV x 1, Dilaudid 0.5 mg IV x 1. Oncology following, patient has previously met with an orthopedic oncologist at [facility], recommendations pending pathology. Vitals on admission temperature 99.3, pulse rate 100, respiratory rate 12, blood pressure 100/66, O2 sat 95% on room air CXR shows enlarging pulmonary nodules throughout the lungs compared to 05/31/2024. Findings compatible with metastatic disease. Right knee x-ray shows no acute osseous pathology. Mild tricompartmental osteoarthritic changes. Right femur x-ray shows soft tissue catheter in the subcutaneous tissues/mass of the right lower extremity. No evidence of fracture. There is a cortical scalloping along the femur possibly representing involvement of the known mass. Labs on admission show WBC 23.8, hemoglobin 6.8, hematocrit 22.5, platelets 601, neutrophils 19.1, PT 11.7, PTT 23.5, INR 1.1, sodium 132, potassium 4.4, chloride 94, carbon dioxide 20, BUN 12, creatinine 0.55, lactic acid 6.5, calcium 8.2, AST 37, ALT 12, alkaline phosphatase 305. ID consulted for management of sepsis secondary to right side infection, started on vancomycin and ceftriaxone, now she switched to vancomycin and cefepime general surgery consulted. Surgery recommends transfer to [facility] as patient was previously seen by Dr. Wilbert Beavers, orthopedic oncology, who apparently practices at [facility]. Per Dr. Ramírez, Dr. Lopes had a conversation with Dr. Beavers regarding transfer, currently awaiting further clarification from Dr. Lopes. Of note, patient was never seen at [facility]. Awaiting bed transfer to [facility]. 07/22 patient was noted to be altered, becoming more confused and unable to answer simple questions. Stat CTA head and neck showed no acute abnormality, MRI of the brain with and without contrast revealed no acute abnormality as well. Stat EEG showed moderate to severe background slowing and frequent triphasic waves, concern for hepatic encephalopathy or toxic metabolic encephalopathy due to cephalosporins. Patient was empirically started on Keppra. Ammonia level negative Lumbar spine MRI ordered and showed no stenosis, no abnormal enhancement. [facility] called and provided with medical update on 07/24. 07/24 in the afternoon patient started spiking fever, repeat blood cultures obtained, ID notified.Switched to ceftriaxone, plan for LP 07/25. Patient has been afebrile since 07/24 4 PM. 07/25 hemoglobin improved after transfusion up to 7.6, leukocytosis somewhat worse 17.7 up to 18.4. Thoracic spine MRI pending, prolonged EEG ordered. Patient is a little bit more alert today, opens eyes, when asked told me she is all right, continues to moan from pain. 07/25 1929 patient was transferred to [place], Dr England. Vital signs reviewed and stable. please, see physical exam in the progress note from 07/25 A total of 40minutes of time were spent preparing this complex discharge summary. Patient was discharged on 07/25/24 Patient Condition at Discharge: Stable Plan - Discharge Summary New Discharge Prescriptions: Continue Multivitamins, Thera [Multivitamin (formulary)] 1 tab PO DAILY Loratadine [Claritin] 10 mg PO DAILY Atorvastatin [Lipitor] 40 mg PO HS Metoprolol Succinate (ER) [Toprol XL] 50 mg PO BID #180 tab Aspirin 81 mg PO DAILY #30 tab HYDROcodone/APAP 5-325MG [[place] 5-325] 1 tab PO Q6HR PRN 3 Days #12 tab PRN Reason: Pain Acetaminophen Tab [Tylenol] 650 mg PO Q6HR PRN tab PRN Reason: Mild Pain Or Fever > 100.5 Ferrous Sulfate [Iron (65 MG Elemental)] 325 mg PO DAILY #30 tab Escitalopram [Lexapro] 10 mg PO HS Digoxin [Lanoxin] 125 mcg PO DAILY Discharge Medication List Loratadine [Claritin] 10 mg PO DAILY 01/13/24 [History] Multivitamins, Thera [Multivitamin (formulary)] 1 tab PO DAILY 01/13/24 [History] Atorvastatin [Lipitor] 40 mg PO HS 05/22/24 [History] Digoxin [Lanoxin] 125 mcg PO DAILY 05/22/24 [History] Escitalopram [Lexapro] 10 mg PO HS 05/22/24 [History] Aspirin 81 mg PO DAILY #30 tab 05/28/24 [Rx] HYDROcodone/APAP 5-325MG [[place] 5-325] 1 tab PO Q6HR PRN 3 Days #12 tab 05/28/24 [Rx] Metoprolol Succinate (ER) [Toprol XL] 50 mg PO BID #180 tab 05/28/24 [Rx] Acetaminophen Tab [Tylenol] 650 mg PO Q6HR PRN tab 06/04/24 [Rx] Ferrous Sulfate [Iron (65 MG Elemental)] 325 mg PO DAILY #30 tab 06/04/24 [Rx] Follow up Appointment(s)/Referral(s): Khoa Montesinos [STAFF PHYSICIAN] - 08/07/24 9:15 am Breana Garcia MD [Primary Care Provider] - 1-2 days Andi Garcia MD [STAFF PHYSICIAN] - 1 Week Discharge Disposition: TRANSFER TO SHORT TERM HOSP
[2024-07-26] MEDS ORDERED: VANCOMYCIN TROUGH DUE 1 EACH MISC MISCELLANE ONE (13:00)
--- NOTE | 2024-07-26 13:26 | MR ---
MRI of thoracic spine with and without contrast HISTORY: Bilateral lower extremity weakness. COMPARISON: None TECHNIQUE: Multiecho multiplanar images of the thoracic spine were obtained with and without contrast . FINDINGS: The thoracic vertebral segments are normal in height and alignment and there is no fracture or sublux ation. There is a large herniation at the T8-9 level slightly greater to the right of midline resulting in m arked mass effect on the right anterolateral aspect of the spinal cord and thecal sac. The thoracic spinal cord is normal in signal intensity and there is no encephalomalacia. Paraspinal soft tissues are unremarkable. Following contrast administration, there is no pathological enhancement. The neuroforamina are patent bilaterally. IMPRESSION: 1. Herniation of the T8-9 intervertebral disc as described above. 2. Bilateral pleural effusions. [facility], , 07/26/2024 1:24 PM
--- NOTE | 2024-07-26 14:19 | P.PN ---
Subjective Progress Note Date: 07/25/24 Principal diagnosis: Reason for follow-up is sepsis possible right thigh infected hematoma Patient is a 58-year-old female with a past medical history significant for hyperlipidemia atrial fibrillation recently has developed hematoma of the right thigh that was drained on 05/25/2024 culture has been negative patient now presenting back to the hospital concerning for increasing pain and swelling to the right thigh area and also foul-smelling drainage patient to be diagnosed with sepsis possible associated infected right thigh hematoma General Surgeon recommended patient to be transferred to urgent care. On today's evaluation that is 07/25/2024,the patient continues to be afebrile patient remains to be lethargic arousable did not answer any question normal denies any changes reported by the nursing staff. Patient white count is 18.1, creatinine 0.83 culture remains to be negative Objective - Vital Signs Vital signs: Vital Signs Temp 98.0 F 07/25/24 08:15 Pulse 77 07/25/24 12:05 Resp 17 07/25/24 12:05 BP 107/69 07/25/24 12:05 Pulse Ox 95 07/25/24 12:05 FiO2 Intake & Output 07/24/24 07/25/24 07/25/24 18:59 06:59 18:59 Intake Total 350 20 Output Total 400 425 Balance -50 -405 Weight 79 kg Intake: IV 40 20 Invasive Line 6 20 10 Invasive Line 8 20 10 Blood Product 310 Rc As-1 Unit 310 [id number] Output: Urine 400 425 Other: Voiding Method Indwelling Catheter Indwelling Catheter Indwelling Catheter - Exam GENERAL DESCRIPTION: Middle-age female lying in bed in no distress RESPIRATORY SYSTEM: Unlabored breathing , decreased breath sounds at bases HEART: S1 S2 regular rate and rhythm , ABDOMEN: Soft , no tenderness EXTREMITIES: Right thigh with swelling redness no drainage - Labs CBC & Chem 7: 07/25/24 07:30 07/25/24 07:30 Labs: Abnormal Lab Results - Last 24 Hours (Table) 07/24/24 07/25/24 07/25/24 Range/Units 08:59 06:03 07:30 WBC (3.8-10.6) k/uL RBC (3.80-5.40) m/uL Hgb (11.4-16.0) gm/dL Hct (34.0-46.0) % MCHC (31.0-37.0) g/dL RDW (11.5-15.5) % Neutrophils # (1.3-7.7) k/uL Potassium 3.2 L (3.5-5.1) mmol/L Chloride 113 H (98-107) mmol/L Carbon Dioxide 21 L (22-30) mmol/L BUN 19 H (7-17) mg/dL POC Glucose (mg/dL) 112 H (70-110) mg/dL Calcium 8.0 L (8.4-10.2) mg/dL Crossmatch See Detail 07/25/24 Range/Units 07:30 WBC 18.4 H (3.8-10.6) k/uL RBC 2.81 L (3.80-5.40) m/uL Hgb 7.6 L (11.4-16.0) gm/dL Hct 24.5 L (34.0-46.0) % MCHC 30.9 L (31.0-37.0) g/dL RDW 17.4 H (11.5-15.5) % Neutrophils # 15.1 H (1.3-7.7) k/uL Potassium (3.5-5.1) mmol/L Chloride (98-107) mmol/L Carbon Dioxide (22-30) mmol/L BUN (7-17) mg/dL POC Glucose (mg/dL) (70-110) mg/dL Calcium (8.4-10.2) mg/dL Crossmatch Assessment and Plan (1) Sepsis Status: Acute Code(s): A41.9 - SEPSIS, UNSPECIFIED ORGANISM SNOMED Code(s): 11631906 (2) Abscess of right thigh Status: Acute Priority: High Code(s): L02.415 - CUTANEOUS ABSCESS OF RIGHT LOWER LIMB SNOMED Code(s): 55718492026162959 Plan: 1patient presenting the hospital with increasing pain and swelling and foul- smelling drainage from the right thigh drainage catheter in this patient who did have features of sepsis with fever tachycardia elevated white count elevated lactic acid, will need to cover for both gram-positive as well as gram-negative pathogen 2-patient did have significant mental status changes more likely related to the cefepime which has been discontinued 3patient did have resolution of the fever culture has been negative so far she is currently covered with vancomycin and Rocephin pending transfer to [facility] she did have MRI of the brain that was negative for any acute process Dictation was produced using [employer] dictation software. please excuse any grammatical, word or spelling errors. Time with Patient: Less than 30
== END 2024-07-25 22:01 | disposition short-term general hospital (02) | DRG 862 ==
LOC: EC 19:26 → 3SCARD 07-16 00:49
PROVIDERS: ADMIT Internal Medicine; ATTEND Internal Medicine
PROC: 30233N1 Transfusion of Nonautologous Red Blood Cells into Peripheral Vein, Percutaneous Approach (ICD-10-PCS; 2024-07-16)
PROC: 4A10X4Z Monitoring of Central Nervous Electrical Activity, External Approach (ICD-10-PCS; 2024-07-22)
PROC: 05HC33Z Insertion of Infusion Device into Left Basilic Vein, Percutaneous Approach (ICD-10-PCS; principal; 2024-07-23 08:30)
PROC: 4A10X4Z Monitoring of Central Nervous Electrical Activity, External Approach (ICD-10-PCS; 2024-07-25)
DX: T81.41XA Infection following a procedure, superficial incisional surgical site, initial encounter (principal); G92.8 Other toxic encephalopathy; C49.21 Malignant neoplasm of connective and soft tissue of right lower limb, including hip; C78.00 Secondary malignant neoplasm of unspecified lung; D62 Acute posthemorrhagic anemia; E87.20 Acidosis, unspecified; L02.415 Cutaneous abscess of right lower limb; R47.01 Aphasia; I96 Gangrene, not elsewhere classified; L76.32 Postprocedural hematoma of skin and subcutaneous tissue following other procedure; S80.11XA Contusion of right lower leg, initial encounter; E53.8 Deficiency of other specified B group vitamins; E78.5 Hyperlipidemia, unspecified; E87.6 Hypokalemia; T36.1X5A Adverse effect of cephalosporins and other beta-lactam antibiotics, initial encounter; E87.70 Fluid overload, unspecified; I10 Essential (primary) hypertension; T81.44XA Sepsis following a procedure, initial encounter; I48.0 Paroxysmal atrial fibrillation; M19.90 Unspecified osteoarthritis, unspecified site; W19.XXXA Unspecified fall, initial encounter; Z75.1 Person awaiting admission to adequate facility elsewhere; Z79.82 Long term (current) use of aspirin; Z79.899 Other long term (current) drug therapy; Z87.891 Personal history of nicotine dependence; M17.11 Unilateral primary osteoarthritis, right knee; Y84.8 Other medical procedures as the cause of abnormal reaction of the patient, or of later complication, without mention of misadventure at the time of the procedure; X58.XXXA Exposure to other specified factors, initial encounter
CPT/HCPCS: 36410; 36415; 36430; 36573; 70450; 70496; 70498; 70553; 71045; 71046; 72157; 72158; 76937; 80048; 80053; 80202; 82140; 83605; 83735; 85025; 85027; 85045; 85379; 85384; 85610; 85730; 86850; 86900; 86901; 86920; 87040; 93005; 95813; 95816; 96360; 96361; 96365; 96366; 96367; 96372; 96375; 96376; 99291